=== PATIENT | male | born 1960 | race Caucasian/White ===

== ENCOUNTER 2020-10-14 18:56 | Inpatient (IN) | payer MEDICARE, MEDICAID, SELFPAY ==
--- NOTE | ~2020-10-14 | XR_ITS ---
EXAMINATION: XR abdomen obstructive series DATE: 10/16/2020 05:17 INDICATION: Follow-up small bowel obstruction TECHNIQUE: Frontal supine and upright views of the abdomen were obtained. COMPARISON: None. FINDINGS: Nasogastric tube tip in proximal side port in the body of the stomach. Persistent dilated loop of gas -filled small bowel may central abdomen. There are some additional gas scattered throughout nondilate d colon. No pneumatosis or free intraperitoneal gas. Lung bases are clear. Heart size is normal. IMPRESSION: 1. Dilated loops of gas-filled bowel in the central abdomen consistent with persistent small bowel o bstruction or ileus. Reviewed, dictated and finalized at location A. IMPRESSION: 1. Dilated loops of gas-filled bowel in the central abdomen consistent with pe rsistent small bowel obstruction or ileus.
--- NOTE | ~2020-10-14 | XR_ITS ---
EXAMINATION: XR abdomen NG/feed tube insert INDICATION: Nasogastric tube insertion TECHNIQUE: Portable AP KUB-NG at 2257 hours COMPARISON: CT from the same date FINDINGS: The nasogastric tube is in the stomach. Contrast from earlier CT examination partially opac ifies the urinary tract. There are dilated loops of small bowel, consistent with small bowel obstruct ion. The visualized lung bases are clear. IMPRESSION: 1. Nasogastric tube in the stomach. 2. Small bowel obstruction. Reviewed, dictated and finalized at location A.
--- NOTE | ~2020-10-14 | CT_ITS ---
EXAMINATION: CT abdomen pelvis w con EXAM DATE: 10/14/2020 20:48 INDICATION: Nausea vomiting, abdominal swelling. Abdominal pain. TECHNIQUE: Spiral CT of the abdomen and pelvis was performed following intravenous injection of 100 m L Omnipaque 350. Axial, coronal and sagittal images were reviewed. The dose-length product (DLP) fo r this examination was 374.74 mGy-cm. The exposure was tailored according to patient size (auto mA e xposure control), and iterative reconstruction (ASIR) was used as additional dose reduction technique . 07/17/2018 FINDINGS: The stomach and jejunum are severely dilated, jejunum up to 4.2 cm. No pneumatosis. There i s mid abdominal transition point suspected, most likely small bowel obstruction. Ileum is nearly comp letely collapsed. There is a 1 cm right liver lobe, segment 7 cyst. The liver, spleen, adrenal glands and pancreas are otherwise unremarkable. Gallbladder is unremarkable. No biliary obstruction. Por madelin and splenic veins are patent. Kidneys enhance symmetrically. There is no hydronephrosis. The prostate is unremarkable. The bladder is undistended at time of imaging. There is no retroperitonea l or pelvic lymphadenopathy. There is mild scattered arteriosclerotic disease. There are no findings to suggest appendicitis. The stomach and small bowel are unremarkable. There is expected amount of colonic stool. No free intraperitoneal gas. The heart is normal in size. T here are no pericardial or pleural effusions. The lung bases are unremarkable. There are no osteobl astic or osteolytic lesions identified. IMPRESSION: Mid small bowel obstruction. Reviewed, dictated and finalized at location A.
--- NOTE | ~2020-10-14 | XR_ITS ---
EXAMINATION: XR chest 2V DATE: 10/15/2020 02:04 INDICATION: Fever and vomiting TECHNIQUE: PA and lateral views of the chest are obtained. COMPARISON: 05/19/2015 FINDINGS: The lungs are free of acute opacities. There is no pleural effusion or pneumothorax. The ca rdiomediastinal silhouette is normal. There is mild thoracic spondylosis. The nasogastric tube is in the stomach. Multiple dilated small bowel loops with air-fluid levels are seen in the visualized uppe r abdomen. IMPRESSION: 1. No acute cardiopulmonary abnormality. 2. Findings in the upper abdomen consistent with small bowel obstruction. Reviewed, dictated and finalized at location A.
--- NOTE | ~2020-10-14 | XR_ITS ---
XR chest 1V portable 10/16/2020 09:36 Indication: Fever. Small bowel obstruction. Procedure: AP portable chest Comparison: 10/15/2020 and 05/19/2015 Findings: Heart size normal. NG tube in the stomach. Subsegmental atelectasis left lower lung zone. N o focal pneumonia, edema, pleural effusion or pneumothorax. No acute osseous abnormality. Impression: 1: Left basilar atelectasis. Reviewed, dictated and finalized at location B. Impression: 1: Left basilar atelectasis.
--- NOTE | ~2020-10-14 | XR_ITS ---
EXAMINATION: XR abdomen obstructive series DATE: 10/17/2020 06:08 INDICATION: Ileus versus small bowel obstruction. TECHNIQUE: Frontal supine and upright views of the abdomen were obtained. COMPARISON: 10/16/2020 FINDINGS: Nasogastric tube tip in proximal side port in the body of the stomach. There is a small amount of gas within a couple nondilated loops of small bowel in the left upper quadrant. Additional small amount of gas scattered throughout the colon. No free intraperitoneal gas. Visualized lungs are clear. Car diomediastinal silhouette is normal. IMPRESSION: 1. Nonspecific bowel gas pattern with no residual frankly dilated loops of gas-filled small bowel co nsistent with improving ileus versus obstruction. Reviewed, dictated and finalized at location A. IMPRESSION: 1. Nonspecific bowel gas pattern with no residual frankly dilated loops of gas -filled small bowel consistent with improving ileus versus obstruction.
--- NOTE | ~2020-10-14 | XR_ITS ---
EXAMINATION: XR sm bowel follow through WS EXAM DATE: 10/17/2020 11:00 INDICATION: Small bowel obstruction on CT. TECHNIQUE: Python Django Developer radiograph was acquired. Small bowel series was performed with water-soluble contr ast solution. The DAP for this procedure was 9.1 Gycm2. Fluoroscopy time 0.0 minutes. A total of 4 images obtained for the exam. FINDINGS: Feeding tube in position. There is moderately dilated jejunum. Ileal and jejunal fold patte rns are normal. There is no small bowel wall thickening or mass effect displacing small bowel. Ther e are no intraluminal filling defects identified. Terminal ileum visualized on KUB, is normal in valeria earance. Contrast reached the colon by 30 minutes. IMPRESSION: Moderately dilated jejunum, normal calibered ileum. Normal transit time of 30 minutes. Reviewed, dictated and finalized at location A.
[2020-10-14 18:58] VITALS: BP 123/84; PULSE 110; RESP 18; TEMP 36.4; O2SAT 98
--- NOTE | 2020-10-14 19:51 | PC.NURSE ---
Pt. amb to bathroom for urine sample.
[2020-10-14 19:54] LABS: Basophils Percent Auto 0.2 % (0.2-1.2); Hematocrit 40.7 % (42.0-52.0); Hemoglobin 13.3 g/dL (14.0-18.0); Immature Granulocyte Absolute 0.07 K/mm3 (0.00-0.031); Immature Granulocyte Percent A 0.6 % (0-0.5); Lymphocytes Absolute Auto 0.68 K/mm3 (0.9-3.2); Lymphocytes Percent Auto 6.3 % (18.3-44.2); Mean Corpuscular HGB Conc 32.7 g/dl (32-36); Mean Corpuscular Hemoglobin 34.1 pg (26-34); Mean Corpuscular Volume 104.4 fl (80-100); Mean Platelet Volume 10.6 fl (7.4-10.4); Monocytes Absolute Auto 0.9 K/mm3 (0.1-0.6); Monocytes Percent Auto 7.9 % (2.6-8.5); Neutrophils Absolute Auto 9.2 K/mm3 (1.3-6.7); Platelet Count Result 171 k/mm3 (150-375); Red Cell Distribution Width 13.3 % (11.5-14.5); White Blood Count 10.8 K/mm3 (4.5-10.0)
[2020-10-14 20:26] LABS: Alanine Aminotransferase 19 U/L (4-50); Albumin Level 3.9 g/dL (3.5-5.1); Alkaline Phosphatase 151 U/L (38-126); Anion Gap 6 mmol/L (8-16); Aspartate Amino Transferase 39 U/L (17-59); Bilirubin,Total 0.9 mg/dL (0.2-1.3); Blood Urea Nitrogen 16 mg/dL (9-20); Calcium 9.4 mg/dL (8.4-10.2); Carbon Dioxide 29 mmol/L (22-30); Chloride 105 mmol/L (98-107); Estimated Glomerular Filt Rate > 60; Glucose 135 mg/dL (75-110); Lipase 264 U/L (23-300); Potassium 4.3 mmol/L (3.4-5.0); Sodium 140 mmol/L (137-145)
--- NOTE | 2020-10-14 20:41 | ED.GENADULT ---
HPI - General Adult General Chief complaint: Abdominal Pain Stated complaint: SBO? Time Seen by Provider: 10/14/20 19:24 History of Present Illness HPI narrative: Patient 60-year-old gentleman who presents the emergency department with chief complaint of possible small bowel obstruction. Patient reports prior histories of small bowel obstructions in the past and the caregiver noticed that today he was eating slower than normal and noticed he had one episode of vomiting he is also had some diarrhea with this as well. Currently the patient states that he has no complaints and wants to get a CT scan and wants to go back home. Related Data Allergies Allergy/AdvReac Type Severity Reaction Status Date / Time No Known Allergies Allergy Unverified 10/14/20 19:01 Review of Systems Review of Systems: Narrative: A 10 system review of systems was completed on the patient and is negative except for what is stated in the HPI. Nursing and ancillary documentation was reviewed. PMFSH Social History Social History Gender identity (if verbalized by the patient): Male Sexual Orientation (if Verbalized by the Patient): Straight or Heterosexual Comments Past medical history significant for cognitive delay, small bowel obstruction Crohn's, anemia Social patient is a resident of a care facility Exam Narrative: Exam Narrative: GENERAL: Well-appearing, well-nourished, and in no acute distress. HEAD: Normocephalic, atraumatic. EYES: PERRLA and EOMI. ENT: Nares clear, no rhinorrhea or epistaxis. Mucous membranes moist. NECK: Supple. CHEST: Clear to auscultation. No respiratory distress. HEART: Regular rate and rhythm. No murmur heard. Normal peripheral pulses. ABDOMEN: Soft, nontender, nondistended, normal active bowel sounds. EXTREMITIES: Normal range of motion. No edema. SKIN: Warm, dry, no rash. NEURO: No focal deficits. Alert and oriented x3. PSYCH: Normal mood and affect. Course Vital Signs Vital signs: Vital Signs Temperature 36.4 C L 10/14/20 18:58 Pulse Rate 110 H 10/14/20 18:58 Respiratory Rate 18 10/14/20 18:58 Blood Pressure 123/84 10/14/20 18:58 Pulse Oximetry 98 10/14/20 18:58 Temperature 36.4 C L 10/14/20 18:58 Pulse Rate 110 H 10/14/20 18:58 Respiratory Rate 18 10/14/20 18:58 Blood Pressure 123/84 10/14/20 18:58 Pulse Oximetry 98 10/14/20 18:58 Medical Decision Making Vital Signs Vital Signs: Vital Signs Temperature 36.4 C L 10/14/20 18:58 Pulse Rate 110 H 10/14/20 18:58 Respiratory Rate 18 10/14/20 18:58 Blood Pressure 123/84 10/14/20 18:58 Pulse Oximetry 98 10/14/20 18:58 Temperature 36.4 C L 10/14/20 18:58 Pulse Rate 110 H 10/14/20 18:58 Respiratory Rate 18 10/14/20 18:58 Blood Pressure 123/84 10/14/20 18:58 Pulse Oximetry 98 10/14/20 18:58 Lab Data Result diagrams: 10/14/20 19:47 10/14/20 20:10 Labs: Lab Results 10/14/20 10/14/20 10/14/20 Range/Units 19:47 20:10 21:02 WBC 10.8 H (4.5-10.0) K/mm3 RBC 3.90 L (4.6-6.20) M/mm3 Hgb 13.3 L (14.0-18.0) g/dL Hct 40.7 L (42.0-52.0) % MCV 104.4 H (80-100) fl MCH 34.1 H (26-34) pg MCHC 32.7 (32-36) g/dl RDW 13.3 (11.5-14.5) % Plt Count 171 (150-375) k/mm3 MPV 10.6 H (7.4-10.4) fl Immature Gran % (Auto) 0.6 H (0-0.5) % Neut % (Auto) 85.0 H (45.5-73.1) % Lymph % (Auto) 6.3 L (18.3-44.2) % [place] % (Auto) 7.9 (2.6-8.5) % Eos % (Auto) 0.0 (0-4.4) % Baso % (Auto) 0.2 (0.2-1.2) % Lymph # (Auto) 0.68 L (0.9-3.2) K/mm3 [place] # (Auto) 0.9 H (0.1-0.6) K/mm3 Eos # (Auto) 0.0 (0-0.3) K/mm3 Baso # (Auto) 0.0 (0.0-0.1) K/mm3 Abs Immat Gran (auto) 0.07 H (0.00-0.031) K/mm3 Absolute Neuts (auto) 9.2 H (1.3-6.7) K/mm3 Absolute Nucleated RBC 0.0 (0.0-0.012) K/mm3 Nucleated RBC % 0.0 (0.0-0.2) % Sodium 140 (137-145) mmol/L Potassium 4.3 (3.4
[2020-10-14] MEDS: ONDANSETRON INJ 4 MG/2 ML VIAL IV PUSH (20:59)
[2020-10-14 21:00] VITALS: BP 116/82; PULSE 102; RESP 19; O2SAT 100
[2020-10-14] MEDS: SODIUM CHLORIDE 0.9% IV 1,000 ML 999 ML IV CONT (21:01)
[2020-10-14 21:13] LABS: Add Urine Microscopic? YES; Appearance Urine Cloudy (Clear); Bacteria Urine Trace /hpf; Bilirubin Urine 1+ (Negative); Blood Urine Negative (Negative); Color Urine Amber (Yellow); Glucose Urine UA Negative (Negative); Ketones Urine Trace mg/dL (Negative); Leukocyte Esterase Ur Negative LEU/UL (Negative); Mucus Urine Heavy /lpf; Nitrate Urine Negative (Negative); Protein Urine 2+ mg/dL (Negative); RBC Urine 0-2 /hpf (0-2); Squamous Epithelial Cell Urine Rare /hpf (Few); WBC Urine 0-3 /hpf
[2020-10-14 21:16] LABS: Specific Grav Ur 1.031 (1.001-1.035)
--- NOTE | 2020-10-14 22:59 | PC.NURSE ---
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 updated on pt. status. [phone]
[2020-10-14 23:04] VITALS: BP 123/75; PULSE 108; O2SAT 97
[2020-10-14 23:30] VITALS: BP 137/77; PULSE 103; RESP 18; TEMP 38.1; O2SAT 97; BMI 22.8
[2020-10-15] VITALS (9 sets, daily range): BP systolic 123–126; BP diastolic 53–81; PULSE 100–108; RESP 16–18; TEMP 36.2–37.8; O2SAT 96–100
--- NOTE | 2020-10-15 00:56 | PC.NURSE ---
This patient, Ricardo Sotomayor, was admitted to [facility] Surg Room 306-01. Patient/family oriented to hospital policies and general routines including ID bracelet, bed and alarms, visiting hours, pain management, procedures, bathroom and other care routines, personal items, smoking policy, room service/diet, and visiting hours. Information on how to activate the Rapid Response Team has been discussed. Patient/Family are encouraged to report perceived risks to care and to ask questions if they do not understand what they are told or what they should do.
--- NOTE | 2020-10-15 01:16 | PM.IMHP ---
H&P: HPI History of Present Illness Date/Time: 10/15/20 01:16 Chief Complaint: Vomiting Narrative: Source of information: Past medical records and ER report. The patient is oriented to person place and time but cannot provide details of recent events or his medical history. Extremely pleasant 60-year-old male with a past medical history of autism spectrum disorder, schizoaffective disorder, intellectual disability, Crohn's and history of multiple prior small bowel obstructions who presented to the ER home due to vomiting. Noticed that the patient was eating slower than usual today and had 1 episode of vomiting. He had evidently also had some diarrhea later in the day. The patient denies having any abdominal pain. He knows that he did have his last bowel movement prior to coming to the ER. The patient has no other complaints but he keeps talking about when he can go home. The patient has already had nearly a L of output from his NG since admission. According to prior medical records the patient's last bowel obstruction was in June of 2018 and was due to more of a colonic ileus. The patient was afebrile on presentation to the ER but after he arrived on the medical floor it he spiked a temperature to 100.6. The patient had his 2nd COVID vaccine September 20, 2020. He had a chest x-ray that demonstrated no evidence of pneumonia. He has not been witnessed to have any cough. Review of Systems Review of Systems: Narrative: 12 systems were reviewed with pertinent positives and negatives per HPI. Except as documented in the HPI, all other systems were reviewed and are negative. However the patient is extremely poor historian due to his intellectual disability and psychiatric illness. [facility] Past Medical History Medical History (Updated 10/15/20 @ 07:40 by Kanwal Saucedo DO) Autism spectrum disorder Chronic anemia Chronic megaloblastic anemia with high folate and B12 levels in 2018 Crohn's disease GERD (gastroesophageal reflux disease) Gout Hypercholesterolemia Hypothyroidism Intellectual disability Peptic ulcer Schizophrenia Surgical History Surgical History (Updated 10/15/20 @ 07:20 by Kanwal Saucedo DO) History of appendectomy (~12/07/03) Performed at the same time as the exploratory laparotomy History of exploratory laparotomy (~12/07/03) With adhesion lysis due to bowel obstruction Family History Family History (Updated 10/15/20 @ 01:23 by Kanwal Saucedo DO) Other Unknown family medical history Social History Social History (Updated 10/15/20 @ 01:26 by Kanwal Saucedo, ) Social History: He lives in a retirement in [place]. Primary care physician: Dr. Isael Lanier Code status: Full code Healthcare power of bread molder: Jose Manuel Sotomayor (father) Smoking status: Never smoker Alcohol intake: never Substance use: never Gender identity (if verbalized by the patient): Male Sexual Orientation (if Verbalized by the Patient): Straight or Heterosexual Spiritual care concerns: No Meds Home Medications and Allergies Home Medications Medication Instructions Recorded Confirmed Type cetirizine [All Day Allergy 10 mg PO DAILY 10/15/20 10/15/20 History (cetirizine)] clozapine See Rx Instructions .ROUTE .COMPLEX 10/15/20 10/15/20 History divalproex 1,000 mg PO BID 10/15/20 10/15/20 History ergocalciferol (vitamin D2) 50,000 unit PO WEEKLY 10/15/20 10/15/20 History escitalopram oxalate 20 mg PO DAILY 10/15/20 10/15/20 History fenofibrate 160 mg PO DAILY 10/15/20 10/15/20 History folic acid 1 mg PO DAILY 10/15/20 10/15/20 History levothyroxine 100 mcg PO DAILY 10/15/20 10/15/20 History linaclotide [Linzess] 145 mcg PO DAILY 10/15/20 10/15/20 History multivitamin,tx-minerals [Thera M] 1 tablet PO DAILY 10/15/20 10/15/20 History omega 1-fyk-teo-fish oil [Fish Oil] 1 cap PO BID 10/15/20 10/15/20 History omeprazole 40 mg PO BID 10/15/20 10/15/20 History polyethylene glycol 3350 [Fco
[2020-10-15] MEDS: SODIUM CHLORIDE 0.9% IV 1,000 ML 125 ML IV CONT ×3 (01:45→19:49)
[2020-10-15 02:09] LABS: Lactic Acid Reflex 0.7 mmol/L (0.7-2.1)
[2020-10-15 06:27] LABS: Immature Granulocyte Absolute 0.04 K/mm3 (0.00-0.031); Immature Granulocyte Percent A 0.5 % (0-0.5); Lymphocytes Absolute Auto 0.84 K/mm3 (0.9-3.2); Lymphocytes Percent Auto 11.5 % (18.3-44.2); Mean Corpuscular HGB Conc 33.3 g/dl (32-36); Mean Corpuscular Hemoglobin 34.6 pg (26-34); Mean Corpuscular Volume 103.7 fl (80-100); Mean Platelet Volume 10.7 fl (7.4-10.4); Monocytes Percent Auto 13.5 % (2.6-8.5); Neutrophils Absolute Auto 5.5 K/mm3 (1.3-6.7); Neutrophils Percent Auto 74.5 % (45.5-73.1); Platelet Count Result 149 k/mm3 (150-375); Red Blood Count 3.47 M/mm3 (4.6-6.20); Red Cell Distribution Width 13.2 % (11.5-14.5); White Blood Count 7.3 K/mm3 (4.5-10.0)
[2020-10-15 06:40] LABS: Anion Gap 5 mmol/L (8-16); Blood Urea Nitrogen 15 mg/dL (9-20); Calcium 8.5 mg/dL (8.4-10.2); Carbon Dioxide 28 mmol/L (22-30); Chloride 108 mmol/L (98-107); Estimated CRCL calculation 107 ml/min; Estimated Glomerular Filt Rate > 60; Glucose 103 mg/dL (75-110); Potassium 3.6 mmol/L (3.4-5.0); Sodium 141 mmol/L (137-145)
[2020-10-15] MEDS: PANTOPRAZOLE SODIUM IV 40 MG VIAL IV PUSH ×2 (08:15→20:48)
[2020-10-15] MEDS: METOPROLOL TARTRATE INJ 5 MG/5 ML VIAL 2.5 MG IV PUSH ×3 (08:16→20:45)
[2020-10-15] MEDS: LEVOTHYROXINE SODIUM INJ 100 MCG/5 ML VIAL 50 MCG IV PUSH (08:17)
--- NOTE | 2020-10-15 11:11 | PM.IMPN ---
Progress Note: A&P Assessment and Plan (1) Small bowel obstruction: Code(s): K56.609 - Unspecified intestinal obstruction, unspecified as to partial versus complete obstruction Status: Acute Assessment and Plan: He has a hx of constipation and he is maintained on a bowel regimen. He also has a hx of appendectomy/exploratory laparotomy in 2003. He has had at least 4 prior small bowel obstructions in the past. He has Chron's disease and he is maintained on sulfasalazine. CT abd/pelvis demonstrated severe dilation of the stomach and jejunum with mid abdominal transition point suspected and concerning for small bowel obstruction. Repeat plain films still demonstrating SBO today. General surgery is following with management deferred to general surgery Continue bowel rest/NPO. NG in place to low intermittent suction Continue pantoprazole Given hx of Chron's, I discussed his current CT findings with radiology who notes there are new strictures present since prior imaging. Per radiology, it is difficult to determine if there is any acute inflammatory process causing obstruction but this does not to be an acute Chron's flare at this time. I will consult gastroenterology for further input regarding if steroids are recommended. Check ESR and CRP. Fecal calprotectin and lactoferrin ordered and pending. (2) Crohn's disease: Code(s): K50.90 - Crohn's disease, unspecified, without complications Status: Chronic Assessment and Plan: He is maintained on sulfasalazine. Resume when clinically appropriate. GI consult placed given SBO with hx of Chron's. Unclear at this time if this is related to an acute Chron's flare. (3) Sepsis: Code(s): A41.9 - Sepsis, unspecified organism Status: Acute Assessment and Plan: Sepsis criteria met on presentation with leukocytosis, fever, and tachycardia. Leukocytosis resolved with IV fluid rehydration. Tmax was 100.6F and has resolved. There is no obvious source of infection at this time. This could be secondary to inflammatory process related to small bowel obstruction. Urinalysis does not suggest UTI. CXR demonstrates no evidence of consolidation. Aspiration considered given the episode of vomiting but he has no respiratory complaints at this time. He has received both COVID-19 vaccines. Lactic acid was normal. Blood cultures ordered and pending Plan for repeat CXR tomorrow Will monitor very closely and will not initiate antibiotics unless there is clear evidence of infection (4) Psychiatric illness: Code(s): F99 - Mental disorder, not otherwise specified Status: Acute Assessment and Plan: Stable at this time. Depakote, clozapine and Lexapro are on hold due to NPO status. Resume when clinically appropriate. (5) Tachycardia: Code(s): R00.0 - Tachycardia, unspecified Status: Acute Assessment and Plan: He has a hx of chronic tachycardia and is on propranolol prior to admission. This is held due to vomiting. Lopressor 2.5mg q6H initiated while NPO with parameters Resume propranolol when no longer NPO (6) Chronic anemia: Code(s): D64.9 - Anemia, unspecified Status: Chronic Assessment and Plan: Macrocytic. Labs are consistent with baseline. He is on divalproex which may be contributing and he takes folic acid and vitamin B complex supplements. Follow trend with CBC daily (7) Hypercholesterolemia: Code(s): E78.00 - Pure hypercholesterolemia, unspecified Status: Chronic Assessment and Plan: Resume fenofibrate and omega 3 when no longer NPO. (8) Hypothyroidism: Code(s): E03.9 - Hypothyroidism, unspecified Status: Acute Assessment and Plan: Check TSH. Continue IV levothyroxine for now while NPO Subjective Date/time seen: 10/15/20 11:11 Mr. Sotomayor is a very pleasant 60 y.o. male with PMH significant for recurrent small
[2020-10-15 12:55] LABS: CRP 2.8 mg/dL (<1.0)
[2020-10-15 13:22] LABS: Erythrocyte Sedimentation Rate 20 mm/hr (0-20)
--- NOTE | 2020-10-15 13:26 | PM.CNGS ---
Assessment and Plan Assessment and plan (1) Small bowel obstruction: Onset Date: Unknown Code(s): K56.609 - Unspecified intestinal obstruction, unspecified as to partial versus complete obstruction Status: Acute Assessment and Plan: This showed up on abdominal CT yesterday. Still showing some dilated loops of small bowel on plain film today. Significant output of brownish dark fluid from the stomach per NG.( pt on q 12 hr. Protonix) Will try to treat this conservatively as he has resolved multiple other episodes of ileus versus bowel obstruction conservatively. Lactic acid has been normal. Will recheck abdominal obstructive series of x-rays tomorrow and repeat labs in a.m. including lactic acid. (2) Psychiatric illness: Onset Date: Unknown Code(s): F99 - Mental disorder, not otherwise specified Status: Acute Assessment and Plan: Will resume psychiatric meds upon removal of NG. May need something IV in the interim until oral meds can be resumed. (3) Chronic anemia: Onset Date: Unknown Code(s): D64.9 - Anemia, unspecified Status: Chronic Assessment and Plan: Apparently on some meds for this including vitamin B12. Hemoglobin not dangerously low. (4) Hypercholesterolemia: Onset Date: Unknown Code(s): E78.00 - Pure hypercholesterolemia, unspecified Status: Chronic Assessment and Plan: Resume home meds when diet resumes. (5) Hypothyroidism: Onset Date: Unknown Code(s): E03.9 - Hypothyroidism, unspecified Status: Acute Assessment and Plan: On supplementation at home. Medicine checking TSH level. History of Present Illness Consult details Consult date: 10/15/20 Reason for consult: other ( apparent small-bowel obstruction by CT) Requesting physician: Kanwal Saucedo DO Narrative: Past medical records and ER report are a portion of the information source for this consult. The patient is oriented to person place and time but cannot provide details of recent events or his medical history. This is a pleasant 60-year-old male with a past medical history of autism spectrum disorder, schizoaffective disorder, intellectual disability, Crohn's and history of multiple prior small bowel obstructions who presented to the ER at [facility] last night from his alf due to vomiting. Apparently it was noticed by his caretakers that the patient was eating slower than usual and then had 1 episode of vomiting. He had evidently also had some diarrhea later in the day. The patient denies having any abdominal pain now or yesterday. He also denies that he felt bloated yesterday. He knows that he did have his last bowel movement prior to coming to the ER yesterday. The patient has no other complaints but he keeps talking about when he can go home. The patient has already had 1750 cc of output from his NG since admission. According to prior medical records the patient's last bowel obstruction was in June of 2018 and was due to more of a colonic ileus. The patient was afebrile on presentation to the ED, but after he arrived on the medical floor it he spiked a temperature to 100.6. ( today his temp has been in the normal range. The patient had his 2nd COVID vaccine September 20, 2020. He had a chest x-ray that demonstrated no evidence of pneumonia. He has not been witnessed to have any cough. Review of Systems Constitutional: Constitutional: Reports as per HPI and Denies headache(s) Eyes: Eyes: Denies loss of vision and Denies eye pain ENT: Reports Normal hearing present, Denies change in voice, Denies dizziness and Denies headache(s) Cardiovascular: Cardiovascular: Denies chest pain and Denies dyspnea Respiratory: Respiratory: Denies dyspnea and Denies wheezing Gastrointestinal: Gastrointestinal: Reports as per HPI, Reports abdominal pain, Denies diarrhea, Denies nausea and Denies vomiting Comments: Previous history of a l
[2020-10-15] MEDS: ENOXAPARIN 40 MG/0.4 ML SYRINGE SUB-Q (20:48)
[2020-10-16] VITALS (8 sets, daily range): BP systolic 121–136; BP diastolic 57–80; PULSE 80–112; RESP 16; TEMP 36.4–37.2; O2SAT 92–100
[2020-10-16] MEDS: METOPROLOL TARTRATE INJ 5 MG/5 ML VIAL 2.5 MG IV PUSH ×4 (02:05→20:40)
[2020-10-16] MEDS: SODIUM CHLORIDE 0.9% IV 1,000 ML 125 ML IV CONT (03:50)
[2020-10-16 05:41] LABS: Basophils Percent Auto 0.3 % (0.2-1.2); Hematocrit 33.1 % (42.0-52.0); Immature Granulocyte Absolute 0.04 K/mm3 (0.00-0.031); Immature Granulocyte Percent A 0.6 % (0-0.5); Lymphocytes Absolute Auto 1.19 K/mm3 (0.9-3.2); Lymphocytes Percent Auto 18.3 % (18.3-44.2); Mean Corpuscular HGB Conc 33.2 g/dl (32-36); Mean Corpuscular Hemoglobin 34.6 pg (26-34); Mean Corpuscular Volume 104.1 fl (80-100); Mean Platelet Volume 10.3 fl (7.4-10.4); Monocytes Absolute Auto 0.8 K/mm3 (0.1-0.6); Monocytes Percent Auto 12.6 % (2.6-8.5); Neutrophils Absolute Auto 4.4 K/mm3 (1.3-6.7); Neutrophils Percent Auto 68.2 % (45.5-73.1); Platelet Count Result 121 k/mm3 (150-375); Red Blood Count 3.18 M/mm3 (4.6-6.20); Red Cell Distribution Width 13.1 % (11.5-14.5); White Blood Count 6.5 K/mm3 (4.5-10.0)
[2020-10-16 05:51] LABS: Lactic Acid Reflex 0.8 mmol/L (0.7-2.1)
[2020-10-16 05:52] LABS: Alanine Aminotransferase 17 U/L (4-50); Alkaline Phosphatase 92 U/L (38-126); Anion Gap 5 mmol/L (8-16); Aspartate Amino Transferase 37 U/L (17-59); Bilirubin,Total 0.7 mg/dL (0.2-1.3); Blood Urea Nitrogen 11 mg/dL (9-20); Calcium 7.9 mg/dL (8.4-10.2); Carbon Dioxide 28 mmol/L (22-30); Chloride 108 mmol/L (98-107); Estimated CRCL calculation 123 ml/min; Estimated Glomerular Filt Rate > 60; Glucose 77 mg/dL (75-110); Magnesium 1.5 mg/dL (1.6-2.3); Phosphorus 2.9 mg/dL (2.5-4.5); Potassium 3.7 mmol/L (3.4-5.0); Sodium 141 mmol/L (137-145)
[2020-10-16] MEDS: LEVOTHYROXINE SODIUM INJ 100 MCG/5 ML VIAL 50 MCG IV PUSH (06:58)
[2020-10-16] MEDS: MAGNESIUM SULF 2 GM/WATER 50ML 2 GM/50 ML BAG IVPB (07:59)
[2020-10-16] MEDS: PANTOPRAZOLE SODIUM IV 40 MG VIAL IV PUSH ×2 (08:04→20:41)
--- NOTE | 2020-10-16 08:38 | PM.IMPN ---
Progress Note: A&P Assessment and Plan (1) Small bowel obstruction: Onset Date: Unknown Code(s): K56.609 - Unspecified intestinal obstruction, unspecified as to partial versus complete obstruction Status: Acute Assessment and Plan: He has a hx of constipation and he is maintained on a bowel regimen. He also has a hx of appendectomy/exploratory laparotomy in 2003. He has had at least 4 prior small bowel obstructions in the past. He has Chron's disease and he is maintained on sulfasalazine. CT abd/pelvis demonstrated severe dilation of the stomach and jejunum with mid abdominal transition point suspected and concerning for small bowel obstruction. Repeat plain films demonstrate persistent SBO. ESR normal and CRP mildly elevated at 2.8. NG tube output has decreased. He had ~1850 yesterday. General surgery is following with management deferred to general surgery Continue bowel rest/NPO. NG in place to low intermittent suction Continue IV fluids Continue analgesics and antiemetics as needed Continue pantoprazole Given hx of Chron's, I discussed his current CT findings with radiology who notes there are new strictures present since prior imaging. Per radiology, it is difficult to determine if there is any acute inflammatory process causing obstruction but this does not to be an acute Chron's flare at this time. ESR normal and CRP only mildly elevated. Gastroenterology consulted for further input regarding if steroids are recommended. Fecal calprotectin and lactoferrin ordered and pending but pt has not had a bowel movement. (2) Crohn's disease: Code(s): K50.90 - Crohn's disease, unspecified, without complications Status: Chronic Assessment and Plan: He is maintained on sulfasalazine. Resume when clinically appropriate. GI consult placed given SBO with hx of Chron's. This does not appear to be related to a Chron's flare. (3) Sepsis: Code(s): A41.9 - Sepsis, unspecified organism Status: Acute Assessment and Plan: Sepsis criteria met on presentation with leukocytosis, fever, and tachycardia. Leukocytosis resolved with IV fluid rehydration. Tmax was 100.6F and has resolved with no further fever since 10/14. There is no obvious source of infection at this time. This could be secondary to inflammatory process related to small bowel obstruction. Urinalysis does not suggest UTI. CXR demonstrates no evidence of consolidation. Aspiration considered given the episode of vomiting but he has no respiratory complaints. WBC remains normal. He has received both COVID-19 vaccines. Lactic acid was normal again today. He has hx of tachycardia and is on propranolol which is held due to NPO w/ NG in place. Blood cultures ordered and pending Repeat CXR ordered Will monitor very closely and will not initiate antibiotics unless there is clear evidence of infection (4) Psychiatric illness: Onset Date: Unknown Code(s): F99 - Mental disorder, not otherwise specified Status: Acute Assessment and Plan: Stable at this time. Depakote, clozapine and Lexapro are on hold due to NPO status. Resume when clinically appropriate. (5) Tachycardia: Code(s): R00.0 - Tachycardia, unspecified Status: Acute Assessment and Plan: He has a hx of chronic tachycardia and is on propranolol prior to admission. This is held due to vomiting. Lopressor 2.5mg q6H initiated while NPO with parameters Resume propranolol when no longer NPO (6) Chronic anemia: Onset Date: Unknown Code(s): D64.9 - Anemia, unspecified Status: Chronic Assessment and Plan: Macrocytic. Labs are consistent with baseline. He is on divalproex which may be contributing and he takes folic acid and vitamin B complex supplements. Follow trend with CBC daily (7) Hypercholesterolemia: Onset Date: Unknown Code(s): E78.00 - Pure hypercholestero
--- NOTE | 2020-10-16 09:23 | WPDCDIQUERY2 ---
CDI Query Clarification Request -Sepsis and patient fit sepsis criteria on presentation with leukocytosis, fever and tachycardia. has been documented. - There is no obvious source of infection at this time. This could be secondary to inflammatory process related to small bowel obstruction documented. -An infection or suspected infection must be present for sepsis criteria to be met. Please clarify if sepsis has been ruled in or ruled out.
[2020-10-16] MEDS: MAGNESIUM HYDROXIDE SUSP 30 ML UDC FEED TUBE (09:24)
[2020-10-16] MEDS: BISACODYL 10 MG SUPPOSITORY RECTAL (09:24)
[2020-10-16] MEDS: SODIUM CHLORIDE 0.9% IV 1,000 ML 100 ML IV CONT ×2 (13:05→23:22)
--- NOTE | 2020-10-16 14:24 | PM.PNGS ---
Progress Note: A&P Assessment and Plan (1) Small bowel obstruction: Onset Date: Unknown Code(s): K56.609 - Unspecified intestinal obstruction, unspecified as to partial versus complete obstruction Status: Acute Assessment and Plan: This showed up on abdominal CT on Friday. Still showing some dilated loops of small bowel on plain film today with some air in colon. Significant output of brownish dark fluid from the stomach per NG.( pt on q 12 hr. Protonix) Will try to treat this conservatively as he has resolved multiple other episodes of ileus versus bowel obstruction conservatively. Lactic acid has been normal. Will recheck abdominal obstructive series of x-rays tomorrow and repeat labs in a.m. If not clearly improved may do small-bowel follow-through tomorrow. (2) Psychiatric illness: Onset Date: Unknown Code(s): F99 - Mental disorder, not otherwise specified Status: Acute Assessment and Plan: Will resume psychiatric meds upon removal of NG. May need something IV in the interim until oral meds can be resumed. (3) Chronic anemia: Onset Date: Unknown Code(s): D64.9 - Anemia, unspecified Status: Chronic Assessment and Plan: Apparently on some meds for this including vitamin B12. Hemoglobin not dangerously low. (4) Hypercholesterolemia: Onset Date: Unknown Code(s): E78.00 - Pure hypercholesterolemia, unspecified Status: Chronic Assessment and Plan: Resume home meds when diet resumes. (5) Hypothyroidism: Onset Date: Unknown Code(s): E03.9 - Hypothyroidism, unspecified Status: Acute Assessment and Plan: On supplementation at home. Medicine checking TSH level. Subjective Subjective Date/Time Seen: 10/16/20 14:24 Patient again denies abdominal pain. Nurse denies any vomiting. NG output is less overnight. No bowel movement yet. Review of Systems Constitutional: Constitutional: Reports as per HPI and Denies headache(s) Eyes: Eyes: Denies loss of vision and Denies eye pain ENT: Reports Normal hearing present, Denies change in voice, Denies dizziness and Denies headache(s) Cardiovascular: Cardiovascular: Denies chest pain and Denies dyspnea Respiratory: Respiratory: Denies dyspnea and Denies wheezing Gastrointestinal: Gastrointestinal: Reports as per HPI, Denies diarrhea, Denies nausea and Denies vomiting Genitourinary: Comments: Still occasionally incontinent of urine per nurse's Musculoskeletal: Musculoskeletal: Denies back pain and Denies arthralgias Neurologic: Reports Normal hearing present, Denies dizziness, Denies headache(s), Denies loss of vision and Denies memory loss Psychiatric: Psychiatric: Denies memory loss and Denies panic attacks Exam Const: General: cooperative, no acute distress, well developed, alert and awake Nutritional Appearance: well nourished Orientation/consciousness: patient oriented x3 Limitations: altered mental status Other: Tall and thin some mental impairment. (Talks only about previous surgery and when he can get out of the hospital.) HENMT: Head: normal to inspection, normocephalic and atraumatic Ears: hearing grossly normal bilaterally General nose exam: Normal external nose present Face and sinus: normal facial exam Mouth: Yes Normal oral and palatal mucosa present, Yes tongue normal and Yes moist mucous membranes Eyes: General: appearance normal, both eyes and all related structures Pupils: Equal, round and reactive pupils present EOM: EOMs intact bilaterally Neck: Neck: normal visual inspection, no lymphadenopathy, trachea midline and supple Lymphatic: no lymphadenopathy noted Chest: Chest palpation & inspection: normal inspection of the chest Resp: Effort & Inspection: normal respiratory effort and able to speak in complete sentences Auscultation: clear to auscultation bilaterally and rhonchi ( mid lung broussard bilateral) Cardio: Ju
--- NOTE | 2020-10-16 18:09 | WPDGICN ---
Assessment and Plan Assessment and plan (1) Small bowel obstruction: Onset Date: Unknown Code(s): K56.609 - Unspecified intestinal obstruction, unspecified as to partial versus complete obstruction Status: Acute Assessment and Plan: management by surgery, ngt in place and he does not have any more n/v agree with bowel regimen (2) Nausea and vomiting in adult: Code(s): R11.2 - Nausea with vomiting, unspecified Status: Acute Assessment and Plan: medical management (3) Autism spectrum disorder: Code(s): F84.0 - Autistic disorder Status: Inactive (4) Crohn's disease: Code(s): K50.90 - Crohn's disease, unspecified, without complications Status: Chronic Assessment and Plan: we will need more records, get inflammatory markers (5) Psychiatric illness: Onset Date: Unknown Code(s): F99 - Mental disorder, not otherwise specified Status: Acute GI Consult Note Consult date/time: 10/16/20 18:09 Reason for consult: sbo HPI: Ricardo Sotomayor is a 60 year old male with history of autism spectrum disorder, schizoaffective disorder, intellectual disability (difficult to get history), questionable Crohn's and history of multiple prior small bowel obstructions who came to the ER at [facility] from [place] [facility] due to vomiting. Apparently it was noticed by his caretakers that the patient was eating slower than usual and then had one episode of vomiting. NGT was placed and evaluated by surgery. In the past he had colonic ileus. He had a chest x-ray that demonstrated no evidence of pneumonia. CT a/p reviewed, showed mid small bowel obstruction. Patient now is comfortable, NGT in place Review of Systems Constitutional: Constitutional: Denies night sweats Eyes: Eyes: Denies blurry vision ENT: Reports system reviewed and no additional complaints, except as documented Cardiovascular: Cardiovascular: Reports no additional cardiovascular complaints Respiratory: Respiratory: Reports no additional respiratory complaints Gastrointestinal: Gastrointestinal: Reports nausea and Reports vomiting Genitourinary: Genitourinary: Denies dysuria Musculoskeletal: Musculoskeletal: Denies neck pain Integumentary/Breasts: Skin/Breast: Denies dry skin Neurologic: Denies numbness Psychiatric: Psychiatric: Reports behavioral changes PMFSH Past Medical History Medical History Autism spectrum disorder Chronic anemia Chronic megaloblastic anemia with high folate and B12 levels in 2018 Crohn's disease GERD (gastroesophageal reflux disease) Gout Hypercholesterolemia Hypothyroidism Intellectual disability Peptic ulcer Schizophrenia Surgical History Surgical History History of appendectomy (~12/07/03) Performed at the same time as the exploratory laparotomy History of exploratory laparotomy (~12/07/03) With adhesion lysis due to bowel obstruction Family History Family History Other Unknown family medical history Social History Social History Social History: He lives in a [place] [facility] in [place]. Primary care physician: Dr. Isael Lanier Code status: Full code Healthcare power of city attorney: Jose Manuel Sotomayor (father) Smoking status: Never smoker Alcohol intake: never Substance use: never Gender identity (if verbalized by the patient): Male Sexual Orientation (if Verbalized by the Patient): Straight or Heterosexual Spiritual care concerns: No Meds Home Medications and Allergies Home Medications Medication Instructions Recorded Confirmed Type cetirizine [All Day Allergy 10 mg PO DAILY 10/15/20 10/15/20 History (cetirizine)] clozapine See Rx Instructions .ROUTE .COMPLEX 10/15/20 10/15/20 Histor
[2020-10-16] MEDS: DEXTROSE 50% 25 GM/50 ML SYRINGE IV PUSH (20:18)
[2020-10-16 20:37] LABS: Glucose Point of Care 132 (65-105)
[2020-10-16 20:37] LABS: Glucose Point of Care 63 (65-105)
[2020-10-16] MEDS: ENOXAPARIN 40 MG/0.4 ML SYRINGE SUB-Q (20:42)
[2020-10-17 02:00] VITALS: PULSE 92
[2020-10-17] MEDS: METOPROLOL TARTRATE INJ 5 MG/5 ML VIAL 2.5 MG IV PUSH ×4 (02:00→19:59)
[2020-10-17] MEDS: LEVOTHYROXINE SODIUM INJ 100 MCG/5 ML VIAL 50 MCG IV PUSH (05:41)
[2020-10-17 05:46] LABS: Basophils Percent Auto 0.2 % (0.2-1.2); Eosinophils Percent Auto 0.2 % (0-4.4); Hemoglobin 10.4 g/dL (14.0-18.0); Immature Granulocyte Absolute 0.02 K/mm3 (0.00-0.031); Immature Granulocyte Percent A 0.3 % (0-0.5); Lymphocytes Absolute Auto 1.04 K/mm3 (0.9-3.2); Mean Corpuscular HGB Conc 33.5 g/dl (32-36); Mean Corpuscular Hemoglobin 34.1 pg (26-34); Mean Corpuscular Volume 101.6 fl (80-100); Mean Platelet Volume 10.4 fl (7.4-10.4); Monocytes Absolute Auto 0.8 K/mm3 (0.1-0.6); Monocytes Percent Auto 12.2 % (2.6-8.5); Neutrophils Absolute Auto 4.3 K/mm3 (1.3-6.7); Neutrophils Percent Auto 70.1 % (45.5-73.1); Platelet Count Result 137 k/mm3 (150-375); Red Blood Count 3.05 M/mm3 (4.6-6.20); Red Cell Distribution Width 12.9 % (11.5-14.5); White Blood Count 6.1 K/mm3 (4.5-10.0)
[2020-10-17 05:59] VITALS: BP 124/64; PULSE 98; RESP 16; TEMP 36.7; O2SAT 98
[2020-10-17 06:01] LABS: Potassium 3.8 mmol/L (3.4-5.0)
[2020-10-17 06:05] LABS: Anion Gap 3 mmol/L (8-16); Blood Urea Nitrogen 7 mg/dL (9-20); Calcium 7.9 mg/dL (8.4-10.2); Carbon Dioxide 28 mmol/L (22-30); Chloride 106 mmol/L (98-107); Estimated CRCL calculation 123 ml/min; Estimated Glomerular Filt Rate > 60; Glucose 73 mg/dL (75-110); Magnesium 1.7 mg/dL (1.6-2.3); Sodium 137 mmol/L (137-145)
[2020-10-17 06:19] LABS: CRP 12.4 mg/dL (<1.0)
[2020-10-17 06:27] LABS: Erythrocyte Sedimentation Rate 24 mm/hr (0-20)
[2020-10-17 08:00] VITALS: PULSE 74; RESP 16; O2SAT 100
[2020-10-17 08:58] VITALS: PULSE 74
[2020-10-17] MEDS: SODIUM CHLORIDE 0.9% IV 1,000 ML 100 ML IV CONT ×2 (09:03→19:57)
[2020-10-17] MEDS: PANTOPRAZOLE SODIUM IV 40 MG VIAL IV PUSH ×2 (09:04→19:58)
--- NOTE | 2020-10-17 10:19 | PC.NURSE ---
To Radiology per [ W/C SBS]
--- NOTE | 2020-10-17 10:21 | PM.IMPN ---
Progress Note: A&P Assessment and Plan (1) Small bowel obstruction: Onset Date: Unknown Code(s): K56.609 - Unspecified intestinal obstruction, unspecified as to partial versus complete obstruction Status: Acute Assessment and Plan: He has had at least 4 prior small bowel obstructions in the past. May be related to adhesions from prior abdominal surgery (appendectomy and exploratory laparotomy) or Crohn's disease. He has history of chronic constipation. CT abd/pelvis demonstrated severe dilation of the stomach and jejunum with mid abdominal transition point suspected and concerning for small bowel obstruction. Repeat plain films demonstrate persistent SBO. ESR and CRP elevated. He has had approx 2000 ml dark brown output from NG tube General surgery is following. Input is appreciated. Small-bowel follow-through ordered today. Await results. Bowel rest/NPO. NG in place to low intermittent suction Continue IV fluids while NPO Analgesics and antiemetics as needed Continue pantoprazole (2) Crohn's disease: Code(s): K50.90 - Crohn's disease, unspecified, without complications Status: Chronic Assessment and Plan: Given hx of Crohn's, current CT findings discussed with radiology who notes new strictures present since prior imaging. Per radiology, it is difficult to determine if there is any acute inflammatory process causing obstruction but this does not seem to be an acute Crohn's flare at this time. Home sulfasalazine on hold while NPO. Resume when clinically appropriate. GI consult placed given SBO with hx of Crohn's. Input appreciated. Calprotectin and lactoferrin pending. (3) SIRS (systemic inflammatory response syndrome): Code(s): R65.10 - Systemic inflammatory response syndrome (SIRS) of non-infectious origin without acute organ dysfunction Status: Acute Assessment and Plan: SIRS criteria met on presentation with leukocytosis, fever, and tachycardia. T-max was 100.6? and has resolved. He has been afebrile >72 hours. Leukocytosis and tachycardia has resolved. Preliminary blood cultures negative to date. Lactic acid within normal limits. No signs or symptoms to suggest underlying infection including urinary tract infection or respiratory infection. Vital signs remain stable. Suspect that this is inflammatory response related to SBO. Monitor clinically. Await final blood cultures. (4) Schizophrenia: Code(s): F20.9 - Schizophrenia, unspecified Status: Inactive Assessment and Plan: Mood is stable this time. Depakote, clozapine and Lexapro are on hold due to NPO status. Resume when clinically appropriate. (5) Tachycardia: Code(s): R00.0 - Tachycardia, unspecified Status: Acute Assessment and Plan: He has a hx of chronic tachycardia and is on propranolol prior to admission. Heart rate is improved with medication. Lopressor 2.5mg q6H initiated while NPO with parameters Resume propranolol when no longer NPO (6) Chronic anemia: Onset Date: Unknown Code(s): D64.9 - Anemia, unspecified Status: Chronic Assessment and Plan: Macrocytic. Labs are consistent with baseline. Vital signs are stable and he no signs of bleeding. Follow trend with CBC daily Check iron panel, B12 and folate (7) Hypercholesterolemia: Onset Date: Unknown Code(s): E78.00 - Pure hypercholesterolemia, unspecified Status: Chronic Assessment and Plan: Resume fenofibrate and omega 3 when no longer NPO. (8) Hypothyroidism: Onset Date: Unknown Code(s): E03.9 - Hypothyroidism, unspecified Status: Acute Assessment and Plan: TSH is within normal limits. Continue IV levothyroxine while NPO (9) Hypomagnesemia: Code(s): E83.42 - Hypomagnesemia Status: Acute Assessment and Plan: Magnesium 1.5. Likely secondary to NPO sta
--- NOTE | 2020-10-17 11:45 | PM.PNGS ---
Progress Note: A&P Assessment and Plan (1) Small bowel obstruction: Onset Date: Unknown Code(s): K56.609 - Unspecified intestinal obstruction, unspecified as to partial versus complete obstruction Status: Acute Assessment and Plan: Showing signs of clinical improvement with conservative measures. Abdominal films this morning showed a nonspecific bowel gas pattern. Gastrografin SBFT ordered by Dr. Ferguson this morning. I have reviewed this and it shows a normal transit time of 30 min. Will remove NG tube and start clear liquid diet. Encouraged increased activity, walking the halls. (2) Psychiatric illness: Onset Date: Unknown Code(s): F99 - Mental disorder, not otherwise specified Status: Deleted Assessment and Plan: Okay to resume home medications once tolerating liquids. Management per Hospitalist. Additional Plan I discussed the plan of care with Dr. Ferguson. Subjective Subjective Date/Time Seen: 10/17/20 11:45 Patient reports: no new complaints and feels better Interval history: Patient denies abdominal pain, nausea, or vomiting. He has his NG tube clamped at the time of my evaluation for his small bowel series. He cannot recall a BM, but a BM was documented over the past 24 hours from nursing. No other complaints. Review of Systems Review of Systems: All systems reviewed & are unremarkable except as noted in HPI and below Exam Const: General: no acute distress, alert and awake Orientation/consciousness: patient oriented x3 Limitations: other limitations (mental impairment, will answer yes/no questions) GI: Inspection: other (mildly distended) GI Palp: Yes Soft to palpation, No Tenderness to palpation present (GI) and No Guarding due to palpation present (GI) Auscultation: normal bowel sounds Other: NG tube clamped Neuro: General: no focal motor deficits Extrem: General: no clubbing, cyanosis or edema and no calf tenderness Psych: Mental Status: mental status grossly normal Insight: Good insight present (Psych) Objective Data Vital Signs Vital Signs: Vital Signs - 24 hr 10/16/20 13:58 10/16/20 14:30 10/16/20 20:40 Temperature 97.5 F L Pulse Rate 95 92 92 Respiratory Rate 16 Blood Pressure 136/80 Pulse Oximetry 100 10/16/20 21:58 10/17/20 02:00 10/17/20 05:59 Temperature 98.8 F 98.1 F Pulse Rate 98 92 98 Respiratory Rate 16 16 Blood Pressure 121/65 124/64 Pulse Oximetry 96 98 10/17/20 08:00 10/17/20 08:58 Temperature Pulse Rate 74 74 Respiratory Rate 16 Blood Pressure Pulse Oximetry 100 Intake/Output Intake/Output: Intake & Output 10/14/20 10/15/20 10/16/20 10/17/20 23:59 23:59 23:59 23:59 Intake Total 1000 1999 3030 1000 Output Total 2120 675 300 Balance 1000 -120 2355 700 Meds/Results Medications: Active Medications Generic Name Dose Route Start Last Admin Trade Name Freq PRN Reason Stop Dose Admin Acetaminophen 1,000 mg 10/15/20 05:37 Acetaminophen 500 Mg Tablet PO Q6H PRN Mild Pain (1-3) or Fever Dextrose 12.5 gm 10/16/20 20:12 10/16/20 20:18 Dextrose 50% 25 Gm/50 Ml Syringe IV PUSH 12.5 gm PRN PRN Administration Hypoglycemia Protocol Enoxaparin Sodium 40 mg 10/15/20 21:00 10/16/20 20:42 Enoxaparin 40 Mg/0.4 Ml Syringe SUB-Q 40 mg HS JULIANO Administration Glucagon 1 mg 10/16/20 20:12 Glucagon For Inj 1 Mg Vial IM PRN PRN Hypoglycemia Protocol Glucose 15 gm 10/16/20 20:12 Glucose Oral Gel 15 Gm Of Glucse In 37.5 Gm Tube PO PRN PRN Hypoglycemia Protocol Sodium Chloride 1,000 mls @ 100 mls/hr 10/14/20 22:40 10/17/20 09:03 Normal Saline Iv IV CONT 100 mls/hr .Q10H JULIANO Administration Dextrose 1,000 mls @ 100 mls/hr 10/16/20 20:12 Dextrose 5% 1,000 Ml IVPB PRN PRN Hypoglycemia Protocol Levothyroxine Sodium 50 mcg 10/15/20 07:35 10/17/20 05:41 Levothyroxine Sodium Inj 100 Mc
[2020-10-17 14:00] VITALS: BP 129/73; PULSE 104; RESP 16; TEMP 36.2; O2SAT 97
--- NOTE | 2020-10-17 18:00 | WPDGIPROGNO ---
Progress Note: A&P Assessment and Plan (1) Nausea and vomiting in adult: Code(s): R11.2 - Nausea with vomiting, unspecified Status: Acute Assessment and Plan: resolved, now on CL diet by surgery (2) Small bowel obstruction: Onset Date: Unknown Code(s): K56.609 - Unspecified intestinal obstruction, unspecified as to partial versus complete obstruction Status: Acute Assessment and Plan: SB XR reviewed with moderately dilated jejunum, normal calibered ileum. Normal transit time of 30 minutes. NGT removed and will see how he does with diet (3) Intellectual disability: Code(s): F79 - Unspecified intellectual disabilities Status: Inactive Subjective Date/time seen: 10/17/20 18:00 Interval history: ngt removed and not vomiting, he is feeling comfortable- hard to get history from him because mental disability Review of Systems Review of Systems: All systems reviewed & are unremarkable except as noted in HPI and below Exam Const: General: no acute distress, alert and awake Orientation/consciousness: oriented to person and oriented to place Limitations: other limitations (mental impairment, will answer yes/no questions) HENMT: General nose exam: Normal nares present Neck: Neck: supple Resp: Effort & Inspection: normal respiratory effort Cardio: Rate: regular rate GI: Inspection: other (mildly distended) GI Palp: Yes Soft to palpation, No Tenderness to palpation present (GI) and No Guarding due to palpation present (GI) Auscultation: normal bowel sounds Other: NG tube clamped Skin: General skin exam: normal color Neuro: General: no focal motor deficits Cognition (Neuro): abnormal cognition (at baseline) Speech: normal speech Extrem: General: no clubbing, cyanosis or edema and no calf tenderness Psych: Affect: No Hostile affect present Insight: Good insight present (Psych) Objective Data Vital Signs Vital Signs: Vital Signs - 24 hr 10/16/20 20:40 10/16/20 21:58 10/17/20 02:00 Temperature 98.8 F Pulse Rate 92 98 92 Respiratory Rate 16 Blood Pressure 121/65 Pulse Oximetry 96 10/17/20 05:59 10/17/20 08:00 10/17/20 08:58 Temperature 98.1 F Pulse Rate 98 74 74 Respiratory Rate 16 16 Blood Pressure 124/64 Pulse Oximetry 98 100 10/17/20 14:00 Temperature 97.2 F L Pulse Rate 104 H Respiratory Rate 16 Blood Pressure 129/73 Pulse Oximetry 97 Intake/Output Intake/Output: Intake & Output 10/14/20 10/15/20 10/16/20 10/17/20 23:59 23:59 23:59 23:59 Intake Total 1000 2000 3030 1790 Output Total 2120 675 300 Balance 1000 -120 2355 1490 Meds/Results Medications: Active Medications Generic Name Dose Route Start Last Admin Trade Name Freq PRN Reason Stop Dose Admin Acetaminophen 1,000 mg 10/15/20 05:37 Acetaminophen 500 Mg Tablet PO Q6H PRN Mild Pain (1-3) or Fever Dextrose 12.5 gm 10/16/20 20:12 10/16/20 20:18 Dextrose 50% 25 Gm/50 Ml Syringe IV PUSH 12.5 gm PRN PRN Administration Hypoglycemia Protocol Enoxaparin Sodium 40 mg 10/15/20 21:00 10/16/20 20:42 Enoxaparin 40 Mg/0.4 Ml Syringe SUB-Q 40 mg HS JULIANO Administration Glucagon 1 mg 10/16/20 20:12 Glucagon For Inj 1 Mg Vial IM PRN PRN Hypoglycemia Protocol Glucose 15 gm 10/16/20 20:12 Glucose Oral Gel 15 Gm Of Glucse In 37.5 Gm Tube PO PRN PRN Hypoglycemia Protocol Sodium Chloride 1,000 mls @ 100 mls/hr 10/14/20 22:40 10/17/20 09:03 Normal Saline Iv IV CONT 100 mls/hr .Q10H JULIANO Administration Dextrose 1,000 mls @ 100 mls/hr 10/16/20 20:12 Dextrose 5% 1,000 Ml IVPB PRN PRN Hypoglycemia Protocol Levothyroxine Sodium 50 mcg 10/15/20 07:35 10/17/20 05:41 Levothyroxine Sodium Inj 100 Mcg/5 Ml Vial IV PUSH 50 mcg DAILY@0630 JULIANO Administration Metoprolol Tartrate 2.5 mg 10/15/20 08:00 10/17/20 15:59 Metoprolol Tartrate Inj 5 Mg/
[2020-10-17] MEDS: ENOXAPARIN 40 MG/0.4 ML SYRINGE SUB-Q (20:00)
[2020-10-17 22:00] VITALS: BP 141/68; PULSE 64; RESP 20; TEMP 36.9; O2SAT 99
[2020-10-18 02:12] VITALS: PULSE 95
[2020-10-18] MEDS: METOPROLOL TARTRATE INJ 5 MG/5 ML VIAL 2.5 MG IV PUSH ×3 (02:12→16:16)
[2020-10-18] MEDS: SODIUM CHLORIDE 0.9% IV 1,000 ML 100 ML IV CONT (05:52)
[2020-10-18] MEDS: LEVOTHYROXINE SODIUM INJ 100 MCG/5 ML VIAL 50 MCG IV PUSH (05:55)
[2020-10-18 06:00] VITALS: BP 134/69; PULSE 65; RESP 20; TEMP 37.2; O2SAT 100
[2020-10-18 06:39] LABS: Hematocrit 32.8 % (42.0-52.0); Hemoglobin 11.2 g/dL (14.0-18.0)
[2020-10-18 07:09] LABS: Anion Gap 6 mmol/L (8-16); Blood Urea Nitrogen 5 mg/dL (9-20); Calcium 8.1 mg/dL (8.4-10.2); Carbon Dioxide 26 mmol/L (22-30); Chloride 105 mmol/L (98-107); Estimated CRCL calculation 145 ml/min; Estimated Glomerular Filt Rate > 60; Glucose 55 mg/dL (75-110); Magnesium 1.6 mg/dL (1.6-2.3); Potassium 3.7 mmol/L (3.4-5.0); Sodium 137 mmol/L (137-145)
[2020-10-18 07:33] LABS: Glucose Point of Care 65 (65-105)
[2020-10-18 08:00] VITALS: PULSE 65; RESP 20; O2SAT 100
[2020-10-18 08:38] LABS: Glucose Point of Care 197 (65-105)
[2020-10-18] MEDS: PANTOPRAZOLE SODIUM IV 40 MG VIAL IV PUSH (08:50)
[2020-10-18 09:01] LABS: CRP 12.7 mg/dL (<1.0)
[2020-10-18 10:05] VITALS: O2SAT 97
--- NOTE | 2020-10-18 13:10 | PM.PNGS ---
Progress Note: A&P Assessment and Plan (1) Small bowel obstruction: Onset Date: Unknown Code(s): K56.609 - Unspecified intestinal obstruction, unspecified as to partial versus complete obstruction Status: Acute Assessment and Plan: Continues to improve. Gastrografin SBFT showed a normal transit time of 30 min. Will advance to soft diet today. Started Miralax daily, which he could continue on discharge to keep his bowels moving regularly. Okay from a surgical standpoint to discharge the patient later today if he is tolerating the soft diet and okay with other services. Follow-up with surgery only as needed. Additional Plan I discussed the plan of care with Dr. Ferguson. Subjective Subjective Date/Time Seen: 10/18/20 13:10 Patient reports: no new complaints, feels better, tolerating liquids well, flatus and bowel movement Interval history: Patient today reports feeling well. He denies abdominal pain, nausea, or vomiting. Had large BM following gastrografin study yesterday but denies a BM yet today (per patient and per nurse). No other complaints. Exam Const: General: no acute distress, alert and awake Limitations: other limitations (mental impairment, will answer yes/no questions) GI: Inspection: other (mildly distended) GI Palp: Yes Soft to palpation, No Tenderness to palpation present (GI) and No Guarding due to palpation present (GI) Auscultation: normal bowel sounds Skin: General skin exam: normal color Neuro: General: no focal motor deficits Extrem: General: normal to inspection and no clubbing, cyanosis or edema Psych: Appearance: grossly normal Mental Status: mental status grossly normal Insight: Limited insight present (Psych) Judgement: Fair judgement present (Psych) Objective Data Vital Signs Vital Signs: Vital Signs - 24 hr 10/17/20 14:00 10/17/20 22:00 10/18/20 02:12 Temperature 97.2 F L 98.5 F Pulse Rate 104 H 64 95 Respiratory Rate 16 20 Blood Pressure 129/73 141/68 H Pulse Oximetry 97 99 10/18/20 06:00 10/18/20 08:00 10/18/20 10:05 Temperature 98.9 F Pulse Rate 65 65 Respiratory Rate 20 20 Blood Pressure 134/69 Pulse Oximetry 100 100 97 Intake/Output Intake/Output: Intake & Output 03/2810/16/20 10/17/20 10/18/20 23:59 23:59 23:59 23:59 Intake Total 1999 3030 3150 1580 Output Total 8318 354 041 0574 Balance -120 2355 2850 380 Meds/Results Medications: Active Medications Generic Name Dose Route Start Last Admin Trade Name Freq PRN Reason Stop Dose Admin Acetaminophen 1,000 mg 10/15/20 05:37 Acetaminophen 500 Mg Tablet PO Q6H PRN Mild Pain (1-3) or Fever Dextrose 12.5 gm 10/16/20 20:12 10/16/20 20:18 Dextrose 50% 25 Gm/50 Ml Syringe IV PUSH 12.5 gm PRN PRN Administration Hypoglycemia Protocol Enoxaparin Sodium 40 mg 10/15/20 21:00 10/17/20 20:00 Enoxaparin 40 Mg/0.4 Ml Syringe SUB-Q 40 mg HS JULIANO Administration Glucagon 1 mg 10/16/20 20:12 Glucagon For Inj 1 Mg Vial IM PRN PRN Hypoglycemia Protocol Glucose 15 gm 10/16/20 20:12 Glucose Oral Gel 15 Gm Of Glucse In 37.5 Gm Tube PO PRN PRN Hypoglycemia Protocol Dextrose 1,000 mls @ 100 mls/hr 10/16/20 20:12 Dextrose 5% 1,000 Ml IVPB PRN PRN Hypoglycemia Protocol Levothyroxine Sodium 50 mcg 10/15/20 07:35 10/18/20 05:55 Levothyroxine Sodium Inj 100 Mcg/5 Ml Vial IV PUSH 50 mcg DAILY@0630 JULIANO Administration Metoprolol Tartrate 2.5 mg 10/15/20 08:00 10/18/20 08:45 Metoprolol Tartrate Inj 5 Mg/5 Ml Vial IV PUSH 2.5 mg Q6H JULIANO Administration Morphine Sulfate 4 mg 10/14/20 22:37 Morphine Sulfate (*Crx) 4 Mg/Ml Inj IV PUSH Q2H PRN Pain Rated 7-10 Ondansetron HCl 4 mg 10/14/20 22:37 Ondansetron Inj 4 Mg/2 Ml Vial IV PUSH Q4H PRN Nausea Pantoprazole Sodium 40 mg 10/15/20 09:00 10/18/20 08:50 Pantoprazole Sodium Iv 40 Mg Vi
[2020-10-18 14:00] VITALS: BP 136/63; PULSE 123; RESP 20; TEMP 36.8; O2SAT 94
--- NOTE | 2020-10-18 15:37 | PM.DS ---
DS: Admitting Diagnosis Admitting Diagnosis Admitting Diagnosis: Small-bowel obstruction DS: Discharge Diagnosis Discharge Diagnosis (1) Small bowel obstruction: Onset Date: Unknown Code(s): K56.609 - Unspecified intestinal obstruction, unspecified as to partial versus complete obstruction Status: Acute Assessment and Plan: He has had at least 4 prior small bowel obstructions in the past. May be related to adhesions from prior abdominal surgery (appendectomy and exploratory laparotomy) or Crohn's disease. CT abd/pelvis demonstrated severe dilation of the stomach and jejunum with mid abdominal transition point suspected and concerning for small bowel obstruction. He was seen in consultation by General surgery and Gastroenterology. Repeat plain films demonstrated persistent SBO. ESR and CRP elevated. Obstruction resolved with NG decompression and bowel rest. Small-bowel follow-through demonstrated normal transit time of 30 minutes. Diet was advanced and he was able to tolerate a low-fiber diet. He will continue bowel regimen of MiraLax and Colace daily. (2) Crohn's disease: Code(s): K50.90 - Crohn's disease, unspecified, without complications Status: Chronic Assessment and Plan: Given hx of Crohn's, CT findings discussed with radiology who noted new strictures present, however there did not appear to be any acute inflammatory process causing obstruction. Stool calprotectin and lactoferrin were collected and are pending. Sulfasalazine was resumed when no longer NPO. He will need to follow-up with orthotic aide Dr. Waite as an outpatient for further management of Crohn's disease. (3) SIRS (systemic inflammatory response syndrome): Code(s): R65.10 - Systemic inflammatory response syndrome (SIRS) of non-infectious origin without acute organ dysfunction Status: Acute Assessment and Plan: SIRS criteria met on presentation with leukocytosis, fever, and tachycardia. T-max was 100.6? and resolved. He has been afebrile > 4 days. Leukocytosis and tachycardia has resolved. Preliminary blood cultures negative to date and final cultures will be monitored. Lactic acid within normal limits. No signs or symptoms to suggest underlying infection including urinary tract infection or respiratory infection. Vital signs remained stable. Suspect that this is inflammatory response related to SBO. (4) Schizophrenia: Code(s): F20.9 - Schizophrenia, unspecified Status: Inactive Assessment and Plan: Mood remained stable. Depakote, clozapine and Lexapro were held while NPO but were resumed upon discharge. (5) Tachycardia: Code(s): R00.0 - Tachycardia, unspecified Status: Acute Assessment and Plan: He has a hx of chronic sinus tachycardia and is on propranolol prior to admission, which was held while NPO. Transitioned to IV Lopressor while NPO and rate was controlled. Propranolol resumed. (6) Chronic anemia: Onset Date: Unknown Code(s): D64.9 - Anemia, unspecified Status: Chronic Assessment and Plan: Macrocytic. Labs remained consistent with baseline. Vital signs were stable with no evidence of bleeding. (7) Hypothyroidism: Onset Date: Unknown Code(s): E03.9 - Hypothyroidism, unspecified Status: Acute Assessment and Plan: TSH is within normal limits. Transition to IV levothyroxine while NPO. PO levothyroxine resumed upon discharge. (8) Hypomagnesemia: Code(s): E83.42 - Hypomagnesemia Status: Acute Assessment and Plan: Magnesium was 1.5, which was likely secondary to NPO status. Magnesium was supplemented and levels normalized. (9) Thrombocytopenia: Code(s): D69.6 - Thrombocytopenia, unspecified Status: Acute Assessment and Plan: Very mild and did demonstrate improvement. Follow-up with PCP. DS: Summary Hospital Course Re
[2020-10-18] MEDS: polyethylene glycoL 3350 17 GM POWD.PACK PO (16:15)
[2020-10-20 01:34] LABS: Lactoferrin, Stool Positive (Negative)
[2020-10-25 23:18] LABS: Calprotectin, Stool 3130 mcg/g
== END 2020-10-18 16:10 | disposition home or self-care (01) | DRG 386 ==
LOC: ANHED 22:35 → ANH3MEDSUR 10-15 07:24
PROVIDERS: Physician Assistant; Surgery; Admitting Provider Internal Medicine; Emergency Provider Emergency Medicine; PCP Family Medicine; Visit Provider Physician Assistant
DX: K50.912 Crohn's disease, unspecified, with intestinal obstruction (principal); K56.50 Intestinal adhesions [bands], unspecified as to partial versus complete obstruction; R65.10 Systemic inflammatory response syndrome (SIRS) of non-infectious origin without acute organ dysfunction; F84.0 Autistic disorder; F79 Unspecified intellectual disabilities; F25.9 Schizoaffective disorder, unspecified; R00.0 Tachycardia, unspecified; D53.9 Nutritional anemia, unspecified; E03.9 Hypothyroidism, unspecified; E83.42 Hypomagnesemia; D69.6 Thrombocytopenia, unspecified
CPT/HCPCS: 36415; 71045; 71046; 74019; 74177; 74250; 80048; 80053; 81001; 82948; 83605; 83630; 83690; 83735; 83993; 84100; 84443; 85014; 85018; 85025; 85652; 86140; 87040; 96361; 96374; 99285; A9270; C9113; J1650; J2405; J3475; J7030; Q9967

== ENCOUNTER 2020-10-31 17:18 | Emergency (ER) | payer MEDICARE, MEDICAID, SELFPAY ==
--- NOTE | ~2020-10-31 | CT_ITS ---
EXAMINATION: CT abdomen pelvis w con DATE: 10/31/2020 22:21 INDICATION: Abdominal pain TECHNIQUE: Computed tomography (CT) of the abdomen and pelvis was performed with 100 cc Omnipaque 350 intravenous contrast. Automated exposure control and iterative reconstruction technique were employe d. Exam dose: 367.62 mGy-cm total exam DLP. COMPARISON: 10/14/2020 CT abdomen pelvis 10/17/2020 small bowel follow-through FINDINGS: There is mild atelectasis at the lung bases, right lower lobe greater than left lower lobe. Normal heart size. No pericardial or pleural effusion. 12 mm posterior upper hepatic cyst; no suspicious hepatic space-occupying mass lesion. The gallbladde r is unremarkable. No bile duct or pancreatic duct dilatation. No pancreatic mass lesion or calcifica tion. Normal splenic size. Normal morphology of the adrenal glands. Approximately 4.5 mm right renal cyst. Multiple scattered left renal cysts, the largest measuring up to 12.5 mm. Nonobstructing approximately 3.5 mm upper pole left renal calculus. No ureteral calculus or hydroureteronephrosis. Normal caliber of the abdominal aorta. No abdominal aortic aneurysm. The celiac trunk and superior me senteric arteries are widely patent. The inferior mesenteric artery is patent. No intraperitoneal or retroperitoneal or pelvic mass lesion or adenopathy or ascites. The urinary bladder and prostate gland are unremarkable. The stomach is moderately distended with air-fluid levels, not as prominent as on 10/14/2020. There is persistent but mildly increased duodenal dilatation up to 4.9 cm (compared to 4.4 cm on 10/14), with air-fluid levels. There is persistent jejunal dilatation up to 4.8 cm diameter (compared to 4.6 cm on 10/14/2020) and ai r-fluid levels. There is normal caliber of the distal ileum. Large portions of the colon are evacuated. IMPRESSION: Persistent mildly diminished gastric distention and air-fluid levels and persistent prom inent dilatation of the duodenum and jejunum, mildly increased since 10/14/2020, with normal caliber o f the distal small bowel Reviewed, dictated and finalized at [facility] Reviewed, dictated and finalized at [facility] IMPRESSION: Persistent mildly diminished gastric distention and air-fluid leve ls and persistent prominent dilatation of the duodenum and jejunum, mildly incr eased since 10/14/2020, with normal caliber of the distal small bowel
[2020-10-31 17:32] VITALS: BP 132/81; PULSE 93; RESP 18; TEMP 36.4; O2SAT 98
[2020-10-31 17:49] LABS: Basophils Percent Auto 0.3 % (0.2-1.2); Hematocrit 42.1 % (42.0-52.0); Hemoglobin 13.7 g/dL (14.0-18.0); Immature Granulocyte Absolute 0.23 K/mm3 (0.00-0.031); Immature Granulocyte Percent A 1.6 % (0-0.5); Lymphocytes Absolute Auto 1.01 K/mm3 (0.9-3.2); Mean Corpuscular HGB Conc 32.5 g/dl (32-36); Mean Corpuscular Hemoglobin 33.3 pg (26-34); Mean Corpuscular Volume 102.4 fl (80-100); Mean Platelet Volume 9.9 fl (7.4-10.4); Monocytes Absolute Auto 1.1 K/mm3 (0.1-0.6); Monocytes Percent Auto 7.6 % (2.6-8.5); Neutrophils Absolute Auto 12.1 K/mm3 (1.3-6.7); Neutrophils Percent Auto 83.5 % (45.5-73.1); Platelet Count Result 243 k/mm3 (150-375); Red Blood Count 4.11 M/mm3 (4.6-6.20); Red Cell Distribution Width 13.2 % (11.5-14.5); White Blood Count 14.5 K/mm3 (4.5-10.0)
[2020-10-31 19:07] LABS: Alanine Aminotransferase 19 U/L (4-50); Albumin Level 4.3 g/dL (3.5-5.1); Alkaline Phosphatase 159 U/L (38-126); Anion Gap 5 mmol/L (8-16); Aspartate Amino Transferase 47 U/L (17-59); Bilirubin,Total 0.8 mg/dL (0.2-1.3); Blood Urea Nitrogen 16 mg/dL (9-20); Calcium 9.4 mg/dL (8.4-10.2); Carbon Dioxide 35 mmol/L (22-30); Chloride 101 mmol/L (98-107); Estimated CRCL calculation 80 ml/min; Estimated Glomerular Filt Rate > 60; Glucose 145 mg/dL (75-110); Lipase 72 U/L (23-300); Potassium 4.4 mmol/L (3.4-5.0); Sodium 141 mmol/L (137-145)
--- NOTE | 2020-10-31 21:51 | ED.GENADULT ---
HPI - General Adult General Chief complaint: Abdominal Pain Stated complaint: n/v/d Time Seen by Provider: 10/31/20 21:19 History of Present Illness HPI narrative: Patient is a 60-year-old gentleman who presents to the emergency department with chief complaint of abdominal pain and nausea and vomiting. Patient has prior history of small bowel obstructions and presented today with similar complaints as to when this had bowel obstruction past. Patient's caregiver stated that they noticed he had about 4 or 5 episodes of nausea and vomiting today and vomited in the waiting room here in the emergency department. Reports this is exactly like whenever he has had obstructions past patient self actually is fairly calm and not in any distress at this point. Related Data Home Medications Medication Instructions Recorded Confirmed All Day Allergy (cetirizine) 10 mg PO DAILY 10/15/20 10/15/20 Linzess 145 mcg PO DAILY 10/15/20 10/15/20 clozapine See Rx Instructions .ROUTE .COMPLEX 10/15/20 10/15/20 divalproex 1,000 mg PO BID 10/15/20 10/15/20 ergocalciferol (vitamin D2) 50,000 unit PO WEEKLY 10/15/20 10/15/20 escitalopram oxalate 20 mg PO DAILY 10/15/20 10/15/20 fenofibrate 160 mg PO DAILY 10/15/20 10/15/20 folic acid 1 mg PO DAILY 10/15/20 10/15/20 levothyroxine 100 mcg PO DAILY 10/15/20 10/15/20 multivitamin,tx-minerals 1 tablet PO DAILY 10/15/20 10/15/20 omega 0-lyr-pid-fish oil [Fish Oil] 1 cap PO BID 10/15/20 10/15/20 omeprazole 40 mg PO BID 10/15/20 10/15/20 potassium chloride 10 meq PO DAILY 10/15/20 10/15/20 propranolol 20 mg PO QID 10/15/20 10/15/20 sennosides-docusate sodium 2 tab-cap PO BID 10/15/20 10/15/20 [Senokot-S] sulfasalazine 1,000 mg PO BID 10/15/20 10/15/20 vitamin B complex 1 tablet PO DAILY 10/15/20 10/15/20 Allergies Allergy/AdvReac Type Severity Reaction Status Date / Time No Known Allergies Allergy Verified 10/15/20 01:46 Review of Systems Review of Systems: Narrative: A 10 system review of systems was completed on the patient and is negative except for what is stated in the HPI. Nursing and ancillary documentation was reviewed. PMFSH Past Medical History Medical History Autism spectrum disorder Chronic anemia (Unknown) Chronic megaloblastic anemia with high folate and B12 levels in 2018 Crohn's disease GERD (gastroesophageal reflux disease) Gout Hypercholesterolemia (Unknown) Hypothyroidism (Unknown) Intellectual disability Nausea and vomiting in adult Peptic ulcer Schizophrenia Surgical History Surgical History History of appendectomy (~12/07/03) Performed at the same time as the exploratory laparotomy History of exploratory laparotomy (~12/07/03) With adhesion lysis due to bowel obstruction Family History Family History Other Unknown family medical history Social History Social History Social History: He lives in a fpc in [place]. Primary care physician: Dr. Isael Lanier Code status: Full code Healthcare power of finance attorney: Jose Manuelmaria teresa Sotomayor (father) Smoking status: Never smoker Alcohol intake: never Substance use: never Gender identity (if verbalized by the patient): Male Spiritual care concerns: No Exam Narrative: Exam Narrative: GENERAL: Well-appearing, well-nourished, and in no acute distress. HEAD: Normocephalic, atraumatic. EYES: PERRLA and EOMI. ENT: Nares clear, no rhinorrhea or epistaxis. Mucous membranes moist. NECK: Supple. CHEST: Clear to auscultation. No respiratory distress. HEART: Regular rate and rhythm. No murmur heard. Normal peripheral pulses. ABDOMEN: Soft, mild diffuse tenderness, slight distention, normal active bowel sounds. EXTREMITIES: Normal range of motion. No edema.
[2020-10-31] MEDS: SODIUM CHLORIDE 0.9% IV 1,000 ML 999 ML IV CONT (21:56)
[2020-10-31] MEDS: ONDANSETRON INJ 4 MG/2 ML VIAL IV PUSH (21:56)
[2020-10-31 22:41] LABS: Add Urine Microscopic? YES; Appearance Urine Cloudy (Clear); Bilirubin Urine 1+ (Negative); Blood Urine Negative (Negative); Color Urine Amber (Yellow); Glucose Urine UA Negative (Negative); Ketones Urine Trace mg/dL (Negative); Leukocyte Esterase Ur Negative LEU/UL (Negative); Mucus Urine Rare /lpf; Nitrate Urine Negative (Negative); Protein Urine 1+ mg/dL (Negative); RBC Urine 0-2 /hpf (0-2); WBC Urine 0-3 /hpf
[2020-10-31 22:46] LABS: Specific Grav Ur 1.032 (1.001-1.035)
[2020-10-31 23:23] VITALS: BP 118/77
[2020-10-31 23:57] VITALS: BP 121/62; PULSE 78; RESP 18; O2SAT 97
== END 2020-10-31 23:57 | disposition home or self-care (01) ==
PROVIDERS: Emergency Medicine; Emergency Provider Emergency Medicine; PCP Family Medicine
DX: K56.7 Ileus, unspecified (principal); R11.2 Nausea with vomiting, unspecified
CPT/HCPCS: 36415; 74177; 80053; 81001; 83690; 85025; 96361; 96374; 99284; J2405; J7030; Q9967

== ENCOUNTER 2020-11-01 06:19 | Inpatient (IN) | payer MEDICARE, MEDICAID, SELFPAY ==
[2020-11-01] VITALS (11 sets, daily range): BP systolic 115–130; BP diastolic 66–79; PULSE 98–108; RESP 12–21; TEMP 36.3–36.6; O2SAT 98–100; BMI 21.4
--- NOTE | ~2020-11-01 | XR_ITS ---
EXAMINATION: XR abdomen/kub 1V EXAM DATE: 11/01/2020 06:55 INDICATION: Abdominal pain, vomiting. TECHNIQUE: Frontal projection(s) of the abdomen for interpretation. Comparison is made to prior exami nation from 10/17/2020. FINDINGS: Several loops of severely distended air-filled small bowel in the abdomen. Some evidence o f small bowel wall thickening to some of these loops. Please correlate with yesterday's CT abdomen pe lvis report. Paucity of colonic stool and gas. Contrast within the calyces and bladder from intraveno us injection. No hydronephrosis. There are mild bony degenerative changes. IMPRESSION: Severely distended small bowel, obstruction which could be from adhesion, enteritis or in flammatory bowel disease. Reviewed, dictated and finalized at location A. IMPRESSION: Severely distended small bowel, obstruction which could be from adh esion, enteritis or inflammatory bowel disease.
--- NOTE | ~2020-11-01 | XR_ITS ---
EXAMINATION: XR abdomen NG/feed tube insert EXAM DATE: 11/01/2020 07:37 INDICATION: Small bowel obstruction. TECHNIQUE: Frontal projection(s) of the abdomen for interpretation. Comparison is made to prior exami nation from earlier same day. FINDINGS: Feeding tube has been placed, is in expected position. Stomach appears decompressed. Sever kin distended small bowel, obstruction which could be from adhesion, enteritis or inflammatory bowel disease. Lung bases are unremarkable. There are no osseous abnormalities identifie d. IMPRESSION: 1. Feeding tube in position. 2. Small bowel obstruction. Reviewed, dictated and finalized at location A.
--- NOTE | ~2020-11-01 | XR_ITS ---
EXAMINATION: XR abdomen obstructive series EXAM DATE: 11/03/2020 05:50 INDICATION: F/U on SBO vs ileus . Abdominal pain, vomiting. TECHNIQUE: Frontal projection(s) of the abdomen for interpretation, one of which is upright. Comparis on is made to prior examination from 11/02/2020. FINDINGS: Several loops of severely distended air-filled small bowel in the abdomen. Some evidence o f small bowel wall thickening to some of these loops. Paucity of colonic stool and gas. Contrast wit hin the calyces and bladder from intravenous injection. No hydronephrosis. There are mild bony degene rative changes. No evidence of free intraperitoneal gas. IMPRESSION: Several loops of persistent significant distention which could be complete obstruction, p artial obstruction from adhesion, or ileitis from enteritis or inflammatory bowel disease. Reviewed, dictated and finalized at location A. IMPRESSION: Several loops of persistent significant distention which could be c omplete obstruction, partial obstruction from adhesion, or ileitis from enterit is or inflammatory bowel disease.
--- NOTE | ~2020-11-01 | XR_ITS ---
EXAMINATION: XR sm bowel follow through WS EXAM DATE: 11/03/2020 10:53 INDICATION: Persistent dilated SB on plain films, ileus versus obstruction. TECHNIQUE: Material Planning Analyst radiograph was acquired. Small bowel series was performed with water-soluble solut ion by radiologist Brien Aleman M.D.. Spot images of the terminal ileum were acquired. Pulsed dose r eduction fluoroscopy was used with fluoroscopic time of 0.1 minutes. The DAP for this procedure was 14.3 Gycm2. A total of 10 images obtained for the exam. Comparison is made to prior examination from 10/17/2020. FINDINGS: Material Planning Analyst image demonstrates feeding tube in position. 15 minute image demonstrates contrast wi thin moderately distended jejunum, and on the 30 minute image this reaches the ileum. By 45 minutes c ontrast was identified within the cecum, normal transit time. No discrete transition point identified . Similar result on the prior exam last month. IMPRESSION: Moderately distended jejunum, probably ileus given normal transit time. Reviewed, dictated and finalized at location A.
--- NOTE | ~2020-11-01 | MR_ITS ---
EXAMINATION: MR lumbar spine wo/w con DATE: 11/03/2020 17:09 INDICATION: Lower extremity weakness. Bowel and bladder incontinence. TECHNIQUE: Magnetic resonance imaging (MRI) of the lumbar spine was performed without and with 15 mL MultiHance intravenous contrast. Sequences included sagittal T2-weighted FSE, sagittal T2-weighted FS FSE, and sagittal and axial T1-weighted FSE. Postcontrast sequences included axial T2-weighted FSE a nd axial and sagittal T1-weighted FS FSE. COMPARISON: CT abdomen and pelvis 10/31/2020 FINDINGS: There is 3 mm retrolisthesis of L5 on S1. There are Schmorl's nodes at multiple levels. The re is mild chronic anterior wedging of L1 vertebral body. There is mildly decreased disc height at L5 -S1. The distal spinal cord signal intensity is normal. The conus medullaris is at L1. The following disc levels are specifically discussed: L1-L2: There is a left central extrusion. There is no facet joint osteoarthritis. There is no neural foraminal stenosis. There is mild central canal stenosis. L2-L3: The disc does not extend beyond the endplate margin. There is mild bilateral facet joint osteo arthritis. There is no neural foraminal stenosis. There is no central canal stenosis. L3-L4: The disc is bulging and has an annular fissure. There is moderate bilateral facet joint osteoa rthritis. There is mild bilateral neural foraminal stenosis. There is mild central canal stenosis. L4-L5: The disc is bulging and has an annular fissure. There is severe bilateral facet joint osteoart hritis. There is moderate bilateral neural foraminal stenosis. There is mild central canal stenosis. L5-S1: The disc is bulging. There is moderate right and severe left facet joint osteoarthritis. There is moderate bilateral neural foraminal stenosis. There is mild central canal stenosis. IMPRESSION: 1. Moderate lumbar spondylosis. Reviewed, dictated and finalized at location A.
--- NOTE | ~2020-11-01 | XR_ITS ---
EXAMINATION: XR abdomen obstructive series EXAM DATE: 11/02/2020 05:26 INDICATION: Abdominal pain, vomiting. Abnormal CT scan of dilated small bowel. TECHNIQUE: Frontal upright projection of the upper abdomen, frontal projection of the lower abdomen f or interpretation. Comparison is made to prior examination from 11/01/2020. FINDINGS: Feeding tube is in expected position. Stomach appears decompressed. Severely distended sma ll bowel, obstruction which could be from adhesion, enteritis or inflammatory bowel disease. Some reg ions of small bowel may have wall thickening, edema. There is paucity of colonic stool. Lung bases ar e unremarkable. There are no osseous abnormalities identified. No evidence of free intraperitoneal ai r. IMPRESSION: 1. Feeding tube in position. 2. Small bowel obstruction. Reviewed, dictated and finalized at location A.
--- NOTE | 2020-11-01 06:42 | ED.GENADULT ---
HPI - General Adult General Chief complaint: Abdominal Pain <Ace Boyer MD - Last Filed: 11/01/20 06:52> Stated complaint: dark emesis <Ace Boyer MD - Last Filed: 11/01/20 06:52> Time Seen by Provider: 11/01/20 06:50 <Ace Boyer MD - Last Filed: 11/01/20 06:52> History of Present Illness HPI narrative: Patient 60-year-old gentleman who presents to emergency department chief complaint of nausea and vomiting. Patient was seen here earlier this evening and had a CT scan which showed some dilated loops of bowel but looked essentially unchanged from previous CT scans and also from the small bowel follow-through study. The patient was feeling much better and was discharged back to the [facility] that [facility] that the patient had 2 more episodes of nausea and vomiting and they brought the patient back to the emergency department for reevaluation. Currently the patient states that he is feeling much better at this time after he vomited and denies being nauseated. <Ace Boyer MD - Last Filed: 11/01/20 06:52> Related Data Home medications: Home Medications Medication Instructions Recorded Confirmed All Day Allergy (cetirizine) 10 mg PO DAILY 10/15/20 10/15/20 Linzess 145 mcg PO DAILY 10/15/20 10/15/20 clozapine See Rx Instructions .ROUTE .COMPLEX 10/15/20 10/15/20 divalproex 1,000 mg PO BID 10/15/20 10/15/20 ergocalciferol (vitamin D2) 50,000 unit PO WEEKLY 10/15/20 10/15/20 escitalopram oxalate 20 mg PO DAILY 10/15/20 10/15/20 fenofibrate 160 mg PO DAILY 10/15/20 10/15/20 folic acid 1 mg PO DAILY 10/15/20 10/15/20 levothyroxine 100 mcg PO DAILY 10/15/20 10/15/20 multivitamin,tx-minerals 1 tablet PO DAILY 10/15/20 10/15/20 omega 7-ktm-uox-fish oil [Fish Oil] 1 cap PO BID 10/15/20 10/15/20 omeprazole 40 mg PO BID 10/15/20 10/15/20 potassium chloride 10 meq PO DAILY 10/15/20 10/15/20 propranolol 20 mg PO QID 10/15/20 10/15/20 sennosides-docusate sodium 2 tab-cap PO BID 10/15/20 10/15/20 [Senokot-S] sulfasalazine 1,000 mg PO BID 10/15/20 10/15/20 vitamin B complex 1 tablet PO DAILY 10/15/20 10/15/20 <Ace Boyer MD - Last Filed: 11/01/20 06:52> Allergies/adverse reactions: Allergies Allergy/AdvReac Type Severity Reaction Status Date / Time No Known Allergies Allergy Verified 11/01/20 06:29 <Ace Boyer MD - Last Filed: 11/01/20 06:52> Review of Systems Review of Systems: Narrative: A 10 system review of systems was completed on the patient and is negative except for what is stated in the HPI. Nursing and ancillary documentation was reviewed. <Ace Boyer MD - Last Filed: 11/01/20 06:52> PMFSH Past Medical History Medical History: Medical History Autism spectrum disorder Chronic anemia (Unknown) Chronic megaloblastic anemia with high folate and B12 levels in 2018 Crohn's disease GERD (gastroesophageal reflux disease) Gout Hypercholesterolemia (Unknown) Hypothyroidism (Unknown) Intellectual disability Nausea and vomiting in adult Peptic ulcer Schizophrenia <Ace Boyer MD - Last Filed: 11/01/20 06:52> Surgical History Surgical History: Surgical History History of appendectomy (~12/07/03) Performed at the same time as the exploratory laparotomy History of exploratory laparotomy (~12/07/03) With adhesion lysis due to bowel obstruction <Ace Boyer MD - Last Filed: 11/01/20 06:52> Family History Family History: Family History Other Unknown family medical history <Ace Boyer MD - Last Filed: 11/01/20 06:52> Social History Social History: Social History Social History: He james
--- NOTE | 2020-11-01 06:51 | PC.NURSE ---
Pt. to CT
[2020-11-01] MEDS: SODIUM CHLORIDE 0.9% IV 1,000 ML 999 ML IV CONT (06:58)
[2020-11-01] MEDS: ONDANSETRON INJ 4 MG/2 ML VIAL IV PUSH (06:58)
[2020-11-01 07:13] LABS: Alanine Aminotransferase 16 U/L (4-50); Albumin Level 3.9 g/dL (3.5-5.1); Alkaline Phosphatase 122 U/L (38-126); Anion Gap 6 mmol/L (8-16); Aspartate Amino Transferase 31 U/L (17-59); Bilirubin,Total 0.7 mg/dL (0.2-1.3); Blood Urea Nitrogen 17 mg/dL (9-20); Calcium 8.9 mg/dL (8.4-10.2); Carbon Dioxide 31 mmol/L (22-30); Chloride 104 mmol/L (98-107); Estimated CRCL calculation 88 ml/min; Estimated Glomerular Filt Rate > 60; Glucose 117 mg/dL (75-110); Lipase 65 U/L (23-300); Sodium 141 mmol/L (137-145)
[2020-11-01 07:28] LABS: Basophils Percent Auto 0.3 % (0.2-1.2); Hematocrit 36.8 % (42.0-52.0); Hemoglobin 12.6 g/dL (14.0-18.0); Immature Granulocyte Absolute 0.21 K/mm3 (0.00-0.031); Lymphocytes Absolute Auto 0.74 K/mm3 (0.9-3.2); Mean Corpuscular HGB Conc 34.2 g/dl (32-36); Mean Corpuscular Hemoglobin 36.4 pg (26-34); Mean Corpuscular Volume 106.4 fl (80-100); Mean Platelet Volume 10.2 fl (7.4-10.4); Monocytes Absolute Auto 0.9 K/mm3 (0.1-0.6); Monocytes Percent Auto 8.5 % (2.6-8.5); Neutrophils Absolute Auto 8.7 K/mm3 (1.3-6.7); Neutrophils Percent Auto 82.2 % (45.5-73.1); Platelet Count Result 217 k/mm3 (150-375); Red Blood Count 3.46 M/mm3 (4.6-6.20); Red Cell Distribution Width 13.5 % (11.5-14.5); White Blood Count 10.6 K/mm3 (4.5-10.0)
--- NOTE | 2020-11-01 07:30 | PC.NURSE ---
Assumed care of pt, pt is alert and upright - this RN discussed POC w/ pts personal home health aide at bedside (pt has home care due to developmental delay). Pt on tele monitor. IV w/ NS infusing is infiltrated and discontinued. VSS.
[2020-11-01] MEDS: PANTOPRAZOLE SODIUM IV 40 MG VIAL IV PUSH (07:59)
--- NOTE | 2020-11-01 08:20 | PC.NURSE ---
This patient, Ricardo Sotomayor, was admitted to [facility] Surg Room 303-01. Patient/family oriented to hospital policies and general routines including ID bracelet, bed and alarms, visiting hours, pain management, procedures, bathroom and other care routines, personal items, smoking policy, room service/diet, and visiting hours.REPORT RECEIVED from oRse IBANEZ. Information on how to activate the Rapid Response Team has been discussed. Patient/Family are encouraged to report perceived risks to care and to ask questions if they do not understand what they are told or what they should do.
--- NOTE | 2020-11-01 08:57 | PM.IMHP ---
H&P: HPI History of Present Illness Date/Time: 11/01/20 08:57 PATIENT HAS BEEN PLACED IN OBSERVATION STATUS Chief Complaint: nausea and vomiting Narrative: 60yo male with hx of autism, schizoaffective disorder, intellectual disability, and Crohn's disease who presented to the ER home due to vomiting. Patient has history multiple prior small bowel obstructions. He has had appendectomy and exploratory laparotomies with these lysis in the past. His most recent episode was on October 15 of this year. He was seen by general surgery and GI. It was felt that he did not have a Crohn's exacerbation. He was treated conservatively with resolution of his symptoms. He was discharged on October 18. Since discharge, patient has been weak. Does not walk with a walker but has to use the wall to help him walk. He has not fallen but has stumbled occasionally. History from the patient is limited. He only states that he had episode of vomiting prior to admission. Majority history is taken from the chart and from a caregiver who is in the room. Caregiver also states that the patient is no longer continent of bowel and bladder since last admission. He wears depends at night. Patient is able to feed himself. Besides the nausea and vomiting this been no other symptoms at the patient admits to or a caregiver is aware of. Patient was seen in the emergency department last evening for complaints of nausea and vomiting. CT scan at that time showed evidence of dilated bowel but no evidence of obstruction. Patient was discharged home on a clear liquid diet. Since returning home patient continued to have nausea and vomiting. He return to the ED this morning. Was slightly tachycardic but otherwise he was hemodynamically stable. KUB showed severely distended small bowel. NG tube was placed and almost 1 L was removed. He was admitted for further care. Review of Systems Review of Systems: ROS unobtainable: Yes unobtainable due to mental status PMFSH Past Medical History Medical History (Updated 11/01/20 @ 15:44 by DONAVAN Holden) Autism spectrum disorder Chronic anemia (Unknown) Chronic megaloblastic anemia with high folate and B12 levels in 2018 Crohn's disease GERD (gastroesophageal reflux disease) Gout Hypercholesterolemia (Unknown) Hypothyroidism (Unknown) Intellectual disability Nausea and vomiting in adult Peptic ulcer Schizophrenia Surgical History Surgical History History of appendectomy (~12/07/03) Performed at the same time as the exploratory laparotomy History of exploratory laparotomy (~12/07/03) With adhesion lysis due to bowel obstruction Family History Family History Other Unknown family medical history Social History Social History Social History: He lives in a half-way in [place]. Lifelong nonsmoker. No alcohol or drug use. Primary care physician: Dr. Isael Lanier Code status: Full code Healthcare power of county attorney: Jose Manuel Sotomayor (father). Caregiver states that Ann Martel should be called for any consent at [phone]. Smoking status: Never smoker Alcohol intake: never Substance use: never Gender identity (if verbalized by the patient): Male Spiritual care concerns: No Meds Home Medications and Allergies Home Medications Medication Instructions Recorded Confirmed Type Linzess 145 mcg PO DAILY 10/15/20 11/01/20 History clozapine 200 mg 1700 10/15/20 11/01/20 History divalproex 1,000 mg PO Q12H 10/15/20 11/01/20 History ergocalciferol (vitamin D2) 50,000 unit PO WEEKLY 10/15/20 11/01/20 History escitalopram oxalate 20 mg PO DAILY 10/15/20 11/01/20 History fenofibrate 160 mg PO DAILY 10/15/20 11/01/20 History folic acid 1 mg PO DAILY 10/15/20 11/01/20 History levothyroxine 100 mcg PO DAILY 10/15/2011/01
[2020-11-01] MEDS: SODIUM CHLORIDE 0.9% IV 1,000 ML 100 ML IV CONT ×2 (10:46→23:04)
--- NOTE | 2020-11-01 11:48 | PM.CNGS ---
Assessment and Plan Assessment and plan (1) Ileus: Code(s): K56.7 - Ileus, unspecified Status: Acute Assessment and Plan: CT findings still suggest ileus versus partial small bowel obstruction. He has a recent Gastrografin small bowel follow through showing normal transit time with no high-grade obstruction. This seems more likely to be a prolonged ileus rather than a small bowel obstruction. We would recommend continuing conservative measures with NG tube decompression, IV fluids, and antiemetics for now. We will consult GI to evaluate the patient and get their recommendations. Would like to see what their input is regarding adding a gut motility agent or if any of his current medications may be contributing to his issues. Another potential consideration would be to see if GI feels a capsule endoscopy as an outpatient would be of any benefit if he continues to have issues. Will repeat abdominal films tomorrow morning and continue to monitor with serial abdominal exams. Thank you for allowing us to see the patient in consultation and we will continue to follow along with you. (2) Nausea and vomiting in adult: Code(s): R11.2 - Nausea with vomiting, unspecified Status: Acute Assessment and Plan: See plan above. (3) Chronic anemia: Onset Date: Unknown Code(s): D64.9 - Anemia, unspecified Status: Chronic (4) Autism spectrum disorder: Code(s): F84.0 - Autistic disorder Status: Acute (5) Schizophrenia: Code(s): F20.9 - Schizophrenia, unspecified Status: Acute (6) Macrocytic anemia: Code(s): D53.9 - Nutritional anemia, unspecified Status: Acute Additional Plan I have discussed the patient's case and plan of care with Dr. Ferugson. History of Present Illness Consult details Consult date: 11/01/20 Requesting physician: Shelton Vegas, Narrative: This is a 60-year-old male with autism, schizoaffective disorder, intellectual disability, and possible Crohn's disease. The patient is a poor historian and has no family at the bedside, therefore his history is obtained by review of the electronic medical record and what the patient is able to report. In 2003, the patient had an exploratory laparotomy with incidental appendectomy due to concerning findings of possible right lower quadrant mass concerning for cystic appendiceal neoplasm. Pathology showed no evidence of neoplasm. Later in 2003, he had another exploratory laparotomy with adhesiolysis. He has a history of multiple small bowel obstructions. He was recently hospitalized from 10/15/2020 through 10/18/2020 and was treated for an ileus versus partial SBO. This resolved with conservative management. He eventually had a Gastrografin small-bowel follow-through which showed a normal transit time of contrast to the colon in 30 minutes. After discharge, he has apparently been tolerating a diet but has been newly incontinent of his bowel and bladder. He developed vomiting and abdominal pain at his nursing home and was brought to the emergency department for evaluation on 10/31/20. CT scan of the abdomen and pelvis showed persistent mildly diminished gastric distention and air-fluid levels and persistent prominent dilatation of the duodenum and jejunum, with normal caliber of the distal small bowel. Our service was called from the ER. The patient was sent back home on a clear liquid diet for the next 24 hours and was instructed to slowly advance his diet. The patient then returned back to the ER early the next morning after having two more episodes of vomiting at home. KUB obtained and showed severely distended small bowel, and an NG tube was placed. The patient was admitted and started on IV fluids. Our service was again consulted from the ED physician and the patient is now being seen on the medical floor. He denies any complaints at the time of my exam. Denies abdominal pain or nausea. He is unable to tell me his l
[2020-11-01] MEDS: VALPROIC ACID INJ 500 MG in DEXTROSE 5% 100 ML 105 MG IVPB ×3 (12:31→23:04)
--- NOTE | 2020-11-01 16:41 | WPDGICN ---
Assessment and Plan Assessment and plan (1) Small bowel obstruction: Onset Date: Unknown Code(s): K56.609 - Unspecified intestinal obstruction, unspecified as to partial versus complete obstruction Status: Acute Assessment and Plan: multiple hospitalizations with SBO/ileus, he has remote history of abdominal surgeries. NGT in place and surgery on board probably adhesions, there is questionable history of Crohn's (he is using sulfasalazine but I do not know more details) or anything to confirm diagnosis (will try to get records from his [place] [facility]) will start iv reglan with history of adhesions and recurrent small bowel obstruction probably using a capsule endoscopy won't be a good idea because risk of capsule retention in small bowel based on clinical course may consider to do EGD to assess if ulcers, etc (2) Ileus: Code(s): K56.7 - Ileus, unspecified Status: Acute Assessment and Plan: medical management (3) Autism spectrum disorder: Code(s): F84.0 - Autistic disorder Status: Acute Assessment and Plan: he lives in [place] [facility] (4) Nausea and vomiting in adult: Code(s): R11.2 - Nausea with vomiting, unspecified Status: Acute GI Consult Note Consult date/time: 11/01/20 16:41 Reason for consult: SBO HPI: Ricardo Sotomayor is a 60 year old male with history of autism spectrum disorder, schizoaffective disorder, intellectual disability (difficult to get history) who I met during recent hospitalization. History is obtained from medical records as he can not provide good history. Apparently he has questionable Crohn's but I could not find endoscopy or biopsy data. He had an exploratory laparotomy in 2003 with incidental appendectomy due to concerning findings of possible right lower quadrant mass concerning for cystic appendiceal neoplasm. Pathology showed no evidence of neoplasm. Later in 2003, had another exploratory laparotomy with adhesiolysis. He has a history of multiple small bowel obstructions. Last hospitalization last month with partial SBO, treated with conservative management, had a Gastrografin small-bowel follow-through which showed a normal transit time of contrast to the colon in 30 minutes. He was sent to ER again with vomiting and abdominal pain at his [place] [facility] yesterday. CT scan of the abdomen and pelvis reviewed and showed persistent mildly diminished gastric distention and air-fluid levels and persistent prominent dilatation of the duodenum and jejunum, with normal caliber of the distal small bowel, sent home with instructions to advance diet slowly but still having emesis so returned to ER, KUB showed severely distended small bowel. NG tube was placed and almost 1 L was removed, finally admitted to hospital. Review of Systems Constitutional: Constitutional: Denies chills Eyes: Eyes: Denies blurry vision ENT: Reports Normal hearing present Cardiovascular: Cardiovascular: Denies chest pain Respiratory: Respiratory: Denies dyspnea Gastrointestinal: Gastrointestinal: Reports nausea and Reports vomiting Genitourinary: Genitourinary: Denies dysuria Musculoskeletal: Musculoskeletal: Denies neck pain Integumentary/Breasts: Skin/Breast: Denies dry skin Neurologic: Denies headache(s) Psychiatric: Psychiatric: Reports behavioral changes [facility] Past Medical History Medical History (Updated 11/01/20 @ 15:44 by DONAVAN Holden) Autism spectrum disorder Chronic anemia (Unknown) Chronic megaloblastic anemia with high folate and B12 levels in 2018 Crohn's disease GERD (gastroesophageal reflux disease) Gout Hypercholesterolemia (Unknown) Hypothyroidism (Unknown) Intellectual disability Nausea and vomiting in adult Peptic ulcer Schizophrenia Surgical History Surgical History History of appendectomy (~12/07/03) Performed at the same time as the exploratory laparotomy History of explorato
[2020-11-01] MEDS: METOCLOPRAMIDE HCL INJ 10 MG/2 ML VIAL 5 MG IV PUSH (21:34)
[2020-11-02] MEDS: METOCLOPRAMIDE HCL INJ 10 MG/2 ML VIAL 5 MG IV PUSH ×3 (05:19→22:25)
[2020-11-02] MEDS: VALPROIC ACID INJ 500 MG in DEXTROSE 5% 100 ML 105 MG IVPB ×3 (05:20→17:11)
[2020-11-02 06:00] VITALS: BP 143/68; PULSE 112; RESP 18; TEMP 36.5; O2SAT 98
[2020-11-02 06:44] LABS: Magnesium 1.7 mg/dL (1.6-2.3); Phosphorus 2.8 mg/dL (2.5-4.5)
[2020-11-02 06:46] LABS: Alanine Aminotransferase 13 U/L (4-50); Alkaline Phosphatase 91 U/L (38-126); Anion Gap 4 mmol/L (8-16); Aspartate Amino Transferase 30 U/L (17-59); Bilirubin,Total 0.6 mg/dL (0.2-1.3); Blood Urea Nitrogen 12 mg/dL (9-20); Carbon Dioxide 31 mmol/L (22-30); Chloride 107 mmol/L (98-107); Estimated CRCL calculation 106 ml/min; Estimated Glomerular Filt Rate > 60; Glucose 92 mg/dL (75-110); Potassium 3.5 mmol/L (3.4-5.0); Sodium 142 mmol/L (137-145)
[2020-11-02 07:05] LABS: Basophils Percent Auto 0.2 % (0.2-1.2); Hematocrit 33.7 % (42.0-52.0); Hemoglobin 11.2 g/dL (14.0-18.0); Immature Granulocyte Absolute 0.09 K/mm3 (0.00-0.031); Immature Granulocyte Percent A 1.9 % (0-0.5); Lymphocytes Absolute Auto 0.89 K/mm3 (0.9-3.2); Lymphocytes Percent Auto 18.4 % (18.3-44.2); Mean Corpuscular HGB Conc 33.2 g/dl (32-36); Mean Corpuscular Hemoglobin 35.4 pg (26-34); Mean Corpuscular Volume 106.6 fl (80-100); Mean Platelet Volume 10.2 fl (7.4-10.4); Monocytes Absolute Auto 0.6 K/mm3 (0.1-0.6); Monocytes Percent Auto 11.8 % (2.6-8.5); Neutrophils Absolute Auto 3.3 K/mm3 (1.3-6.7); Neutrophils Percent Auto 67.7 % (45.5-73.1); Platelet Count Result 156 k/mm3 (150-375); Red Blood Count 3.16 M/mm3 (4.6-6.20); Red Cell Distribution Width 13.2 % (11.5-14.5); White Blood Count 4.9 K/mm3 (4.5-10.0)
[2020-11-02] MEDS: ENOXAPARIN 40 MG/0.4 ML SYRINGE SUB-Q (09:57)
[2020-11-02] MEDS: PANTOPRAZOLE SODIUM IV 40 MG VIAL IV PUSH (09:57)
[2020-11-02] MEDS: SODIUM CHLORIDE 0.9% IV 1,000 ML 100 ML IV CONT (10:05)
--- NOTE | 2020-11-02 10:43 | PM.PNGS ---
Progress Note: A&P Assessment and Plan (1) Ileus: Code(s): K56.7 - Ileus, unspecified Status: Acute Assessment and Plan: Could be related to adhesions from previous surgery. SBO verusus ileus. Abdominal films suggest small bowel obstruction with severely distended small bowel. Appreciate GI recommendations. Continue Reglan. Questionable Crohns? No flatus/BM, good bowel sounds today. Will give MOM down the NG tube. Continue NG tube decompression and bowel rest. Will initiate PPN for nutrition while NPO. Consult aquatic laborer. Repeat abdominal films tomorrow morning. (2) Autism spectrum disorder: Code(s): F84.0 - Autistic disorder Status: Acute (3) Schizophrenia: Code(s): F20.9 - Schizophrenia, unspecified Status: Acute Additional Plan I have discussed the patient's case and plan of care with Dr. Ferguson. Subjective Subjective Date/Time Seen: 11/02/20 10:43 Patient reports: no new complaints, no flatus and no bowel movement Interval history: The patient was seen today. He denies flatus or BM. I confirmed with the nurse who states he has not had a BM to her knowledge. No other complaints. Exam Const: General: comfortable, no acute distress, alert and awake Orientation/consciousness: patient oriented x3 GI: Inspection: normal to inspection and non-distended GI Palp: Yes Soft to palpation, No Tenderness to palpation present (GI) and No Guarding due to palpation present (GI) Auscultation: normal bowel sounds Neuro: General: moves all extremities and no focal motor deficits Extrem: General: no clubbing, cyanosis or edema Psych: Mental Status: mental status grossly normal Insight: Limited insight present (Psych) Judgement: Limited judgement present (Psych) Objective Data Vital Signs Vital Signs: Vital Signs - 24 hr 11/01/20 14:00 11/01/20 21:43 11/01/20 22:00 Temperature 97.6 F 97.9 F Pulse Rate 102 H 98 Respiratory Rate 16 18 Blood Pressure 115/66 121/70 Pulse Oximetry 99 99 99 11/02/20 06:00 Temperature 97.7 F Pulse Rate 112 H Respiratory Rate 18 Blood Pressure 143/68 H Pulse Oximetry 98 Intake/Output Intake/Output: Intake & Output 10/30/20 10/31/20 11/01/20 11/02/20 23:59 23:59 23:59 23:59 Intake Total 1210 1210 Output Total 1025 350 Balance 185 860 Meds/Results Medications: Active Medications Generic Name Dose Route Start Last Admin Trade Name Freq PRN Reason Stop Dose Admin Enoxaparin Sodium 40 mg 11/02/20 09:00 11/02/20 09:57 Enoxaparin 40 Mg/0.4 Ml Syringe SUB-Q 40 mg DAILY JULIANO Administration Sodium Chloride 1,000 mls @ 100 mls/hr 11/01/20 07:50 11/02/20 10:05 Normal Saline Iv IV CONT 100 mls/hr .Q10H JULIANO Administration Valproate Sodium 500 mg/ 105 mls @ 105 mls/hr 11/01/20 12:00 11/02/20 06:21 Dextrose IVPB Infused Q6HR JULIANO Infusion Metoclopramide HCl 5 mg 11/01/20 22:00 11/02/20 05:19 Metoclopramide Hcl Inj 10 Mg/2 Ml Vial IV PUSH 5 mg Q8HR JULIANO Administration Ondansetron HCl 4 mg 11/01/20 07:48 Ondansetron Inj 4 Mg/2 Ml Vial IV PUSH Q4H PRN Nausea Pantoprazole Sodium 40 mg 11/02/20 09:00 11/02/20 09:57 Pantoprazole Sodium Iv 40 Mg Vial IV PUSH 40 mg QAM JULIANO Administration Radiology Results: ITS Impressions Abdomen X-Ray 11/02/20 06:30 IMPRESSION: 1. Feeding tube in position. 2. Small bowel obstruction. Labs Labs: Laboratory Results - last 24 hr 11/02/20 11/02/20 11/02/20 06:21 06:21 06:22 WBC 4.9 RBC 3.16 L Hgb 11.2 L Hct 33.7 L MCV 106.6 H MCH 35.4 H MCHC 33.2 RDW 13.2 Plt Count 156 MPV 10.2 Immature Gran % (Auto) 1.9 H Neut % (Auto) 67.7 Lymph % (Auto) 18.4 Gates % (Auto) 11.8 H Eos % (Auto) 0.0 Baso % (Auto) 0.2 Lymph # (Auto) 0.89 L Gates # (Auto) 0.6 Eos # (Auto) 0.0 Baso # (Auto) 0.0 Abs Immat Gran (auto) 0.09 H Absolute Neuts (auto)
[2020-11-02 11:50] VITALS: BMI 21.4
[2020-11-02 11:55] LABS: Glucose Point of Care 79 (65-105)
[2020-11-02] MEDS: MAGNESIUM HYDROXIDE SUSP 30 ML UDC FEED TUBE (12:41)
[2020-11-02 14:00] VITALS: BP 131/61; PULSE 94; RESP 20; TEMP 36.3; O2SAT 100
[2020-11-02 16:21] LABS: Glucose Point of Care 65 (65-105)
--- NOTE | 2020-11-02 16:47 | WPDGIPROGNO ---
Progress Note: A&P Assessment and Plan (1) Small bowel obstruction: Onset Date: Unknown Code(s): K56.609 - Unspecified intestinal obstruction, unspecified as to partial versus complete obstruction Status: Acute Assessment and Plan: recurrent with previous history of abdominal surgeries reviewed records, patient had normal MR enterography in 2018 (no lesions in small bowel), also unremarkable colonoscopy [address] Salgado with only polyp removed NGT and surgery will start PPN while npo iv reglan for now (2) Crohn's disease: Code(s): K50.90 - Crohn's disease, unspecified, without complications Status: Chronic (3) Nausea and vomiting in adult: Code(s): R11.2 - Nausea with vomiting, unspecified Status: Acute Assessment and Plan: ngt in place (4) Autism spectrum disorder: Code(s): F84.0 - Autistic disorder Status: Acute Assessment and Plan: history is limited because mental disorder Subjective Date/time seen: 11/02/20 16:47 Interval history: no major changes, still NGT. No report of BM per dye expert of Systems Review of Systems: All systems reviewed & are unremarkable except as noted in HPI and below Exam Const: General: comfortable, no acute distress, alert and awake Orientation/consciousness: patient oriented x3 HENMT: Other: NGT in place Eyes: EOM: EOMs intact bilaterally Neck: Neck: supple Resp: Auscultation: clear to auscultation bilaterally Cardio: Rate: regular rate GI: Inspection: normal to inspection and non-distended GI Palp: Yes Soft to palpation, No Tenderness to palpation present (GI) and No Guarding due to palpation present (GI) Auscultation: normal bowel sounds Skin: General skin exam: normal color Neuro: General: moves all extremities and no focal motor deficits Speech: normal speech Extrem: General: no clubbing, cyanosis or edema Psych: Insight: Limited insight present (Psych) Judgement: Limited judgement present (Psych) Objective Data Vital Signs Vital Signs: Vital Signs - 24 hr 11/01/20 21:43 11/01/20 22:00 11/02/20 06:00 Temperature 97.9 F 97.7 F Pulse Rate 98 112 H Respiratory Rate 18 18 Blood Pressure 121/70 143/68 H Pulse Oximetry 99 99 98 11/02/20 14:00 Temperature 97.3 F L Pulse Rate 94 Respiratory Rate 20 Blood Pressure 131/61 Pulse Oximetry 100 Intake/Output Intake/Output: Intake & Output 10/30/20 10/31/20 11/01/20 11/02/20 23:59 23:59 23:59 23:59 Intake Total 1210 1210 Output Total 1025 350 Balance 185 860 Meds/Results Medications: Active Medications Generic Name Dose Route Start Last Admin Trade Name Freq PRN Reason Stop Dose Admin Enoxaparin Sodium 40 mg 11/02/20 09:00 11/02/20 09:57 Enoxaparin 40 Mg/0.4 Ml Syringe SUB-Q 40 mg DAILY JULIANO Administration Sodium Chloride 1,000 mls @ 45 mls/hr 11/01/20 07:50 11/02/20 10:05 Normal Saline Iv IV CONT 100 mls/hr .[id number] JULIANO Administration Valproate Sodium 500 mg/ 105 mls @ 105 mls/hr 11/01/20 12:00 11/02/20 12:40 Dextrose IVPB 105 mls/hr Q6HR JULIANO Administration Dextrose 1,000 mls @ 50 mls/hr 11/02/20 10:44 Dextrose 10% IV CONT .Q20H PRN if PN is interrupted Amino Acids/Electrolytes/Dextrose 2,000 mls @ 80 mls/hr 11/02/20 14:00 Clinimix E 4.25%/5% Solution IV CONT .Q24H JULIANO Protocol Fat Emulsion Intravenous 250 mls @ 20.833 mls/hr 11/02/20 14:00 Lipids 20% IVPB Q24H JULIANO Metoclopramide HCl 5 mg 11/01/20 22:00 11/02/20 05:19 Metoclopramide Hcl Inj 10 Mg/2 Ml Vial IV PUSH 5 mg Q8HR JULIANO Administration Ondansetron HCl 4 mg 11/01/20 07:48 Ondansetron Inj 4 Mg/2 Ml Vial IV PUSH Q4H PRN Nausea Pantoprazole Sodium 40 mg 11/02/20 09:00 11/02/20 09:57 Pantoprazole Sodium Iv 40 Mg Vial IV PUSH 40 mg QAM JULIANO Administration Radiology Results: ITS Impressions Abdomen X-Ray 11/02/20 06:30 I
[2020-11-02] MEDS: FAT EMULSIONS IV 20% 250 ML 20.83 ML IVPB (16:52)
[2020-11-02] MEDS: AMINO ACIDS 4.25%/D5W/LYTES/CA 2,000 ML 80 ML IV CONT (16:54)
--- NOTE | 2020-11-02 17:28 | PM.IMPN ---
Progress Note: A&P Assessment and Plan (1) Small bowel obstruction: Onset Date: Unknown Code(s): K56.609 - Unspecified intestinal obstruction, unspecified as to partial versus complete obstruction Status: Acute Assessment and Plan: Patient with SBO suspect partial. NG tube placed with improvement in his symptoms. Probably related to adhesions but can not exclude Crohn's flare or scarring that has caused a stricture. Obst series showing persistent SBO. PPN started. General surgery following and appreciate their input. Increase activity. Monitor return of bowel function. (2) Weakness: Code(s): R53.1 - Weakness Status: Acute Assessment and Plan: Patient with lower extremity weakness possibly associated with bowel and bladder incontinence. B12/folate levels normal. Will consider Lumbar and/or Cervical MRI. Continue PT/OT. (3) Crohn's disease: Code(s): K50.90 - Crohn's disease, unspecified, without complications Status: Chronic Assessment and Plan: Patient with hx of Crohns and is on sulfasalazine. This is on hold. GI consulted and appreciate their input. IBD markers pending. (4) Macrocytic anemia: Code(s): D53.9 - Nutritional anemia, unspecified Status: Acute Assessment and Plan: Macrocytosis and mild anemia noted. B12/folate levels normal. Probably related to his medications. (5) Autism spectrum disorder: Code(s): F84.0 - Autistic disorder Status: Acute Assessment and Plan: Stable. Patient having weakness, bowel and bladder issues. Unclear if this is related to medical issue or from regression from his autism. Continue PT/OT. Clozapine on hold. Continue Divalproex as IV form. Will resume clozapine when able. (6) Hypothyroidism: Onset Date: Unknown Code(s): E03.9 - Hypothyroidism, unspecified Status: Acute Assessment and Plan: TSH normal in September. Hold Synthroid for now but consider IV form if prolonged NPO status. (7) DVT prophylaxis: Code(s): Z29.9 - Encounter for prophylactic measures, unspecified Status: Acute Assessment and Plan: lovenox Subjective Date/time seen: 11/02/20 1200 Interval history: 60yo male with hx of autism, schizoaffective disorder, intellectual disability, and Crohn's disease who presented to the ER home due to vomiting and found to have small bowel obstructions. Patient feels better. Denies abdominal pain. His hx is unreliable but he feels well. He is insistent on going home on Friday Review of Systems Review of Systems: ROS unobtainable: Yes unobtainable due to mental status Exam Narrative: Exam Narrative: AF 97.3 131/61 94 20 100% Gen - NARD HEENT - NGT secured and currently clamped Chest - Clear bilaterally, nml RR CV - RRR S1/S2 Abd - abdomen was soft. Positive bowel sounds. No apparent tenderness Ext - no edema. Psych - Patient is pleasant and mostly cooperative. Skin - warm and dry. No rashes noted. Objective Data Vital Signs Vital Signs: Vital Signs - 24 hr 11/01/20 21:43 11/01/20 22:00 11/02/20 06:00 Temperature 97.9 F 97.7 F Pulse Rate 98 112 H Respiratory Rate 18 18 Blood Pressure 121/70 143/68 H Pulse Oximetry 99 99 98 11/02/20 14:00 Temperature 97.3 F L Pulse Rate 94 Respiratory Rate 20 Blood Pressure 131/61 Pulse Oximetry 100 Intake/Output Intake/Output: Intake & Output 10/30/20 10/31/20 11/01/20 11/02/20 23:59 23:59 23:59 23:59 Intake Total 1210 1315 Output Total 1025 350 Balance 185 965 Meds/Results Medications: Active Medications Generic Name Dose Route Start Last Admin Trade Name Freq PRN Reason Stop Dose Admin Enoxaparin Sodium 40 mg 11/02/20 09:00 11/02/20 09:57 Enoxaparin 40 Mg/0.4 Ml Syringe SUB-Q 40 mg DAILY JULIANO Administration Sodium Chloride 1,000 mls @ 45 mls/hr 11/01/20 07:50 11/02/20 17:12 Sita
[2020-11-02] MEDS: DEXTROSE 50% 25 GM/50 ML SYRINGE IV PUSH (17:40)
[2020-11-02 22:00] VITALS: BP 132/67; PULSE 79; RESP 18; TEMP 36.6; O2SAT 100
[2020-11-03] MEDS: VALPROIC ACID INJ 500 MG in DEXTROSE 5% 100 ML 105 MG IVPB ×5 (00:23→23:42)
[2020-11-03 00:28] LABS: Glucose Point of Care 85 (65-105)
[2020-11-03 06:00] VITALS: BP 134/66; PULSE 70; RESP 18; TEMP 36.5; O2SAT 96
[2020-11-03] MEDS: SODIUM CHLORIDE 0.9% IV 1,000 ML 45 ML IV CONT ×2 (06:39→17:45)
[2020-11-03] MEDS: METOCLOPRAMIDE HCL INJ 10 MG/2 ML VIAL 5 MG IV PUSH ×3 (06:41→20:49)
[2020-11-03 06:46] LABS: Anion Gap 6 mmol/L (8-16); Blood Urea Nitrogen 8 mg/dL (9-20); Calcium 8.2 mg/dL (8.4-10.2); Carbon Dioxide 26 mmol/L (22-30); Chloride 106 mmol/L (98-107); Estimated CRCL calculation 144 ml/min; Estimated Glomerular Filt Rate > 60; Glucose 93 mg/dL (75-110); Phosphorus 2.6 mg/dL (2.5-4.5); Potassium 3.3 mmol/L (3.4-5.0); Sodium 138 mmol/L (137-145)
[2020-11-03 06:49] LABS: Partial Thromboplastin Time 35.6 SECONDS (22.3-36.8)
[2020-11-03 06:53] LABS: Glucose Point of Care 92 (65-105)
[2020-11-03 06:53] LABS: Transferrin 189 mg/dL (206-381)
[2020-11-03] MEDS: ENOXAPARIN 40 MG/0.4 ML SYRINGE SUB-Q (09:17)
[2020-11-03] MEDS: PANTOPRAZOLE SODIUM IV 40 MG VIAL IV PUSH (09:17)
[2020-11-03 11:18] LABS: Triglycerides 176 mg/dL (<150)
[2020-11-03 11:59] LABS: Glucose Point of Care 93 (65-105)
--- NOTE | 2020-11-03 12:22 | PCNFU ---
Nutrition Follow-Up Complete: Altered GI fxn as related to ileus vs SBO as evidenced by NPO/PPN Goal: Meet estimated nutritional needs Patient is progressing towards goal. We will continue current goal. Pt current nutrition is NPO advancing to clear liquids for dinner meal/PPN at 80 ml/hr Last recorded weight is 75.9 kg,no new weight to report. Bowel Motility:No BM reported Labs Reviewed:BUN 8,Cr 0.5,K 3.3, TG 176 Meds Noted:Reglan,Zofran,NS, Protonix,Levonox, 20% Lipid Emulsion, Clinimix E 4.25/5 at 80 ml/hr Additional Notes: Nutrition follow up. Patient is currently NPO advancing to clear liquids for dinner meal. TPN is currently at 80 ml/hr providing 1153 kcals and 82 gms protein. Meeting 50% of patients caloric needs. Agree with diet orders at this time. Monitor: weight, labs, PPN every Friday and Friday.
--- NOTE | 2020-11-03 12:44 | PM.PNGS ---
Progress Note: A&P Assessment and Plan (1) Ileus: Code(s): K56.7 - Ileus, unspecified Status: Acute Assessment and Plan: ileus versus functional obstruction related to thickening of the distal ileum or poor function of the proximal jejunum. Because of the question of small-bowel obstruction I went ahead with a small-bowel follow-through today. The dye showed dilated jejunum, no intrinsic filling defects, and good flow into the cecum within the 1-2 hour normal transit time. Please see the report. --- I called Dr. Aleman in radiology regarding this and we discussed the situation. He reviewed the CT scan of 10/31/2020 and feels that compared to the CT scan that he read 1 month ago there is thickening of the distal ileal bowel wall. These could be reviewed with him if needed. This raises the question again of possible Crohn's disease. In view of this I would recommend either colonoscopy with attempted ileoscopy and biopsies to rule out Crohn's disease versus a capsule endoscopy if Dr. Waite thinks that the logistics of that could be accomplished with this patient that is copromised because of his mental status/ autism spectrum. ----- Abdominal films suggested small bowel obstruction with moderately distended small bowel earlier this morning, but this proves that there is not a bowel obstruction. Appreciate GI recommendations. Continue Reglan. Questionable Crohns? No flatus/BM, good bowel sounds today. Will Now remove NG and start on clear liquids. Will continue PPN for nutrition while gradually advancing diet. -- Consult furnace operator oil or gas. ( probably will go home on a low residue or low-fiber diet). (2) Autism spectrum disorder: Code(s): F84.0 - Autistic disorder Status: Acute Assessment and Plan: Will have hospitalist and Dr. Waite discuss the use of Reglan in concert with the other psychiatric medications that he has been on since at least one of them may have significant side effects or interactions with Reglan. It may be that one or both of these will need to be changed or adjusted when he is discharged such that we avoid adverse interactions. (3) Schizophrenia: Code(s): F20.9 - Schizophrenia, unspecified Status: Acute Assessment and Plan: Meds for schizophrenia may interact with Reglan and a decision will need to be made regarding changing these to something that Reglan can be used with or stopping the right gland. Will leave this up to Dr. Waite and Dr. Boudreaux. (4) Crohn's disease: Code(s): K50.90 - Crohn's disease, unspecified, without complications Status: Chronic Assessment and Plan: This was a possible diagnosis the pt has carried in the past. Interestingly during his last admission in September a stool study for calprotectin was sent and was labeled as high. Also, a stool for lactoferrin was done and resulted as positive. Will await further GI recommendations. Additional Plan I have discussed the patient's case and plan of care with Dr. Aleman (Radiology). Subjective Subjective Date/Time Seen: 11/03/20 12:44 Interval history: This morning when I entered the room the patient was awake alert. He denied abdominal pain. Also however tonight passing gas or having a bowel movement in the last 2 days. Nurse reports the patient has been not requiring any pain medicine. He requires real orientation periodic [place] but otherwise is compliant. He is walking in the hallways. Review of Systems Review of Systems: All systems reviewed & are unremarkable except as noted in HPI and below ROS unobtainable: Yes other (difficult to obtain some ROS due to baseline cognitive status) Constitutional: Constitutional: Reports as per HPI, Denies chills, Denies headache(s) and Denies poor appetite ENT: Reports Normal hearing present and Denies headache(s) Cardiovascular: Cardiovascular: Reports no additional cardiovascular complaints, Denies chest pain, Den
--- NOTE | 2020-11-03 13:07 | PM.IMPN ---
Progress Note: A&P Assessment and Plan (1) Small bowel obstruction: Onset Date: Unknown Code(s): K56.609 - Unspecified intestinal obstruction, unspecified as to partial versus complete obstruction Status: Acute Assessment and Plan: Tarah presented with n/v and found to have partial SBO. NG tube placed with improvement in his symptoms. Obst series today showing several loops of persistent significant distention. SBS showing distended jejunum probably ileus. General surgery following and discussed with Radiology who felt the patient had thickening of the distal ileal bowel wall. Plan for NG tube removal and to start diet. GI following. Have patietn up walking as much as possible. (2) Weakness: Code(s): R53.1 - Weakness Status: Acute Assessment and Plan: Patient with lower extremity weakness possibly associated with bowel and bladder incontinence. B12/folate levels normal. Will check Lumbar MRI. Continue PT/OT. (3) Crohn's disease: Code(s): K50.90 - Crohn's disease, unspecified, without complications Status: Chronic Assessment and Plan: Patient with hx of Crohn's and is on sulfasalazine. Possible thickening to the distal ileum. Stool calprotectin was markedly elevated at 3130 and lactoferrin was positive last admission. GI consulted and appreciate their input. IBD markers pending. Colonoscopy? Or advance medications for Crohn's? (4) Macrocytic anemia: Code(s): D53.9 - Nutritional anemia, unspecified Status: Acute Assessment and Plan: Macrocytosis and mild anemia noted. B12/folate levels normal. Probably related to his medications. (5) Autism spectrum disorder: Code(s): F84.0 - Autistic disorder Status: Acute Assessment and Plan: Stable. Patient having weakness, bowel and bladder issues. Unclear if this is related to medical issue or from regression from his autism. Continue PT/OT. Clozapine on hold. Continue Divalproex as IV form. Will resume clozapine when able. (6) Hypothyroidism: Onset Date: Unknown Code(s): E03.9 - Hypothyroidism, unspecified Status: Acute Assessment and Plan: TSH normal in September. Hold Synthroid for now but consider IV form if prolonged NPO status. (7) DVT prophylaxis: Code(s): Z29.9 - Encounter for prophylactic measures, unspecified Status: Acute Assessment and Plan: lovenox Subjective Date/time seen: 11/03/20 13:07 Interval history: 60yo male with hx of autism, schizoaffective disorder, intellectual disability, and Crohn's disease who presented to the ER home due to vomiting and found to have small bowel obstructions. Feels well. No complaints. Wants to go home Friday. Hx unreliable. Review of Systems Review of Systems: ROS unobtainable: Yes unobtainable due to mental status Exam Narrative: Exam Narrative: AF 97.7 134/66 70 18 96% Gen - NARD HEENT - NGT secured and draining clear fluid Chest - Clear bilaterally, nml RR CV - RRR S1/S2 Abd - soft, No obvious tenderness, +BS Ext - no edema. Psych - Patient is pleasant and mostly cooperative. Skin - warm and dry. Objective Data Vital Signs Vital Signs: Vital Signs - 24 hr 11/02/20 14:00 11/02/20 22:00 11/03/20 06:00 Temperature 97.3 F L 97.9 F 97.7 F Pulse Rate 94 79 70 Respiratory Rate 20 18 18 Blood Pressure 131/61 132/67 134/66 Pulse Oximetry 100 100 96 Intake/Output Intake/Output: Intake & Output 10/31/20 11/01/20 11/02/20 11/03/20 23:59 23:59 23:59 23:59 Intake Total 1210 2420 355 Output Total 1025 350 350 Balance 185 2070 5 Meds/Results Medications: Active Medications Generic Name Dose Route Start Last Admin Trade Name Freq PRN Reason Stop Dose Admin Dextrose 12.5 gm 11/02/20 18:28 11/02/20 17:40 Dextrose 50% 25 Gm/50 Ml Syringe IV PUSH 12.5 gm PRN PRN Administration Hypoglycemia
[2020-11-03 14:00] VITALS: BP 125/76; PULSE 115; RESP 20; TEMP 36.3; O2SAT 97
[2020-11-03] MEDS: AMINO ACIDS 4.25%/D5W/LYTES/CA 2,000 ML 80 ML IV CONT (17:41)
--- NOTE | 2020-11-03 17:42 | WPDGIPROGNO ---
Progress Note: A&P Assessment and Plan (1) Small bowel obstruction: Onset Date: Unknown Code(s): K56.609 - Unspecified intestinal obstruction, unspecified as to partial versus complete obstruction Status: Acute Assessment and Plan: recurrent SBO, ngt removed and will try CL diet surgery on board reviewed CT scan and probably ileitis, also noted recent elevated CRP and high calprotectin in stool. He apparently has h/o Crohn's, will do colonoscopy Friday to assess (reviewed old records from outside hospital, had normal MR enterography in 2018 and also colonoscopy) (2) Nausea and vomiting in adult: Code(s): R11.2 - Nausea with vomiting, unspecified Status: Acute Assessment and Plan: improved, continue to monitor (3) Crohn's disease: Code(s): K50.90 - Crohn's disease, unspecified, without complications Status: Chronic Assessment and Plan: will do colonoscopy to assess if any colitis/ileitis (4) Autism spectrum disorder: Code(s): F84.0 - Autistic disorder Status: Acute Subjective Date/time seen: 11/03/20 17:42 Interval history: NGT removed and try liquids Review of Systems Review of Systems: All systems reviewed & are unremarkable except as noted in HPI and below Exam Const: General: comfortable, no acute distress, alert and awake Orientation/consciousness: patient oriented x3 Eyes: EOM: EOMs intact bilaterally Neck: Neck: supple Resp: Auscultation: clear to auscultation bilaterally Cardio: Rate: regular rate GI: Inspection: normal to inspection and non-distended GI Palp: Yes Soft to palpation, No Tenderness to palpation present (GI) and No Guarding due to palpation present (GI) Auscultation: normal bowel sounds Skin: General skin exam: normal color Neuro: General: moves all extremities and no focal motor deficits Cognition (Neuro): abnormal cognition Speech: normal speech Extrem: General: no clubbing, cyanosis or edema Psych: Insight: Limited insight present (Psych) Judgement: Limited judgement present (Psych) Other: poor insight Objective Data Vital Signs Vital Signs: Vital Signs - 24 hr 11/02/20 22:00 11/03/20 06:00 11/03/20 14:00 Temperature 97.9 F 97.7 F 97.3 F L Pulse Rate 79 70 115 H Respiratory Rate 18 18 20 Blood Pressure 132/67 134/66 125/76 Pulse Oximetry 100 96 97 Intake/Output Intake/Output: Intake & Output 10/31/20 11/01/20 11/02/20 11/03/20 23:59 23:59 23:59 23:59 Intake Total 1210 2420 460 Output Total 1025 350 350 Balance 185 2070 110 Meds/Results Medications: Active Medications Generic Name Dose Route Start Last Admin Trade Name Freq PRN Reason Stop Dose Admin Dextrose 12.5 gm 11/02/20 18:28 11/02/20 17:40 Dextrose 50% 25 Gm/50 Ml Syringe IV PUSH 12.5 gm PRN PRN Administration Hypoglycemia Protocol Enoxaparin Sodium 40 mg 11/02/20 09:00 11/03/20 09:17 Enoxaparin 40 Mg/0.4 Ml Syringe SUB-Q 40 mg DAILY JULIANO Administration Glucagon 1 mg 11/02/20 18:28 Glucagon For Inj 1 Mg Vial IM PRN PRN Hypoglycemia Protocol Glucose 15 gm 11/02/20 18:28 Glucose Oral Gel 15 Gm Of Glucse In 37.5 Gm Tube PO PRN PRN Hypoglycemia Protocol Sodium Chloride 1,000 mls @ 45 mls/hr 11/01/20 07:50 11/03/20 06:39 Normal Saline Iv IV CONT 45 mls/hr .[id number] JULIANO Administration Valproate Sodium 500 mg/ 105 mls @ 105 mls/hr 11/01/20 12:00 11/03/20 14:14 Dextrose IVPB 105 mls/hr Q6HR JULIANO Administration Dextrose 1,000 mls @ 50 mls/hr 11/02/20 10:44 Dextrose 10% IV CONT .Q20H PRN if PN is interrupted Amino Acids/Electrolytes/Dextrose 2,000 mls @ 80 mls/hr 11/02/20 14:00 11/02/20 16:54 Clinimix E 4.25%/5% Solution IV CONT 80 mls/hr .Q24H JULIANO Administration Protocol Fat Emulsion Intravenous 250 mls @ 20.833 mls/hr 11/02/20 14:00 11/03/20 04:53 Lipids 20% IVPB Infused Q24H JULIANO
[2020-11-03] MEDS: FAT EMULSIONS IV 20% 250 ML 20.83 ML IVPB (17:44)
[2020-11-03 18:56] LABS: Glucose Point of Care 137 (65-105)
--- NOTE | 2020-11-03 18:59 | PC.NURSE ---
Dr. Ferguson would like pt to receive thrive ice cream supplement to go through [facility].
[2020-11-03 20:20] VITALS: PULSE 91; RESP 18; O2SAT 99
[2020-11-03 21:34] VITALS: O2SAT 99
[2020-11-03 21:57] VITALS: BP 130/68; PULSE 91; RESP 18; TEMP 36.3; O2SAT 99
[2020-11-04 00:04] LABS: Glucose Point of Care 98 (65-105)
[2020-11-04 06:00] VITALS: BP 132/74; PULSE 88; RESP 18; TEMP 36.1; O2SAT 99
[2020-11-04] MEDS: METOCLOPRAMIDE HCL INJ 10 MG/2 ML VIAL 5 MG IV PUSH ×3 (06:27→20:26)
[2020-11-04] MEDS: VALPROIC ACID INJ 500 MG in DEXTROSE 5% 100 ML 105 MG IVPB ×3 (06:28→18:12)
[2020-11-04 07:04] LABS: Anion Gap 5 mmol/L (8-16); Blood Urea Nitrogen 10 mg/dL (9-20); Calcium 9.2 mg/dL (8.4-10.2); Carbon Dioxide 28 mmol/L (22-30); Chloride 105 mmol/L (98-107); Estimated CRCL calculation 118 ml/min; Estimated Glomerular Filt Rate > 60; Glucose 103 mg/dL (75-110); Phosphorus 3.8 mg/dL (2.5-4.5); Potassium 4.4 mmol/L (3.4-5.0); Sodium 138 mmol/L (137-145)
--- NOTE | 2020-11-04 08:21 | WPDGIPROGNO ---
Subjective Date/time seen: 11/04/20 08:21 Reason for visit is nausea, vomiting and possible Crohn's disease. The patient is a little bit agitated. No nausea and vomiting reported. The patient has had bowel movements today. Tolerating clear liquids. General: very pleasant patient in no acute distress. HEENT: Head was normocephalic sclerae is clear mouth without masses neck was supple. Heart: Rate rhythm regular without S3 or S4. Lungs: CTA. Abdomen: Soft with no guarding or rigidity. Bowel sounds were active. Neurologic: Cranial nerves 2 through 12 intact. No focal defects. No clonus. Musculoskeletal system: Revealed no joint tenderness or swelling no muscle atrophy. Extremities: Reveal no significant edema. Skin: Warm and dry with normal turgor. Mental status: intact. Patient is alert. A little bit upset about not going home. Impression: Nausea, vomiting and abdominal pain. Crohn's disease?/incomplete SBO. Autism spectrum disorder GERD (gastroesophageal reflux disease) Gout Hypercholesterolemia Hypothyroidism Intellectual disability Peptic ulcer Schizophrenia Recommendation: Anticipate colonoscopy on Friday. Recheck laboratory studies. Review of Systems Review of Systems: All systems reviewed & are unremarkable except as noted in HPI and below Objective Data Vital Signs Vital Signs: Vital Signs - 24 hr 11/03/20 14:00 11/03/20 20:20 11/03/20 21:34 Temperature 36.3 C L Pulse Rate 115 H 91 Respiratory Rate 20 18 Blood Pressure 125/76 Pulse Oximetry 97 99 99 11/03/20 21:57 11/04/20 06:00 Temperature 36.3 C L 36.1 C L Pulse Rate 91 88 Respiratory Rate 18 18 Blood Pressure 130/68 132/74 Pulse Oximetry 99 99 Intake/Output Intake/Output: Intake & Output 11/01/20 11/02/20 11/03/20 11/04/20 23:59 23:59 23:59 23:59 Intake Total 1210 2420 4250 345 Output Total 8898 402 7797 850 Balance 185 2070 1950 -505 Meds/Results Medications: Active Medications Generic Name Dose Route Start Last Admin Trade Name Freq PRN Reason Stop Dose Admin Dextrose 12.5 gm 11/02/20 18:28 11/02/20 17:40 Dextrose 50% 25 Gm/50 Ml Syringe IV PUSH 12.5 gm PRN PRN Administration Hypoglycemia Protocol Enoxaparin Sodium 40 mg 11/02/20 09:00 11/03/20 09:17 Enoxaparin 40 Mg/0.4 Ml Syringe SUB-Q 40 mg DAILY JULIANO Administration Glucagon 1 mg 11/02/20 18:28 Glucagon For Inj 1 Mg Vial IM PRN PRN Hypoglycemia Protocol Glucose 15 gm 11/02/20 18:28 Glucose Oral Gel 15 Gm Of Glucse In 37.5 Gm Tube PO PRN PRN Hypoglycemia Protocol Sodium Chloride 1,000 mls @ 45 mls/hr 11/01/20 07:50 11/03/20 17:45 Normal Saline Iv IV CONT 45 mls/hr .[id number] JULIANO Administration Valproate Sodium 500 mg/ 105 mls @ 105 mls/hr 11/01/20 12:00 11/04/20 06:28 Dextrose IVPB 105 mls/hr Q6HR JULIANO Administration Dextrose 1,000 mls @ 50 mls/hr 11/02/20 10:44 Dextrose 10% IV CONT .Q20H PRN if PN is interrupted Amino Acids/Electrolytes/Dextrose 2,000 mls @ 80 mls/hr 11/02/20 14:00 11/03/20 17:41 Clinimix E 4.25%/5% Solution IV CONT 80 mls/hr .Q24H JULIANO Administration Protocol Fat Emulsion Intravenous 250 mls @ 20.833 mls/hr 11/02/20 14:00 11/03/20 17:44 Lipids 20% IVPB 20.83 mls/hr Q24H JULIANO Administration Dextrose 1,000 mls @ 100 mls/hr 11/02/20 18:28 Dextrose 5% 1,000 Ml IVPB PRN PRN Hypoglycemia Protocol Metoclopramide HCl 5 mg 11/01/20 22:00 11/04/20 06:27 Metoclopramide Hcl Inj 10 Mg/2 Ml Vial IV PUSH 5 mg Q8HR JULIANO Administration Ondansetron HCl 4 mg 11/01/20 07:48 Ondansetron Inj 4 Mg/2 Ml Vial IV PUSH Q4H PRN Nausea Pantoprazole Sodium 40 mg 11/02/20 09:00 11/03/20 09:17 Pantoprazole Sodium Iv 40 Mg Vial IV PUSH 40 mg QAM JULIANO Administration Radiology Results: ITS Impressions Abdomen X-Ray 11/03/20 06:51 I
[2020-11-04 09:35] LABS: Hematocrit 39.4 % (42.0-52.0); Hemoglobin 13.7 g/dL (14.0-18.0); Mean Corpuscular HGB Conc 34.8 g/dl (32-36); Mean Corpuscular Volume 103.4 fl (80-100); Mean Platelet Volume 10.6 fl (7.4-10.4); Platelet Count Result 259 k/mm3 (150-375); Red Blood Count 3.81 M/mm3 (4.6-6.20); Red Cell Distribution Width 13.4 % (11.5-14.5); White Blood Count 8.5 K/mm3 (4.5-10.0)
[2020-11-04 09:44] LABS: Anion Gap 10 mmol/L (8-16); Blood Urea Nitrogen 12 mg/dL (9-20); Calcium 9.4 mg/dL (8.4-10.2); Carbon Dioxide 26 mmol/L (22-30); Chloride 102 mmol/L (98-107); Estimated CRCL calculation 118 ml/min; Estimated Glomerular Filt Rate > 60; Glucose 119 mg/dL (75-110); Phosphorus 3.8 mg/dL (2.5-4.5); Potassium 4.1 mmol/L (3.4-5.0); Sodium 138 mmol/L (137-145)
--- NOTE | 2020-11-04 09:50 | PM.PNGS ---
Progress Note: A&P Assessment and Plan (1) Ileus: Code(s): K56.7 - Ileus, unspecified Status: Acute Assessment and Plan: ileus versus functional obstruction related to thickening of the distal ileum or poor function of the proximal jejunum. Because of the question of small-bowel obstruction I went ahead with a small-bowel follow-through yesterday. The dye showed dilated jejunum, no intrinsic filling defects, and good flow into the cecum within the 1-2 hour normal transit time. Please see the report. --- I called Dr. Aleman in radiology regarding this and we discussed the situation. He reviewed the CT scan of 10/31/2020 and feels that compared to the CT scan that he read 1 month ago there is thickening of the distal ileal bowel wall. These could be reviewed with him if needed. This raises the question again of possible Crohn's disease. In view of this I would recommend either colonoscopy with attempted ileoscopy and biopsies to rule out Crohn's disease versus a capsule endoscopy if Dr. Waite thinks that the logistics of that could be accomplished with this patient that is compromised because of his mental status/ autism spectrum. Appreciate GI recommendations. Continue Reglan. Questionable Crohns? --- Discussed with Dr. right hogan. Plan is for clear liquids plus Ensure p.o. over the weekend and colonoscopy with possible ileoscopy and biopsy on Friday. +flatus/BM, good bowel sounds today. Will continue PPN for nutrition while on clear diet waiting for the colonoscopy on Fri. -- Consult hot tamale worker. ( probably will go home on a low residue or low-fiber diet). (2) Autism spectrum disorder: Code(s): F84.0 - Autistic disorder Status: Acute Assessment and Plan: Will have hospitalist and Dr. Waite discuss the use of Reglan in concert with the other psychiatric medications that he has been on since at least one of them may have significant side effects or interactions with Reglan. It may be that one or both of these will need to be changed or adjusted when he is discharged such that we avoid adverse interactions. (3) Schizophrenia: Code(s): F20.9 - Schizophrenia, unspecified Status: Acute Assessment and Plan: Meds for schizophrenia may interact with Reglan and a decision will need to be made regarding changing these to something that Reglan can be used with or stopping the right gland. Will leave this up to Dr. Waite and Dr. Boudreaux. (4) Crohn's disease: Code(s): K50.90 - Crohn's disease, unspecified, without complications Status: Chronic Assessment and Plan: This was a possible diagnosis the pt has carried in the past. Interestingly during his last admission in September a stool study for calprotectin was sent and was labeled as high. Also, a stool for lactoferrin was done and resulted as positive. Will await further GI recommendations. Additional Plan I have discussed the patient's case and plan of care with Dr. Felix and Dr. Aleman (Radiology). Subjective Subjective Date/Time Seen: 11/04/20 07:50 Patient reports: no new complaints Interval history: Patient is sitting up in the chair when I arrived. He states he had a large bowel movement that was liquid both at midnight last night and at 5:00 a.m. this morning. Nurses report he is tolerating his clear liquid diet. Patient does remember getting an ensure to drink. Review of Systems Review of Systems: All systems reviewed & are unremarkable except as noted in HPI and below ROS unobtainable: Yes other (difficult to obtain some ROS due to baseline cognitive status) Constitutional: Constitutional: Reports as per HPI, Denies chills, Denies headache(s) and Denies poor appetite ENT: Reports Normal hearing present and Denies headache(s) Cardiovascular: Cardiovascular: Reports no additional cardiovascular complaints, Denies chest pain, Denies leg edema and Denies dyspnea Respiratory: Respirato
[2020-11-04 09:52] LABS: Prothrombin Time 13.5 Seconds (11.1-14.7)
[2020-11-04 10:03] LABS: Free T4 Free Thyroxine 1.63 ng/mL (0.78-2.19)
[2020-11-04] MEDS: ENOXAPARIN 40 MG/0.4 ML SYRINGE SUB-Q (10:47)
[2020-11-04] MEDS: PANTOPRAZOLE SODIUM IV 40 MG VIAL IV PUSH (10:48)
[2020-11-04] MEDS: SODIUM CHLORIDE 0.9% IV 1,000 ML 45 ML IV CONT (11:07)
[2020-11-04 12:19] LABS: Glucose Point of Care 125 (65-105)
[2020-11-04 12:19] LABS: Glucose Point of Care 136 (65-105)
--- NOTE | 2020-11-04 13:51 | PM.IMPN ---
Progress Note: A&P Assessment and Plan (1) Small bowel obstruction: Onset Date: Unknown Code(s): K56.609 - Unspecified intestinal obstruction, unspecified as to partial versus complete obstruction Status: Acute Assessment and Plan: Patietn presented with n/v and found to have partial SBO. NG tube placed with improvement in his symptoms. Obst series yesterday showing several loops of persistent significant distention. SBS showing distended jejunum probably ileus. General surgery following and discussed with Radiology who felt the patient had thickening of the distal ileal bowel wall. NG tube removed and he is tolerating clear liquid diet with supplements. GI following with plans for colonoscopy on Friday. (2) Weakness: Code(s): R53.1 - Weakness Status: Acute Assessment and Plan: Patient with lower extremity weakness possibly associated with bowel and bladder incontinence. B12/folate levels normal. Lumbar MRI showing no significant findings. Continue PT/OT. (3) Crohn's disease: Code(s): K50.90 - Crohn's disease, unspecified, without complications Status: Chronic Assessment and Plan: Patient with hx of Crohn's and is on sulfasalazine. Possible thickening to the distal ileum. Stool calprotectin was markedly elevated at 3130 and lactoferrin was positive last admission. GI consulted and appreciate their input. IBD markers pending. Colonoscopy being planned (4) Macrocytic anemia: Code(s): D53.9 - Nutritional anemia, unspecified Status: Acute Assessment and Plan: Macrocytosis and mild anemia noted. B12/folate levels normal. Probably related to his medications. (5) Autism spectrum disorder: Code(s): F84.0 - Autistic disorder Status: Acute Assessment and Plan: Stable. Patient having weakness, bowel and bladder issues. Unclear if this is related to medical issue or from regression from his autism but suspect the later. Continue PT/OT. Continue Divalproex as IV form. Will resume clozapine. Clozapine not formulary. Consider Seroquel at night. (6) Hypothyroidism: Onset Date: Unknown Code(s): E03.9 - Hypothyroidism, unspecified Status: Acute Assessment and Plan: TSH mildldy elevated at 8.6 but FT4 normal. Patient has been off Synthroid but to be resumed today. (7) DVT prophylaxis: Code(s): Z29.9 - Encounter for prophylactic measures, unspecified Status: Acute Assessment and Plan: lovenox Subjective Date/time seen: 11/04/20 13:51 Interval history: 60yo male with hx of autism, schizoaffective disorder, intellectual disability, and Crohn's disease who presented to the ER home due to vomiting and found to have small bowel obstructions. Alert. More agitated per staff. Patietn 'feels good'. He denies any complaints. NGT out now. Exam Narrative: Exam Narrative: AF 97.0 132/74 88 18 99% Gen - NARD sittin gup in chair Chest - decreased BS bibasialr o/w clear CV - tachcardic but regular (just had his glucose taken). Abd - soft, NT/ND, +BS Ext - no edema Psych - Patient is pleasant and cooperative. More hyperactive today Skin - warm and dry. Objective Data Vital Signs Vital Signs: Vital Signs - 24 hr 11/03/20 14:00 11/03/20 20:20 11/03/20 21:34 Temperature 97.3 F L Pulse Rate 115 H 91 Respiratory Rate 20 18 Blood Pressure 125/76 Pulse Oximetry 97 99 99 11/03/20 21:57 11/04/20 06:00 Temperature 97.4 F L 97 F L Pulse Rate 91 88 Respiratory Rate 18 18 Blood Pressure 130/68 132/74 Pulse Oximetry 99 99 Intake/Output Intake/Output: Intake & Output 11/01/20 11/02/20 11/03/20 11/04/20 23:59 23:59 23:59 23:59 Intake Total 1210 2420 4250 1930 Output Total 8636 460 6789 850 Balance 185 2070 1950 1080 Meds/Results Medications: Active Medications Generic Name Dose Route Start Last Admin Trade Name Freq
[2020-11-04 14:00] VITALS: BP 138/68; PULSE 120; RESP 20; TEMP 35.8; O2SAT 96
[2020-11-04] MEDS: AMINO ACIDS 4.25%/D5W/LYTES/CA 2,000 ML 80 ML IV CONT (15:03)
[2020-11-04] MEDS: FAT EMULSIONS IV 20% 250 ML 20.83 ML IVPB (15:09)
[2020-11-04 18:10] VITALS: PULSE 120
[2020-11-04] MEDS: LEVOTHYROXINE SODIUM 100 MCG TABLET PO (18:10)
[2020-11-04] MEDS: PROPRANOLOL HCL 20 MG TABLET PO ×2 (18:10→20:24)
[2020-11-04 18:20] LABS: Glucose Point of Care 118 (65-105)
[2020-11-04 20:00] VITALS: PULSE 105; RESP 18; O2SAT 98
[2020-11-04 20:24] VITALS: PULSE 92
[2020-11-04 22:00] VITALS: BP 149/80; PULSE 105; RESP 18; TEMP 36.4; O2SAT 98
[2020-11-05] VITALS (7 sets, daily range): BP systolic 128–135; BP diastolic 77–98; PULSE 92–104; RESP 18–20; TEMP 35.9–36.9; O2SAT 93–99
[2020-11-05] MEDS: VALPROIC ACID INJ 500 MG in DEXTROSE 5% 100 ML 105 MG IVPB ×2 (00:05→06:04)
[2020-11-05 02:27] LABS: Glucose Point of Care 108 (65-105)
[2020-11-05] MEDS: METOCLOPRAMIDE HCL INJ 10 MG/2 ML VIAL 5 MG IV PUSH (06:06)
[2020-11-05 06:33] LABS: Anion Gap 5 mmol/L (8-16); Blood Urea Nitrogen 13 mg/dL (9-20); Calcium 9.2 mg/dL (8.4-10.2); Carbon Dioxide 28 mmol/L (22-30); Chloride 102 mmol/L (98-107); Estimated CRCL calculation 118 ml/min; Estimated Glomerular Filt Rate > 60; Glucose 93 mg/dL (75-110); Phosphorus 3.5 mg/dL (2.5-4.5); Potassium 4.5 mmol/L (3.4-5.0); Sodium 135 mmol/L (137-145)
[2020-11-05] MEDS: PANTOPRAZOLE SODIUM IV 40 MG VIAL IV PUSH ×2 (08:07→09:30)
[2020-11-05] MEDS: LEVOTHYROXINE SODIUM 100 MCG TABLET PO (08:07)
--- NOTE | 2020-11-05 08:43 | PM.PNGS ---
Progress Note: A&P Assessment and Plan (1) Ileus: Code(s): K56.7 - Ileus, unspecified Status: Acute Assessment and Plan: ileus versus functional obstruction related to thickening of the distal ileum or poor function of the proximal jejunum. Because of the question of small-bowel obstruction I went ahead with a small-bowel follow-through yesterday. The dye showed dilated jejunum, no intrinsic filling defects, and good flow into the cecum within the 1-2 hour normal transit time. Please see the report. --- I called Dr. Aleman in radiology regarding this and we discussed the situation. He reviewed the CT scan of 10/31/2020 and feels that compared to the CT scan that he read 1 month ago there is thickening of the distal ileal bowel wall. These could be reviewed with him if needed. This raises the question again of possible Crohn's disease. In view of this I would recommend either colonoscopy with attempted ileoscopy and biopsies to rule out Crohn's disease versus a capsule endoscopy if Dr. Waite thinks that the logistics of that could be accomplished with this patient that is compromised because of his mental status/ autism spectrum. Appreciate GI recommendations. Continue Reglan. Questionable Crohns? --- Discussed with and Plan is for clear liquids plus Ensure p.o. over the weekend and colonoscopy with possible ileoscopy and biopsy on Friday. +flatus/BM, good bowel sounds today. Will continue PPN for nutrition while on clear diet waiting for the colonoscopy on Fri. -- Consult metropolitan editor. ( probably will go home on a low residue or low-fiber diet). (2) Autism spectrum disorder: Code(s): F84.0 - Autistic disorder Status: Acute Assessment and Plan: Will have hospitalist and Dr. Waite discuss the use of Reglan in concert with the other psychiatric medications that he has been on since at least one of them may have significant side effects or interactions with Reglan. It may be that one or both of these will need to be changed or adjusted when he is discharged such that we avoid adverse interactions. (3) Schizophrenia: Code(s): F20.9 - Schizophrenia, unspecified Status: Acute Assessment and Plan: Meds for schizophrenia may interact with Reglan and a decision will need to be made regarding changing these to something that Reglan can be used with or stopping the right gland. Will leave this up to Dr. Waite and Dr. Boudreaux. (4) Crohn's disease: Code(s): K50.90 - Crohn's disease, unspecified, without complications Status: Chronic Assessment and Plan: This was a possible diagnosis the pt has carried in the past. Interestingly during his last admission in September a stool study for calprotectin was sent and was labeled as high. Also, a stool for lactoferrin was done and resulted as positive. Will await further GI recommendations. Additional Plan I have discussed the patient's case and plan of care with Dr. Waite. Subjective Subjective Date/Time Seen: 11/05/20 08:43 Patient showing no signs of bowel obstruction. Has not had a bowel movement the last 24 hours. I believe a bowel prep this planned for today along with clear liquids until midnight. I believe Dr. Waiet is planning a colonoscopy possible ileoscopy with biopsies tomorrow. This is to rule out Crohn's as a reason for his recurrent abdominal problems. Review of Systems Review of Systems: All systems reviewed & are unremarkable except as noted in HPI and below ROS unobtainable: Yes other (difficult to obtain some ROS due to baseline cognitive status) Constitutional: Constitutional: Reports as per HPI, Denies chills, Denies headache(s) and Denies poor appetite ENT: Reports Normal hearing present and Denies headache(s) Cardiovascular: Cardiovascular: Reports no additional cardiovascular complaints, Denies chest pain, Denies leg edema and Denies dyspnea Respiratory:
[2020-11-05] MEDS: PROPRANOLOL HCL 20 MG TABLET PO ×4 (09:30→20:16)
[2020-11-05] MEDS: ENOXAPARIN 40 MG/0.4 ML SYRINGE SUB-Q (09:31)
--- NOTE | 2020-11-05 09:34 | WPDGIPROGNO ---
Subjective Date/time seen: 11/05/20 09:34 The patient had a large bowel movement late last night. No complaints of nausea, vomiting or abdominal pain. General: very pleasant patient in no acute distress. HEENT: Head was normocephalic sclerae is clear mouth without masses neck was supple. Heart: Rate rhythm regular without S3 or S4. Lungs: CTA. Abdomen: Soft with no guarding or rigidity. Bowel sounds were active. Neurologic: Cranial nerves 2 through 12 intact. No focal defects. No clonus. Musculoskeletal system: Revealed no joint tenderness or swelling no muscle atrophy. Extremities: Reveal no significant edema. Skin: Warm and dry with normal turgor. Mental status: intact. Patient is alert. A little bit upset about not going home. Impression: Nausea, vomiting and abdominal pain. Crohn's disease?/incomplete SBO. Autism spectrum disorder GERD (gastroesophageal reflux disease) Gout Hypercholesterolemia Hypothyroidism Intellectual disability Peptic ulcer Schizophrenia Recommendation: Anticipate colonoscopy on Friday. Review of Systems Review of Systems: All systems reviewed & are unremarkable except as noted in HPI and below Objective Data Vital Signs Vital Signs: Vital Signs - 24 hr 11/04/20 14:00 11/04/20 18:10 11/04/20 20:00 Temperature 35.8 C L Pulse Rate 120 H 120 H 105 H Respiratory Rate 20 18 Blood Pressure 138/68 Pulse Oximetry 96 98 11/04/20 20:24 11/04/20 22:00 11/05/20 06:00 Temperature 36.4 C 36.2 C L Pulse Rate 92 105 H 92 Respiratory Rate 18 18 Blood Pressure 149/80 H 128/77 Pulse Oximetry 98 99 11/05/20 09:30 Temperature Pulse Rate 92 Respiratory Rate Blood Pressure Pulse Oximetry Intake/Output Intake/Output: Intake & Output 11/02/20 11/03/20 11/04/20 11/05/20 23:59 23:59 23:59 23:59 Intake Total 2420 4250 4510 915 Output Total 350 2300 850 800 Balance 2070 1950 3660 115 Meds/Results Medications: Active Medications Generic Name Dose Route Start Last Admin Trade Name Freq PRN Reason Stop Dose Admin Bisacodyl 10 mg 11/05/20 15:00 Bisacodyl 5 Mg Tablet Ec PO 11/06/20 03:01 0300,1500,2100 JULIANO Dextrose 12.5 gm 11/02/20 18:28 11/02/20 17:40 Dextrose 50% 25 Gm/50 Ml Syringe IV PUSH 12.5 gm PRN PRN Administration Hypoglycemia Protocol Enoxaparin Sodium 40 mg 11/02/20 09:00 11/05/20 09:31 Enoxaparin 40 Mg/0.4 Ml Syringe SUB-Q 40 mg DAILY JULIANO Administration Glucagon 1 mg 11/02/20 18:28 Glucagon For Inj 1 Mg Vial IM PRN PRN Hypoglycemia Protocol Glucose 15 gm 11/02/20 18:28 Glucose Oral Gel 15 Gm Of Glucse In 37.5 Gm Tube PO PRN PRN Hypoglycemia Protocol Valproate Sodium 500 mg/ 105 mls @ 105 mls/hr 11/01/20 12:00 11/05/20 06:04 Dextrose IVPB 105 mls/hr Q6HR JULIANO Administration Dextrose 1,000 mls @ 50 mls/hr 11/02/20 10:44 Dextrose 10% IV CONT .Q20H PRN if PN is interrupted Amino Acids/Electrolytes/Dextrose 2,000 mls @ 80 mls/hr 11/02/20 14:00 11/04/20 15:03 Clinimix E 4.25%/5% Solution IV CONT 80 mls/hr .Q24H JULIANO Administration Protocol Fat Emulsion Intravenous 250 mls @ 20.833 mls/hr 11/02/20 14:00 11/04/20 15:09 Lipids 20% IVPB 20.83 mls/hr Q24H JULIANO Administration Dextrose 1,000 mls @ 100 mls/hr 11/02/20 18:28 Dextrose 5% 1,000 Ml IVPB PRN PRN Hypoglycemia Protocol Levothyroxine Sodium 100 mcg 11/04/20 14:05 11/05/20 08:07 Levothyroxine Sodium 100 Mcg Tablet PO 100 mcg DAILY@0630 JULIANO Administration Metoclopramide HCl 5 mg 11/01/20 22:00 11/05/20 06:06 Metoclopramide Hcl Inj 10 Mg/2 Ml Vial IV PUSH 5 mg Q8HR JULIANO Administration Non-Formulary Medication 200 mg 11/04/20 17:00 Clozapine PO 12/04/20 17:01 1700 JULIANO Non-Formulary Medication 100 mg 11/04/20 17:00 Clozapine PO 12/04/20 17:01 BID JULIANO Ondansetron HCl
--- NOTE | 2020-11-05 11:03 | PM.IMPN ---
Progress Note: A&P Assessment and Plan (1) Small bowel obstruction: Onset Date: Unknown Code(s): K56.609 - Unspecified intestinal obstruction, unspecified as to partial versus complete obstruction Status: Acute Assessment and Plan: Patient presented with n/v and found to have partial SBO. NG tube placed with improvement in his symptoms. Serial Obstructive series showing improvement but with several loops of persistent significant distention. SBS showing distended jejunum probably ileus. General surgery following and discussed with Radiology who felt the patient had thickening of the distal ileal bowel wall. NG tube removed and he is tolerating clear liquid diet with supplements. GI following with plans for colonoscopy tomorrow. Discussed with General surgery and GI. THey were okay with stopping Reglan. (2) Weakness: Code(s): R53.1 - Weakness Status: Acute Assessment and Plan: Patient with lower extremity weakness possibly associated with bowel and bladder incontinence. B12/folate levels normal. Lumbar MRI showing no significant findings. Continue PT/OT. (3) Crohn's disease: Code(s): K50.90 - Crohn's disease, unspecified, without complications Status: Chronic Assessment and Plan: Patient with hx of Crohn's and is on sulfasalazine. Possible thickening to the distal ileum. Stool calprotectin was markedly elevated at 3130 and lactoferrin was positive last admission. GI consulted and appreciate their input. IBD markers pending. Colonoscopy being planned (4) Macrocytic anemia: Code(s): D53.9 - Nutritional anemia, unspecified Status: Acute Assessment and Plan: Macrocytosis and mild anemia noted. B12/folate levels normal. Probably related to his medications. (5) Autism spectrum disorder: Code(s): F84.0 - Autistic disorder Status: Acute Assessment and Plan: Stable. Patient having weakness, bowel and bladder issues. Unclear if this is related to medical issue or from regression from his autism but suspect the later. Continue PT/OT. Continue Divalproex and change back to oral route. Clozapine not formulary. Add Seroquel prn for agitation. (6) Hypothyroidism: Onset Date: Unknown Code(s): E03.9 - Hypothyroidism, unspecified Status: Acute Assessment and Plan: TSH milldy elevated at 8.6 but FT4 normal possibly related to being off the Synthroid. Synthroid was resumed yesterday. (7) DVT prophylaxis: Code(s): Z29.9 - Encounter for prophylactic measures, unspecified Status: Acute Assessment and Plan: lovenox - hold tomorrow's dose Subjective Date/time seen: 11/05/20 11:03 Interval history: 60yo male with hx of autism, schizoaffective disorder, intellectual disability, and Crohn's disease who presented to the ER home due to vomiting and found to have small bowel obstructions. No issues. Patient unable to provide accurate hx. Review of Systems Review of Systems: ROS unobtainable: Yes unobtainable due to mental status Exam Narrative: Exam Narrative: AF 97.1 128/77 92 18 99% Gen - NARD sitting up in chair Chest - CTA bilaterally, nml RR CV - RRR S1/S2 Abd - soft, NT/ND, +BS Ext - no edema Psych - Patient is pleasant and cooperative. More hyperactive with rocking. Repetitive questions and statements Skin - warm and dry. Objective Data Vital Signs Vital Signs: Vital Signs - 24 hr 11/04/20 14:00 11/04/20 18:10 11/04/20 20:00 Temperature 96.5 F L Pulse Rate 120 H 120 H 105 H Respiratory Rate 20 18 Blood Pressure 138/68 Pulse Oximetry 96 98 11/04/20 20:24 11/04/20 22:00 11/05/20 06:00 Temperature 97.6 F 97.1 F L Pulse Rate 92 105 H 92 Respiratory Rate 18 18 Blood Pressure 149/80 H 128/77 Pulse Oximetry 98 99 11/05/20 09:30 Temperature Pulse Rate 92 Respiratory Rate Blood Pressure Pulse Oximetry
[2020-11-05 11:06] LABS: Triglycerides 110 mg/dL (<150)
[2020-11-05 11:18] LABS: Hematocrit 40.4 % (42.0-52.0); Hemoglobin 14.2 g/dL (14.0-18.0); Mean Corpuscular HGB Conc 35.1 g/dl (32-36); Mean Corpuscular Hemoglobin 35.8 pg (26-34); Mean Corpuscular Volume 101.8 fl (80-100); Mean Platelet Volume 10.2 fl (7.4-10.4); Platelet Count Result 392 k/mm3 (150-375); Red Blood Count 3.97 M/mm3 (4.6-6.20); Red Cell Distribution Width 13.4 % (11.5-14.5); White Blood Count 14.9 K/mm3 (4.5-10.0)
[2020-11-05 11:24] LABS: Anion Gap 10 mmol/L (8-16); Blood Urea Nitrogen 16 mg/dL (9-20); CRP 15.4 mg/dL (<1.0); Calcium 9.6 mg/dL (8.4-10.2); Carbon Dioxide 23 mmol/L (22-30); Chloride 101 mmol/L (98-107); Estimated CRCL calculation 103 ml/min; Estimated Glomerular Filt Rate > 60; Glucose 118 mg/dL (75-110); Potassium 4.9 mmol/L (3.4-5.0); Sodium 134 mmol/L (137-145)
[2020-11-05] MEDS: DIVALPROEX SODIUM ER 500 MG TAB.24H 1000 MG PO ×2 (13:14→20:15)
[2020-11-05] MEDS: polyethylene glycoL 3350 238 GM BOTTLE PO (15:40)
[2020-11-05] MEDS: BISACODYL 5 MG TABLET EC 10 MG PO ×2 (15:42→20:15)
[2020-11-05] MEDS: SIMETHICONE 80 MG TAB.CHEW 160 MG PO ×2 (15:43→20:15)
[2020-11-05] MEDS: AMINO ACIDS 4.25%/D5W/LYTES/CA 2,000 ML 80 ML IV CONT (15:56)
[2020-11-05] MEDS: FAT EMULSIONS IV 20% 250 ML 20.83 ML IVPB (15:57)
[2020-11-05 17:57] LABS: Glucose Point of Care 123 (65-105)
[2020-11-06] VITALS (10 sets, daily range): BP systolic 86–130; BP diastolic 48–69; PULSE 78–96; RESP 14–24; TEMP 36.3–36.7; O2SAT 95–100
[2020-11-06 00:33] LABS: Glucose Point of Care 110 (65-105)
[2020-11-06] MEDS: BISACODYL 5 MG TABLET EC 10 MG PO (03:10)
[2020-11-06] MEDS: SIMETHICONE 80 MG TAB.CHEW 160 MG PO (03:10)
[2020-11-06 06:25] LABS: Glucose Point of Care 84 (65-105)
[2020-11-06 06:54] LABS: Alanine Aminotransferase 19 U/L (4-50); Albumin Level 3.5 g/dL (3.5-5.1); Alkaline Phosphatase 96 U/L (38-126); Anion Gap 5 mmol/L (8-16); Aspartate Amino Transferase 40 U/L (17-59); Bilirubin,Total 0.5 mg/dL (0.2-1.3); Blood Urea Nitrogen 16 mg/dL (9-20); Carbon Dioxide 27 mmol/L (22-30); Chloride 102 mmol/L (98-107); Estimated CRCL calculation 120 ml/min; Estimated Glomerular Filt Rate > 60; Glucose 104 mg/dL (75-110); Magnesium 1.8 mg/dL (1.6-2.3); Phosphorus 3.3 mg/dL (2.5-4.5); Potassium 4.4 mmol/L (3.4-5.0); Sodium 134 mmol/L (137-145)
[2020-11-06 07:01] LABS: Transferrin 171 mg/dL (206-381)
[2020-11-06 07:09] LABS: Basophils Percent Auto 0.5 % (0.2-1.2); Eosinophils Percent Auto 0.1 % (0-4.4); Hematocrit 33.3 % (42.0-52.0); Hemoglobin 11.7 g/dL (14.0-18.0); Immature Granulocyte Absolute 0.26 K/mm3 (0.00-0.031); Immature Granulocyte Percent A 3.3 % (0-0.5); Lymphocytes Absolute Auto 1.49 K/mm3 (0.9-3.2); Lymphocytes Percent Auto 18.8 % (18.3-44.2); Mean Corpuscular HGB Conc 35.1 g/dl (32-36); Mean Corpuscular Hemoglobin 36.2 pg (26-34); Mean Corpuscular Volume 103.1 fl (80-100); Mean Platelet Volume 10.3 fl (7.4-10.4); Monocytes Absolute Auto 1.3 K/mm3 (0.1-0.6); Monocytes Percent Auto 15.8 % (2.6-8.5); Neutrophils Absolute Auto 4.9 K/mm3 (1.3-6.7); Neutrophils Percent Auto 61.5 % (45.5-73.1); Platelet Count Result 216 k/mm3 (150-375); Red Blood Count 3.23 M/mm3 (4.6-6.20); Red Cell Distribution Width 13.2 % (11.5-14.5); White Blood Count 7.9 K/mm3 (4.5-10.0)
[2020-11-06 07:52] LABS: Prothrombin Time 13.9 Seconds (11.1-14.7)
[2020-11-06 07:53] LABS: Partial Thromboplastin Time 35.4 SECONDS (22.3-36.8)
[2020-11-06] MEDS: PROPRANOLOL HCL 20 MG TABLET PO ×3 (08:21→22:28)
[2020-11-06] MEDS: DIVALPROEX SODIUM ER 500 MG TAB.24H 1000 MG PO ×2 (09:25→22:28)
[2020-11-06] MEDS: ESCITALOPRAM OXALATE 10 MG TABLET 20 MG PO (09:25)
--- NOTE | 2020-11-06 09:25 | PC.NURSE ---
to GI lab per sundeep
[2020-11-06] MEDS: LACTATED RINGERS 1,000 ML 150 ML IV CONT (09:47)
--- NOTE | 2020-11-06 09:47 | WPDANESEPPF ---
Anes - Initial Pre Proc Eval Procedure: Operation Date: 11/06/20 12:45 Proposed Procedures p Colonoscopy - Sammy Gupta MD Date/Time: 11/06/20 09:47 Surgeon: Lee Boudreaux MD Pre Op Diagnosis: small bowel obstruction Patient Data Age: 60 Gender: M Height: 6 ft 2 in Weight: 74.2 kg Last Vital Signs Temp 97.6 F 11/06/20 09:39 Pulse 87 11/06/20 09:39 Resp 18 11/06/20 09:39 BP 125/69 11/06/20 09:39 Pulse Ox 98 11/06/20 09:39 Allergies Allergy/AdvReac Type Severity Reaction Status Date / Time No Known Allergies Allergy Verified 11/06/20 09:37 Home Medications Medication Instructions Recorded Confirmed Type Linzess 145 mcg PO DAILY 10/15/20 11/01/20 History clozapine 200 mg 1700 10/15/20 11/01/20 History divalproex 1,000 mg PO Q12H 10/15/20 11/01/20 History ergocalciferol (vitamin D2) 50,000 unit PO WEEKLY 10/15/20 11/01/20 History escitalopram oxalate 20 mg PO DAILY 10/15/20 11/01/20 History fenofibrate 160 mg PO DAILY 10/15/20 11/01/20 History folic acid 1 mg PO DAILY 10/15/20 11/01/20 History levothyroxine 100 mcg PO DAILY 10/15/20 11/01/20 History omega 4-fcr-xcj-fish oil [Fish Oil] 1 cap PO BID 10/15/20 11/01/20 History omeprazole 40 mg PO Q12H 10/15/20 11/01/20 History potassium chloride 10 meq PO DAILY 10/15/20 11/01/20 History propranolol 20 mg PO QID 10/15/20 11/01/20 History sennosides-docusate sodium 2 tab-cap PO BID 10/15/20 11/01/20 History [Senokot-S] sulfasalazine 1,000 mg PO BID 10/15/20 11/01/20 History vitamin B complex 1 tablet PO DAILY 10/15/20 11/01/20 History polyethylene glycol 3350 [Miralax] 17 g PO DAILY #0 ea 10/18/20 11/01/20 Rx Allergy (diphenhydramine) 25 cap BYMOUTH Q6H PRN 11/01/20 11/01/20 History acetaminophen [Tylenol] 650 mg PO PRN PRN 11/01/20 11/01/20 History bisacodyl 10 mg PO PRN PRN 11/01/20 11/01/20 History cetirizine 10 mg PO DAILY 11/01/20 11/01/20 History clozapine 100 mg PO BID 11/01/20 11/01/20 History multivitamin,tx-minerals [Thera M] 1 tablet PO 1700 11/01/20 11/01/20 History Laboratory Tests 11/05/20 11/05/20 11/05/20 10:39 10:39 10:39 WBC 14.9 K/mm3 H K/mm3 (4.5-10.0) RBC 3.97 M/mm3 L M/mm3 (4.6-6.20) Hgb 14.2 g/dL g/dL (14.0-18.0) Hct 40.4 % L % (42.0-52.0) MCV 101.8 fl H fl (80-100) MCH 35.8 pg H pg (26-34) MCHC 35.1 g/dl g/dl (32-36) RDW 13.4 % % (11.5-14.5) Plt Count 392 k/mm3 H D k/mm3 (150-375) MPV 10.2 fl fl (7.4-10.4) Immature Gran % (Auto) Neut % (Auto) Lymph % (Auto) Faulkner % (Auto) Eos % (Auto) Baso % (Auto) Lymph # (Auto) Faulkner # (Auto) Eos # (Auto) Baso # (Auto) Abs Immat Gran (auto) Absolute Neuts (auto) Absolute Nucleated RBC Nucleated RBC % PT INR APTT Sodium 134 mmol/L L mmol/L (137-145) Potassium 4.9 mmol/L mmol/L (3.4-5.0) Chloride 101 mmol/L mmol/L (98-107) Carbon Dioxide 23 mmol/L mmol/L (22-30) Anion Gap 10 mmol/L mmol/L (8-16) BUN 16 mg/dL mg/dL (9-20) Creatinine 0.70 mg/dL mg/dL (0.7-1.3) Estim Creat Clear Calc 103 ml/min ml/min Estimated GFR > 60 (59 - ) Glucose 118 mg/dL H mg/dL (75-110) POC Capillary Glucose Calcium 9.6 mg/dL mg/dL (8.4-10.2) Phosphorus Magnesium Transferrin Total Bilirubin AST ALT Alkaline Phosphatase C-Reactive Protein 15.4 mg/dL H mg/dL (<1.0) Total Protein Albumin Triglycerides 110 mg/dL mg/dL (<150) 11/05/20 11/06/20 11/06/20 17:40 00:27 06:02 WBC 7.9 K/mm
--- NOTE | 2020-11-06 10:08 | PM.IMPN ---
Progress Note: A&P Assessment and Plan (1) Small bowel obstruction: Onset Date: Unknown Code(s): K56.609 - Unspecified intestinal obstruction, unspecified as to partial versus complete obstruction Status: Acute Assessment and Plan: Patient presented with n/v and found to have partial SBO. NG tube placed with improvement in his symptoms. Serial Obstructive series showing improvement but with several loops of persistent significant distention. SBS showing distended jejunum probably ileus. General surgery following and discussed with Radiology who felt the patient had thickening of the distal ileal bowel wall. NG tube removed and he is tolerating clear liquid diet with supplements. GI following with plans for colonoscopy today. (2) Weakness: Code(s): R53.1 - Weakness Status: Acute Assessment and Plan: Patient with lower extremity weakness possibly associated with bowel and bladder incontinence per his caregiver. B12/folate levels normal. Lumbar MRI showing no significant findings. Related to his autism? Continue PT/OT. (3) Crohn's disease: Code(s): K50.90 - Crohn's disease, unspecified, without complications Status: Chronic Assessment and Plan: Patient with hx of Crohn's and is on sulfasalazine. Possible thickening to the distal ileum. Stool calprotectin was markedly elevated at 3130 and lactoferrin was positive last admission. GI consulted and appreciate their input. IBD markers pending. Colonoscopy being planned for today No evidence of active Crohn's disease by colonoscopy. Resume the sulfasalzine? (4) Macrocytic anemia: Code(s): D53.9 - Nutritional anemia, unspecified Status: Acute Assessment and Plan: Macrocytosis and mild anemia noted. B12/folate levels normal. Probably related to his medications. (5) Autism spectrum disorder: Code(s): F84.0 - Autistic disorder Status: Acute Assessment and Plan: Stable. Patient having weakness, bowel and bladder issues. Unclear if this is related to medical issue or from regression from his autism but suspect the later. Continue PT/OT. Continue Divalproex. Clozapine not formulary. Seroquel added prn for agitation. (6) Hypothyroidism: Onset Date: Unknown Code(s): E03.9 - Hypothyroidism, unspecified Status: Acute Assessment and Plan: TSH milldy elevated at 8.6 but FT4 normal possibly related to being off the Synthroid. Synthroid has been resumed. (7) DVT prophylaxis: Code(s): Z29.9 - Encounter for prophylactic measures, unspecified Status: Acute Assessment and Plan: lovenox - on hold today for colonoscopy. Resume when okay with GI. Subjective Date/time seen: 11/06/20 10:08 Interval history: 60yo male with hx of autism, schizoaffective disorder, intellectual disability, and Crohn's disease who presented to the ER home due to vomiting and found to have small bowel obstructions. Patient unable to provide accurate hx. He denies CP and abd pain. Exam Narrative: Exam Narrative: AF 97.6 125/69 18 98% ra Gen - NARD sitting up in bed Chest - CTA bilaterally, nml RR CV - RRR S1/S2 Abd - soft, NT/ND, +BS Ext - no edema Psych - Patient is pleasant and cooperative. Anxious about upcoming procedure Skin - warm and dry. Objective Data Vital Signs Vital Signs: Vital Signs - 24 hr 11/05/20 13:14 11/05/20 14:00 11/05/20 17:15 Temperature 96.6 F L Pulse Rate 104 H 97 100 Respiratory Rate 20 Blood Pressure 135/98 H Pulse Oximetry 97 11/05/20 20:16 11/05/20 22:00 11/06/20 06:00 Temperature 98.5 F 98 F Pulse Rate 97 99 86 Respiratory Rate 20 20 Blood Pressure 129/79 111/61 Pulse Oximetry 93 98 11/06/20 08:21 11/06/20 09:39 Temperature 97.6 F Pulse Rate 96 87 Respiratory Rate 18 Blood Pressure 125/69 Pulse Oximetry 98 Intake/Output Intake/Output: Intake
--- NOTE | 2020-11-06 10:23 | PCPTNOTE ---
Attempted to see patient at 9:42, patient out of room at this time.Will attempt later as appropriate. Peri Cardenas, CONSULTING ANALYST
--- NOTE | 2020-11-06 14:57 | PM.PNGS ---
Progress Note: A&P Assessment and Plan (1) Ileus: Code(s): K56.7 - Ileus, unspecified Status: Acute Assessment and Plan: Ileus versus functional obstruction. SBFT showed normal transit to colon with no high grade obstruction, dilated jejunum, suggesting ileus. Colonoscopy performed today and unremarkable with no evidence of Crohn's. Multiple biopsies taken and are pending. Reglan has been stopped. Bowels continue to move and he is tolerating a full liquid diet. Being advanced to low fiber diet for dinner. I will discontinue the PPN/lipids. (2) Autism spectrum disorder: Code(s): F84.0 - Autistic disorder Status: Acute (3) Schizophrenia: Code(s): F20.9 - Schizophrenia, unspecified Status: Acute (4) Crohn's disease: Code(s): K50.90 - Crohn's disease, unspecified, without complications Status: Chronic Assessment and Plan: Questionable hx of Crohn's? Colonoscopy performed by GI today that showed no evidence of Crohn's disease. Multiple biopsies were taken. Additional Plan I have discussed the patient's case and plan of care with Dr. eFrguson. Subjective Subjective Date/Time Seen: 11/06/20 14:57 Interval history: Limited history due to patient's ability to provide accurate hx. No specific complaints or acute issues. Per the nurse, he has tolerated full liquids after colonoscopy. Review of Systems Review of Systems: ROS unobtainable: Yes unobtainable due to mental status Exam Const: General: comfortable, no acute distress, alert and awake Orientation/consciousness: patient oriented x3 GI: Inspection: non-distended GI Palp: Yes Soft to palpation, No Tenderness to palpation present (GI), No Guarding due to palpation present (GI) and No Rebound tenderness present Auscultation: normal bowel sounds Neuro: General: moves all extremities Psych: Insight: Limited insight present (Psych) Judgement: Limited judgement present (Psych) Objective Data Vital Signs Vital Signs: Vital Signs - 24 hr 11/05/20 17:15 11/05/20 20:16 11/05/20 22:00 Temperature 98.5 F Pulse Rate 100 97 99 Respiratory Rate 20 Blood Pressure 129/79 Pulse Oximetry 93 11/06/20 06:00 11/06/20 08:21 11/06/20 09:39 Temperature 98 F 97.6 F Pulse Rate 86 96 87 Respiratory Rate 20 18 Blood Pressure 111/61 125/69 Pulse Oximetry 98 98 11/06/20 11:01 11/06/20 11:11 11/06/20 11:21 Temperature Pulse Rate 88 83 84 Respiratory Rate 24 H 14 16 Blood Pressure 88/48 L 86/55 L 98/49 L Pulse Oximetry 95 97 100 Intake/Output Intake/Output: Intake & Output 11/03/20 11/04/20 11/05/20 11/06/20 23:59 23:59 23:59 23:59 Intake Total 4250 4510 4195 1200 Output Total 2300 850 1550 1200 Balance 1950 3660 2645 0 Meds/Results Medications: Active Medications Generic Name Dose Route Start Last Admin Trade Name Freq PRN Reason Stop Dose Admin Dextrose 12.5 gm 11/02/20 18:28 11/02/20 17:40 Dextrose 50% 25 Gm/50 Ml Syringe IV PUSH 12.5 gm PRN PRN Administration Hypoglycemia Protocol Divalproex Sodium 1,000 mg 11/05/20 11:20 11/05/20 20:15 Divalproex Sodium Er 500 Mg Tab.24h PO 1,000 mg Q12HR JULIANO Administration Enoxaparin Sodium 40 mg 11/02/20 09:00 11/05/20 09:31 Enoxaparin 40 Mg/0.4 Ml Syringe SUB-Q 40 mg DAILY JULIANO Administration Escitalopram Oxalate 20 mg 11/06/20 09:00 Escitalopram Oxalate 10 Mg Tablet PO DAILY JULIANO Glucagon 1 mg 11/02/20 18:28 Glucagon For Inj 1 Mg Vial IM PRN PRN Hypoglycemia Protocol Glucose 15 gm 11/02/20 18:28 Glucose Oral Gel 15 Gm Of Glucse In 37.5 Gm Tube PO PRN PRN Hypoglycemia Protocol Dextrose 1,000 mls @ 50 mls/hr 11/02/20 10:44 Dextrose 10% IV CONT .Q20H PRN if PN is interrupted Amino Acids/Electrolytes/Dextrose 2,000 mls @ 80 mls/hr 11/02/20 14:00 11/05/20 15:56 Clinimix E 4.25%/5% Solution IV CONT 80 mls/hr .Q24H
--- NOTE | 2020-11-06 15:34 | PHAR ---
PT'S HOME MED CLOZAPINE 100 MG TAB VERIFIED BY PHARMACY
--- NOTE | 2020-11-06 21:41 | PC.NURSE ---
patient very asleep after 1700 clozapine. Answered briefly to name but fell back asleep. Was not able to pass 2100 meds at this time due to sedative nature of clozapine. Will continue to keep an eye on him and give his medications when he is more awake. -BRUNA RN
[2020-11-07] VITALS (8 sets, daily range): BP systolic 106–146; BP diastolic 47–91; PULSE 72–112; RESP 20; TEMP 36.7–36.8; O2SAT 98–100
[2020-11-07] MEDS: LEVOTHYROXINE SODIUM 100 MCG TABLET PO (05:45)
--- NOTE | 2020-11-07 05:54 | PC.NURSE ---
Patient still incredibly tired, woke up to sternal rub and repetitive calling of his name, he took his synthroid but I did not feel comfortable giving him more Clozapine with him being so exhausted. Will pass this info on to the day nurse. -BRUNA RN
[2020-11-07 06:04] LABS: Anion Gap 8 mmol/L (8-16); Blood Urea Nitrogen 14 mg/dL (9-20); Calcium 8.6 mg/dL (8.4-10.2); Carbon Dioxide 26 mmol/L (22-30); Chloride 107 mmol/L (98-107); Estimated CRCL calculation 120 ml/min; Estimated Glomerular Filt Rate > 60; Glucose 82 mg/dL (75-110); Phosphorus 3.5 mg/dL (2.5-4.5); Potassium 3.8 mmol/L (3.4-5.0); Sodium 141 mmol/L (137-145)
[2020-11-07] MEDS: DIVALPROEX SODIUM ER 500 MG TAB.24H 1000 MG PO ×2 (08:59→21:39)
[2020-11-07] MEDS: ENOXAPARIN 40 MG/0.4 ML SYRINGE SUB-Q (08:59)
[2020-11-07] MEDS: PANTOPRAZOLE SODIUM IV 40 MG VIAL IV PUSH (09:01)
[2020-11-07] MEDS: PROPRANOLOL HCL 20 MG TABLET PO ×4 (09:01→21:40)
--- NOTE | 2020-11-07 11:03 | PCNFU ---
Nutrition Follow-Up Complete: Altered GI fxn as related to ileus vs SBO as evidenced by NPO/PPN Goal: Meet estimated nutritional needs Progressing towards goal. We will continue current goal. Pt current nutrition is Soft and Bite sized, Level 6. Last recorded weight is 74.2 kg, down from 75.9 kg on admit. Bowel Motility:+BM noted 11/06 Labs Reviewed:Cr 0.6 Meds Noted:Inderal, Protonix, Synthroid, Lexapro, Lovenox. Additional Notes: Nutrition follow up. PPN has been discontinued. Diet order has been advanced from full liquid diet to soft and bite sized, Level 6. Tried speaking with patient today, spoke with ATHLETIC DIRECTOR-Oral Intake documented at 100% of liquids. Agree with diet orders. Monitor: weight, labs, meds every 5 days.
--- NOTE | 2020-11-07 13:40 | WPDANESPN ---
Anes - Prog Note Post-Op Date/Time: 11/07/20 13:40 Cardiovascular status: normal Respiratory status: normal Airway patency: baseline Mental status: baseline Post-Op hydration status: normal Vital Signs: Last Vital Signs Temp 36.7 C 11/07/20 05:46 Pulse 100 11/07/20 12:36 Resp 20 11/07/20 05:46 BP 106/47 L 11/07/20 05:46 Pulse Ox 99 11/07/20 05:46 Pain Score (VAS): 0 I/O: Intake & Output 11/06/20 11/07/20 11/07/20 23:59 07:59 15:59 Intake Total 240 200 360 Output Total 200 Balance 40 200 360 Laboratory Tests 11/06/20 06:02 11/07/20 05:18 11/07/20 11/07/20 01:53 05:18 Sodium 141 Potassium 3.8 Chloride 107 Carbon Dioxide 26 Anion Gap 8 BUN 14 Creatinine 0.60 L Estim Creat Clear Calc 120 Estimated GFR > 60 Glucose 82 Calcium 8.6 Phosphorus 3.5 SARS-CoV-2 RNA (RT-PCR) Pending Post-procedural complaints: none Patient Feedback: Patient satisfied with anesthetic care.
--- NOTE | 2020-11-07 13:49 | PM.PNGS ---
Progress Note: A&P Assessment and Plan (1) Ileus: Code(s): K56.7 - Ileus, unspecified Status: Acute Assessment and Plan: Ileus versus functional obstruction. SBFT showed normal transit to colon with no high grade obstruction, dilated jejunum, suggesting ileus. Colonoscopy performed and unremarkable with no evidence of Crohn's. Reglan has been stopped. Bowels continue to move. Okay to advance to a low fiber diet. Okay from a surgical standpoint to discharge patient when okay with other services. Follow-up only as needed. (2) Autism spectrum disorder: Code(s): F84.0 - Autistic disorder Status: Acute (3) Schizophrenia: Code(s): F20.9 - Schizophrenia, unspecified Status: Acute (4) Crohn's disease: Code(s): K50.90 - Crohn's disease, unspecified, without complications Status: Chronic Assessment and Plan: Questionable hx of Crohn's? Colonoscopy performed by GI that showed no evidence of Crohn's disease. Multiple biopsies were taken. Additional Plan I have discussed the patient's case and plan of care with Dr. Ferguson. Subjective Subjective Date/Time Seen: 11/07/20 10:49 Patient reports: no new complaints, tolerating a regular diet (full liquids) and bowel movement Interval history: Three recorded BMs over the past 24 hours. Patient unable to provide accurate hx. Exam Const: General: comfortable, no acute distress, alert and awake Orientation/consciousness: patient oriented x3 GI: Inspection: non-distended GI Palp: Yes Soft to palpation, No Tenderness to palpation present (GI), No Guarding due to palpation present (GI) and No Rebound tenderness present Percussion: Yes normal to percussion Auscultation: normal bowel sounds Neuro: General: no focal motor deficits Extrem: General: no clubbing, cyanosis or edema Psych: Mental Status: mental status grossly normal Insight: Limited insight present (Psych) Judgement: Limited judgement present (Psych) Objective Data Vital Signs Vital Signs: Vital Signs - 24 hr 11/06/20 14:00 11/06/20 16:47 11/06/20 22:00 Temperature 97.4 F L 98.0 F Pulse Rate 80 78 89 Respiratory Rate 16 20 Blood Pressure 114/59 L 130/65 Pulse Oximetry 100 98 11/06/20 22:28 11/07/20 05:46 11/07/20 09:01 Temperature 98.1 F Pulse Rate 89 80 80 Respiratory Rate 20 Blood Pressure 106/47 L Pulse Oximetry 99 11/07/20 12:36 Temperature Pulse Rate 100 Respiratory Rate Blood Pressure Pulse Oximetry Intake/Output Intake/Output: Intake & Output 11/04/20 11/05/20 11/06/20 11/07/20 23:59 23:59 23:59 23:59 Intake Total 4510 4195 1680 560 Output Total 850 1550 1400 Balance 3660 2645 280 560 Meds/Results Medications: Active Medications Generic Name Dose Route Start Last Admin Trade Name Freq PRN Reason Stop Dose Admin Dextrose 12.5 gm 11/02/20 18:28 11/02/20 17:40 Dextrose 50% 25 Gm/50 Ml Syringe IV PUSH 12.5 gm PRN PRN Administration Hypoglycemia Protocol Divalproex Sodium 1,000 mg 11/05/20 11:20 11/07/20 08:59 Divalproex Sodium Er 500 Mg Tab.24h PO 1,000 mg Q12HR JULIANO Administration Enoxaparin Sodium 40 mg 11/02/20 09:00 11/07/20 08:59 Enoxaparin 40 Mg/0.4 Ml Syringe SUB-Q 40 mg DAILY JULIANO Administration Escitalopram Oxalate 20 mg 11/06/20 09:00 11/06/20 09:25 Escitalopram Oxalate 10 Mg Tablet PO 20 mg DAILY JULIANO Administration Glucagon 1 mg 11/02/20 18:28 Glucagon For Inj 1 Mg Vial IM PRN PRN Hypoglycemia Protocol Glucose 15 gm 11/02/20 18:28 Glucose Oral Gel 15 Gm Of Glucse In 37.5 Gm Tube PO PRN PRN Hypoglycemia Protocol Dextrose 1,000 mls @ 100 mls/hr 11/02/20 18:28 Dextrose 5% 1,000 Ml IVPB PRN PRN Hypoglycemia Protocol Levothyroxine Sodium 100 mcg 11/04/20 14:05 11/07/20 05:45 Levothyroxine Sodium 100 Mcg Tablet PO 100 mcg DAILY@0630 JULIANO Administration Ondanse
--- NOTE | 2020-11-07 14:32 | PM.IMPN ---
Progress Note: A&P Assessment and Plan (1) Schizophrenia: Code(s): F20.9 - Schizophrenia, unspecified Status: Acute (2) Autism spectrum disorder: Code(s): F84.0 - Autistic disorder Status: Acute (3) Macrocytic anemia: Code(s): D53.9 - Nutritional anemia, unspecified Status: Acute (4) Weakness: Code(s): R53.1 - Weakness Status: Acute (5) Ileus: Code(s): K56.7 - Ileus, unspecified Status: Acute (6) Nausea and vomiting in adult: Code(s): R11.2 - Nausea with vomiting, unspecified Status: Acute (7) Thrombocytopenia: Code(s): D69.6 - Thrombocytopenia, unspecified Status: Acute (8) Hypomagnesemia: Code(s): E83.42 - Hypomagnesemia Status: Acute (9) Hypothyroidism: Onset Date: Unknown Code(s): E03.9 - Hypothyroidism, unspecified Status: Acute (10) Crohn's disease: Code(s): K50.90 - Crohn's disease, unspecified, without complications Status: Chronic (11) Hypercholesterolemia: Onset Date: Unknown Code(s): E78.00 - Pure hypercholesterolemia, unspecified Status: Chronic (12) Chronic anemia: Onset Date: Unknown Code(s): D64.9 - Anemia, unspecified Status: Chronic (13) Small bowel obstruction: Onset Date: Unknown Code(s): K56.609 - Unspecified intestinal obstruction, unspecified as to partial versus complete obstruction Status: Acute Additional Plan # Nausea, vomiting: found to have partial SBO. NG tube placeed with imporvement in his symptoms. Fu obstructive series with imporvement but with several loops of persistent significant distention. general surgery following. discussed with radiology who felt the patient had thickening of the distal ileal bowel wall. NG tube remvoed and tolerating clear liquid diet. GI consutled. s/p colonoscpy 11/06: with no signs of Crohn's disease. SBO unlikely from Crohn's disease back on diet, sbo has resolved. # colon polyp; repeat colonoscopy in 5 years. # Generalised weakness: b12, foalte normal. lumbar MRI with no significant findings. contineu PT/OT # hx of Crohn's disease: on sulfasalazine. possible thickening to the distal ielum. stool calprotectin markedly elevated at 3130 and lactoferrin positive last amidssion. Gi consulted. IBD markers pending. colonsocpy showed no evidence of active Crohn's disease # Macrocytic anemia: Macrocytosis and mild anemia noted. B12/folate levels normal. Probably related to his medications. # Autism spectrum disorder: Stable. Patient having weakness, bowel and bladder issues. Unclear if this is related to medical issue or from regression from his autism but suspect the later. Continue PT/OT. Continue Divalproex. Clozapine not formulary. Seroquel added prn for agitation. # Hypothyroidism: TSH milldy elevated at 8.6 but FT4 normal possibly related to being off the Synthroid. Synthroid has been resumed. # DVT prophylaxis: lovenox Subjective Date/time seen: 11/07/20 14:32 Interval history: 60yo male with hx of autism, schizoaffective disorder, intellectual disability, and Crohn's disease who presented to the ER home due to vomiting and found to have small bowel obstructions. Patient unable to provide accurate hx. He denies CP and abd pain. wants to go home on friday. no reports of abdominal pain, nauea, vomtiign. Review of Systems Review of Systems: ROS unobtainable: Yes unobtainable due to mental status Exam Narrative: Exam Narrative: Gen - NARD laying down in bed Chest - CTA bilaterally, nml RR CV - RRR S1/S2 Abd - soft, NT/ND, +BS Ext - no edema, cyanosis or clubbing Psych - Patient is pleasant and cooperative. Skin - warm and dry. Objective Data Vital Signs Vital Signs: Vital Signs - 24 hr 11/06/20 16:47 11/06/20 22:00 11/06/20 22:28 Temperature 98.0 F Pulse Rate 78 89 89 Respiratory Rate 20 Blood Pressure 130/65 Pulse Oximet
[2020-11-07 20:31] LABS: SARS-CoV-2 RNA PCR Negative
[2020-11-08 06:00] VITALS: BP 103/55; PULSE 90; RESP 20; TEMP 36.2; O2SAT 100
[2020-11-08 06:31] LABS: Anion Gap 3 mmol/L (8-16); Blood Urea Nitrogen 13 mg/dL (9-20); Calcium 8.9 mg/dL (8.4-10.2); Carbon Dioxide 30 mmol/L (22-30); Chloride 106 mmol/L (98-107); Estimated CRCL calculation 141 ml/min; Estimated Glomerular Filt Rate > 60; Glucose 82 mg/dL (75-110); Phosphorus 3.4 mg/dL (2.5-4.5); Sodium 139 mmol/L (137-145)
[2020-11-08] MEDS: LEVOTHYROXINE SODIUM 100 MCG TABLET PO (06:31)
--- NOTE | 2020-11-08 06:56 | PC.NURSE ---
11/08/20 at 0015--patient pulled his IV out, states he does not want any more bandages or needles, spoke with Dr Gilbert and he states ok to leave out for now beacause patient is going home. TDialRNC
[2020-11-08] MEDS: PANTOPRAZOLE 40 MG TABLET PO (09:11)
[2020-11-08] MEDS: DIVALPROEX SODIUM ER 500 MG TAB.24H 1000 MG PO (09:12)
[2020-11-08] MEDS: ENOXAPARIN 40 MG/0.4 ML SYRINGE SUB-Q (09:12)
[2020-11-08] MEDS: ESCITALOPRAM OXALATE 10 MG TABLET 20 MG PO (09:13)
[2020-11-08 09:14] VITALS: PULSE 88
[2020-11-08] MEDS: PROPRANOLOL HCL 20 MG TABLET PO (09:14)
--- NOTE | 2020-11-08 09:19 | PM.DS ---
DS: Admitting Diagnosis Admitting Diagnosis Admitting Diagnosis: nausea, vomiting, sbo DS: Discharge Diagnosis Discharge Diagnosis (1) Schizophrenia: Code(s): F20.9 - Schizophrenia, unspecified Status: Acute (2) Autism spectrum disorder: Code(s): F84.0 - Autistic disorder Status: Acute (3) Macrocytic anemia: Code(s): D53.9 - Nutritional anemia, unspecified Status: Acute (4) Ileus: Code(s): K56.7 - Ileus, unspecified Status: Acute (5) Small bowel obstruction: Onset Date: Unknown Code(s): K56.609 - Unspecified intestinal obstruction, unspecified as to partial versus complete obstruction Status: Acute (6) Crohn's disease: Code(s): K50.90 - Crohn's disease, unspecified, without complications Status: Chronic (7) Chronic anemia: Onset Date: Unknown Code(s): D64.9 - Anemia, unspecified Status: Chronic DS: Summary Hospital Course Hospital Course: # Nausea, vomiting: found to have partial SBO. NG tube placeed with imporvement in his symptoms. Fu obstructive series with imporvement but with several loops of persistent significant distention. general surgery consulted. discussed with radiology who felt the patient had thickening of the distal ileal bowel wall. NG tube remvoed and tolerating clear liquid diet. GI consutled. s/p colonoscpy 11/06: with no signs of Crohn's disease. SBO unlikely from Crohn's disease back on diet, sbo has resolved. having regular bowel movmeent and tolerating regular diet # colon polyp; repeat colonoscopy in 5 years. # Generalised weakness: b12, foalte normal. lumbar MRI with no significant findings. contineu PT/OT # hx of Crohn's disease: on sulfasalazine. possible thickening to the distal ielum. stool calprotectin markedly elevated at 3130 and lactoferrin positive last amidssion. Gi consulted. IBD markers pending. colonsocpy showed no evidence of active Crohn's disease # Macrocytic anemia: Macrocytosis and mild anemia noted. B12/folate levels normal. Probably related to his medications. # Autism spectrum disorder: Stable. Patient having weakness, bowel and bladder issues. Unclear if this is related to medical issue or from regression from his autism but suspect the later. Continue PT/OT. Continue Divalproex. Clozapine not formulary. Seroquel added prn for agitation. # Hypothyroidism: TSH milldy elevated at 8.6 but FT4 normal possibly related to being off the Synthroid. Synthroid has been resumed. # DVT prophylaxis: lovenox during hospital stay Status at Discharge Overall status at discharge: patient is progressing back to baseline Time Spent with Patient Time attestation: Total time spent providing and/or coordinating discharge services:38 mins Exam Narrative: Exam Narrative: Gen - NARD laying down in bed Chest - CTA bilaterally, nml RR CV - RRR S1/S2 Abd - soft, NT/ND, +BS Ext - no edema, cyanosis or clubbing Psych - Patient is pleasant and cooperative. Skin - warm and dry. DS: Data Data Completed and Pending Completed studies during hospitalization: Pending at discharge 11/06/20 11:00 Surgical [PTH] Routine Labs on day of discharge: Labs from last 24 hours 11/08/20 11/07/20 05:45 01:53 Sodium 139 Potassium 4.0 Chloride 106 Carbon Dioxide 30 Anion Gap 3 L BUN 13 Creatinine 0.50 L Estim Creat Clear Calc 141 Estimated GFR > 60 Glucose 82 Calcium 8.9 Phosphorus 3.4 SARS-CoV-2 RNA (RT-PCR) Negative Discharge Plan Discharge Attending physician on discharge: Kashmir Ramos Consulting providers: Nelson Ferguson ; Sammy Gupta Discharging Clinician: Kashmir Ramos Anticipated Discharge Date/Time: 11/08/20 09:16 Patient Disposition: SNF Activity: as tolerated Diet: as tolerated and regular Patient Instructions: Bowel Obstruction (DC), Nasogastric Tube (DC), Colonoscopy (DC) Stand Alone Forms: Ge
--- NOTE | 2020-11-08 09:45 | PC.NURSE ---
Report called to
[2020-11-08 16:23] LABS: ANCA Screen Negative (Negative); Myeloperoxidase Ab <1.0 AI (<1.0); Proteinase-3 Ab <1.0 AI (<1.0); S cerevisiae Ab (IgA) 11.5 U (<=20.0); S cerevisiae Ab (IgG) 13.9 U (<=20.0)
[2020-11-09 00:24] LABS: Vitamin D 1,25 (OH)2 Total 94 pg/mL (18-72); Vitamin D2 1,25 (OH)2 72 pg/mL; Vitamin D3 1,25 (OH)2 22 pg/mL
== END 2020-11-08 10:50 | disposition home or self-care (01) | DRG 389 ==
LOC: ANHED 07:54 → ANH3MEDSUR 07:57
PROVIDERS: Emergency Medicine; Internal Medicine Gastroenterology; Nurse Practitioner Family; Admitting Provider Internal Medicine; Emergency Provider Emergency Medicine; PCP Family Medicine; Visit Provider Internal Medicine
PROC: 0DJD8ZZ Inspection of Lower Intestinal Tract, Via Natural or Artificial Opening Endoscopic (ICD-10-PCS; CPT 45378; principal; 2020-11-06 12:45)
DX: K56.600 Partial intestinal obstruction, unspecified as to cause (principal); F84.0 Autistic disorder; D12.0 Benign neoplasm of cecum; K64.8 Other hemorrhoids; Z20.822 Contact with and (suspected) exposure to COVID-19; D53.9 Nutritional anemia, unspecified; F20.9 Schizophrenia, unspecified; E03.9 Hypothyroidism, unspecified; E78.00 Pure hypercholesterolemia, unspecified; K21.9 Gastro-esophageal reflux disease without esophagitis; Z87.19 Personal history of other diseases of the digestive system; Z87.11 Personal history of peptic ulcer disease; Z90.49 Acquired absence of other specified parts of digestive tract
CPT/HCPCS: 36415; 72158; 74018; 74019; 74177; 74250; 80048; 80053; 81001; 82607; 82652; 82746; 82948; 83690; 83735; 84100; 84436; 84439; 84443; 84466; 84478; 85025; 85027; 85610; 85730; 86021; 86140; 86671; 88305; 96361; 96365; 96366; 96374; 96375; 96376; 97110; 97116; 97161; 97165; 97530; 97535; 99284; 99285; A9270; A9577; C9113; C9803; G0378; J1650; J2405; J2704; J2765; J3480; J7030; J7060; J7120; Q9967; U0003; U0005

== ENCOUNTER 2020-11-09 10:58 | Emergency (ER) | payer MEDICARE, MEDICAID, SELFPAY ==
--- NOTE | ~2020-11-09 | CT_ITS ---
EXAMINATION: CT brain wo con DATE: 11/09/2020 11:35 INDICATION: Altered mental status. TECHNIQUE: Computed tomography (CT) of the head was performed without intravenous contrast. The mA wa s adjusted according to patient size. Iterative reconstruction technique was employed. The dose-lengt h product was 605.33 mGy-cm. COMPARISON: None FINDINGS: There is diffuse brain volume loss. There are scattered areas of low attenuation in the cer ebral white matter, which is within normal limits for the patient's age. There is no intracranial hem orrhage, acute infarction, or abnormal intracranial mass lesion. The ventricles are normal in size. T here is mild mucosal thickening in the ethmoid sinuses. There is a trace left mastoid effusion. There is cerumen in the external auditory canals. IMPRESSION: 1. Normal aging brain. Reviewed, dictated and finalized at location B. IMPRESSION: 1. Normal aging brain.
--- NOTE | ~2020-11-09 | XR_ITS ---
EXAMINATION: XR chest 1V DATE: 11/09/2020 11:39 INDICATION: Transient alteration of awareness. TECHNIQUE: A single frontal view of the chest was obtained. COMPARISON: Chest single view 10/16/2020, CT abdomen and pelvis 10/31/2020 FINDINGS: There is mild atelectasis in left lower lung zone. No pleural effusion or pneumothorax. The heart size is normal. IMPRESSION: 1. Mild atelectasis in left lower lung zone. Reviewed, dictated and finalized at location B.
[2020-11-09 10:59] VITALS: BP 135/72; PULSE 82; RESP 18; TEMP 36.1; O2SAT 99
--- NOTE | 2020-11-09 11:09 | ECG_ITS ---
Measurements Intervals [place] Rate: 81 P: 37 NV: 163 QRS: 1 QRSD: 88 T: 42 QT: 363 QTc: 422 Interpretive Statements SINUS RHYTHM POSSIBLE LEFT ATRIAL ENLARGEMENT BASELINE ARTIFACT- II, III, AVR, AVF, V2-V6 BORDERLINE ECG Electronically Signed On 11-09-2020 11:51:50 CDT by Braden Ellis D.O.
--- NOTE | 2020-11-09 11:16 | PC.NURSE ---
Attempting to obtain labs. Pt is difficult stick.
[2020-11-09 11:28] LABS: Basophils Percent Auto 0.4 % (0.2-1.2); Hematocrit 36.9 % (42.0-52.0); Hemoglobin 12.1 g/dL (14.0-18.0); Immature Granulocyte Absolute 0.12 K/mm3 (0.00-0.031); Immature Granulocyte Percent A 2.5 % (0-0.5); Lymphocytes Absolute Auto 1.13 K/mm3 (0.9-3.2); Lymphocytes Percent Auto 23.5 % (18.3-44.2); Mean Corpuscular HGB Conc 32.8 g/dl (32-36); Mean Corpuscular Hemoglobin 33.9 pg (26-34); Mean Corpuscular Volume 103.4 fl (80-100); Mean Platelet Volume 9.5 fl (7.4-10.4); Monocytes Absolute Auto 0.6 K/mm3 (0.1-0.6); Monocytes Percent Auto 11.6 % (2.6-8.5); Platelet Count Result 190 k/mm3 (150-375); Red Blood Count 3.57 M/mm3 (4.6-6.20); Red Cell Distribution Width 12.3 % (11.5-14.5); White Blood Count 4.8 K/mm3 (4.5-10.0)
--- NOTE | 2020-11-09 11:31 | ED.GENADULT ---
HPI - General Adult General Chief complaint: Altered Mental Status Stated complaint: AMS Time Seen by Provider: 11/09/20 11:04 Source: RN notes reviewed History of Present Illness HPI narrative: Patient presents to emergency department from assisted living for altered mental status. History is per staff who is present as well as patient the patient got up this morning had breakfast and gone back to sleep the staff gone to wake up the patient had difficult time waking the patient. He states when they initially woke the patient he was lethargic and weak and could not get up on his own he states that the weakness is in his bilateral legs and arms state after several minutes patient returned to baseline is at his baseline at this time. Patient has been admitted to [facility] just discharged for small bowel obstruction patient currently is awake and alert and denies any complaints denies any fevers or chills chest pain, shortness breath, abdominal pain, nausea vomiting or any other symptoms Related Data Home Medications Medication Instructions Recorded Confirmed Linzess 145 mcg PO DAILY 10/15/20 11/01/20 clozapine 200 mg 1700 10/15/20 11/01/20 divalproex 1,000 mg PO Q12H 10/15/20 11/01/20 ergocalciferol (vitamin D2) 50,000 unit PO WEEKLY 10/15/20 11/01/20 escitalopram oxalate 20 mg PO DAILY 10/15/20 11/01/20 fenofibrate 160 mg PO DAILY 10/15/20 11/01/20 folic acid 1 mg PO DAILY 10/15/20 11/01/20 levothyroxine 100 mcg PO DAILY 10/15/20 11/01/20 omega [id number]-fish oil [Fish Oil] 1 cap PO BID 10/15/20 11/01/20 omeprazole 40 mg PO Q12H 10/15/20 11/01/20 potassium chloride 10 meq PO DAILY 10/15/20 11/01/20 propranolol 20 mg PO QID 10/15/20 11/01/20 sennosides-docusate sodium 2 tab-cap PO BID 10/15/20 11/01/20 [Senokot-S] sulfasalazine 1,000 mg PO BID 10/15/20 11/01/20 vitamin B complex 1 tablet PO DAILY 10/15/20 11/01/20 Allergy (diphenhydramine) 25 cap BYMOUTH Q6H PRN 11/01/20 11/01/20 acetaminophen [Tylenol] 650 mg PO PRN PRN 11/01/20 11/01/20 bisacodyl 10 mg PO PRN PRN 11/01/20 11/01/20 cetirizine 10 mg PO DAILY 11/01/20 11/01/20 clozapine 100 mg PO BID 11/01/20 11/01/20 multivitamin,tx-minerals 1 tablet PO 1700 11/01/20 11/01/20 Allergies Allergy/AdvReac Type Severity Reaction Status Date / Time No Known Allergies Allergy Verified 11/09/20 11:05 Review of Systems Review of Systems: Narrative: Gen.: Denies fevers or chills Eyes: Denies eye pain or visual change ENT: Denies congestion Respiratory: Denies shortness of breath or cough CV: Denies chest pain or palpitations GI: Denies abdominal pain nausea, emesis or diarrhea Musculoskeletal: Denies back pain or muscle pain Neuro: See HPI Skin: Denies rash Except as documented, all other systems reviewed and negative [facility] Past Medical History Medical History Autism spectrum disorder Chronic anemia (Unknown) Chronic megaloblastic anemia with high folate and B12 levels in 2018 Crohn's disease GERD (gastroesophageal reflux disease) Gout Hypercholesterolemia (Unknown) Hypothyroidism (Unknown) Intellectual disability Peptic ulcer Schizophrenia Surgical History Surgical History History of appendectomy (~12/07/03) Performed at the same time as the exploratory laparotomy History of exploratory laparotomy (~12/07/03) With adhesion lysis due to bowel obstruction Family History Family History Other Unknown family medical history Social History Social History Social History: He lives in a fpc in [place]. Lifelong nonsmoker. No alcohol or drug use. Primary care physician: Dr. Isael Lanier Code status: Full code Healthcare power of securities attorney: Jose Manuel Sotomayor (father). Caregiver states that Ann Martel should be called for any con
[2020-11-09 11:34] LABS: Prothrombin Time 14.2 Seconds (11.1-14.7)
[2020-11-09 11:35] LABS: Partial Thromboplastin Time 31.5 SECONDS (22.3-36.8)
[2020-11-09 11:38] LABS: Alanine Aminotransferase 22 U/L (4-50); Albumin Level 3.5 g/dL (3.5-5.1); Alkaline Phosphatase 156 U/L (38-126); Anion Gap 3 mmol/L (8-16); Aspartate Amino Transferase 39 U/L (17-59); Bilirubin,Total 0.2 mg/dL (0.2-1.3); Blood Urea Nitrogen 9 mg/dL (9-20); Calcium 8.7 mg/dL (8.4-10.2); Carbon Dioxide 34 mmol/L (22-30); Chloride 106 mmol/L (98-107); Estimated Glomerular Filt Rate > 60; Glucose 68 mg/dL (75-110); Sodium 143 mmol/L (137-145)
[2020-11-09 11:50] LABS: Troponin I < 0.012 ng/mL (0.000-0.034)
[2020-11-09 12:25] VITALS: RESP 18; O2SAT 100
[2020-11-09 12:52] LABS: Glucose Point of Care 109 (65-105)
--- NOTE | 2020-11-09 12:59 | PC.NURSE ---
Pt attempted to provide urine sample but unable to. Will straight cath for sample.
[2020-11-09 13:12] VITALS: BP 127/70; PULSE 85; RESP 20; O2SAT 99
[2020-11-09 13:21] LABS: Add Urine Microscopic? NO; Appearance Urine Clear (Clear); Bilirubin Urine Negative (Negative); Blood Urine Negative (Negative); Color Urine Yellow (Yellow); Glucose Urine UA Negative (Negative); Ketones Urine Negative (Negative); Leukocyte Esterase Ur Negative LEU/UL (Negative); Nitrate Urine Negative (Negative); Protein Urine Negative (Negative); Urobilinogen Urine Negative mg/dL (<2.0)
[2020-11-09 14:02] LABS: Glucose Point of Care 98 (65-105)
[2020-11-09 14:43] VITALS: BP 105/59; PULSE 88; RESP 18; O2SAT 99
== END 2020-11-09 14:45 | disposition home or self-care (01) ==
PROVIDERS: Emergency Provider Emergency Medicine; PCP Family Medicine
DX: E16.2 Hypoglycemia, unspecified (principal); R41.82 Altered mental status, unspecified; F84.0 Autistic disorder; D53.1 Other megaloblastic anemias, not elsewhere classified; K50.90 Crohn's disease, unspecified, without complications; K21.9 Gastro-esophageal reflux disease without esophagitis; E78.00 Pure hypercholesterolemia, unspecified; E03.9 Hypothyroidism, unspecified; F79 Unspecified intellectual disabilities; F20.9 Schizophrenia, unspecified; Z87.11 Personal history of peptic ulcer disease; R94.31 Abnormal electrocardiogram [ECG] [EKG]; R91.8 Other nonspecific abnormal finding of lung field
CPT/HCPCS: 36415; 70450; 71045; 80053; 81003; 82948; 84484; 85025; 85610; 85730; 93005; 99284

== ENCOUNTER 2020-11-10 09:39 | Emergency (ER) | payer MEDICARE, MEDICAID, SELFPAY ==
--- NOTE | ~2020-11-10 | CT_ITS ---
EXAMINATION: CT brain wo con DATE: 11/10/2020 11:32 INDICATION: Slurred speech. Generalized weakness. TECHNIQUE: Computed tomography (CT) of the head was performed without intravenous contrast. Sagittal and coronal reconstructions were performed. The mA was adjusted according to patient size. Iterative reconstruction technique was employed. The dose-length product was 605.33 mGy-cm. COMPARISON: head CT dated 11/09/2020 FINDINGS: No acute intracranial hemorrhage, acute infarction or abnormal extra axial fluid collection. There is mild scattered white matter hypoattenuation consistent with chronic small vessel ischemic disease. Symmetric prominence of the sulci and ventricles consistent with mild age-appropriate diffuse cerebra l volume loss. No mass/mass effect. Mild mucosal thickening in the left maxillary and bilateral ethmo id sinuses. Unchanged trace left mastoid effusion. Cerumen again noted in the bilateral external moraima tory canals. The orbits are normal. Intracranial calcified cerebral atherosclerosis is noted. IMPRESSION: 1. Normal aging brain. No acute intracranial process. Reviewed, dictated and finalized at location A.
--- NOTE | ~2020-11-10 | XR_ITS ---
EXAMINATION: XR abdomen/kub 1V DATE: 11/10/2020 11:39 INDICATION: Constipation. TECHNIQUE: A supine view of the abdomen on 2 radiographs was obtained. COMPARISON: CT abdomen and pelvis 10/31/2020 FINDINGS: Stool distends the rectosigmoid. The small bowel is normal in caliber. IMPRESSION: 1. Stool distends the rectosigmoid. Reviewed, dictated and finalized at location B.
[2020-11-10 10:04] VITALS: BP 122/65; PULSE 85; RESP 16; TEMP 36.2; O2SAT 99
--- NOTE | 2020-11-10 10:54 | ED.WEAKNESS ---
HPI - Weakness General Chief complaint: Weakness Stated complaint: weakness Time Seen by Provider: 11/10/20 10:44 History of Present Illness HPI Narrative: 60 yo male w/ history of autism and SBO presents to the ED from assisted living for multiple concerns. The patient says that he has no complaints. A worker from the assisted living reports that he has had poor PO intake for a few days. He did not want to eat at all this morning which is unusual. They also noted that he seemed weaker than usual and his speech seemed to be slightly slurred. He has not had a bowel movement in 4 days. He was discharged from the hospital on 11/08 after being treated for a SBO. He was seen here yesterday for similar issues and was discharged after a negative work-up. Related Data Home Medications Medication Instructions Recorded Confirmed Linzess 145 mcg PO DAILY 10/15/20 11/01/20 clozapine 200 mg 1700 10/15/20 11/01/20 divalproex 1,000 mg PO Q12H 10/15/20 11/01/20 ergocalciferol (vitamin D2) 50,000 unit PO WEEKLY 10/15/20 11/01/20 escitalopram oxalate 20 mg PO DAILY 10/15/20 11/01/20 fenofibrate 160 mg PO DAILY 10/15/20 11/01/20 folic acid 1 mg PO DAILY 10/15/20 11/01/20 levothyroxine 100 mcg PO DAILY 10/15/20 11/01/20 omega 6-fle-zzn-fish oil [Fish Oil] 1 cap PO BID 10/15/20 11/01/20 omeprazole 40 mg PO Q12H 10/15/20 11/01/20 potassium chloride 10 meq PO DAILY 10/15/20 11/01/20 propranolol 20 mg PO QID 10/15/20 11/01/20 sennosides-docusate sodium 2 tab-cap PO BID 10/15/20 11/01/20 [Senokot-S] sulfasalazine 1,000 mg PO BID 10/15/20 11/01/20 vitamin B complex 1 tablet PO DAILY 10/15/20 11/01/20 Allergy (diphenhydramine) 25 cap BYMOUTH Q6H PRN 11/01/20 11/01/20 acetaminophen [Tylenol] 650 mg PO PRN PRN 11/01/20 11/01/20 bisacodyl 10 mg PO PRN PRN 11/01/20 11/01/20 cetirizine 10 mg PO DAILY 11/01/20 11/01/20 clozapine 100 mg PO BID 11/01/20 11/01/20 multivitamin,tx-minerals 1 tablet PO 1700 11/01/20 11/01/20 Allergies Allergy/AdvReac Type Severity Reaction Status Date / Time No Known Allergies Allergy Verified 11/09/20 11:05 Review of Systems Review of Systems: ROS unobtainable: Yes other (limited due to intelectual disability) Cardiovascular: Cardiovascular: Denies chest pain Respiratory: Respiratory: Denies dyspnea Gastrointestinal: Gastrointestinal: Denies abdominal pain and Denies nausea Musculoskeletal: Musculoskeletal: Denies back pain [facility] Past Medical History Medical History Autism spectrum disorder Chronic anemia (Unknown) Chronic megaloblastic anemia with high folate and B12 levels in 2018 Crohn's disease GERD (gastroesophageal reflux disease) Gout Hypercholesterolemia (Unknown) Hypothyroidism (Unknown) Intellectual disability Peptic ulcer Schizophrenia Surgical History Surgical History History of appendectomy (~12/07/03) Performed at the same time as the exploratory laparotomy History of exploratory laparotomy (~12/07/03) With adhesion lysis due to bowel obstruction Family History Family History Other Unknown family medical history Social History Social History Social History: He lives in a [facility] in [place]. Lifelong nonsmoker. No alcohol or drug use. Primary care physician: Dr. Isael Lanier Code status: Full code Healthcare power of technical project lead: Jose Manuel Sotomayor (father). Caregiver states that Ann [place] should be called for any consent at [phone]. Smoking status: Never smoker Alcohol intake: never Substance use: never Gender identity (if verbalized by the patient): Male Spiritual care concerns: No Exam Const: General: no acute distress, alert and ill appearing Other: oriented x2 HENMT: Head: normal to inspection Neck: Neck: stacia
[2020-11-10] MEDS: SODIUM CHLORIDE 0.9% IV 1,000 ML 999 ML IV CONT (13:07)
[2020-11-10 13:09] VITALS: BP 115/65; PULSE 85; RESP 18; O2SAT 98
[2020-11-10 13:29] LABS: Basophils Percent Auto 0.4 % (0.2-1.2); Hematocrit 36.1 % (42.0-52.0); Hemoglobin 11.9 g/dL (14.0-18.0); Immature Granulocyte Percent A 1.8 % (0-0.5); Lymphocytes Absolute Auto 0.98 K/mm3 (0.9-3.2); Lymphocytes Percent Auto 17.7 % (18.3-44.2); Mean Corpuscular Hemoglobin 35.5 pg (26-34); Mean Corpuscular Volume 107.8 fl (80-100); Mean Platelet Volume 9.9 fl (7.4-10.4); Monocytes Absolute Auto 0.5 K/mm3 (0.1-0.6); Monocytes Percent Auto 9.8 % (2.6-8.5); Neutrophils Absolute Auto 3.9 K/mm3 (1.3-6.7); Neutrophils Percent Auto 70.3 % (45.5-73.1); Platelet Count Result 199 k/mm3 (150-375); Red Blood Count 3.35 M/mm3 (4.6-6.20); Red Cell Distribution Width 12.7 % (11.5-14.5); White Blood Count 5.5 K/mm3 (4.5-10.0)
[2020-11-10 13:32] LABS: Lactic Acid Reflex 1.3 mmol/L (0.7-2.1)
[2020-11-10 13:33] LABS: Alanine Aminotransferase 21 U/L (4-50); Albumin Level 3.6 g/dL (3.5-5.1); Alkaline Phosphatase 167 U/L (38-126); Anion Gap 7 mmol/L (8-16); Aspartate Amino Transferase 36 U/L (17-59); Bilirubin,Total 0.3 mg/dL (0.2-1.3); Blood Urea Nitrogen 10 mg/dL (9-20); Calcium 9.2 mg/dL (8.4-10.2); Carbon Dioxide 31 mmol/L (22-30); Chloride 102 mmol/L (98-107); Estimated CRCL calculation 118 ml/min; Estimated Glomerular Filt Rate > 60; Glucose 91 mg/dL (75-110); Potassium 4.1 mmol/L (3.4-5.0); Sodium 140 mmol/L (137-145)
--- NOTE | 2020-11-10 13:50 | PCCCNOTE ---
[facility]; pt recently had partial SBO with multiple day inpt stay. group house piping inspector concerned pt medical needs maybe getting to much to care for pt at current location. Suggested sort stay at [facility] for rehab. Information sent to [facility] to determine if they can accept pt.
--- NOTE | 2020-11-10 13:56 | PC.NURSE ---
This RN went into give Enema and mag citrate. Pt had an incontinent episode. Notified Dr. Costa. no dose required
--- NOTE | 2020-11-10 13:57 | PC.NURSE ---
Spoke with MARCELLE Watts from pt home. She stated concerns about pt coming back to facility because of his recent hospitalizations. This RN spoke with Pavel from [facility].
--- NOTE | 2020-11-10 14:03 | PC.NURSE ---
Pavel from [facility] let this RN know that pt has been accepted to [facility].
--- NOTE | 2020-11-10 14:34 | PC.NURSE ---
Called [facility] to give report on patient
[2020-11-10 15:03] VITALS: BP 127/77; PULSE 82; RESP 18; O2SAT 97
== END 2020-11-10 15:08 ==
PROVIDERS: Emergency Provider Emergency Medicine; PCP Family Medicine
DX: K59.00 Constipation, unspecified (principal); K50.90 Crohn's disease, unspecified, without complications; D53.1 Other megaloblastic anemias, not elsewhere classified; K21.9 Gastro-esophageal reflux disease without esophagitis; E78.00 Pure hypercholesterolemia, unspecified; M10.9 Gout, unspecified; E03.9 Hypothyroidism, unspecified; F84.0 Autistic disorder; F20.9 Schizophrenia, unspecified; F79 Unspecified intellectual disabilities
CPT/HCPCS: 36415; 70450; 74018; 80053; 83605; 85025; 96360; 99284; A9270; J7030

== ENCOUNTER 2020-11-21 06:15 | Outpatient (CLI) | payer OTHER, MEDICARE, MEDICAID, SELFPAY ==
--- NOTE | 2020-11-21 06:57 | SUR.OPER ---
Patient brought to GI Lab. Instructions for patient undergoing Capsule Endoscopy reviewed with patient. Consent form signed. Sensor array applied to patient's abdomen and connected to recorded. Patient swallowed capsule with 16 ozs of water infused with Simethicone. Patient instructed they may have clear liquids at 8:30 this AM and eat or drink at 10:30 this AM. Patient instructed to return to GI Lab at 1500 this afternoon for removal of recording device and to call [phone] or to return to the hospital if any nausea and vomiting or abdominal pain is experienced.
--- NOTE | 2020-11-21 15:24 | SUR.OPER ---
1450 Arrived at [facility] to remove video equipment. Spoke with Ann IBANEZ regarding any symptoms or signs the patient may have exhibited in the last couple hours like abdominal pain, vomiting, or any other issues. Ann denied patient having any symptoms at present. Asked Ann to call Dr. Ferguson if patient develops any abdominal pain or any other abdominal issues. Told Ann that myself or one of the doctors would be calling her tomorrow with further instructions regarding patient's diet and future plans regarding his care. Dr. Ferguson's office called with patient update at 1501. Spoke with Odilia and message left for Dr. Ferguson that the patient is not having any complaints nor did the nursing staff notice any issues as well. Dr. Waite messaged to notify him of the study being downloaded and will be available for him to read in a couple of hours. No other orders received.
--- NOTE | 2020-11-22 08:35 | SUR.OPER ---
0720 Dr. Waite reviewed capsule study to see of capsule was passed through the small bowel. Dr. Waite reviewed study and determined it made it to the cecum. [address] Dr. Waite findings of study. Findings discussed with Dr. Ferguson and orders received for patient depending on his current condition. [phone] [facility] called spoke with Ann IBANEZ on patient current condition. Ann stated she would go check on patient and call me back with a report. [phone] Ann IBANEZ called back reported his condition with no complaints of abdominal pain, abdominal pain, denies any vomiting or nausea. Verbal orders given per Dr. Ferguson to have patient receive a KUB on November 23 in the afternoon with results faxed to his office. Office fax number given. Order also given to resume his normal diet and to call Dr. Ferguson if patient developed any abdominal pain and if she has any other questions. Dr. Ferguson's office phone number given. [phone] Dr. Ferguson's office called spoke with Amanda and update given with patients current condition.
== END 2020-11-21 06:16 | disposition home or self-care (01) ==
PROVIDERS: PCP Family Medicine; Visit Provider Internal Medicine Gastroenterology
PROC: 0DJ07ZZ Inspection of Upper Intestinal Tract, Via Natural or Artificial Opening (ICD-10-PCS; CPT 91110; principal; 2020-11-21 07:00)
DX: K56.609 Unspecified intestinal obstruction, unspecified as to partial versus complete obstruction (principal)
CPT/HCPCS: 91110

== ENCOUNTER 2020-12-08 09:17 | Emergency (ER) | payer MEDICARE, MEDICAID, SELFPAY ==
[2020-12-08 09:24] VITALS: BP 135/68; PULSE 90; RESP 18; TEMP 36.3; O2SAT 99
--- NOTE | 2020-12-08 09:48 | PC.NURSE ---
Arrives ambulatory steady gait, lives [facility] (developmental delay) and accompanied by caregiver, per report pt came home Tues with generalized itching rash, unknown allergens. No airway involvement, no resp distress, speaks full clear sentences. Rash appears bruise-like patches, pt has itch langford noted. Has been taking Benadryl at home
[2020-12-08 10:06] LABS: Basophils Percent Auto 0.3 % (0.2-1.2); Hematocrit 30.7 % (42.0-52.0); Hemoglobin 9.7 g/dL (14.0-18.0); Immature Granulocyte Absolute 0.15 K/mm3 (0.00-0.031); Immature Granulocyte Percent A 2.4 % (0-0.5); Lymphocytes Absolute Auto 0.75 K/mm3 (0.9-3.2); Lymphocytes Percent Auto 11.9 % (18.3-44.2); Mean Corpuscular HGB Conc 31.6 g/dl (32-36); Mean Corpuscular Hemoglobin 32.2 pg (26-34); Mean Platelet Volume 9.5 fl (7.4-10.4); Monocytes Absolute Auto 0.6 K/mm3 (0.1-0.6); Monocytes Percent Auto 9.9 % (2.6-8.5); Neutrophils Absolute Auto 4.8 K/mm3 (1.3-6.7); Neutrophils Percent Auto 75.5 % (45.5-73.1); Platelet Count Result 222 k/mm3 (150-375); Red Blood Count 3.01 M/mm3 (4.6-6.20); Red Cell Distribution Width 13.8 % (11.5-14.5); White Blood Count 6.3 K/mm3 (4.5-10.0)
[2020-12-08 10:16] LABS: INR 1.1; Prothrombin Time 15.2 Seconds (11.1-14.7)
[2020-12-08 10:19] LABS: Alanine Aminotransferase 20 U/L (4-50); Albumin Level 3.1 g/dL (3.5-5.1); Alkaline Phosphatase 234 U/L (38-126); Anion Gap 1 mmol/L (8-16); Aspartate Amino Transferase 48 U/L (17-59); Bilirubin,Total 0.4 mg/dL (0.2-1.3); Blood Urea Nitrogen 8 mg/dL (9-20); Calcium 8.8 mg/dL (8.4-10.2); Carbon Dioxide 34 mmol/L (22-30); Chloride 105 mmol/L (98-107); Estimated Glomerular Filt Rate > 60; Glucose 81 mg/dL (75-110); Potassium 4.1 mmol/L (3.4-5.0); Sodium 140 mmol/L (137-145)
--- NOTE | 2020-12-08 11:19 | ED.GENADULT ---
HPI - General Adult General Chief complaint: Skin/Abscess/Foreign Body Stated complaint: rash Time Seen by Provider: 12/08/20 09:23 Source: other (caregiver) Mode of arrival: ambulatory Limitations: clinical condition and other (Has MR) History of Present Illness HPI narrative: 60-year-old with a history of MR was brought in by caregiver with complaints of rash to his lower extremities as well as upper extremities. Rash has been there for more than a week. Patient has been seen in urgent care and was ordered outpatient lab work which they do not have with yet. Patient has no abdominal pain. Patient states that I want to go home . As per the caregiver the rash has been spreading to his upper extremities for last few days. No new medication has been started recently. Onset (ago): week(s) (1) Radiation: non-radiation Severity: moderate Exacerbating factors: none Related Data Home Medications Medication Instructions Recorded Confirmed Linzess 145 mcg PO DAILY 10/15/20 11/20/20 divalproex 500 mg PO Q12H 10/15/20 11/20/20 escitalopram oxalate 20 mg PO DAILY 10/15/20 11/20/20 fenofibrate 160 mg PO DAILY 10/15/20 11/20/20 folic acid 1 mg PO DAILY 10/15/20 11/20/20 levothyroxine 100 mcg PO DAILY 10/15/20 11/20/20 omega 9-fyr-zrx-fish oil [Fish Oil] 1 cap PO BID 10/15/20 11/20/20 omeprazole 40 mg PO Q12H 10/15/20 11/20/20 potassium chloride 10 meq PO DAILY 10/15/20 11/20/20 propranolol 20 mg PO QID 10/15/20 11/20/20 sennosides-docusate sodium 2 tab-cap PO BID 10/15/20 11/20/20 [Senokot-S] sulfasalazine 1,000 mg PO BID 10/15/20 11/20/20 vitamin B complex 1 tablet PO DAILY 10/15/20 11/20/20 acetaminophen [Tylenol] 650 mg PO PRN PRN 11/01/20 11/20/20 cetirizine 10 mg PO DAILY 11/01/20 11/20/20 multivitamin,tx-minerals 1 tablet PO 1700 11/01/20 11/20/20 Fleet Enema 1 applic RECTAL PRN PRN 11/20/20 11/20/20 bisacodyl 10 mg RECTAL DAILY PRN 11/20/20 11/20/20 clozapine 200 mg PO 1700 11/20/20 11/20/20 diphenhydramine HCl 25 mg PO Q6H PRN 11/20/20 11/20/20 magnesium citrate [Citroma] 300 ml PO DAILY PRN 11/20/20 11/20/20 magnesium hydroxide [Milk of 30 ml PO HS PRN 11/20/20 11/20/20 Magnesia] Allergies Allergy/AdvReac Type Severity Reaction Status Date / Time No Known Allergies Allergy Verified 12/08/20 09:25 Review of Systems Review of Systems: Narrative: ROS limited secondary to his MR JENKINS Past Medical History Medical History Autism spectrum disorder Chronic anemia (Unknown) Chronic megaloblastic anemia with high folate and B12 levels in 2018 Crohn's disease GERD (gastroesophageal reflux disease) Gout Hypercholesterolemia (Unknown) Hypothyroidism (Unknown) Intellectual disability Peptic ulcer Schizophrenia Surgical History Surgical History History of appendectomy (~12/07/03) Performed at the same time as the exploratory laparotomy History of exploratory laparotomy (~12/07/03) With adhesion lysis due to bowel obstruction Family History Family History Other Unknown family medical history Social History Social History Social History: He lives in a custodial in [place]. Lifelong nonsmoker. No alcohol or drug use. Primary care physician: Dr. Isael Lanier Code status: Full code Healthcare power of documentation specialist: Jose Manuel Sotomayor (father). Caregiver states that Ann Martel should be called for any consent at [phone]. Smoking status: Never smoker Alcohol intake: never Substance use: never Gender identity (if verbalized by the patient): Male Spiritual care concerns: No Exam Narrative: Exam Narrative: GENERAL: Well-appearing, Thin, and in no acute distress. HEAD: Normocephalic, atraumatic. EYES: PERRLA and EOMI. ENT: Nares clear, no rhinorrhea or epistaxis. Mucous memb
[2020-12-08 11:35] VITALS: BP 109/68; PULSE 77; RESP 17; TEMP 36; O2SAT 97
--- NOTE | 2020-12-08 11:41 | PC.NURSE ---
Dr. Duffy at bedside to provide dispo and update to pt's global climate change researcher. Pt to f/u with PCP today for scheduled appt at 1500, has own inventory coordinator
== END 2020-12-08 11:44 | disposition home or self-care (01) ==
PROVIDERS: Emergency Provider Family Medicine; PCP Family Medicine
DX: D69.0 Allergic purpura (principal); D53.1 Other megaloblastic anemias, not elsewhere classified; K50.90 Crohn's disease, unspecified, without complications; K21.9 Gastro-esophageal reflux disease without esophagitis; F84.0 Autistic disorder; F20.9 Schizophrenia, unspecified; M10.9 Gout, unspecified; E03.9 Hypothyroidism, unspecified; E78.00 Pure hypercholesterolemia, unspecified; Z87.11 Personal history of peptic ulcer disease
CPT/HCPCS: 36415; 80053; 85025; 85610; 99283

== ENCOUNTER 2021-02-12 12:30 | Outpatient (RCR) | payer MEDICARE, MEDICAID, SELFPAY ==
--- NOTE | 2021-01-17 11:37 | PTOPEVAL ---
PHYISCAL THERAPY EVALUATION AND PLAN OF CARE 01-17-21 Thank you for referring Ricardo Sotomayor to [facility] for the diagnosis of gait abnormality.? Ricardo is scheduled to be seen for therapy? 2 x/week for 4 weeks. Please review, sign, date and return this plan of care LEE. I agree with and certify that the following plan of care is medically necessary. Referring Physician Date Attending Provider: Nba Vallejo NP PT Outpatient Evaluation Document 01/17/21 10:25 QUINCY (Rec: 01/17/21 11:37 QUINCY [id number]) Outpatient Past Medical History Past Medical History Source of Past Medical History Recalled from Previous Visit, Confirmed with Patient/Family Neurological History Hx Other Neurological Disorders Yes: mild intellectual disability/autism Cardiovascular History Hx Other Cardiac Disorders Yes: dysrythmia:tachycardia Respiratory History Hx Respiratory Disorders No Significant History Gastrointestinal History Hx Appendectomy Yes: 2003 Hx Crohn's Disease Yes Hx Obstructive Bowel Yes: Small bowel obstruction- non surgical Hx Other Gastrointestinal Disorders Yes: peptic ulcer, mario ulcer, release of adhesions 2003 Genitourinary History Hx Genitourinary Disorders No Significant History Musculoskeletal History Hx Gout Yes: B feet Hematological History Hx Anemia Yes: chronic Hx Other Hematological Disorders Yes: thrombocytopenia Endocrine History Hx Hypothyroidism Yes HEENT History Hx HEENT Disorders No Significant History Integumentary History Hx Skin Disorders No Significant History Reproductive History Hx Reproductive Disorders No Significant History Psychosocial History Hx Schizophrenia Yes Hx Other Psychiatric Disorders Yes: autism Pain History History of Any Previous or Ongoing No Significant History Instance of Pain Anesthesia History Hx Anesthesia Reactions No Significant History Other History Hx Other Medical Conditions Yes: autoimmune disease Evaluation Information Problem Diagnosis gait abnormality Onset October 19, 2020 Subjective Information after hospitalization for Query Text:As Reported By Patient/ bowel obstruction, more Family weakness and walking problems after that; [place] [facility] [place] [facility] [place] [facility], then returned to his long term; in the past 6 months, have had 3 falls; pt was found on the floor, when walking in
--- NOTE | 2021-02-05 11:55 | PCPTNOTE ---
pt did not show for today's appt;
--- NOTE | 2021-02-14 15:47 | PCPTNOTE ---
PHYSICAL THERAPY DISCHARGE 02-14-21 Attending Provider: Nba Vallejo NP Patient:Ricardo Sotomayor Date of :1960 Ricardo has received 4 PT sessions, from January 17 to February 12, for the diagnosis of gait abnormality. They called and canceled 1 and did not show for 1 appointment. His caregiver called and canceled his reevaluation appointment. I called and talked with Karen, his transplant case manager on the phone. She stated that Ricardo is back to his baseline status. And he has been in the routine of doing his leg exercises every day. Discussed with Karen discharge from PT services and she agreed that Ricardo is doing well and did not identify any further needs that he has. At the last therapy session, Ricardo had improved with his LE strength, doing the exercises with his knee extended and walking with more upright posture- trunk, hips and knees extended. Thank you for referring Ricardo to [facility]. Please review, sign, date and return this discharge summary LEE. I have been updated about the patient's current status and I agree with discharge from the above service at this time. Referring Physician Date
--- NOTE | 2021-05-25 15:13 | PCPTNOTE ---
PHYSICAL THERAPY DISCHARGE 05-25-21 LATE ENTRY FOR JANUARY 2021 Attending Provider: Nba Vallejo NP Patient:Ricardo Sotomayor Date of :1960 Patient has not returned for any further treatments since 02/12/2021, therefore he will be discharged at this time. The goals were not assessed. Thank you for referring this patient to [facility]. Please review, sign, date and return this discharge summary LEE. I have been updated about the patient's current status and I agree with discharge from the above service at this time. Referring Physician Date
== END 2021-04-02 13:03 | disposition home or self-care (01) ==
LOC: ANHPT 12:30
PROVIDERS: PCP Family Medicine; Visit Provider Nurse Practitioner Family
DX: R26.9 Unspecified abnormalities of gait and mobility (principal)
CPT/HCPCS: 97110; 97161

== ENCOUNTER 2021-03-20 07:48 | Inpatient (IN) | payer MEDICARE, MEDICAID, SELFPAY ==
[2021-03-20] VITALS (28 sets, daily range): BP systolic 93–132; BP diastolic 64–83; PULSE 70–101; RESP 11–19; TEMP 36.2–37.2; O2SAT 97–100; BMI 21.3
--- NOTE | ~2021-03-20 | CT_ITS ---
EXAMINATION: CT abdomen pelvis w con EXAM DATE: 03/20/2021 10:24 INDICATION: Small bowel obstruction. TECHNIQUE: Spiral CT of the abdomen and pelvis was performed following intravenous injection of 100 m L Omnipaque 350. Axial, coronal and sagittal images of the abdomen and pelvis were reviewed. The do se-length product (DLP) for this examination was 320.59 mGy-cm. The exposure was tailored according to patient size (auto mA exposure control), and iterative reconstruction (ASIR) was used as additiona l dose reduction technique. Comparison is made to prior examination from 10/31/2020, 02/08/2018. FINDINGS: There is moderately distended jejunum, mildly distended ileum, some regions of mild small b owel wall thickening suspected, no discrete transition point. There is colonic fluid. Could be inflam matory bowel disease, gastroenteritis with ileus, partial obstruction. Patient has had prior episodes , similar appearance on CT in October; correlate with previous diagnosis, treatment course. The liver, spleen, adrenal glands and pancreas are unremarkable. Gallbladder is unremarkable. No bi liary obstruction. Portal and splenic veins are patent. Kidneys enhance symmetrically. There is no hydronephrosis. The prostate is unremarkable. The bladder is unremarkable. There is no retroperi toneal or pelvic lymphadenopathy. There are no findings to suggest appendicitis. The stomach and small bowel are unremarkable. There is expected amount of colonic stool. No free intraperitoneal gas. The heart is normal in size. T here are no pericardial or pleural effusions. The lung bases are unremarkable. Focal lucent region in the L1 vertebral body right inferior endplate, measuring about 1.4 cm, stable compared to 2018. Ad ditionally likely has fat density, most likely hemangioma. IMPRESSION: Moderately distended small bowel without discrete transition point. Consider inflammatory bowel disease, gastroenteritis with ileus, partial obstruction. No free air. Similar appearance on C T 10/31/2020, correlate prior diagnosis, treatment course. Reviewed, dictated and finalized at location B. IMPRESSION: Moderately distended small bowel without discrete transition point. Consider inflammatory bowel disease, gastroenteritis with ileus, partial obstr uction. No free air. Similar appearance on CT 10/31/2020, correlate prior diagno sis, treatment course.
--- NOTE | ~2021-03-20 | XR_ITS ---
EXAMINATION: XR sm bowel follow through DATE: 03/21/2021 10:03 INDICATION: Small bowel obstruction TECHNIQUE: Label Pinker radiograph(s) of the abdomen was/were obtained. Oral contrast was administered, and sequential radiographs of the abdomen were obtained until oral contrast was noted to be in the proxi mal colon. Spot fluoroscopic images of the small bowel were obtained. Fluoroscopy exposure time was 0 .9 minutes. The DAP for this procedure was 51.839 Gycm2. COMPARISON: 11/03/2020 FINDINGS: Label Pinker image demonstrates multiple dilated loops of small bowel. No free intraperitoneal gas is identified. Transit time from the stomach to proximal colon was approximately two hours. A divert iculum is noted at the junction of the second and third portions of the duodenum. The proximal to mid small bowel is dilated. The distal small bowel is relatively normal in caliber. No definite transiti on point is identified. Terminal ileum is normal. No tethering or abnormal mass effect observed upon the small bowel with real-time fluoroscopy. IMPRESSION: 1. Dilated small bowel consistent with ileus versus partial obstruction. Reviewed, dictated and finalized at location A.
--- NOTE | ~2021-03-20 | XR_ITS ---
EXAMINATION: XR abdomen NG/feed tube insert EXAM DATE: 03/20/2021 14:12 INDICATION: ng tube placement confirmation. Dilated small bowel. TECHNIQUE: Frontal projection(s) of the abdomen for interpretation. Correlation was made with CT abdo men earlier same day. Comparison is made to prior examination from 11/10/2020. FINDINGS: Feeding tube tip has returned up to the mid esophageal level. Multiple loops dilated air-f illed small bowel. There is contrast within the kidneys. Lung bases are clear. IMPRESSION: Feeding tube extending to the gastroesophageal junction then returning up with tip at mi d esophageal level pointing cephalad. I discussed abnormal tube position with 3rd medical staff at 03/20/2021 14:22 CDT. Reviewed, dictated and finalized at location B. IMPRESSION: Feeding tube extending to the gastroesophageal junction then retur alan up with tip at mid esophageal level pointing cephalad. I discussed abnormal tube position with 3rd medical staff at 03/20/2021 14:22 CD T.
[2021-03-20 08:46] LABS: Add Urine Microscopic? YES; Appearance Urine Clear (Clear); Bilirubin Urine 1+ (Negative); Blood Urine Negative (Negative); Calcium Oxalate Crystals Urine Present /hpf; Color Urine Amber (Yellow); Glucose Urine UA Negative (Negative); Ketones Urine Trace mg/dL (Negative); Leukocyte Esterase Ur Negative LEU/UL (Negative); Mucus Urine Few /lpf; Nitrate Urine Negative (Negative); Protein Urine 1+ mg/dL (Negative); Squamous Epithelial Cell Urine Rare /hpf (Few); WBC Urine 0-3 /hpf
[2021-03-20 08:54] LABS: Specific Grav Ur 1.032 (1.001-1.035)
[2021-03-20 09:54] LABS: Basophils Percent Auto 0.1 % (0.2-1.2); Hematocrit 38.2 % (42.0-52.0); Hemoglobin 12.5 g/dL (14.0-18.0); Immature Granulocyte Absolute 0.05 K/mm3 (0.00-0.031); Immature Granulocyte Percent A 0.6 % (0-0.5); Lymphocytes Absolute Auto 1.14 K/mm3 (0.9-3.2); Lymphocytes Percent Auto 14.4 % (18.3-44.2); Mean Corpuscular HGB Conc 32.7 g/dl (32-36); Mean Corpuscular Hemoglobin 33.4 pg (26-34); Mean Corpuscular Volume 102.1 fl (80-100); Mean Platelet Volume 10.1 fl (7.4-10.4); Neutrophils Absolute Auto 5.7 K/mm3 (1.3-6.7); Neutrophils Percent Auto 71.9 % (45.5-73.1); Platelet Count Result 195 k/mm3 (150-375); Red Blood Count 3.74 M/mm3 (4.6-6.20); Red Cell Distribution Width 12.8 % (11.5-14.5); White Blood Count 7.9 K/mm3 (4.5-10.0)
[2021-03-20] MEDS: SODIUM CHLORIDE 0.9% IV 1,000 ML 999 ML IV CONT (09:59)
[2021-03-20 10:05] LABS: Alanine Aminotransferase 16 U/L (4-50); Albumin Level 3.9 g/dL (3.5-5.1); Alkaline Phosphatase 119 U/L (38-126); Anion Gap 8 mmol/L (8-16); Aspartate Amino Transferase 32 U/L (17-59); Bilirubin,Total 0.7 mg/dL (0.2-1.3); Blood Urea Nitrogen 17 mg/dL (9-20); Calcium 9.1 mg/dL (8.4-10.2); Carbon Dioxide 28 mmol/L (22-30); Chloride 101 mmol/L (98-107); Estimated CRCL calculation 78 ml/min; Estimated Glomerular Filt Rate > 60; Glucose 101 mg/dL (65-110); Lipase 61 U/L (23-300); Potassium 4.5 mmol/L (3.4-5.0); Sodium 137 mmol/L (137-145)
--- NOTE | 2021-03-20 11:07 | PC.NURSE ---
iv fluids dripping very slowly due to size of iv cath and location of iv site. pt encouraged to keep hand flat. understanding verbalized.
--- NOTE | 2021-03-20 11:32 | ED.ABDPAIN ---
HPI - Abdominal Pain General Chief Complaint: Abdominal Pain Stated Complaint: n/v Time Seen by Provider: 03/20/21 08:06 Source: EMS, RN notes reviewed and old records reviewed Mode of arrival: EMS Limitations: other (Patient is mentally challenged) History of Present Illness HPI narrative: Patient brought to the emergency room from care home with a chief complaint of abdominal pain and vomiting. Patient vomited about 3 times yesterday, about 2 times overnight, did not eat his breakfast today, no vomiting since 6 AM. The correction staff deny that the patient have any fever, chills, diarrhea or constipation. Patient is fully vaccinated for COVID-19. History of small bowel obstruction. Related Data Home Medications Medication Instructions Recorded Confirmed Linzess 145 mcg PO DAILY 10/15/20 11/20/20 fenofibrate 160 mg PO DAILY 10/15/20 11/20/20 folic acid 1 mg PO DAILY 10/15/20 11/20/20 levothyroxine 100 mcg PO DAILY 10/15/20 11/20/20 omega 9-htt-gle-fish oil [Fish Oil] 1 cap PO BID 10/15/20 11/20/20 omeprazole 40 mg PO Q12H 10/15/20 11/20/20 potassium chloride 10 meq PO DAILY 10/15/20 11/20/20 propranolol 20 mg PO QID 10/15/20 11/20/20 sennosides-docusate sodium 2 tab-cap PO BID 10/15/20 11/20/20 [Senokot-S] sulfasalazine 1,000 mg PO BID 10/15/20 11/20/20 vitamin B complex 1 tablet PO DAILY 10/15/20 11/20/20 acetaminophen [Tylenol] 650 mg PO PRN PRN 11/01/20 11/20/20 multivitamin,tx-minerals 1 tablet PO 1700 11/01/20 11/20/20 bisacodyl 10 mg RECTAL DAILY PRN 11/20/20 11/20/20 diphenhydramine HCl 25 mg PO Q6H PRN 11/20/20 11/20/20 divalproex PO 03/20/21 escitalopram oxalate mg 03/20/21 Allergies Allergy/AdvReac Type Severity Reaction Status Date / Time No Known Allergies Allergy Verified 03/20/21 08:12 Review of Systems Review of Systems: CONSTITUTIONAL: Denies fever, chills, or sweats. EYES: Denies visual changes, redness, or discharge. ENT: Denies rhinorrhea, congestion, sore throat, or otalgia. CARDIOVASCULAR: Denies chest pain, palpitations, or edema. RESPIRATORY: Denies cough or dyspnea. GASTROINTESTINAL: Denies abdominal pain, nausea, vomiting, or diarrhea. GENITOURINARY: Denies dysuria or hematuria. SKIN: Denies rash or itching. MUSCULOSKELETAL: Denies back pain, joint pain, or myalgia. NEUROLOGIC: Denies headache, numbness, or weakness. PSYCHIATRIC: Denies anxiety or depression. [facility] Past Medical History Medical History Autism spectrum disorder Chronic anemia (Unknown) Chronic megaloblastic anemia with high folate and B12 levels in 2018 Crohn's disease GERD (gastroesophageal reflux disease) Gout Hypercholesterolemia (Unknown) Hypothyroidism (Unknown) Intellectual disability Peptic ulcer Schizophrenia Surgical History Surgical History History of appendectomy (~12/07/03) Performed at the same time as the exploratory laparotomy History of exploratory laparotomy (~12/07/03) With adhesion lysis due to bowel obstruction Family History Family History Other Unknown family medical history Social History Social History Social History: He lives in a care home in [place]. Lifelong nonsmoker. No alcohol or drug use. Primary care physician: Dr. Isael Lanier Code status: Full code Healthcare power of divorce attorney: Jose Manuel Sotomayor (father). Caregiver states that Ann Martel should be called for any consent at [phone]. Smoking status: Never smoker Alcohol intake: never Substance use: never Gender identity (if verbalized by the patient): Male Sexual Orientation (if Verbalized by the Patient): Straight or Heterosexual Spiritual care concerns: No Exam Narrative: General appearance: Well-developed, well-nourished Skin: Normal color Head: Normocephalic, nontrau
--- NOTE | 2021-03-20 13:28 | PM.IMHP ---
H&P: HPI History of Present Illness Date/Time: 03/20/21 13:28 this is a 60-year-old autistic patient who resides in a senior living. The patient has a history of constipation. The patient is on daily MiraLax. The patient stated that he had a large bowel movement yesterday when he was in the workshop. Today the patient started to complain of abdominal discomfort. The patient has had previous history is of having partial small-bowel obstruction as well as adhesiolysis in the past. The patient had abdominal distension, abdominal discomfort and vomiting. The patient vomited 3 times yesterday and 2 times overnight. He did not eat any breakfast today. He has not had any vomiting since 6:00 a.m. the patient resides in a senior living and he has a caregiver at the bedside as the staff stated that the patient did not have any fever chills. The patient is noted to be fully vaccinated for COVID-19. CT of the abdomen today was read by radiology is moderately distended small bowel without discrete transition point. Consider inflammatory bowel disease, gastro enteritis with ileus, partial obstruction. No free air. Surgery has been consulted. H&H today is 12.5 and 38.2. The patient has been started on IV fluids and made NPO. The patient is being admitted to inpatient services on 03/20/2021. Chief Complaint: Nausea vomiting constipation Review of Systems Review of Systems: The patient is able to answer some questions however the caregiver has to assist with answering the questions. ROS unobtainable: Yes unobtainable due to mental status Constitutional: Constitutional: Reports as per HPI and Reports no additional constitutional complaints Eyes: Eyes: Reports as per HPI and Reports no additional eye complaints ENT: Reports system reviewed and no additional complaints, except as documented and Reports Normal hearing present Cardiovascular: Cardiovascular: Reports no additional cardiovascular complaints Respiratory: Respiratory: Reports no additional respiratory complaints and Reports no additional respiratory complaints Gastrointestinal: Gastrointestinal: Reports as per HPI and Reports no additional gastrointestinal complaints Musculoskeletal: Musculoskeletal: Reports no additional musculoskeletal complaints Integumentary/Breasts: Skin/Breast: Reports system reviewed and no additional complaints, except as docu and Reports as per HPI Neurologic: Reports system reviewed and no additional complaints, except as documented, Reports as per HPI and Reports Normal hearing present Psychiatric: Psychiatric: Reports no additional psychiatric complaints and Reports as per HPI Endocrine: Endocrine: Reports no additional endocrine complaints Hematologic/Lymphatic: Hematologic/Lymphatic: Reports no additional hematologic/lymphatic complaints Allergic/Immunologic: Allergic/Immunologic: Reports no additional allergic/immunologic complaints [facility] Past Medical History Medical History (Updated 03/20/21 @ 13:40 by Bing Henry NP) Autism spectrum disorder Chronic anemia (Unknown) Chronic megaloblastic anemia with high folate and B12 levels in 2018 Crohn's disease GERD (gastroesophageal reflux disease) Gout Hypercholesterolemia (Unknown) Hypothyroidism (Unknown) Intellectual disability Peptic ulcer Schizophrenia Surgical History Surgical History History of appendectomy (~12/07/03) Performed at the same time as the exploratory laparotomy History of exploratory laparotomy (~12/07/03) With adhesion lysis due to bowel obstruction Family History Family History Other Unknown family medical history Social History Social History Social History: He lives in a senior living in [place]. Lifelong nonsmoker. No alcohol or drug use. Primary care physician: Dr. Isael Lanier Code status
--- NOTE | 2021-03-20 14:10 | PC.NURSE ---
NG tube dc'd per surgery order
--- NOTE | 2021-03-20 14:18 | PM.CNGS ---
Assessment and Plan Assessment and plan (1) Partial bowel obstruction: Qualifiers: Intestinal obstruction type: unspecified Qualified Code(s): K56.600 - Partial intestinal obstruction, unspecified as to cause Code(s): K56.600 - Partial intestinal obstruction, unspecified as to cause Status: Acute Assessment and Plan: CT scan reviewed and discussed with the patient. There is evidence of small bowel dilatation without a focal transition point, similar to his most recent CT scan from October of 2020. This appears to be a recurrent problem for the patient without obvious etiology. In reviewing his previous records, it appears Crohn's disease has essentially been ruled out. This could be related to an ileus versus partial small bowel obstruction. He also seems to have a history of constipation, which could potentially play a role, although he has been getting Miralax daily at the [facility] for this. He does have a history of an exploratory laparotomy with adhesiolysis, and could have intra-abdominal adhesions. Another consideration would be any side effects from some of his home medications? On my exam, he is only slightly distended, abdomen is soft, and he has good bowel sounds. He is not complaining of nausea and has not had vomiting since early this morning. Will defer NG tube for now, unless he begins to have worsening symptoms or vomiting. Continue with conservative measures for now with bowel rest, IV fluids, and analgesics. Gastrografin small bowel follow through has been ordered for the morning. This will further evaluate the possible small bowel obstruction. Thank you for allowing us to see the patient in consultation and we will continue to follow along with you. (2) Autism spectrum disorder: Code(s): F84.0 - Autistic disorder Status: Acute (3) Schizophrenia: Code(s): F20.9 - Schizophrenia, unspecified Status: Acute (4) Intellectual disability: Code(s): F79 - Unspecified intellectual disabilities Status: Acute Additional Plan I have discussed the patient's case and plan of care with Dr. Ferguson. History of Present Illness Consult details Consult date: 03/20/21 Reason for consult: other (Partial small bowel obstruction versus ileus) Requesting physician: Tutu Thomas MD Narrative: This is a 60-year-old male with a history of intellectual disability, autism, schizophrenia, and multiple small bowel obstructions, who [facility] from his [facility] for vomiting and abdominal pain. He is a poor historian, therefore his history is obtained from review of his electronic medical record. He is also known to our service from previous hospitalizations for small bowel obstructions. The patient was admitted in November 2020 and October 2020 for recurrent partial small bowel obstructions. Both occasions he was treated with NG tube decompression and bowel rest, with resolution of his symptoms. He had a gastrografin small bowel follow through on both hospitalizations that showed normal transit and suggested more of an ileus. Gastroenterology was following the patient as well for questionable history of Crohn's disease. Previous records showed a normal MR enterography and colonoscopy 2-3 years ago. Colonoscopy again in October 2020 showed a normal terminal ileum and colonoscopy without evidence of Crohn's. He then had a capsule endoscopy in November 2020, which was normal and showed no explanation for his recurrent small bowel obstructions. He apparently developed vomiting and abdominal pain yesterday, and vomited a few times through the night. Last episode of vomiting was around 6:00 am. He was brought into the ER for evaluation. CT scan of the abdomen and pelvis showed moderately distended small bowel with no discrete transition point, similar in appearance to his CT scan from October 2020. Suggesting gastroenteritis with ileus, IBD, or partial obstruction. Our service was contacted by the ED physician for i
--- NOTE | 2021-03-20 14:20 | ADMGEN ---
This patient, Ricardo Sotomayor, was admitted to [facility] Room 317-01. Patient/family oriented to hospital policies and general routines including ID bracelet, bed and alarms, visiting hours, pain management, procedures, bathroom and other care routines, personal items, smoking policy, room service/diet, and visiting hours. Information on how to activate the Rapid Response Team has been discussed. Patient/Family are encouraged to report perceived risks to care and to ask questions if they do not understand what they are told or what they should do.
[2021-03-20] MEDS: SODIUM CHLORIDE 0.9% IV 1,000 ML 125 ML IV CONT (16:15)
[2021-03-20] MEDS: SENNA/DOCUSATE SODIUM TABLET 2 TAB PO (21:01)
[2021-03-20] MEDS: PANTOPRAZOLE SODIUM IV 40 MG VIAL IV PUSH (21:01)
[2021-03-20] MEDS: PROPRANOLOL HCL 20 MG TABLET PO (21:02)
[2021-03-20] MEDS: sulfaSALAzine 500 MG TABLET 1000 MG PO (21:12)
[2021-03-21] VITALS (7 sets, daily range): BP systolic 109–133; BP diastolic 65–67; PULSE 81–104; RESP 18; TEMP 36.1–36.6; O2SAT 96–98
[2021-03-21] MEDS: LEVOTHYROXINE SODIUM INJ 100 MCG/5 ML VIAL 50 MCG IV PUSH (06:27)
[2021-03-21 06:44] LABS: Basophils Percent Auto 0.3 % (0.2-1.2); Hematocrit 37.9 % (42.0-52.0); Hemoglobin 12.3 g/dL (14.0-18.0); Immature Granulocyte Absolute 0.05 K/mm3 (0.00-0.031); Immature Granulocyte Percent A 0.7 % (0-0.5); Lymphocytes Absolute Auto 1.14 K/mm3 (0.9-3.2); Lymphocytes Percent Auto 16.9 % (18.3-44.2); Mean Corpuscular HGB Conc 32.5 g/dl (32-36); Mean Corpuscular Hemoglobin 34.1 pg (26-34); Mean Platelet Volume 10.1 fl (7.4-10.4); Monocytes Absolute Auto 0.7 K/mm3 (0.1-0.6); Monocytes Percent Auto 10.7 % (2.6-8.5); Neutrophils Absolute Auto 4.8 K/mm3 (1.3-6.7); Neutrophils Percent Auto 71.4 % (45.5-73.1); Platelet Count Result 158 k/mm3 (150-375); Red Blood Count 3.61 M/mm3 (4.6-6.20); Red Cell Distribution Width 12.7 % (11.5-14.5); White Blood Count 6.8 K/mm3 (4.5-10.0)
[2021-03-21 07:06] LABS: Alanine Aminotransferase 17 U/L (4-50); Albumin Level 3.1 g/dL (3.5-5.1); Alkaline Phosphatase 102 U/L (38-126); Anion Gap 8 mmol/L (8-16); Aspartate Amino Transferase 36 U/L (17-59); Bilirubin,Total 0.8 mg/dL (0.2-1.3); Blood Urea Nitrogen 12 mg/dL (9-20); Calcium 8.1 mg/dL (8.4-10.2); Carbon Dioxide 26 mmol/L (22-30); Chloride 104 mmol/L (98-107); Estimated CRCL calculation 106 ml/min; Estimated Glomerular Filt Rate > 60; Glucose 78 mg/dL (65-110); Magnesium 1.8 mg/dL (1.6-2.3); Potassium 4.1 mmol/L (3.4-5.0); Sodium 138 mmol/L (137-145)
[2021-03-21 07:15] LABS: Lactic Acid Reflex 0.9 mmol/L (0.7-2.1)
--- NOTE | 2021-03-21 14:37 | PM.PNGS ---
Progress Note: A&P Assessment and Plan (1) Partial bowel obstruction: Qualifiers: Intestinal obstruction type: unspecified Qualified Code(s): K56.600 - Partial intestinal obstruction, unspecified as to cause Code(s): K56.600 - Partial intestinal obstruction, unspecified as to cause Status: Acute Assessment and Plan: Gastrografin SBFT today showed transit to the colon in 2 hours with no high grade obstruction. Likely ileus. Remove NG tube and start full liquids. (2) Autism spectrum disorder: Code(s): F84.0 - Autistic disorder Status: Acute (3) Schizophrenia: Code(s): F20.9 - Schizophrenia, unspecified Status: Acute (4) Intellectual disability: Code(s): F79 - Unspecified intellectual disabilities Status: Acute Additional Plan I have discussed the plan of care with Dr. Ferguson. Time Spent With Patient Time with patient: less than 15 minutes Subjective Subjective Date/Time Seen: 03/21/21 14:37 Patient reports: no new complaints Interval history: Denies having BM or passing flatus since contrast study. Denies abdominal pain, nausea/vomiting. Is eager to start full liquid diet and asking about when he can be discharged. Review of Systems Review of Systems: All systems reviewed & are unremarkable except as noted in HPI and below ROS unobtainable: Yes other (difficulty obtaining due to mental disability) Gastrointestinal: Gastrointestinal: Reports as per HPI and Denies abdominal pain Exam Const: General: comfortable, no acute distress, alert and awake Orientation/consciousness: patient oriented x3 Resp: Effort & Inspection: normal respiratory effort Auscultation: clear to auscultation bilaterally Cardio: Rate: regular rate Rhythm: regular rhythm GI: Inspection: non-distended and incision (Abdominal incisions clean and dry, glue intact.) GI Palp: Yes Soft to palpation, No Tenderness to palpation present (GI) and No Guarding due to palpation present (GI) Percussion: Yes normal to percussion Auscultation: normal bowel sounds Skin: General skin exam: normal color Neuro: General: patient oriented x3, moves all extremities and no focal motor deficits Speech: No Abnormal speech present Extrem: General: no clubbing, cyanosis or edema Psych: Mental Status: mental status grossly normal (at baseline for patient) Insight: Limited insight present (Psych) (due to intellectual disability) Judgement: Limited judgement present (Psych) (due to intellectual disability) Objective Data Vital Signs Vital Signs: Vital Signs - 24 hr 03/20/21 19:50 03/20/21 21:02 03/20/21 22:00 Temperature 97.1 F L Pulse Rate 70 70 89 Respiratory Rate 16 18 Blood Pressure 113/64 Pulse Oximetry 97 97 03/21/21 06:00 Temperature 97.0 F L Pulse Rate 96 Respiratory Rate 18 Blood Pressure 122/65 Pulse Oximetry 98 Intake/Output Intake/Output: Intake & Output 03/18/21 03/19/21 03/20/21 03/21/21 23:59 23:59 23:59 23:59 Intake Total 1000 100 Output Total 200 Balance 1000 -100 Meds/Results Medications: Active Medications Generic Name Dose Route Start Last Admin Trade Name Freq PRN Reason Stop Dose Admin Bisacodyl 10 mg 03/20/21 13:45 Bisacodyl 10 Mg Suppository RECTAL QAM PRN Constipation Diphenhydramine HCl 25 mg 03/20/21 13:36 Diphenhydramine Hcl Inj 50 Mg/Ml Vial IV PUSH Q4H PRN Itching Sodium Chloride 1,000 mls @ 75 mls/hr 03/20/21 12:15 03/21/21 11:49 Normal Saline Iv IV CONT Not Given .[id number] JULIANO Levothyroxine Sodium 50 mcg 03/21/21 06:30 03/21/21 06:27 Levothyroxine Sodium Inj 100 Mcg/5 Ml Vial IV PUSH 50 mcg DAILY@0630 JULIANO Administration Lorazepam 0.5 mg 03/20/21 13:34 Lorazepam Inj (*Crx) 2 Mg/Ml Vial IV PUSH Q6H PRN Anxiety Ondansetron HCl 4 mg 03/20/21 12:14 Ondansetron Inj 4 Mg/2 Ml Vial IV PUSH Q4H PRN Nausea Pantoprazole Sodium 4
[2021-03-21] MEDS: PROPRANOLOL HCL 20 MG TABLET PO ×3 (14:46→21:32)
[2021-03-21] MEDS: SENNA/DOCUSATE SODIUM TABLET 2 TAB PO ×2 (14:47→21:29)
[2021-03-21] MEDS: polyethylene glycoL 3350 17 GM POWD.PACK PO (14:47)
[2021-03-21] MEDS: PANTOPRAZOLE SODIUM IV 40 MG VIAL IV PUSH ×2 (14:47→21:31)
--- NOTE | 2021-03-21 15:20 | PM.IMPN ---
Progress Note: A&P Assessment and Plan (1) Partial bowel obstruction: Qualifiers: Intestinal obstruction type: unspecified Qualified Code(s): K56.600 - Partial intestinal obstruction, unspecified as to cause Code(s): K56.600 - Partial intestinal obstruction, unspecified as to cause Status: Acute Assessment and Plan: Patient has a long history of partial small-bowel obstruction then the past with most recent episode in October 2020. At that time he had conservative management with improvement of his symptoms. Patient presented with abdominal pain and vomiting from his nursing facility. CT abdomen showed Moderately distended small bowel without discrete transition point. Consider inflammatory bowel disease, gastroenteritis with ileus, partial obstruction. No free air. Similar appearance on CT 10/31/2020, correlate prior diagnosis, treatment course. Patient was otherwise resting comfortably stone NG tube was not placed. Small-bowel follow-through was completed which showed Dilated small bowel consistent with ileus versus partial obstruction. Patient is feeling better at this time and is advancing his diet as tolerated to fulls. Appreciate surgery's input for further evaluation recommendations. If patient is doing well in advance diet in the morning can be discharged back to his living facility at that time. Patient is having bowel Bentson active bowel sounds currently. Continue monitoring. Symptomatic management. (2) Autism spectrum disorder: Code(s): F84.0 - Autistic disorder Status: Acute Assessment and Plan: Continue current medications (3) Hypothyroidism: Onset Date: Unknown Code(s): E03.9 - Hypothyroidism, unspecified Status: Acute Assessment and Plan: TSH normal. Will switch back to oral levothyroxine from IV. (4) Chronic anemia: Onset Date: Unknown Code(s): D64.9 - Anemia, unspecified Status: Chronic Assessment and Plan: The patient has a history of megablastic anemia and had been folic acid and B12. Patient's H&H is much improved from previous readings. Patient's MCV is 105. He is already on B12 and folic acid daily. Will continue. No need for further workup at this time. Will recheck in the morning (5) Hypercholesterolemia: Onset Date: Unknown Code(s): E78.00 - Pure hypercholesterolemia, unspecified Status: Chronic Assessment and Plan: Will hold this medication. Time Spent With Patient Time with patient: 25 - 35 minutes Subjective Date/time seen: 03/21/21 15:20 Interval history: Date of Service 03/21/2021: Patient reports feeling well today. He is eating and drinking without any issues. No more nausea, vomiting, abdominal pain. He denies any fevers, chills, chest pain, shortness of breath, leg swelling, calf pain, or any other symptoms at this time. Patient is a poor historian due to intellectual disability. Review of Systems Review of Systems: ROS unobtainable: Yes unobtainable due to medical condition Exam Narrative: General: 60-year-old man sitting up in bed talking to the nurse. Appears comfortable. In no acute distress. Skin: No jaundice or cyanosis. Good skin turgor. Neck: Full range of motion. Supple. Respiratory: Lungs are clear to auscultation bilaterally. No bony chest wall tenderness. Cardiovascular: The heart has a regular rate and rhythm without murmur. No carotid bruits. Lower extremities: No lower extremity edema. Distal pulses are easily palpated. No calf tenderness to palpation. Gastrointestinal: The abdomen is soft, nontender and nondistended with active bowel sounds. Psychiatric: Lucid and oriented. Memory intact. Neurologic: No focal deficits. Speech is
--- NOTE | 2021-03-21 17:39 | PC.NURSE ---
Medications received from [facility]. Clozapine 100mg tabs. Count verified with [facility] staff. Count verified with MARCELLE Pearce Mornin tabs Evenin tabs Bedtime: 18 tabs Sent to pharmacy for verification.
--- NOTE | 2021-03-21 18:03 | PHAR ---
Home medication identified and returned to RN at pharmacy window. Clozapine 100mg tablets
[2021-03-21] MEDS: ESCITALOPRAM OXALATE 10 MG TABLET 20 MG PO (18:49)
[2021-03-21] MEDS: sulfaSALAzine 500 MG TABLET 1000 MG PO (18:49)
[2021-03-21] MEDS: DIVALPROEX SODIUM ER 500 MG TAB.24H 1000 MG PO (21:30)
[2021-03-22 06:00] VITALS: BP 124/74; PULSE 85; RESP 18; TEMP 36.5; O2SAT 94
[2021-03-22] MEDS: LEVOTHYROXINE SODIUM 100 MCG TABLET PO (06:23)
[2021-03-22 07:04] LABS: Hematocrit 34.9 % (42.0-52.0); Hemoglobin 11.5 g/dL (14.0-18.0); Mean Corpuscular Hemoglobin 34.5 pg (26-34); Mean Corpuscular Volume 104.8 fl (80-100); Mean Platelet Volume 10.1 fl (7.4-10.4); Platelet Count Result 146 k/mm3 (150-375); Red Blood Count 3.33 M/mm3 (4.6-6.20); Red Cell Distribution Width 12.5 % (11.5-14.5); White Blood Count 5.9 K/mm3 (4.5-10.0)
[2021-03-22 07:24] LABS: Anion Gap 11 mmol/L (8-16); Blood Urea Nitrogen 8 mg/dL (9-20); Calcium 8.3 mg/dL (8.4-10.2); Carbon Dioxide 26 mmol/L (22-30); Chloride 102 mmol/L (98-107); Estimated CRCL calculation 122 ml/min; Estimated Glomerular Filt Rate > 60; Glucose 89 mg/dL (65-110); Potassium 3.8 mmol/L (3.4-5.0); Sodium 139 mmol/L (137-145)
[2021-03-22] MEDS: sulfaSALAzine 500 MG TABLET 1000 MG PO (08:49)
[2021-03-22 08:50] VITALS: PULSE 67
[2021-03-22] MEDS: PROPRANOLOL HCL 20 MG TABLET PO (08:50)
[2021-03-22] MEDS: PANTOPRAZOLE SODIUM IV 40 MG VIAL IV PUSH (08:51)
[2021-03-22] MEDS: SENNA/DOCUSATE SODIUM TABLET 2 TAB PO (08:51)
[2021-03-22] MEDS: DIVALPROEX SODIUM ER 500 MG TAB.24H 1000 MG PO (08:51)
[2021-03-22] MEDS: ESCITALOPRAM OXALATE 10 MG TABLET 20 MG PO (08:51)
[2021-03-22] MEDS: polyethylene glycoL 3350 17 GM POWD.PACK PO (08:52)
--- NOTE | 2021-03-22 10:28 | PM.DS ---
DS: Admitting Diagnosis Admitting Diagnosis Abd pain DS: Discharge Diagnosis Discharge Diagnosis (1) Partial bowel obstruction: Qualifiers: Intestinal obstruction type: unspecified Qualified Code(s): K56.600 - Partial intestinal obstruction, unspecified as to cause Code(s): K56.600 - Partial intestinal obstruction, unspecified as to cause Status: Acute Assessment and Plan: The patient is 60 year old man with a history of autism who lives in a snf, who presented emergency room for vomiting, abdominal discomfort. Patient has had multiple admissions in the past for partial small-bowel obstruction and multiple tests done from GI. Initial vitals showed stable blood pressure 126/83, slight tachycardia 101 beats per minute, afebrile, normal oxygenation on room air. Initial labs showed normal white blood cell, macrocytic anemia with a hemoglobin of 12, 38%. Normal CMP. Normal lipase. Normal TSH. No UTI on urinalysis. CT abdomen pelvis showed Moderately distended small bowel without discrete transition point. Consider inflammatory bowel disease, gastroenteritis with ileus, partial obstruction. No free air. Patient was admitted to the hospital with partial small bowel obstruction with further treatment and recommendations from surgery team. Patient has a long history of partial small-bowel obstruction then the past with most recent episode in October 2020. Patient was otherwise resting comfortably without NG tube since he was not actively vomiting. Small-bowel follow-through was completed which showed Dilated small bowel consistent with ileus versus partial obstruction. Patient is feeling better at this time and is advancing his diet as tolerated to fulls. Appreciate surgery's input who slowly advanced diet. Patient tolerated diet well without any issue at his time. Patient is stable for discharge back to his snf to continue soft diet for 1 week. Told to follow-up with GI specialist as an outpatient. Continue home medications without any adjustments upon discharge. Patient understands agrees the plan all questions answered. (2) Autism spectrum disorder: Code(s): F84.0 - Autistic disorder Status: Acute Assessment and Plan: Continue current medications (3) Hypothyroidism: Onset Date: Unknown Code(s): E03.9 - Hypothyroidism, unspecified Status: Acute Assessment and Plan: TSH normal. Continue home medications. (4) Chronic anemia: Onset Date: Unknown Code(s): D64.9 - Anemia, unspecified Status: Chronic Assessment and Plan: The patient has a history of megablastic anemia and had been folic acid and B12. Patient's H&H is stable. No signs of acute bleeding. (5) Hypercholesterolemia: Onset Date: Unknown Code(s): E78.00 - Pure hypercholesterolemia, unspecified Status: Chronic Assessment and Plan: Will hold this medication. DS: Summary Hospital Course Hospital Course: See above Status at Discharge Cognitive/behavioral status at discharge: Stable, improved. Time Spent with Patient Time attestation: Total time spent providing and/or coordinating discharge services: 40 Time spent: Greater than 30 minutes Exam Narrative: General: 60-year-old man sitting up in bed watching TV. Appears comfortable. In no acute distress. Skin: No jaundice or cyanosis. Good skin turgor. Neck: Full range of motion. Supple. Respiratory: Lungs are clear to auscultation bilaterally. No bony chest wall tenderness. Cardiovascular: The heart has a regular rate and rhythm without murmur. Lower extremities: No lower extremity edema. Distal pulses are easily palpated. N
--- NOTE | 2021-03-22 11:26 | PM.PNGS ---
Progress Note: A&P Assessment and Plan (1) Partial bowel obstruction: Qualifiers: Intestinal obstruction type: unspecified Qualified Code(s): K56.600 - Partial intestinal obstruction, unspecified as to cause Code(s): K56.600 - Partial intestinal obstruction, unspecified as to cause Status: Acute Assessment and Plan: Gastrografin SBFT today showed transit to the colon in 2 hours with no high grade obstruction. Likely ileus. Advanced to soft diet and tolerating well. Bowels continue to move. Abdominal exam benign. Okay from a surgical standpoint to discharge the patient today. Follow-up p.r.n.. Would recommend sorting out which city carrier to follow up with as an outpatient with his caregiver. It appears there is been multiple gastroenterologists that have followed him and he has had extensive workup regarding other causes for the recurrent small-bowel obstructions and questionable diagnosis of Crohn's. (2) Autism spectrum disorder: Code(s): F84.0 - Autistic disorder Status: Acute (3) Schizophrenia: Code(s): F20.9 - Schizophrenia, unspecified Status: Acute (4) Intellectual disability: Code(s): F79 - Unspecified intellectual disabilities Status: Acute Additional Plan I have discussed the plan of care with Dr. Ferguson. Subjective Subjective Date/Time Seen: 03/22/21 09:56 Patient reports: no new complaints, feels better, tolerating a regular diet, flatus and bowel movement Interval history: Patient seen today and reports feeling good. History limited due to intellectual disability. He denies abdominal pain, nausea, or vomiting. He has had 2 bowel movements overnight and 1 large BM already this morning. Review of Systems Review of Systems: ROS unobtainable: Yes unobtainable due to mental status Exam Const: General: no acute distress and awake GI: Inspection: non-distended GI Palp: Yes Soft to palpation, No Tenderness to palpation present (GI), No Guarding due to palpation present (GI) and No Rebound tenderness present Auscultation: normal bowel sounds Neuro: General: moves all extremities and no focal motor deficits Extrem: General: no clubbing, cyanosis or edema Psych: Insight: Limited insight present (Psych) (due to intellectual disability) Judgement: Limited judgement present (Psych) (due to intellectual disability) Objective Data Vital Signs Vital Signs: Vital Signs - 24 hr 03/21/21 14:00 03/21/21 14:46 03/21/21 18:50 Temperature 97.6 F Pulse Rate 102 H 104 H 100 Respiratory Rate 18 Blood Pressure 133/65 Pulse Oximetry 98 03/21/21 20:15 03/21/21 21:32 03/21/21 22:00 Temperature 97.9 F Pulse Rate 81 82 81 Respiratory Rate 18 18 Blood Pressure 109/67 Pulse Oximetry 96 96 03/22/21 06:00 03/22/21 08:50 Temperature 97.7 F Pulse Rate 85 67 Respiratory Rate 18 Blood Pressure 124/74 Pulse Oximetry 94 Intake/Output Intake/Output: Intake & Output 03/19/21 03/20/21 03/21/21 03/22/21 23:59 23:59 23:59 23:59 Intake Total 1000 670 690 Output Total 550 850 Balance 1000 120 -160 Meds/Results Medications: Active Medications Generic Name Dose Route Start Last Admin Trade Name Freq PRN Reason Stop Dose Admin Bisacodyl 10 mg 03/20/21 13:45 Bisacodyl 10 Mg Suppository RECTAL QAM PRN Constipation Diphenhydramine HCl 25 mg 03/20/21 13:36 Diphenhydramine Hcl Inj 50 Mg/Ml Vial IV PUSH Q4H PRN Itching Divalproex Sodium 1,000 mg 03/21/21 21:00 03/22/21 08:51 Divalproex Sodium Er 500 Mg Tab.24h PO 1,000 mg Q12HR JULIANO Administration Escitalopram Oxalate 20 mg 03/21/21 09:00 03/22/21 08:51 Escitalopram Oxalate 10 Mg Tablet PO 20 mg DAILY JULIANO Administration Levothyroxine Sodium 100 mcg 03/22/21 06:30 03/22/21 06:23 Levothyroxine Sodium 100 Mcg Tablet PO 100 mcg DAILY@0630 JULIANO Administration Lorazepam 0.5 mg 03/20/21 13:34
[2021-03-22 12:15] LABS: EDCOVIDSCREEN Negative (Negative)
== END 2021-03-22 12:35 | disposition home or self-care (01) | DRG 389 ==
LOC: ANHED 11:40 → ANH3MEDSUR 12:52
PROVIDERS: Nurse Practitioner; Admitting Provider Internal Medicine; Emergency Provider Emergency Medicine; PCP Family Medicine; Visit Provider Physician Assistant
DX: K56.600 Partial intestinal obstruction, unspecified as to cause (principal); F84.0 Autistic disorder; F79 Unspecified intellectual disabilities; F20.9 Schizophrenia, unspecified; Z20.822 Contact with and (suspected) exposure to COVID-19; D64.9 Anemia, unspecified; E78.00 Pure hypercholesterolemia, unspecified; K21.9 Gastro-esophageal reflux disease without esophagitis; E03.9 Hypothyroidism, unspecified; Z79.899 Other long term (current) drug therapy
CPT/HCPCS: 36415; 74177; 74250; 80048; 80053; 81001; 83605; 83690; 83735; 84443; 85025; 85027; 87426; 96360; 96361; 97161; 97165; 99285; A9270; C9113; C9803; J7030; Q9967

== ENCOUNTER 2021-03-27 10:19 | Emergency (ER) | payer MEDICARE, MEDICAID, SELFPAY ==
--- NOTE | ~2021-03-27 | CT_ITS ---
EXAMINATION: CT abdomen pelvis w con EXAM DATE: 03/27/2021 13:59 INDICATION: Small bowel obstruction TECHNIQUE: Spiral CT of the abdomen and pelvis was performed following intravenous injection of 100 m L Omnipaque 350. Axial, coronal and sagittal images of the abdomen and pelvis were reviewed. The do se-length product (DLP) for this examination was 323.16 mGy-cm. The exposure was tailored according to patient size (auto mA exposure control), and iterative reconstruction (ASIR) was used as additiona l dose reduction technique. Comparison is made to prior examination from 03/20/2021, 10/31/2020. FINDINGS: There is wall thickening of most of the ileum, with focal regions of dilation. Some segment s of jejunum are significantly dilated. There are air-fluid levels throughout the small bowel and col on. No focal transition point. Please note there was a similar appearance on previous examinations f rom last month and October. Given chronicity and appearance, is most consistent with ileus from underly ing inflammatory bowel disease. No free intraperitoneal gas or pneumatosis. The liver, spleen, adrenal glands and pancreas are unremarkable. Gallbladder is unremarkable. No bi liary obstruction. Portal and splenic veins are patent. Kidneys enhance symmetrically. There is no hydronephrosis. The prostate is unremarkable. The bladder is unremarkable. There is no retroperi toneal or pelvic lymphadenopathy. The appendix is not positively visualized. There is no pericecal inflammatory change to suggest appe ndicitis. The stomach and small bowel are unremarkable. There is expected amount of colonic stool. No free intraperitoneal gas. The heart is normal in size. There are no pericardial or pleural e ffusions. There is right basilar subsegmental atelectasis. There are no osteoblastic or osteolytic lesions identified. IMPRESSION: Persistent dilated small bowel with long segments of ileal wall thickening. No transition point. Findings most consistent with inflammatory bowel disease, ileus. Diarrhea. Please correlate w ith prior treatment course, history. Reviewed, dictated and finalized at location A. IMPRESSION: Persistent dilated small bowel with long segments of ileal wall thi ckening. No transition point. Findings most consistent with inflammatory bowel disease, ileus. Diarrhea. Please correlate with prior treatment course, history .
[2021-03-27 11:08] VITALS: BP 100/75; PULSE 94; RESP 14; TEMP 36.4; O2SAT 97
--- NOTE | 2021-03-27 11:33 | PC.NURSE ---
pt. not in room went to auto with caregiver; called to return.
[2021-03-27 11:43] VITALS: BP 129/64; PULSE 96; RESP 18; O2SAT 100
--- NOTE | 2021-03-27 11:43 | PC.NURSE ---
called number provided again; no answer left message pt. is needed in room 19
[2021-03-27] MEDS: SODIUM CHLORIDE 0.9% IV 1,000 ML 999 ML IV CONT (12:38)
[2021-03-27 12:40] LABS: Basophils Percent Auto 0.1 % (0.2-1.2); Hematocrit 37.5 % (42.0-52.0); Hemoglobin 12.1 g/dL (14.0-18.0); Immature Granulocyte Absolute 0.07 K/mm3 (0.00-0.031); Immature Granulocyte Percent A 0.8 % (0-0.5); Lymphocytes Percent Auto 12.4 % (18.3-44.2); Mean Corpuscular HGB Conc 32.3 g/dl (32-36); Mean Corpuscular Hemoglobin 34.2 pg (26-34); Mean Corpuscular Volume 105.9 fl (80-100); Mean Platelet Volume 10.3 fl (7.4-10.4); Monocytes Absolute Auto 0.8 K/mm3 (0.1-0.6); Neutrophils Absolute Auto 6.9 K/mm3 (1.3-6.7); Neutrophils Percent Auto 77.7 % (45.5-73.1); Platelet Count Result 213 k/mm3 (150-375); Red Blood Count 3.54 M/mm3 (4.6-6.20); Red Cell Distribution Width 13.5 % (11.5-14.5); White Blood Count 8.9 K/mm3 (4.5-10.0)
[2021-03-27 13:20] LABS: Alanine Aminotransferase 19 U/L (4-50); Albumin Level 3.7 g/dL (3.5-5.1); Alkaline Phosphatase 152 U/L (38-126); Anion Gap 6 mmol/L (8-16); Aspartate Amino Transferase 43 U/L (17-59); Bilirubin,Total 0.7 mg/dL (0.2-1.3); Blood Urea Nitrogen 23 mg/dL (9-20); Carbon Dioxide 24 mmol/L (22-30); Chloride 108 mmol/L (98-107); Estimated CRCL calculation 84 ml/min; Estimated Glomerular Filt Rate > 60; Glucose 121 mg/dL (65-110); Lipase 75 U/L (23-300); Potassium 4.4 mmol/L (3.4-5.0); Sodium 138 mmol/L (137-145)
[2021-03-27 15:02] LABS: Add Urine Microscopic? YES; Appearance Urine Clear (Clear); Bilirubin Urine Negative (Negative); Blood Urine Negative (Negative); Color Urine Amber (Yellow); Glucose Urine UA Negative (Negative); Ketones Urine Negative (Negative); Leukocyte Esterase Ur Negative LEU/UL (Negative); Mucus Urine Rare /lpf; Nitrate Urine Negative (Negative); Protein Urine Negative (Negative); WBC Urine 0-3 /hpf
[2021-03-27 15:05] LABS: Specific Grav Ur 1.035 (1.001-1.035)
--- NOTE | 2021-03-27 15:20 | ED.GENADULT ---
HPI - General Adult General Chief complaint: Nausea/Vomiting/Diarrhea Stated complaint: N/V r/o bowel obstruction Time Seen by Provider: 03/27/21 12:05 Source: patient Limitations: no limitations and physical limitation History of Present Illness HPI narrative: Patient is 60 years old, with history of autism, presents with vomiting once prior to arrival to the emergency room, currently patient denying any symptoms. Patient was admitted to our hospital few days ago and got discharged 5 days ago. The discharge instruction at that time showed (1) Partial bowel obstruction: Qualifiers: Intestinal obstruction type: unspecified Qualified Code(s): K56.600 - Partial intestinal obstruction, unspecified as to cause Code(s): K56.600 - Partial intestinal obstruction, unspecified as to cause Status: Acute Assessment and Plan: Gastrografin SBFT today showed transit to the colon in 2 hours with no high grade obstruction. Likely ileus. Advanced to soft diet and tolerating well. Bowels continue to move. Abdominal exam benign. Okay from a surgical standpoint to discharge the patient today. Follow-up p.r.n.. Would recommend sorting out which instrument man to follow up with as an outpatient with his caregiver. It appears there is been multiple gastroenterologists that have followed him and he has had extensive workup regarding other causes for the recurrent small-bowel obstructions and questionable diagnosis of Crohn's. Related Data Home Medications Medication Instructions Recorded Confirmed Linzess 145 mcg PO DAILY 10/15/20 03/20/21 fenofibrate 160 mg PO DAILY 10/15/20 03/20/21 folic acid 1 mg PO DAILY 10/15/20 03/20/21 levothyroxine 100 mcg PO DAILY 10/15/20 03/20/21 omega 1-had-kpn-fish oil [Fish Oil] 1 cap PO BID 10/15/20 03/20/21 omeprazole 40 mg PO Q12H 10/15/20 03/20/21 potassium chloride 10 meq PO DAILY 10/15/20 03/20/21 propranolol 20 mg PO QID 10/15/20 03/20/21 sennosides-docusate sodium 2 tab-cap PO Q12H 10/15/20 03/20/21 [Senokot-S] sulfasalazine 1,000 mg PO Q12H 10/15/20 03/20/21 vitamin B complex 1 tablet PO DAILY 10/15/20 03/20/21 acetaminophen [Tylenol] 650 mg PO PRN PRN 11/01/20 03/20/21 multivitamin,tx-minerals 1 tablet PO 1700 11/01/20 03/20/21 diphenhydramine HCl 25 mg PO Q6H PRN 11/20/20 03/20/21 bisacodyl 10 mg PO BID PRN 03/20/21 03/20/21 cetirizine 10 mg BYMOUTH DAILY 03/20/21 03/20/21 clozapine 100 mg PO Q12H 03/20/21 03/20/21 clozapine 200 mg PO 1700 03/20/21 03/20/21 divalproex 1,000 mg PO Q12H 03/20/21 03/20/21 ergocalciferol (vitamin D2) 1,250 mcg PO WEEKLY 03/20/21 03/20/21 escitalopram oxalate 20 mg PO DAILY 03/20/21 03/20/21 Allergies Allergy/AdvReac Type Severity Reaction Status Date / Time No Known Allergies Allergy Verified 03/20/21 16:58 [facility] Past Medical History Medical History (Updated 03/27/21 @ 15:25 by Tutu Thomas MD) Autism spectrum disorder Chronic anemia (Unknown) Chronic megaloblastic anemia with high folate and B12 levels in 2018 GERD (gastroesophageal reflux disease) Gout Hypercholesterolemia (Unknown) Hypothyroidism (Unknown) Intellectual disability Peptic ulcer Schizophrenia Surgical History Surgical History History of appendectomy (~12/07/03) Performed at the same time as the exploratory laparotomy History of exploratory laparotomy (~12/07/03) With adhesion lysis due to bowel obstruction Family History Family History Other Unknown family medical history Social History Social History Social History: He lives [place] [facility] in [place]. Lifelong nonsmoker. No alcohol or drug use. Primary care physician: Dr. Isael Lanier Code status: Full code Healthcare power of criminal defense attorney: Jose Manuel Sotomayor (father). Caregiver states that [facility] should be called for any co
== END 2021-03-27 15:47 | disposition home or self-care (01) ==
PROVIDERS: Emergency Provider Emergency Medicine; PCP Family Medicine
DX: R11.10 Vomiting, unspecified (principal); K21.9 Gastro-esophageal reflux disease without esophagitis; E03.9 Hypothyroidism, unspecified; E78.5 Hyperlipidemia, unspecified
CPT/HCPCS: 36415; 74177; 80053; 81001; 83690; 85025; 96360; 99284; J7030; Q9967

== ENCOUNTER 2022-01-21 18:00 | Inpatient (IN) | payer MEDICARE, MEDICAID, SELFPAY ==
--- NOTE | ~2022-01-21 | XR_ITS ---
EXAMINATION: XR abdomen/kub 1V INDICATION: Small bowel obstruction TECHNIQUE: Supine views of the abdomen were obtained on 2 radiographs. COMPARISON: 01/22/2022 FINDINGS: The nasogastric tube has been advanced and ends with its tip in the second portion of the d uodenum. There are multiple dilated loops of small bowel. There is a paucity of gas in the distal col on. No definite free intraperitoneal gas is identified. IMPRESSION: 1. Small bowel obstruction. 2. Nasogastric tube advanced. Reviewed, dictated and finalized at location B.
--- NOTE | ~2022-01-21 | XR_ITS ---
EXAMINATION: XR abdomen NG/feed tube insert DATE: 01/22/2022 01:44 INDICATION: Nasogastric tube reinsertion TECHNIQUE: A supine view of the abdomen and lower chest was obtained for evaluation of feeding tube placement. COMPARISON: 01/22/2022 at 12:14 AM FINDINGS: Nasogastric tube tip in the distal esophagus. The dilated gas-filled loop of small bowel in the left abdomen is partially visualized at the caudal margin of the fifth imaging. Unchanged streaky left bas ilar atelectasis. Cardiomediastinal silhouette is normal. IMPRESSION: 1. Nasogastric tube tip in the distal esophagus. Reviewed, dictated and finalized at location A.
--- NOTE | ~2022-01-21 | XR_ITS ---
EXAMINATION: XR abdomen/kub 1V INDICATION: Small bowel obstruction TECHNIQUE: Supine views of the abdomen were obtained on 2 radiographs. COMPARISON: 01/23/2022 FINDINGS: The nasogastric tube ends in the second portion of the duodenum. There are multiple dilated loops of small bowel without significant change. No definite free intraperitoneal gas is identified. IMPRESSION: 1. Dilated small bowel, consistent with ileus versus obstruction. Reviewed, dictated and finalized at location B.
--- NOTE | ~2022-01-21 | XR_ITS ---
EXAMINATION: XR abdomen NG/feed tube insert DATE: 01/21/2022 23:21 INDICATION: Nasogastric tube insertion TECHNIQUE: A supine view of the abdomen and chest was obtained on 2 radiographs for evaluation of fe eding tube placement. COMPARISON: CT abdomen and pelvis dated 01/21/2022 FINDINGS: Nasogastric tube is coiled in the mid to distal esophagus. Dilated loops of gas-filled small bowel in the midabdomen consistent with small bowel obstruction. Mild streaky bibasilar atelectasis. Cardiome diastinal silhouette is normal. There is some excreted contrast at the lateral renal collecting syste ms from the earlier contrast-enhanced CT. IMPRESSION: 1. Endogastric tube coiled in the esophagus. 2. Small bowel obstruction. Reviewed, dictated and finalized at location A.
--- NOTE | ~2022-01-21 | XR_ITS ---
EXAMINATION: XR abdomen NG/feed tube insert DATE: 01/22/2022 00:17 INDICATION: Nasogastric tube reinsertion. TECHNIQUE: A supine view of the abdomen and lower chest was obtained for evaluation of feeding tube placement. COMPARISON: 01/21/2022 FINDINGS: Nasogastric tube extends to the level of the gastroesophageal junction before looping back upon itsel f with distal tip in the distal esophagus. Dilated gas-filled loop of small bowel left abdomen. Excre reynaldo contrast in the bilateral renal collecting systems mild linear discoid atelectasis left lung base . Heart size is normal. IMPRESSION: 1. Nasogastric tube coiled back upon itself with distal tip in the distal esophagus. 2. Small bowel obstruction. Reviewed, dictated and finalized at location A. IMPRESSION: 1. Nasogastric tube coiled back upon itself with distal tip in the distal esoph [place]. 2. Small bowel obstruction.
--- NOTE | ~2022-01-21 | CT_ITS ---
EXAMINATION: CT abdomen pelvis w con DATE: 01/21/2022 20:53 INDICATION: abd pain, vomiting, hx bowel obstruction TECHNIQUE: Computed tomography (CT) of the abdomen and pelvis was performed with 100 mL Omnipaque-300 intravenous contrast. Automated exposure control and iterative reconstruction technique were employe d. The dose-length product was 486.42 mGy-cm. COMPARISON: 03/27/2021. FINDINGS: Lower thorax: Bibasilar atelectasis. Hiatal hernia. Liver: Normal. Biliary/Gallbladder: Gallbladder is normal. No bile duct dilation. Pancreas: No mass or duct dilation. Atrophy. Spleen: Normal. Adrenals:No mass. Kidneys: Stable left midpole cyst and bilateral hypodensities that are too small to characterize. GI tract: Diffusely dilated small bowel, increased since prior study. Transition point occurs in the distal ileum in the right lower quadrant. Multiple loops of distal ileum demonstrate bowel edema, in a background of chronic soft tissue density thickening. Interloop fluid. Gastric distention. Appendix not visualized. Chronic dilation of sections of the sigmoid, with interspersed areas of narrowing, s omewhat improved since the prior study. Mesentery/Peritoneum: No ascites, mass, or free air. Retroperitoneum: No mass. Atherosclerotic abdominal aortic and/or arterial calcifications. Pelvis: Pelvic organs are within normal limits. Soft Tissues: Soft tissues and body wall unremarkable. Bones: No acute osseous finding. IMPRESSION: Gastric and diffuse small bowel dilation, slightly increased since the prior study, likely reflect il eus or partial obstruction secondary to an inflammatory bowel disease flare. Reviewed, dictated and finalized at location K. IMPRESSION: Gastric and diffuse small bowel dilation, slightly increased since the prior st udy, likely reflect ileus or partial obstruction secondary to an inflammatory b owel disease flare.
--- NOTE | ~2022-01-21 | XR_ITS ---
EXAMINATION: XR fl guid NG/feed tube insert DATE: 01/22/2022 08:24 INDICATION: Reposition nasogastric tube TECHNIQUE: Fluoroscopy was utilized during advancement of the previously placed nasogastric tube whic h was positioned in the distal esophagus. The nasogastric tube was then fixed to the patient's nares with tape. A total of 2 fluoroscopic images were recorded. The amount of fluoroscopy time used during this procedure was 0.3 minutes. COMPARISON: 01/22/2022 at 2:05 AM FINDINGS/IMPRESSION: Successful advancement of the nasogastric tube with distal tip in proximal side port now in the body of the stomach. Reviewed, dictated and finalized at location A.
--- NOTE | ~2022-01-21 | XR_ITS ---
EXAMINATION: XR UGI water soluble w sbs DATE: 01/24/2022 11:03 INDICATION: Small bowel obstruction TECHNIQUE: 480 mL of Gastrografin water-soluble contrast was administered by the patient's existing n asogastric tube. Fluoroscopic images were obtained during injection and passage of the contrast into the proximal most small bowel. 3 subsequent overhead radiographs were obtained during the transit of contrast through the small bowel. Fluoroscopy exposure time was 0.4 minutes. COMPARISON: CT dated 01/21/2022 FINDINGS: Nasogastric tube tip at the gastric pylorus with proximal side-port in the body the stomach. The stom ach appears normal. Transit time from the stomach to proximal colon was approximately 2 hours. There is normal caliber and mucosal fold pattern throughout the small bowel. Incidental small diverticulum arising from the distal second portion of the duodenum. IMPRESSION: 1. Nasogastric tube in the neck and small duodenal diverticulum. Otherwise normal small bowel follow- through with no obstruction. Reviewed, dictated and finalized at location A. IMPRESSION: 1. Nasogastric tube in the neck and small duodenal diverticulum. Otherwise norm al small bowel follow-through with no obstruction.
--- NOTE | ~2022-01-21 | XR_ITS ---
EXAMINATION: XR abdomen NG/feed tube rechec DATE: 01/22/2022 02:12 INDICATION: Is a gastric tube advancement TECHNIQUE: A supine view of the abdomen and lower chest was obtained for evaluation of feeding tube placement. COMPARISON: 01/22/2022 at 1:25 AM FINDINGS: Nasogastric tube tip in the distal esophagus near the level of the gastroesophageal junction. Visuali zed bowel gas pattern is unchanged. Also unchanged is mild streaky left basilar atelectasis. Cardiome dameon. IMPRESSION: 1. Nasogastric tube in the distal esophagus with tip near the gastroesophageal junction. Reviewed, dictated and finalized at location A.
[2022-01-21 18:12] VITALS: BP 122/74; PULSE 110; RESP 17; TEMP 36.4; O2SAT 95
--- NOTE | 2022-01-21 18:27 | ED.ABDPAIN ---
HPI - Abdominal Pain General Chief Complaint: Abdominal Pain <Lily Smith PA-C - Last Filed: 01/22/22 00:33> Stated Complaint: bowel obstruction? <Lily Smith PA-C - Last Filed: 01/22/22 00:33> Time Seen by Provider: 01/21/22 18:17 <Lily Smith PA-C - Last Filed: 01/22/22 00:33> Source: patient and other (Caregiver) <JEANNINE Ryan Last Filed: 01/22/22 00:33> Mode of arrival: ambulatory <Lily Smith PA-C - Last Filed: 01/22/22 00:33> Limitations: other (Poor historian) <Lily Smith PA-C - Last Filed: 01/22/22 00:33> History of Present Illness HPI narrative: This is a 61-year-old male that presents to the emergency department for nausea and vomiting. Ongoing today. Associated with decreased appetite. Patient's caregiver brought him in as he was concerned he may have another bowel obstruction. Unsure of his last bowel movement. Denies fevers. <Lily Smith PA-C - Last Filed: 01/22/22 00:33> Related Data Home Medications: Home Medications Medication Instructions Recorded Confirmed fenofibrate 160 mg tablet 160 mg PO DAILY 10/15/20 01/22/22 folic acid 1 mg tablet 1 mg PO DAILY 10/15/20 01/22/22 levothyroxine 100 mcg tablet 100 mcg PO DAILY 10/15/20 01/22/22 linaclotide 145 mcg capsule 145 mcg PO DAILY 10/15/20 01/22/22 (Linzess) omega 4-tje-snt-fish oil 1,200 mg 1 cap PO BID 10/15/20 01/22/22 (144 mg-216 mg) capsule (Fish Oil) omeprazole 40 mg capsule,delayed 40 mg PO Q12H 10/15/20 01/22/22 release potassium chloride 10 mEq 10 meq PO DAILY 10/15/20 01/22/22 tablet,extended release(part/cryst) propranolol 20 mg tablet 20 mg PO QID 10/15/20 01/22/22 sennosides 8.6 mg-docusate sodium 2 tab-cap PO Q12H 10/15/20 01/22/22 50 mg tablet (Senokot-S) sulfasalazine 500 mg tablet 1,000 mg PO Q12H 10/15/20 01/22/22 vitamin B complex 1 tablet PO DAILY 10/15/20 01/22/22 acetaminophen 325 mg tablet 650 mg PO PRN PRN Pain 11/01/20 01/22/22 (Tylenol) multivitamin,tx-minerals 1 tablet PO 1700 11/01/20 01/22/22 diphenhydramine HCl 25 mg tablet 25 mg PO Q6H PRN Allergic Reaction 11/20/20 01/22/22 cetirizine 10 mg BYMOUTH DAILY PRN Allergy 03/20/21 01/22/22 Symptoms clozapine 100 mg tablet 100 mg PO Q12H 03/20/21 01/22/22 clozapine 100 mg tablet 200 mg PO 1700 03/20/21 01/22/22 divalproex 500 mg tablet,extended 1,000 mg PO Q12H 03/20/21 01/22/22 release 24 hr ergocalciferol (vitamin D2) 1,250 1,250 mcg PO WEEKLY 03/20/21 01/22/22 mcg (50,000 unit) capsule escitalopram oxalate 20 mg tablet 20 mg PO DAILY 03/20/21 01/22/22 <Lily Smith PA-C - Last Filed: 01/22/22 00:33> Allergies/Adverse Reactions: Allergies Allergy/AdvReac Type Severity Reaction Status Date / Time No Known Allergies Allergy Verified 03/20/21 16:58 <Lily Smith PA-C - Last Filed: 01/22/22 00:33> Review of Systems Review of Systems: CONSTITUTIONAL: Denies fever GASTROINTESTINAL: Reports abdominal pain, nausea, vomiting <JEANNINE Ryan Last Filed: 01/22/22 00:33> All systems reviewed & are unremarkable except as noted in HPI and below <Lily Smith PA-C - Last Filed: 01/22/22 00:33> [facility] Past Medical History Medical History: Medical History Autism spectrum disorder Chronic anemia (Unknown) Chronic megaloblastic anemia with high folate and B12 levels in 2018 GERD (gastroesophageal reflux disease) Gout Hypercholesterolemia (Unknown) Hypothyroidism (Unknown) Intellectual disability Peptic ulcer Schizophrenia <Lily Smith PA-C - Last Filed: 01/22/22 00:33> Surgical History Surgical History: Surgical History History of appendectomy (~12/07/03) November 2003 - Incidental appendectomy during exploratory laparotomy History of exploratory laparotomy (~12/07/03) 11/30/2003 - Findings of a RLQ abdominal mass
[2022-01-21 19:01] LABS: Appearance Urine Clear (Clear); Bilirubin Urine 2+ (Negative); Blood Urine Negative (Negative); Glucose Urine UA Negative (Negative); Ketones Urine Trace mg/dL (Negative); Leukocyte Esterase Ur Negative LEU/UL (Negative); Nitrate Urine Negative (Negative); Protein Urine 1+ mg/dL (Negative)
[2022-01-21 19:12] LABS: Add Urine Microscopic? YES; Amorphous Sediment Urine Few; Color Urine Dark Yellow (Yellow); Mucus Urine Few /lpf; RBC Urine >75 /hpf (0-2); Squamous Epithelial Cell Urine Rare /hpf (Few); WBC Urine 0-3 /hpf
[2022-01-21 19:57] LABS: Basophils Percent Auto 0.2 % (0.2-1.2); Hematocrit 41.1 % (42.0-52.0); Hemoglobin 12.9 g/dL (14.0-18.0); Immature Granulocyte Absolute 0.09 K/mm3 (0.00-0.031); Immature Granulocyte Percent A 0.7 % (0-0.5); Lymphocytes Absolute Auto 0.77 K/mm3 (0.9-3.2); Lymphocytes Percent Auto 6.4 % (18.3-44.2); Mean Corpuscular HGB Conc 31.4 g/dl (32-36); Mean Corpuscular Hemoglobin 33.2 pg (26-34); Mean Corpuscular Volume 105.7 fl (80-100); Mean Platelet Volume 10.4 fl (7.4-10.4); Monocytes Absolute Auto 0.7 K/mm3 (0.1-0.6); Monocytes Percent Auto 5.4 % (2.6-8.5); Neutrophils Absolute Auto 10.6 K/mm3 (1.3-6.7); Neutrophils Percent Auto 87.3 % (45.5-73.1); Platelet Count Result 203 k/mm3 (150-375); Red Blood Count 3.89 M/mm3 (4.6-6.20); Red Cell Distribution Width 14.4 % (11.5-14.5); White Blood Count 12.1 K/mm3 (4.5-10.0)
[2022-01-21 20:09] LABS: Alanine Aminotransferase 20 U/L (6-50); Albumin Level 4.3 g/dL (3.5-5.1); Alkaline Phosphatase 127 U/L (38-126); Anion Gap 7 mmol/L (8-16); Aspartate Amino Transferase 48 U/L (17-59); Bilirubin,Total 1.2 mg/dL (0.2-1.3); Blood Urea Nitrogen 13 mg/dL (9-20); Carbon Dioxide 29 mmol/L (22-30); Chloride 100 mmol/L (98-107); Estimated CRCL calculation 110 ml/min; Estimated Glomerular Filt Rate > 60; Glucose 126 mg/dL (65-110); Lipase 44 U/L (23-300); Potassium 4.6 mmol/L (3.4-5.0); Sodium 136 mmol/L (137-145)
--- NOTE | 2022-01-21 21:52 | PM.IMHP ---
H&P: HPI History of Present Illness Date/Time: 01/21/22 21:53 [facility] Past Medical History Medical History (Updated 03/28/21 @ 00:00 by Siobhan Ramos) Autism spectrum disorder Chronic anemia (Unknown) Chronic megaloblastic anemia with high folate and B12 levels in 2018 GERD (gastroesophageal reflux disease) Gout Hypercholesterolemia (Unknown) Hypothyroidism (Unknown) Intellectual disability Peptic ulcer Schizophrenia Surgical History Surgical History History of appendectomy (~12/07/03) Performed at the same time as the exploratory laparotomy History of exploratory laparotomy (~12/07/03) With adhesion lysis due to bowel obstruction Family History Family History Other Unknown family medical history Social History Social History Social History: He lives in a care home in [place]. Lifelong nonsmoker. No alcohol or drug use. Primary care physician: Dr. Isael Lanier Code status: Full code Healthcare power of pharmacy scheduler: Jose Manuel Sotomayor (father). Caregiver states that [facility] should be called for any consent at [phone]. Smoking status: Never smoker Alcohol intake: never Substance use: never Gender identity (if verbalized by the patient): Male Sexual Orientation (if Verbalized by the Patient): Straight or Heterosexual Spiritual care concerns: No Meds Home Medications and Allergies Home Medications Medication Instructions Recorded Confirmed Type fenofibrate 160 mg tablet 160 mg PO DAILY 10/15/20 03/20/21 History folic acid 1 mg tablet 1 mg PO DAILY 10/15/20 03/20/21 History levothyroxine 100 mcg tablet 100 mcg PO DAILY 10/15/20 03/20/21 History linaclotide 145 mcg capsule 145 mcg PO DAILY 10/15/20 03/20/21 History (Linzess) omega 9-azx-cvm-fish oil 1,200 mg 1 cap PO BID 10/15/20 03/20/21 History (144 mg-216 mg) capsule (Fish Oil) omeprazole 40 mg capsule,delayed 40 mg PO Q12H 10/15/20 03/20/21 History release potassium chloride 10 mEq 10 meq PO DAILY 10/15/20 03/20/21 History tablet,extended release(part/cryst) propranolol 20 mg tablet 20 mg PO QID 10/15/20 03/20/21 History sennosides 8.6 mg-docusate sodium 2 tab-cap PO Q12H 10/15/20 03/20/21 History 50 mg tablet (Senokot-S) sulfasalazine 500 mg tablet 1,000 mg PO Q12H 10/15/20 03/20/21 History vitamin B complex 1 tablet PO DAILY 10/15/20 03/20/21 History polyethylene glycol 3350 17 gram 17 g PO DAILY #0 ea 10/18/20 03/20/21 Rx oral powder packet (Miralax) acetaminophen 325 mg tablet 650 mg PO PRN PRN Pain 11/01/20 03/20/21 History (Tylenol) multivitamin,tx-minerals 1 tablet PO 1700 11/01/20 03/20/21 History diphenhydramine HCl 25 mg tablet 25 mg PO Q6H PRN Allergic Reaction 11/20/20 03/20/21 History bisacodyl 5 mg tablet 10 mg PO BID PRN Constipation 03/20/21 03/20/21 History cetirizine 10 mg BYMOUTH DAILY 03/20/21 03/20/21 History clozapine 100 mg tablet 100 mg PO Q12H 03/20/21 03/20/21 History clozapine 100 mg tablet 200 mg PO 1700 03/20/21 03/20/21 History divalproex 500 mg tablet,extended 1,000 mg PO Q12H 03/20/21 03/20/21 History release 24 hr ergocalciferol (vitamin D2) 1,250 1,250 mcg PO WEEKLY 03/20/21 03/20/21 History mcg (50,000 unit) capsule escitalopram oxalate 20 mg tablet 20 mg PO DAILY 03/20/21 03/20/21 History ondansetron HCl 4 mg tablet 4 mg PO Q6H PRN nausea and 03/27/21 Rx (Zofran) vomiting #10 tabs Allergies Allergy/AdvReac Type Severity Reaction Status Date / Time No Known Allergies Allergy Verified 03/20/21 16:58 Vital Signs Vital Signs - 24 hr 01/21/22 18:12 Temperature 97.6 F Pulse Rate 110 H Respiratory Rate 17 Blood Pressure 122/74 Pulse Oximetry 95 Oxygen Delivery Room Air H&P: Results Labs Labs: Short CBC 01/21/22 Range/Units 19:51 WBC 12.1 H (4.5-10.0) K/m
--- NOTE | 2022-01-21 22:37 | PM.IMHP ---
H&P: HPI History of Present Illness Date/Time: Patient was placed observation status for expected length of stay less than 23 hours for management, will plan to re-evaluate tomorrow for improvement. 01/21/22 22:37 Chief Complaint: Nausea/vomiting Narrative: Mr. Sotomayor is a 61-year-old gentleman who was brought to the emergency room for possible small-bowel obstruction. Patient has a known history of schizophrenia and autism and has a well drill operator that brought him to the emergency room. Patient has a history of inflammatory bowel disease and has had multiple small-bowel obstructions in the past. Patient was not wanting to eat today and then began vomiting and his well drill operator arrived to the emergency room. Patient states he did have a bowel movement today, but his well drill operator is unsure. Patient's well drill operator states the patient did take his evening medications but did feel nauseated. Upon evaluation in emergency room patient did undergo a CT of the abdomen and pelvis. This CT showed gastric and diffuse small bowel dilatation, slightly increased since the prior study, likely reflective ileus or partial obstruction secondary to inflammatory bowel disease flare. Gastroenterology and General surgery were consulted. Patient's well drill operator states the patient has had no fever. Patient states he is upset that he is unable to eat a bratwurst for the January. Patient has a known history of autism spectrum disorder, chronic anemia, Crohn's disease, GERD, gout, hypercholesterolemia, hypothyroidism, and schizophrenia. Review of Systems Review of Systems: A 12 point review of systems was completed patient all pertinent positive and negative per HPI the remainder are unremarkable. [facility] Past Medical History Medical History (Updated 01/21/22 @ 22:27 by Lily Smith PA-C) Autism spectrum disorder Chronic anemia (Unknown) Chronic megaloblastic anemia with high folate and B12 levels in 2018 GERD (gastroesophageal reflux disease) Gout Hypercholesterolemia (Unknown) Hypothyroidism (Unknown) Intellectual disability Peptic ulcer Schizophrenia Surgical History Surgical History History of appendectomy (~12/07/03) Performed at the same time as the exploratory laparotomy History of exploratory laparotomy (~12/07/03) With adhesion lysis due to bowel obstruction Family History Family History Other Unknown family medical history Social History Social History Social History: He lives in a skilled nursing in [place]. Lifelong nonsmoker. No alcohol or drug use. Primary care physician: Dr. Isael Lanier Code status: Full code Healthcare power of criminal defense attorney: Jose Manuel Sotomayor (father). Caregiver states that [facility] should be called for any consent at [phone]. Smoking status: Never smoker Alcohol intake: never Substance use: never Gender identity (if verbalized by the patient): Male Sexual Orientation (if Verbalized by the Patient): Straight or Heterosexual Spiritual care concerns: No Meds Home Medications and Allergies Home Medications Medication Instructions Recorded Confirmed Type fenofibrate 160 mg tablet 160 mg PO DAILY 10/15/20 03/20/21 History folic acid 1 mg tablet 1 mg PO DAILY 10/15/20 03/20/21 History levothyroxine 100 mcg tablet 100 mcg PO DAILY 10/15/20 03/20/21 History linaclotide 145 mcg capsule 145 mcg PO DAILY 10/15/20 03/20/21 History (Linzess) omega 8-coq-ywk-fish oil 1,200 mg 1 cap PO BID 10/15/20 03/20/21 History (144 mg-216 mg) capsule (Fish Oil) omeprazole 40 mg capsule,delayed 40 mg PO Q12H 10/15/20 03/20/21 History release potassium chloride 10 mEq 10 meq PO DAILY 10/15/20 03/20/21 History tablet,extended release(part/cryst) propranolol 20 mg tablet 20 mg PO QID 10/15/20 03/20/21 History sennosides 8.6 mg-docusat
[2022-01-21] MEDS: SODIUM CHLORIDE 0.9% IV 500 ML 999 ML IV CONT (22:59)
[2022-01-21] MEDS: ONDANSETRON INJ 4 MG/2 ML VIAL IV PUSH (22:59)
[2022-01-21 23:00] VITALS: TEMP 36.6
[2022-01-21] MEDS: methylPREDNISolone SOD SUCC 125 MG VIAL 60 MG IV PUSH (23:04)
[2022-01-22 01:15] VITALS: BP 127/78; PULSE 98; RESP 20; O2SAT 94
--- NOTE | 2022-01-22 03:25 | ADMGEN ---
This patient, Ricardo Sotomayor, was admitted to [facility] Surg Room 333-01. Patient/family oriented to hospital policies and general routines including ID bracelet, bed and alarms, visiting hours, pain management, procedures, bathroom and other care routines, personal items, smoking policy, room service/diet, and visiting hours. Information on how to activate the Rapid Response Team has been discussed. Patient/Family are encouraged to report perceived risks to care and to ask questions if they do not understand what they are told or what they should do.
[2022-01-22] MEDS: SODIUM CHLORIDE 0.9% IV 1,000 ML 125 ML IV CONT ×2 (03:38→17:11)
[2022-01-22 06:00] VITALS: BP 127/72; PULSE 73; RESP 16; TEMP 36.8; O2SAT 99
--- NOTE | 2022-01-22 06:20 | PC.NURSE ---
01/22/22 0255 kami mccullough (pt's table games dual rate supervisor) at bedside providing admission information. pt unable to provide information.
--- NOTE | 2022-01-22 06:32 | PC.NURSE ---
01/22/22 0338 pt's iv leaking when starting iv fluids. this nurse and the charge nurse radha were unsuccessful in placing new iv access. will inform day shift nurse.
[2022-01-22 07:39] LABS: Basophils Percent Auto 0.1 % (0.2-1.2); Hematocrit 37.2 % (42.0-52.0); Hemoglobin 13.3 g/dL (14.0-18.0); Immature Granulocyte Absolute 0.08 K/mm3 (0.00-0.031); Immature Granulocyte Percent A 0.8 % (0-0.5); Lymphocytes Absolute Auto 0.66 K/mm3 (0.9-3.2); Lymphocytes Percent Auto 6.2 % (18.3-44.2); Mean Corpuscular HGB Conc 35.8 g/dl (32-36); Mean Corpuscular Volume 100.8 fl (80-100); Mean Platelet Volume 10.4 fl (7.4-10.4); Monocytes Absolute Auto 0.6 K/mm3 (0.1-0.6); Monocytes Percent Auto 5.9 % (2.6-8.5); Neutrophils Absolute Auto 9.3 K/mm3 (1.3-6.7); Platelet Count Result 245 k/mm3 (150-375); Red Blood Count 3.69 M/mm3 (4.6-6.20); Red Cell Distribution Width 14.1 % (11.5-14.5); White Blood Count 10.7 K/mm3 (4.5-10.0)
[2022-01-22 07:55] LABS: Anion Gap 6 mmol/L (8-16); Blood Urea Nitrogen 12 mg/dL (9-20); Calcium 8.4 mg/dL (8.4-10.2); Carbon Dioxide 29 mmol/L (22-30); Chloride 101 mmol/L (98-107); Estimated CRCL calculation 110 ml/min; Estimated Glomerular Filt Rate > 60; Glucose 129 mg/dL (65-110); Magnesium 1.9 mg/dL (1.6-2.3); Phosphorus 4.5 mg/dL (2.5-4.5); Potassium 4.3 mmol/L (3.4-5.0); Sodium 136 mmol/L (137-145)
[2022-01-22] MEDS: ENOXAPARIN 40 MG/0.4 ML SYRINGE SUB-Q (10:42)
[2022-01-22] MEDS: methylPREDNISolone SOD SUCC 125 MG VIAL 60 MG IV PUSH (10:42)
--- NOTE | 2022-01-22 12:39 | PM.CNGS ---
Assessment and Plan Assessment and plan (1) Partial small bowel obstruction: Code(s): K56.600 - Partial intestinal obstruction, unspecified as to cause Status: Acute Assessment and Plan: CT reviewed and suggests a partial small bowel obstruction. He has a significant history of small bowel obstructions in the past. We would recommend to treat this initially with conservative measures, including NG tube decompression, NPO, IV fluids, and analgesics as needed. Will continue to monitor with serial abdominal exams and imaging. His NG tube now appears to be in good position and is working well. Will repeat a KUB tomorrow. (2) Bowel disease, inflammatory: Code(s): K52.9 - Noninfective gastroenteritis and colitis, unspecified Status: Acute Assessment and Plan: Question of inflammatory bowel disease/possible Crohn's? He has been seen by GI in the past with an unremarkable colonoscopy with normal random colon biopsy in 10/2020 and unremarkable capsule endoscopy in 11/2020. GI has been consulted and he was started on IV steroids for possible IBD flare-up. Will await GI recommendations. (3) Autism spectrum disorder: Code(s): F84.0 - Autistic disorder Status: Acute (4) Schizophrenia: Code(s): F20.9 - Schizophrenia, unspecified Status: Acute Plan I have discussed the patient's case and plan of care with Dr. Oliver. Thank you for allowing us to see the patient in consultation and we will continue to follow along with you. History of Present Illness Consult details Consult date: 01/22/22 Reason for consult: other (Small bowel obstruction) Requesting physician: Lily Smith PA-C Narrative: This is a 61-year-old male who is known to our service from previous small-bowel obstructions, who was brought into the ER yesterday by his caregiver for evaluation of nausea and vomiting. The patient lives in a assisted and has a history of schizophrenia and autism making it difficult to obtain history. Therefore, his history is obtained by review of the electronic medical record. He has had a history of multiple small-bowel obstructions in the past. He was hospitalized 3 times last year for small bowel obstructions and a questionable diagnosis of Crohn's disease. On all occasions, this resolved with medical management and NG tube decompression. It also appears he has had a small bowel obstruction in 2018 that was treated at an outlying facility. He has been seen by GI in the past, and underwent a colonoscopy in October of 2020 that was unremarkable including a normal random colon biopsy. He also had a normal MR enterography in 2017. He then had an outpatient capsule endoscopy in November of 2020 that was also unremarkable. The most recent small-bowel obstruction was then in March of 2021 and resolved with NG tube decompression. 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 The appendix was found to be normal. He then had to be taken back to surgery 8 days post-op for a small bowel obstruction and had an adhesiolysis. Yesterday, he was noted to have poor oral intake and began vomiting at the assisted. Due to his history of bowel obstructions, his caregiver brought him into the ER for evaluation. CT scan of abdomen and pelvis showed gastric and diffuse small bowel dilation, slightly increased since the prior study likely reflects an ileus or partial small bowel obstruction. The patient was admitted to the hospitalist service. Our service has been consulted for a partial small bowel obstruction. NG tube placement was attempted by the nurses, but was not successfully advanced into the stomach. He has since undergone NG placement under fluoroscopy in radiology this morning. It now appears that the NG tube is in good position. He has about 500 cc of out
--- NOTE | 2022-01-22 13:52 | WPDGICN ---
Assessment and Plan Assessment and plan (1) Partial small bowel obstruction: Code(s): K56.600 - Partial intestinal obstruction, unspecified as to cause Status: Acute Assessment and Plan: surgery on board treated now with ngt, fluids, etc recent work up did not reveal evidence of Crohn's disease (including a normal capsule endoscopy) (2) Adynamic ileus: Code(s): K56.0 - Paralytic ileus Status: Acute (3) Bowel disease, inflammatory: Code(s): K52.9 - Noninfective gastroenteritis and colitis, unspecified Status: Acute Assessment and Plan: this is questionable and probably patient does not have Crohn's started empirically on low dose of steroids (4) Nausea and vomiting in adult: Code(s): R11.2 - Nausea with vomiting, unspecified Status: Acute Assessment and Plan: treated with ngt he has previous history of SBO, in 2003 required adhesiolysis GI Consult Note Consult date/time: 01/22/22 13:52 Reason for consult: partial SBO HPI: Ricardo Sotomayor is a 61 year old male with history of intellectual disability, autism, schizophrenia, and multiple small bowel obstructions who lives in a usp. He is known to me from previous hospitalizations, he was diagnosed years ago with possible Crohn's (had elevated inflammatory markers and + calprotectin in stool) however previous records showed a normal MR enterography and colonoscopy about 3 years ago, then another colonoscopy in October 2020 showed a normal terminal ileum and colonoscopy without evidence of Crohn's. He then had a capsule endoscopy in November 2020 was normal and showed no explanation for his recurrent small bowel obstructions. He had similar hospitalizations, treated with NGT and medical management, he even had gastrografin small bowel follow through on both hospitalizations that showed normal transit and suggested more of an ileus. He is admitted again with poor oral intake and emesis (he is poor historian). ?CT scan of abdomen and pelvis reviewed and showed gastric and diffuse small bowel dilation, slightly increased since the prior study likely reflects an ileus or partial small bowel obstruction. NGT in place, he is comfortable now. Review of Systems Review of Systems: ROS unobtainable: Yes unobtainable due to mental status PMFSH Past Medical History Medical History Autism spectrum disorder Chronic anemia (Unknown) Chronic megaloblastic anemia with high folate and B12 levels in 2018 GERD (gastroesophageal reflux disease) Gout Hypercholesterolemia (Unknown) Hypothyroidism (Unknown) Intellectual disability Peptic ulcer Schizophrenia Surgical History Surgical History History of appendectomy (~12/07/03) November 2003 - Incidental appendectomy during exploratory laparotomy History of exploratory laparotomy (~12/07/03) 11/30/2003 - 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 12/08/2003 - Taken back to surgery for a small bowel obstruction and had an adhesiolysis. Family History Family History Other Unknown family medical history Social History Social History Social History: He lives in a usp in [place]. Lifelong nonsmoker. No alcohol or drug use. Primary care physician: Dr. Isael Lanier Code status: Full code [facility] power of divorce attorney: Jose Maunel Sotomayor (father). Caregiver states that [facility] should be called for any consent at [phone]. Smoking status: Never smoker Alcohol intake: never Substance use: never Gender identity (if verbalized by the patient): Male Sexual Orientation (if Verbalized by the Patient): Ruben
[2022-01-22 14:00] VITALS: BP 116/61; PULSE 68; RESP 17; TEMP 36.6; O2SAT 100
--- NOTE | 2022-01-22 14:56 | PM.IMPN ---
Progress Note: A&P Assessment and Plan (1) Partial small bowel obstruction: Code(s): K56.600 - Partial intestinal obstruction, unspecified as to cause Status: Acute Assessment and Plan: Patient with history of recurrent obstructions of unknown etiology, prior colonoscopy did not find evidence of inflammatory bowel disease, etiology thought to be due to prior surgeries and adhesions, however, no definitive diagnosis has been made. Appreciate General surgery and Gastroenterology consultations. Continue NG tube. NPO, IV fluids, p.r.n. antiemetics, supportive care (2) Bowel disease, inflammatory: Code(s): K52.9 - Noninfective gastroenteritis and colitis, unspecified Status: Acute Assessment and Plan: Patient has been placed on IV steroids for his inflammatory bowel disease flare. GI does not think patient has inflammatory bowel disease, will decrease steroids for now and consider discontinuing at discharge. Subjective Date/time seen: 01/22/22 14:56 Interval history: Patient resting comfortably with NG tube in place. No overnight events noted. No chest pain or shortness of breath. No nausea, vomiting or diarrhea. No fevers or chills. Review of Systems Review of Systems: 12 point review of systems was assessed and was negative except as noted in the HPI Exam Narrative: General: Comfortable, NG in place HEENT: Atraumatic, normocephalic, mucous membranes moist CV: Regular rate and rhythm, S1, S2 Lungs: Clear to auscultation bilaterally, no rales or crackles noted, no wheezes, good air entry Abdomen: Soft, nontender, nondistended Extremities: Normal to inspection Skin: No rashes noted, no lesions or wounds seen Psych: Euthymic, normal affect Objective Data Vital Signs Vital Signs: Vital Signs - 24 hr 01/21/22 18:12 01/21/22 23:00 01/22/22 01:15 Temperature 97.6 F 97.9 F Pulse Rate 110 H 98 Respiratory Rate 17 20 Blood Pressure 122/74 127/78 Pulse Oximetry 95 94 Oxygen Delivery Room Air 01/22/22 06:00 Temperature 98.3 F Pulse Rate 73 Respiratory Rate 16 Blood Pressure 127/72 Pulse Oximetry 99 Oxygen Delivery Intake/Output Intake/Output: Intake & Output 01/19/22 01/20/22 01/21/22 01/22/22 23:59 23:59 23:59 23:59 Intake Total 500 100 Output Total 20 200 Balance 480 -100 Meds/Results Medications: Active Medications Generic Name Dose Route Start Last Admin Trade Name Freq PRN Reason Stop Dose Admin Enoxaparin Sodium 40 mg 01/22/22 09:00 01/22/22 10:42 Enoxaparin 40 Mg/0.4 Ml Syringe SUB-Q 40 mg DAILY JULIANO Administration Sodium Chloride 1,000 mls @ 125 mls/hr 01/21/22 22:20 01/22/22 03:38 Normal Saline Iv IV CONT 125 mls/hr .Q8H JULIANO Administration Acetaminophen 1,000 mg in 100 mls @ 400 mls/hr 01/22/22 13:41 Ofirmev 1,000 Mg Ivpb IVPB 01/23/22 13:40 Q6H PRN Pain Rated 4-6 Methylprednisolone Sodium Succinate 60 mg 01/22/22 09:00 01/22/22 10:42 Methylprednisolone Sod Succ 125 Mg Vial IV PUSH 60 mg BID JULIANO Administration Ondansetron HCl 4 mg 01/21/22 22:45 Ondansetron Inj 4 Mg/2 Ml Vial IV PUSH Q6H PRN Nausea And Vomiting Radiology Results: ITS Impressions Abdomen/Pelvis CT 01/21/22 21:01 IMPRESSION: Gastric and diffuse small bowel dilation, slightly increased since the prior study, likely reflect ileus or partial obstruction secondary to an inflammatory bowel disease flare. Abdomen X-Ray 01/22/22 08:11 IMPRESSION: 1. Nasogastric tube in the distal esophagus with tip near the gastroesophageal junction. Labs Labs: Laboratory Results - last 24 hr 01/21/22 01/21/22 01/21/22 18:53 19:51 19:51 WBC 12.1 H RBC 3.89 L Hgb 12.9 L Hct 41.1 L MCV 105.7 H MCH 33.2 MCHC 31.4 L RDW 14.4 Plt Count 203 MPV 10.4 Immature Gran % (Auto) 0.7 H Neut % (Auto) 87.3 H Lymph % (Auto) 6.4 L [place] % (Auto)
[2022-01-22 22:00] VITALS: BP 126/66; PULSE 91; RESP 18; TEMP 36.2; O2SAT 94
[2022-01-23] MEDS: SODIUM CHLORIDE 0.9% IV 1,000 ML 125 ML IV CONT ×2 (01:13→09:23)
[2022-01-23 06:00] VITALS: BP 128/78; PULSE 87; RESP 18; TEMP 37.2; O2SAT 97
[2022-01-23 07:31] LABS: Hematocrit 38.6 % (42.0-52.0); Hemoglobin 12.2 g/dL (14.0-18.0); Mean Corpuscular HGB Conc 31.6 g/dl (32-36); Mean Corpuscular Hemoglobin 32.4 pg (26-34); Mean Corpuscular Volume 102.7 fl (80-100); Mean Platelet Volume 10.3 fl (7.4-10.4); Platelet Count Result 175 k/mm3 (150-375); Red Blood Count 3.76 M/mm3 (4.6-6.20)
[2022-01-23 07:44] LABS: Anion Gap 6 mmol/L (8-16); Blood Urea Nitrogen 13 mg/dL (9-20); Carbon Dioxide 28 mmol/L (22-30); Chloride 107 mmol/L (98-107); Estimated CRCL calculation 127 ml/min; Estimated Glomerular Filt Rate > 60; Glucose 88 mg/dL (65-110); Potassium 3.9 mmol/L (3.4-5.0); Sodium 141 mmol/L (137-145)
[2022-01-23] MEDS: ENOXAPARIN 40 MG/0.4 ML SYRINGE SUB-Q (09:23)
[2022-01-23] MEDS: methylPREDNISolone SOD SUCC 125 MG VIAL 60 MG IV PUSH (09:24)
[2022-01-23 12:54] LABS: SARS-CoV-2 RNA PCR Negative
[2022-01-23 14:00] VITALS: BP 122/69; PULSE 97; RESP 20; TEMP 35.8; O2SAT 97
--- NOTE | 2022-01-23 14:31 | WPDGIPROGNO ---
Progress Note: A&P Assessment and Plan (1) Partial small bowel obstruction: Code(s): K56.600 - Partial intestinal obstruction, unspecified as to cause Status: Acute Assessment and Plan: IBD unlikely (recent work up negative for Crohn's and review of previous record did not find evidence of ibd)- agree to discontinue steroid that was started in the ER h/o remote abdominal surgery surgery on board clinically better (2) Intellectual disability: Code(s): F79 - Unspecified intellectual disabilities Status: Acute (3) Adynamic ileus: Code(s): K56.0 - Paralytic ileus Status: Acute Subjective Date/time seen: 01/23/22 14:31 Interval history: abdomen is less distended, no BM. NGT in place Review of Systems Review of Systems: 12 point review of systems was assessed and was negative except as noted in the HPI Exam Const: General: comfortable, no acute distress, alert and awake Nutritional Appearance: average body habitus Other: awake and alert but has baseline learning disability HENMT: Head: normocephalic and atraumatic Ears: hearing grossly normal bilaterally and external ears normal Eyes: General: appearance normal, both eyes and all related structures Pupils: Equal, round and reactive pupils present Other: NGT in place Neck: Neck: normal visual inspection Resp: Effort & Inspection: no respiratory distress Auscultation: clear to auscultation bilaterally Cardio: Rate: regular rate Rhythm: regular rhythm GI: Inspection: distended and scar (vertical midline scar from umbilicus to pubis) GI Palp: Yes Soft to palpation, No Tenderness to palpation present (GI) and No Guarding due to palpation present (GI) Auscultation: normal bowel sounds Skin: General skin exam: normal color Rashes: no rashes Neuro: General: moves all extremities and no focal motor deficits Speech: normal speech Extrem: General: no edema Psych: Mental Status: mental status grossly normal Attitude: cooperative Insight: Fair insight present (Psych) and Limited insight present (Psych) Judgement: Fair judgement present (Psych) and Limited judgement present (Psych) Objective Data Vital Signs Vital Signs: Vital Signs - 24 hr 01/22/22 22:00 01/23/22 06:00 01/23/22 14:00 Temperature 97.2 F L 99.0 F 96.5 F L Pulse Rate 91 87 97 Respiratory Rate 18 18 20 Blood Pressure 126/66 128/78 122/69 Pulse Oximetry 94 97 97 Intake/Output Intake/Output: Intake & Output 01/20/22 01/21/22 01/22/22 01/23/22 23:59 23:59 23:59 23:59 Intake Total 500 1100 2000 Output Total 20 1050 1100 Balance 480 50 900 Meds/Results Medications: Active Medications Generic Name Dose Route Start Last Admin Trade Name Freq PRN Reason Stop Dose Admin Enoxaparin Sodium 40 mg 01/22/22 09:00 01/23/22 09:23 Enoxaparin 40 Mg/0.4 Ml Syringe SUB-Q 40 mg DAILY JULIANO Administration Sodium Chloride 1,000 mls @ 125 mls/hr 01/21/22 22:20 01/23/22 09:23 Normal Saline Iv IV CONT 125 mls/hr .Q8H JULIANO Administration Ondansetron HCl 4 mg 01/21/22 22:45 Ondansetron Inj 4 Mg/2 Ml Vial IV PUSH Q6H PRN Nausea And Vomiting Radiology Results: ITS Impressions Abdomen/Pelvis CT 01/21/22 21:01 IMPRESSION: Gastric and diffuse small bowel dilation, slightly increased since the prior study, likely reflect ileus or partial obstruction secondary to an inflammatory bowel disease flare. Abdomen X-Ray 01/23/22 08:41 IMPRESSION: 1. Small bowel obstruction. 2. Nasogastric tube advanced. Labs Labs: Laboratory Results - last 24 hr 01/23/22 01/23/22 01/23/22 07:03 07:03 12:11 WBC 9.0 RBC 3.76 L Hgb 12.2 L Hct 38.6 L MCV 102.7 H MCH 32.4 D MCHC 31.6 L RDW 14.0 Plt Count 175 MPV 10.3 Sodium 141 Potassium 3.9 Chloride 107 Carbon Dioxide 28 Anion Gap 6 L BUN 13 Creatinine 0.60 L Estim Creat Clear Calc 127 Es
--- NOTE | 2022-01-23 14:58 | PM.PNGS ---
Progress Note: A&P Assessment and Plan (1) Partial small bowel obstruction: Code(s): K56.600 - Partial intestinal obstruction, unspecified as to cause Status: Acute Assessment and Plan: KUB this morning still suggests small bowel obstruction and appears the NG tube is in the duodenum. NG tube withdrawn this morning. Continue NG tube, NPO, IV fluids. Will repeat KUB tomorrow morning. Encouraged walking the halls with assistance if tolerated. (2) Bowel disease, inflammatory: Code(s): K52.9 - Noninfective gastroenteritis and colitis, unspecified Status: Acute Assessment and Plan: GI recommendations noted. They feel IBD is unlikely and IV steroids have been stopped. (3) Autism spectrum disorder: Code(s): F84.0 - Autistic disorder Status: Acute (4) Schizophrenia: Code(s): F20.9 - Schizophrenia, unspecified Status: Acute Plan I have discussed the patient's case and plan of care with Dr. Oliver. Subjective Subjective Date/Time Seen: 01/23/22 12:58 Interval history: Patient with autism and intellectual disability limiting history. He denies any abdominal pain at this time. He denies flatus or BM today, and I do not seen any documented BMs in the chart. Review of Systems Review of Systems: ROS unobtainable: Yes unobtainable due to medical condition Exam Const: General: comfortable, no acute distress and awake Orientation/consciousness: patient oriented x3 GI: Inspection: other (distention seems improved today) GI Palp: Yes Soft to palpation, No Tenderness to palpation present (GI) and No Guarding due to palpation present (GI) Auscultation: absent bowel sounds Psych: Insight: Limited insight present (Psych) Objective Data Vital Signs Vital Signs: Vital Signs - 24 hr 01/22/22 22:00 01/23/22 06:00 01/23/22 14:00 Temperature 97.2 F L 99.0 F 96.5 F L Pulse Rate 91 87 97 Respiratory Rate 18 18 20 Blood Pressure 126/66 128/78 122/69 Pulse Oximetry 94 97 97 Intake/Output Intake/Output: Intake & Output 01/20/22 01/21/22 01/22/22 01/23/22 23:59 23:59 23:59 23:59 Intake Total 500 1100 2000 Output Total 20 1050 1100 Balance 480 50 900 Meds/Results Medications: Active Medications Generic Name Dose Route Start Last Admin Trade Name Freq PRN Reason Stop Dose Admin Enoxaparin Sodium 40 mg 01/22/22 09:00 01/23/22 09:23 Enoxaparin 40 Mg/0.4 Ml Syringe SUB-Q 40 mg DAILY JULIANO Administration Sodium Chloride 1,000 mls @ 125 mls/hr 01/21/22 22:20 01/23/22 09:23 Normal Saline Iv IV CONT 125 mls/hr .Q8H JULIANO Administration Ondansetron HCl 4 mg 01/21/22 22:45 Ondansetron Inj 4 Mg/2 Ml Vial IV PUSH Q6H PRN Nausea And Vomiting Radiology Results: ITS Impressions Abdomen/Pelvis CT 01/21/22 21:01 IMPRESSION: Gastric and diffuse small bowel dilation, slightly increased since the prior study, likely reflect ileus or partial obstruction secondary to an inflammatory bowel disease flare. Abdomen X-Ray 01/23/22 08:41 IMPRESSION: 1. Small bowel obstruction. 2. Nasogastric tube advanced. Labs Labs: Laboratory Results - last 24 hr 01/23/22 01/23/22 01/23/22 07:03 07:03 12:11 WBC 9.0 RBC 3.76 L Hgb 12.2 L Hct 38.6 L MCV 102.7 H MCH 32.4 D MCHC 31.6 L RDW 14.0 Plt Count 175 MPV 10.3 Sodium 141 Potassium 3.9 Chloride 107 Carbon Dioxide 28 Anion Gap 6 L BUN 13 Creatinine 0.60 L Estim Creat Clear Calc 127 Estimated GFR > 60 Glucose 88 Calcium 8.0 L SARS-CoV-2 RNA (RT-PCR) Negative Quality VTE Prophylaxis VTE prophylaxis: mechanical ordered and pharmacologic ordered
[2022-01-23] MEDS: SODIUM CHLORIDE 0.9% IV 1,000 ML 80 ML IV CONT (17:34)
--- NOTE | 2022-01-23 17:58 | PM.IMPN ---
Progress Note: A&P Assessment and Plan (1) Partial small bowel obstruction: Code(s): K56.600 - Partial intestinal obstruction, unspecified as to cause Status: Acute Assessment and Plan: Patient with history of recurrent obstructions of unknown etiology, prior colonoscopy did not find evidence of inflammatory bowel disease, etiology thought to be due to prior surgeries and adhesions, however, no definitive diagnosis has been made. Appreciate General surgery and Gastroenterology consultations. Continue NG tube. NPO, IV fluids, p.r.n. antiemetics, supportive care 01/23: Continue ambulation an NG tube to suction, appreciate surgery recommendations (2) Bowel disease, inflammatory: Code(s): K52.9 - Noninfective gastroenteritis and colitis, unspecified Status: Acute Assessment and Plan: Patient has been placed on IV steroids for his inflammatory bowel disease flare. GI does not think patient has inflammatory bowel disease, will decrease steroids for now and consider discontinuing at discharge. 01/23: Steroids discontinued Subjective Date/time seen: 01/23/22 17:58 Interval history: No overnight events noted. No chest pain or shortness of breath. No nausea, vomiting or diarrhea. No fevers or chills. Review of Systems Review of Systems: 12 point review of systems was assessed and was negative except as noted in the HPI Exam Narrative: General: No acute distress, alert and oriented per baseline, NG tube in place HEENT: Atraumatic, normocephalic, mucous membranes moist CV: Regular rate and rhythm, S1, S2 Lungs: Clear to auscultation bilaterally, no rales or crackles noted, no wheezes, good air entry Abdomen: Soft, nontender, nondistended Extremities: Normal to inspection Skin: No rashes noted, no lesions or wounds seen Psych: Euthymic, normal affect Objective Data Vital Signs Vital Signs: Vital Signs - 24 hr 01/22/22 22:00 01/23/22 06:00 01/23/22 14:00 Temperature 97.2 F L 99.0 F 96.5 F L Pulse Rate 91 87 97 Respiratory Rate 18 18 20 Blood Pressure 126/66 128/78 122/69 Pulse Oximetry 94 97 97 Intake/Output Intake/Output: Intake & Output 01/20/22 01/21/22 01/22/22 01/23/22 23:59 23:59 23:59 23:59 Intake Total 500 1100 3060 Output Total 20 1050 2250 Balance 480 50 810 Meds/Results Medications: Active Medications Generic Name Dose Route Start Last Admin Trade Name Freq PRN Reason Stop Dose Admin Enoxaparin Sodium 40 mg 01/22/22 09:00 01/23/22 09:23 Enoxaparin 40 Mg/0.4 Ml Syringe SUB-Q 40 mg DAILY JULIANO Administration Sodium Chloride 1,000 mls @ 80 mls/hr 01/21/22 22:20 01/23/22 17:34 Normal Saline Iv IV CONT 80 mls/hr .[id number] JULIANO Administration Ondansetron HCl 4 mg 01/21/22 22:45 Ondansetron Inj 4 Mg/2 Ml Vial IV PUSH Q6H PRN Nausea And Vomiting Radiology Results: ITS Impressions Abdomen/Pelvis CT 01/21/22 21:01 IMPRESSION: Gastric and diffuse small bowel dilation, slightly increased since the prior study, likely reflect ileus or partial obstruction secondary to an inflammatory bowel disease flare. Abdomen X-Ray 01/23/22 08:41 IMPRESSION: 1. Small bowel obstruction. 2. Nasogastric tube advanced. Labs Labs: Laboratory Results - last 24 hr 01/23/22 01/23/22 01/23/22 07:03 07:03 12:11 WBC 9.0 RBC 3.76 L Hgb 12.2 L Hct 38.6 L MCV 102.7 H MCH 32.4 D MCHC 31.6 L RDW 14.0 Plt Count 175 MPV 10.3 Sodium 141 Potassium 3.9 Chloride 107 Carbon Dioxide 28 Anion Gap 6 L BUN 13 Creatinine 0.60 L Estim Creat Clear Calc 127 Estimated GFR > 60 Glucose 88 Calcium 8.0 L SARS-CoV-2 RNA (RT-PCR) Negative Quality VTE Prophylaxis VTE prophylaxis: mechanical ordered and pharmacologic ordered
[2022-01-23 22:00] VITALS: BP 125/78; PULSE 65; RESP 18; TEMP 36.2; O2SAT 100
[2022-01-24] MEDS: SODIUM CHLORIDE 0.9% IV 1,000 ML 80 ML IV CONT ×2 (05:42→18:56)
[2022-01-24 06:00] VITALS: BP 122/60; PULSE 67; RESP 18; TEMP 36; O2SAT 99
[2022-01-24 06:36] LABS: Hematocrit 37.8 % (42.0-52.0); Hemoglobin 12.2 g/dL (14.0-18.0); Mean Corpuscular HGB Conc 32.3 g/dl (32-36); Mean Corpuscular Volume 102.2 fl (80-100); Mean Platelet Volume 10.5 fl (7.4-10.4); Platelet Count Result 174 k/mm3 (150-375); Red Cell Distribution Width 13.9 % (11.5-14.5); White Blood Count 7.8 K/mm3 (4.5-10.0)
[2022-01-24 06:57] LABS: Anion Gap 8 mmol/L (8-16); Blood Urea Nitrogen 14 mg/dL (9-20); Calcium 8.1 mg/dL (8.4-10.2); Carbon Dioxide 22 mmol/L (22-30); Chloride 108 mmol/L (98-107); Estimated CRCL calculation 149 ml/min; Estimated Glomerular Filt Rate > 60; Glucose 67 mg/dL (65-110); Potassium 3.7 mmol/L (3.4-5.0); Sodium 138 mmol/L (137-145)
[2022-01-24] MEDS: ENOXAPARIN 40 MG/0.4 ML SYRINGE SUB-Q (08:09)
[2022-01-24] MEDS: LEVOTHYROXINE SODIUM 100 MCG TABLET PO (10:25)
[2022-01-24] MEDS: ESCITALOPRAM OXALATE 10 MG TABLET 20 MG PO (10:25)
[2022-01-24] MEDS: DIVALPROEX SODIUM ER 500 MG TAB.24H 1000 MG PO ×2 (10:26→21:19)
--- NOTE | 2022-01-24 10:47 | PM.PNGS ---
Progress Note: A&P Assessment and Plan (1) Partial small bowel obstruction: Code(s): K56.600 - Partial intestinal obstruction, unspecified as to cause Status: Acute Assessment and Plan: Abdominal exam and distention appears to be improving, but his KUB this morning still shows dilated small bowel c/w a small bowel obstruction. NG output is still high as well. Gastrografin upper GI small bowel series ordered today to further evaluate. If contrast moves through to the colon, then we could remove his NG tube and start clear liquids. If there is evidence of a high grade small bowel obstruction, then he may require surgical exploration. (2) Autism spectrum disorder: Code(s): F84.0 - Autistic disorder Status: Acute (3) Schizophrenia: Code(s): F20.9 - Schizophrenia, unspecified Status: Acute Plan I have discussed the patient's case and plan of care with Dr. Oliver. Subjective Subjective Date/Time Seen: 01/24/22 10:47 Interval history: Patient with autism and intellectual disability limiting his history. He denies any abdominal pain at this time. No BMs documented. NG with 1,000 cc output documented from overnight. Review of Systems Review of Systems: ROS unobtainable: Yes unobtainable due to medical condition Exam Const: General: comfortable, no acute distress and awake Orientation/consciousness: patient oriented x3 GI: Inspection: other (abdominal distention improved) GI Palp: Yes Soft to palpation, No Tenderness to palpation present (GI), No Guarding due to palpation present (GI) and No Hernia present Auscultation: absent bowel sounds Psych: Insight: Limited insight present (Psych) Objective Data Vital Signs Vital Signs: Vital Signs - 24 hr 01/23/22 14:00 01/23/22 22:00 01/23/22 20:00 Temperature 96.5 F L 97.2 F L Pulse Rate 97 65 Respiratory Rate 20 18 Blood Pressure 122/69 125/78 Pulse Oximetry 97 100 Oxygen Delivery Room Air 01/24/22 06:00 01/24/22 08:00 Temperature 96.8 F L Pulse Rate 67 Respiratory Rate 18 Blood Pressure 122/60 Pulse Oximetry 99 Oxygen Delivery Room Air Intake/Output Intake/Output: Intake & Output 01/21/22 01/22/22 01/23/22 01/24/22 23:59 23:59 23:59 23:59 Intake Total 500 1100 3060 1000 Output Total 20 1050 2250 1125 Balance 480 50 810 -125 Meds/Results Medications: Active Medications Generic Name Dose Route Start Last Admin Trade Name Freq PRN Reason Stop Dose Admin Divalproex Sodium 1,000 mg 01/24/22 09:00 01/24/22 10:26 Divalproex Sodium Er 500 Mg Tab.24h PO 1,000 mg Q12H JULIANO Administration Enoxaparin Sodium 40 mg 01/22/22 09:00 01/24/22 08:09 Enoxaparin 40 Mg/0.4 Ml Syringe SUB-Q 40 mg DAILY JULIANO Administration Escitalopram Oxalate 20 mg 01/24/22 09:00 01/24/22 10:25 Escitalopram Oxalate 10 Mg Tablet PO 20 mg DAILY JULIANO Administration Sodium Chloride 1,000 mls @ 80 mls/hr 01/21/22 22:20 01/24/22 05:42 Normal Saline Iv IV CONT 80 mls/hr .[id number] JULIANO Administration Levothyroxine Sodium 100 mcg 01/24/22 09:00 01/24/22 10:25 Levothyroxine Sodium 100 Mcg Tablet PO 100 mcg DAILY@0630 JULIANO Administration Miscellaneous Information 0 each 01/24/22 00:01 Clozapine Is Non-Formulary XX 02/23/22 00:00 CLARIFY JULIANO Non-Formulary Medication 100 mg 01/24/22 09:00 Clozapine PO 02/23/22 08:59 Q12H JULIANO Non-Formulary Medication 200 mg 01/24/22 17:00 Clozapine PO 02/23/22 16:59 1700 JULIANO Ondansetron HCl 4 mg 01/21/22 22:45 Ondansetron Inj 4 Mg/2 Ml Vial IV PUSH Q6H PRN Nausea And Vomiting Radiology Results: ITS Impressions Abdomen/Pelvis CT 01/21/22 21:01 IMPRESSION: Gastric and diffuse small bowel dilation, slightly increased since the prior study, likely reflect ileus or partial obstruction secondary to an inflammatory bowel disease flare. Abdomen X-Ray 01/24/22 08:36 IMPRESSION: 1
--- NOTE | 2022-01-24 13:18 | WPDGIPROGNO ---
Progress Note: A&P Assessment and Plan (1) Partial small bowel obstruction: Code(s): K56.600 - Partial intestinal obstruction, unspecified as to cause Status: Acute Assessment and Plan: IBD unlikely (recent work up negative for Crohn's and review of previous record did not find evidence of ibd)- no need to use steroids h/o remote abdominal surgery clinically better and NGT already removed XR- Nasogastric tube in the neck and small duodenal diverticulum. Otherwise normal small bowel follow-through with no obstruction. [place], call if questions (2) Intellectual disability: Code(s): F79 - Unspecified intellectual disabilities Status: Acute (3) Adynamic ileus: Code(s): K56.0 - Paralytic ileus Status: Acute Assessment and Plan: improved diet per surgery Subjective Date/time seen: 01/24/22 13:18 Interval history: NGT removed, no abdominal distension. He is asking when he can leave the hospital Review of Systems Review of Systems: ROS unobtainable: Yes unobtainable due to medical condition Exam Const: General: comfortable, no acute distress, alert and awake Nutritional Appearance: average body habitus Other: awake and alert but has baseline learning disability HENMT: Head: normocephalic and atraumatic Ears: hearing grossly normal bilaterally and external ears normal Eyes: General: appearance normal, both eyes and all related structures Pupils: Equal, round and reactive pupils present Neck: Neck: normal visual inspection Resp: Effort & Inspection: no respiratory distress Auscultation: clear to auscultation bilaterally Cardio: Rate: regular rate Rhythm: regular rhythm GI: Inspection: non-distended and scar (vertical midline scar from umbilicus to pubis) GI Palp: Yes Soft to palpation, No Tenderness to palpation present (GI) and No Guarding due to palpation present (GI) Auscultation: normal bowel sounds Skin: General skin exam: normal color Rashes: no rashes Neuro: General: moves all extremities and no focal motor deficits Speech: normal speech Extrem: General: no edema Psych: Mental Status: mental status grossly normal Attitude: cooperative Insight: Limited insight present (Psych) Judgement: Limited judgement present (Psych) Objective Data Vital Signs Vital Signs: Vital Signs - 24 hr 01/23/22 14:00 01/23/22 22:00 01/23/22 20:00 Temperature 96.5 F L 97.2 F L Pulse Rate 97 65 Respiratory Rate 20 18 Blood Pressure 122/69 125/78 Pulse Oximetry 97 100 Oxygen Delivery Room Air 01/24/22 06:00 01/24/22 08:00 Temperature 96.8 F L Pulse Rate 67 Respiratory Rate 18 Blood Pressure 122/60 Pulse Oximetry 99 Oxygen Delivery Room Air Intake/Output Intake/Output: Intake & Output 01/21/22 01/22/22 01/23/22 01/24/22 23:59 23:59 23:59 23:59 Intake Total 500 1100 3060 1480 Output Total 20 1050 2250 1125 Balance 480 50 810 355 Meds/Results Medications: Active Medications Generic Name Dose Route Start Last Admin Trade Name Freq PRN Reason Stop Dose Admin Divalproex Sodium 1,000 mg 01/24/22 09:00 01/24/22 10:26 Divalproex Sodium Er 500 Mg Tab.24h PO 1,000 mg Q12H JULIANO Administration Enoxaparin Sodium 40 mg 01/22/22 09:00 01/24/22 08:09 Enoxaparin 40 Mg/0.4 Ml Syringe SUB-Q 40 mg DAILY JULIANO Administration Escitalopram Oxalate 20 mg 01/24/22 09:00 01/24/22 10:25 Escitalopram Oxalate 10 Mg Tablet PO 20 mg DAILY JULIANO Administration Sodium Chloride 1,000 mls @ 80 mls/hr 01/21/22 22:20 01/24/22 05:42 Normal Saline Iv IV CONT 80 mls/hr .[id number] JULIANO Administration Levothyroxine Sodium 100 mcg 01/24/22 09:00 01/24/22 10:25 Levothyroxine Sodium 100 Mcg Tablet PO 100 mcg DAILY@0630 JULIANO Administration Miscellaneous Information 0 each 01/24/22 00:01 Clozapine Is Non-Formulary XX 02/23/22 00:00 CLARIFY JULIANO Non-Formulary Medication 100 mg 01/24/22 09:00
--- NOTE | 2022-01-24 14:04 | PHAR ---
HOME MEDICATION VERIFIED BY PHARMACY: CLOZAPINE 100MG TABLETS TAKE 1 TAB PO AT 6AM AND 9PM AND 2 TABLETS AT 5PM EVERY DAY
[2022-01-24 15:25] VITALS: BP 114/81; PULSE 84; RESP 18; TEMP 36.2; O2SAT 97
--- NOTE | 2022-01-24 19:04 | PM.IMPN ---
Progress Note: A&P Assessment and Plan (1) Partial small bowel obstruction: Code(s): K56.600 - Partial intestinal obstruction, unspecified as to cause Status: Acute Assessment and Plan: Patient with history of recurrent obstructions of unknown etiology, prior colonoscopy did not find evidence of inflammatory bowel disease, etiology thought to be due to prior surgeries and adhesions, however, no definitive diagnosis has been made. Appreciate General surgery and Gastroenterology consultations. Continue NG tube. NPO, IV fluids, p.r.n. antiemetics, supportive care 01/23: Continue ambulation an NG tube to suction, appreciate surgery recommendations 01/24: Patient getting Gastrografin upper GI small bowel series today, so for this is showing no obstruction, anticipate surgery pull NG tube and start clear liquids (2) Bowel disease, inflammatory: Code(s): K52.9 - Noninfective gastroenteritis and colitis, unspecified Status: Acute Assessment and Plan: Patient has been placed on IV steroids for his inflammatory bowel disease flare. GI does not think patient has inflammatory bowel disease, will decrease steroids for now and consider discontinuing at discharge. 01/23: Steroids discontinued Subjective Date/time seen: 01/24/22 19:04 Interval history: Patient eager to begin eating again. Getting his upper GI series KUB done at this time. No overnight events noted. No chest pain or shortness of breath. No nausea, vomiting or diarrhea. No fevers or chills. Review of Systems Review of Systems: 12 point review of systems was assessed and was negative except as noted in the HPI Exam Narrative: General: Patient sitting up in bed, NG tube in place, 500 mL out in the last 8 hours, nonbloody, bilious HEENT: Atraumatic, normocephalic, mucous membranes moist CV: Regular rate and rhythm, S1, S2 Lungs: Clear to auscultation bilaterally, no rales or crackles noted, no wheezes, good air entry Abdomen: Soft, nontender, nondistended Extremities: Normal to inspection Skin: No rashes noted, no lesions or wounds seen Psych: Euthymic, normal affect Objective Data Vital Signs Vital Signs: Vital Signs - 24 hr 01/23/22 22:00 01/23/22 20:00 01/24/22 06:00 Temperature 97.2 F L 96.8 F L Pulse Rate 65 67 Respiratory Rate 18 18 Blood Pressure 125/78 122/60 Pulse Oximetry 100 99 Oxygen Delivery Room Air 01/24/22 08:00 01/24/22 15:25 Temperature 97.1 F L Pulse Rate 84 Respiratory Rate 18 Blood Pressure 114/81 Pulse Oximetry 97 Oxygen Delivery Room Air Intake/Output Intake/Output: Intake & Output 01/21/22 01/22/22 01/23/22 01/24/22 23:59 23:59 23:59 23:59 Intake Total 500 1100 3060 2960 Output Total 20 1050 2250 1125 Balance 480 50 810 1835 Meds/Results Medications: Active Medications Generic Name Dose Route Start Last Admin Trade Name Sbq PRN Reason Stop Dose Admin Divalproex Sodium 1,000 mg 01/24/22 09:00 01/24/22 10:26 Divalproex Sodium Er 500 Mg Tab.24h PO 1,000 mg Q12H JULIANO Administration Enoxaparin Sodium 40 mg 01/22/22 09:00 01/24/22 08:09 Enoxaparin 40 Mg/0.4 Ml Syringe SUB-Q 40 mg DAILY JULIANO Administration Escitalopram Oxalate 20 mg 01/24/22 09:00 01/24/22 10:25 Escitalopram Oxalate 10 Mg Tablet PO 20 mg DAILY JULIANO Administration Home Med 1 each 01/24/22 21:00 Clozapine 100 Mg Tablet (Home Med) PO 02/23/22 20:59 BID@0600,2100 JULIANO Home Med 2 each 01/24/22 17:00 01/24/22 17:21 Clozapine 100 Mg Tablet (Home Med) PO 02/23/22 16:59 2 each 1700 JULIANO Administration Sodium Chloride 1,000 mls @ 80 mls/hr 01/21/22 22:20 01/24/22 18:56 Normal Saline Iv IV CONT 80 mls/hr .[id number] JULIANO Administration Levothyroxine Sodium 100 mcg 01/24/22 09:00 01/24/22 10:25 Levothyroxine Sodium 100 Mcg Tablet PO 100 mcg DAILY@0630 JULIANO Administration Ondansetron HCl 4 mg 01/21/22 22:45 Ondansetron Inj
[2022-01-24 22:00] VITALS: BP 125/72; PULSE 99; RESP 18; TEMP 36.4; O2SAT 98
[2022-01-25 06:00] VITALS: BP 113/73; PULSE 104; RESP 18; TEMP 36.4; O2SAT 100
[2022-01-25] MEDS: SODIUM CHLORIDE 0.9% IV 1,000 ML 80 ML IV CONT (06:18)
[2022-01-25] MEDS: LEVOTHYROXINE SODIUM 100 MCG TABLET PO (06:18)
--- NOTE | 2022-01-25 07:56 | PM.PNGS ---
Progress Note: A&P Assessment and Plan (1) Partial small bowel obstruction: Code(s): K56.600 - Partial intestinal obstruction, unspecified as to cause Status: Acute Assessment and Plan: fortunately, this has resolved by imaging. Patient much more awake and active. Desires to go home. Will advance to soft diet this morning. Can advance to regular diet as tolerated. Okay to discharge from surgical perspective. We will sign off. Call if can be of further assistance. Subjective Subjective Date/Time Seen: 01/25/22 07:56 Patient reports: pain is less ( No abdominal pain), bowel movement, afebrile and other ( patient does not want to eat until he goes home.) Interval history: Patient very much wants to be discharged. No complaints of abdominal pain. Review of Systems Review of Systems: ROS unobtainable: Yes unobtainable due to medical condition ( Mental illness) Exam Const: General: comfortable, alert and awake Nutritional Appearance: average body habitus GI: Inspection: non-distended GI Palp: Yes Soft to palpation and No Tenderness to palpation present (GI) Auscultation: Hypoactive bowel sounds present Objective Data Vital Signs Vital Signs: Vital Signs - 24 hr 01/24/22 08:00 01/24/22 15:25 01/24/22 20:00 Temperature 36.2 C L Pulse Rate 84 Respiratory Rate 18 Blood Pressure 114/81 Pulse Oximetry 97 Oxygen Delivery Room Air Room Air 01/24/22 22:00 01/25/22 06:00 Temperature 36.4 C 36.4 C Pulse Rate 99 104 H Respiratory Rate 18 18 Blood Pressure 125/72 113/73 Pulse Oximetry 98 100 Oxygen Delivery Intake/Output Intake/Output: Intake & Output 01/22/22 01/23/22 01/24/22 01/25/22 23:59 23:59 23:59 23:59 Intake Total 1100 3060 2960 1100 Output Total 1050 2250 1125 Balance 50 810 1835 1100 Meds/Results Medications: Active Medications Generic Name Dose Route Start Last Admin Trade Name Freq PRN Reason Stop Dose Admin Divalproex Sodium 1,000 mg 01/24/22 09:00 01/24/22 21:19 Divalproex Sodium Er 500 Mg Tab.24h PO 1,000 mg Q12H JULIANO Administration Enoxaparin Sodium 40 mg 01/22/22 09:00 01/24/22 08:09 Enoxaparin 40 Mg/0.4 Ml Syringe SUB-Q 40 mg DAILY JULIANO Administration Escitalopram Oxalate 20 mg 01/24/22 09:00 01/24/22 10:25 Escitalopram Oxalate 10 Mg Tablet PO 20 mg DAILY JULIANO Administration Home Med 1 each 01/24/22 21:00 01/25/22 06:18 Clozapine 100 Mg Tablet (Home Med) PO 02/23/22 20:59 1 each BID@0600,2100 JULIANO Administration Home Med 2 each 01/24/22 17:00 01/24/22 17:21 Clozapine 100 Mg Tablet (Home Med) PO 02/23/22 16:59 2 each 1700 JULIANO Administration Sodium Chloride 1,000 mls @ 80 mls/hr 01/21/22 22:20 01/25/22 06:18 Normal Saline Iv IV CONT 80 mls/hr .[id number] JULIANO Administration Levothyroxine Sodium 100 mcg 01/24/22 09:00 01/25/22 06:18 Levothyroxine Sodium 100 Mcg Tablet PO 100 mcg DAILY@0630 JULIANO Administration Ondansetron HCl 4 mg 01/21/22 22:45 Ondansetron Inj 4 Mg/2 Ml Vial IV PUSH Q6H PRN Nausea And Vomiting Radiology Results: ITS Impressions Abdomen/Pelvis CT 01/21/22 21:01 IMPRESSION: Gastric and diffuse small bowel dilation, slightly increased since the prior study, likely reflect ileus or partial obstruction secondary to an inflammatory bowel disease flare. Abdomen X-Ray 01/24/22 08:36 IMPRESSION: 1. Dilated small bowel, consistent with ileus versus obstruction. Upper GI Series 01/24/22 11:21 IMPRESSION: 1. Nasogastric tube in the neck and small duodenal diverticulum. Otherwise normal small bowel follow-through with no obstruction. Imaging Attestation: I personally reviewed and interpreted this imaging study as follows: ( [facility] small-bowel follow-through from yesterday) My impression: somewhat slow transit but no evidence of obstruction. Radiologist's impression: Duodenal diverticulum, no obstruct
[2022-01-25 08:00] VITALS: O2SAT 99
[2022-01-25] MEDS: DIVALPROEX SODIUM ER 500 MG TAB.24H 1000 MG PO (10:04)
[2022-01-25] MEDS: ENOXAPARIN 40 MG/0.4 ML SYRINGE SUB-Q (10:05)
[2022-01-25] MEDS: ESCITALOPRAM OXALATE 10 MG TABLET 20 MG PO (10:05)
--- NOTE | 2022-01-25 10:29 | PM.IMPN ---
Progress Note: A&P Assessment and Plan (1) Partial small bowel obstruction: Code(s): K56.600 - Partial intestinal obstruction, unspecified as to cause Status: Acute Assessment and Plan: Patient with history of recurrent obstructions of unknown etiology, prior colonoscopy did not find evidence of inflammatory bowel disease, etiology thought to be due to prior surgeries and adhesions, however, no definitive diagnosis has been made. Appreciate General surgery and Gastroenterology consultations. Continue NG tube. NPO, IV fluids, p.r.n. antiemetics, supportive care 01/23: Continue ambulation an NG tube to suction, appreciate surgery recommendations 01/24: Patient getting Gastrografin upper GI small bowel series today, so for this is showing no obstruction, anticipate surgery pull NG tube and start clear liquids 01/25: General surgery signed off, NG tube pulled, advance diet as tolerated, recommended discharge later today if tolerating p.o. (2) Bowel disease, inflammatory: Code(s): K52.9 - Noninfective gastroenteritis and colitis, unspecified Status: Acute Assessment and Plan: Patient has been placed on IV steroids for his inflammatory bowel disease flare. GI does not think patient has inflammatory bowel disease, will decrease steroids for now and consider discontinuing at discharge. 01/23: Steroids discontinued Subjective Date/time seen: 01/25/22 10:29 Exam Narrative: General: Patient sitting up in bed, NG tube in place, 500 mL out in the last 8 hours, nonbloody, bilious HEENT: Atraumatic, normocephalic, mucous membranes moist CV: Regular rate and rhythm, S1, S2 Lungs: Clear to auscultation bilaterally, no rales or crackles noted, no wheezes, good air entry Abdomen: Soft, nontender, nondistended Extremities: Normal to inspection Skin: No rashes noted, no lesions or wounds seen Psych: Euthymic, normal affect Objective Data Vital Signs Vital Signs: Vital Signs - 24 hr 01/24/22 15:25 01/24/22 20:00 01/24/22 22:00 Temperature 97.1 F L 97.6 F Pulse Rate 84 99 Respiratory Rate 18 18 Blood Pressure 114/81 125/72 Pulse Oximetry 97 98 Oxygen Delivery Room Air 01/25/22 06:00 Temperature 97.6 F Pulse Rate 104 H Respiratory Rate 18 Blood Pressure 113/73 Pulse Oximetry 100 Oxygen Delivery Intake/Output Intake/Output: Intake & Output 01/22/22 01/23/22 01/24/22 01/25/22 23:59 23:59 23:59 23:59 Intake Total 1100 3060 2960 1340 Output Total 1050 2250 1125 Balance 50 810 1835 1340 Meds/Results Medications: Active Medications Generic Name Dose Route Start Last Admin Trade Name Freq PRN Reason Stop Dose Admin Divalproex Sodium 1,000 mg 01/24/22 09:00 01/25/22 10:04 Divalproex Sodium Er 500 Mg Tab.24h PO 1,000 mg Q12H JULIANO Administration Enoxaparin Sodium 40 mg 01/22/22 09:00 01/25/22 10:05 Enoxaparin 40 Mg/0.4 Ml Syringe SUB-Q 40 mg DAILY JULIANO Administration Escitalopram Oxalate 20 mg 01/24/22 09:00 01/25/22 10:05 Escitalopram Oxalate 10 Mg Tablet PO 20 mg DAILY JULIANO Administration Home Med 1 each 01/24/22 21:00 01/25/22 06:18 Clozapine 100 Mg Tablet (Home Med) PO 02/23/22 20:59 1 each BID@0600,2100 JULIANO Administration Home Med 2 each 01/24/22 17:00 01/24/22 17:21 Clozapine 100 Mg Tablet (Home Med) PO 02/23/22 16:59 2 each 1700 JULIANO Administration Sodium Chloride 1,000 mls @ 80 mls/hr 01/21/22 22:20 01/25/22 06:18 Normal Saline Iv IV CONT 80 mls/hr .[id number] JULIANO Administration Levothyroxine Sodium 100 mcg 01/24/22 09:00 01/25/22 06:18 Levothyroxine Sodium 100 Mcg Tablet PO 100 mcg DAILY@0630 JULIANO Administration Ondansetron HCl 4 mg 01/21/22 22:45 Ondansetron Inj 4 Mg/2 Ml Vial IV PUSH Q6H PRN Nausea And Vomiting Radiology Results: ITS Impressions Abdomen/Pelvis CT 01/21/22 21:01 IMPRESSION: Gastric and diffuse small bowel dilation, slightly increased s
[2022-01-25 14:00] VITALS: BP 130/76; PULSE 124; RESP 18; TEMP 36.3; O2SAT 99
--- NOTE | 2022-01-25 16:27 | PC.NURSE ---
RN attempted to contact [facility] by phone number provided by case management. [phone]. Two attempted calls and two voicemails left asking facility to return phone call for report. Patient's transportation was scheduled for nut picker at 1530 on 01/25/22. Steel Inspector stayed while RN attempted last call, no answer. Patient has a copy of discharge summary, home medications returned and verified by two RNs, and personal items. Patient left at 1610 via [facility] transportation service and RN is awaiting a return call from [facility].
--- NOTE | 2022-01-26 18:00 | PM.DS ---
DS: Admitting Diagnosis Discharge Date 01/25/22 Admitting Diagnosis Nausea with vomiting DS: Discharge Diagnosis Discharge Diagnosis (1) Partial small bowel obstruction: Code(s): K56.600 - Partial intestinal obstruction, unspecified as to cause Status: Acute Assessment and Plan: Patient with history of recurrent obstructions of unknown etiology, prior colonoscopy did not find evidence of inflammatory bowel disease, etiology thought to be due to prior surgeries and adhesions, however, no definitive diagnosis has been made.? Appreciate General surgery and Gastroenterology consultations.? Continue NG tube.? NPO, IV fluids, p.r.n. antiemetics, supportive care 01/23:? Continue ambulation an NG tube to suction, appreciate surgery recommendations 01/24:? Patient getting Gastrografin upper GI small bowel series today, so for this is showing no obstruction, anticipate surgery pull NG tube and start clear liquids 01/25: NG tube pulled, diet advanced, patient tolerated it well and surgery recommended discharge from their standpoint (2) Bowel disease, inflammatory: Code(s): K52.9 - Noninfective gastroenteritis and colitis, unspecified Status: Acute Assessment and Plan: Patient has been placed on IV steroids for his inflammatory bowel disease flare.? GI does not think patient has inflammatory bowel disease, will decrease steroids for now and consider discontinuing at discharge. 01/23: Steroids discontinued, GI states patient does not have biopsy-proven inflammatory bowel disease 01/24: Symptoms continue to improve 01/25: Okay for discharge per surgery, GI agreed DS: Summary Hospital Course Hospital Course: see above Time Spent with Patient Time attestation: Total time spent providing and/or coordinating discharge services: Discharge Plan Discharge Attending physician on discharge: Lien Flores Consulting providers: Sammy Gupta ; Lily Smith Discharging Clinician: Lien Flores Patient Disposition: Other Activity: as tolerated Diet: as tolerated Patient Instructions: Antibiotic Form Stand Alone Forms: General Discharge Information Discharge Medications: Continued sulfasalazine 500 mg tablet 1,000 mg PO Q12H omeprazole 40 mg capsule,delayed release(DR/EC) 40 mg PO Q12H levothyroxine 100 mcg tablet 100 mcg PO DAILY propranolol 20 mg tablet 20 mg PO QID potassium chloride 10 mEq tablet,ER particles/crystals 10 meq PO DAILY fenofibrate 160 mg tablet 160 mg PO DAILY omega 3-zpb-hzn-fish oil [Fish Oil] 1,200 (144-216) mg Capsule 1 cap PO BID Linzess 145 mcg capsule 145 mcg PO DAILY sennosides-docusate sodium [Senokot-S] 8.6-50 mg Tablet 2 tab-cap PO Q12H vitamin B complex Tablet 1 tablet PO DAILY folic acid 1 mg Tablet 1 mg PO DAILY polyethylene glycol 3350 [Miralax] 17 gram Powder In Packet 17 g PO DAILY Qty: 0 0RF multivitamin,tx-minerals Tablet 1 tablet PO 1700 acetaminophen [Tylenol] 325 mg Tablet 650 mg PO PRN PRN (Reason: Pain) diphenhydramine HCl 25 mg Tablet 25 mg PO Q6H PRN (Reason: Allergic Reaction) divalproex 500 mg tablet extended release 24 hr 1,000 mg PO Q12H escitalopram oxalate 20 mg tablet 20 mg PO DAILY clozapine 100 mg tablet 100 mg PO Q12H clozapine 100 mg tablet 200 mg PO 1700 cetirizine 10 mg BYMOUTH DAILY PRN (Reason: Allergy Symptoms) ergocalciferol (vitamin D2) 1,250 mcg (50,000 unit) Capsule 1,250 mcg PO WEEKLY ondansetron HCl [Zofran] 4 mg tablet 4 mg PO Q6H PRN (Reason: nausea and vomiting) Qty: 10 0RF Date of admission: 01/22/22 09:08 Primary Care Provider: Isael Lanier Admitting Provider: Yoel Manrique V. Attending physician on admission: Lien Flores Condition: Stable Quality VTE Prophylaxis VTE prophylaxis: mechanical ordered and pharmacologic orde
== END 2022-01-25 16:10 | disposition home or self-care (01) | DRG 389 ==
LOC: ANHED 22:27 → ANH3MEDSUR 22:58
PROVIDERS: Nurse Practitioner Adult Health; Nurse Practitioner Family; Physician Assistant; Surgery; Admitting Provider Internal Medicine; Emergency Provider Emergency Medicine; PCP Family Medicine; Visit Provider Student in an Organized Health Care Education/Training Program
DX: K56.51 Intestinal adhesions [bands], with partial obstruction (principal); F84.0 Autistic disorder; K52.9 Noninfective gastroenteritis and colitis, unspecified; Z20.822 Contact with and (suspected) exposure to COVID-19; K21.9 Gastro-esophageal reflux disease without esophagitis; D53.1 Other megaloblastic anemias, not elsewhere classified; E03.9 Hypothyroidism, unspecified; F20.9 Schizophrenia, unspecified; E78.00 Pure hypercholesterolemia, unspecified; Z87.11 Personal history of peptic ulcer disease; Z90.49 Acquired absence of other specified parts of digestive tract
CPT/HCPCS: 36415; 74018; 74177; 74240; 74248; 80048; 80053; 81001; 83690; 83735; 84100; 85025; 85027; 96361; 96365; 96366; 96375; 99285; A9270; C9803; G0378; J0131; J1650; J2405; J2930; J7030; J7040; Q9967; U0003; U0005

== ENCOUNTER 2022-04-23 16:54 | Inpatient (IN) | payer MEDICARE, MEDICAID, SELFPAY ==
--- NOTE | ~2022-04-23 | XR_ITS ---
EXAMINATION: XR abdomen NG/feed tube insert INDICATION: Nasogastric tube insertion TECHNIQUE: Portable AP KUB-NG at 1138 hours COMPARISON: 04/25/2022 FINDINGS: The nasogastric tube is in the stomach. Multiple dilated loops of bowel persist without sig nificant change. The visualized lung bases are clear. IMPRESSION: 1. Nasogastric tube in the stomach Reviewed, dictated and finalized at location A.
--- NOTE | ~2022-04-23 | XR_ITS ---
XR abdomen/kub 1V 04/26/2022 19:55 Indication: Bowel obstruction Procedure: KUB Comparison: 04/26/2022 Findings: There has been passage of contrast into the colon. Persistent mildly dilated small bowel. N o abnormal calcifications. No acute osseous abnormality. Impression: 1: Dilated small bowel with interval passage of contrast into the colon. Differential diagnosis inclu mariana ileus and partial small bowel obstruction. Reviewed, dictated and finalized at location A. Impression: 1: Dilated small bowel with interval passage of contrast into the colon. Differ ential diagnosis includes ileus and partial small bowel obstruction.
--- NOTE | ~2022-04-23 | XR_ITS ---
EXAMINATION: XR sm bowel follow through WS DATE: 04/26/2022 12:47 INDICATION: Small bowel obstruction TECHNIQUE: Volunteer Services Supervisor radiograph(s) of the abdomen was/were obtained. Oral contrast was administered, and sequential radiographs of the abdomen were obtained until oral contrast was noted to be in the proxi mal colon. COMPARISON: CT dated 04/23/2022 FINDINGS: Transit time from the stomach to proximal colon was approximately 2 hours. Again seen is mild relativ e dilation of the proximal small bowel which transitions to relatively decompressed small bowel dista lly without a discrete transition point. There is a mucosal fold pattern throughout the small bowel. Terminal ileum is normal. A small diverticulum is seen arising from the junction of the second and th ird portions of the duodenum. Several small foci of contrast density with superimposed meshlike patte rn project over the right lower quadrant on some but not all images which appear to change in locatio n relative to the patient likely representing some contrast material external to the patient. . IMPRESSION: 1. Mildly dilated proximal small bowel but with normal transit time to the colon and without a discre te transition point which could be due to either an ileus or low-grade/partial small bowel obstructio n. Reviewed, dictated and finalized at location A. IMPRESSION: 1. Mildly dilated proximal small bowel but with normal transit time to the colo n and without a discrete transition point which could be due to either an ileus or low-grade/partial small bowel obstruction.
--- NOTE | ~2022-04-23 | XR_ITS ---
EXAMINATION: XR abdomen obstructive series DATE: 04/25/2022 08:09 INDICATION: Small bowel obstruction TECHNIQUE: Upright and supine views of the abdomen were obtained. COMPARISON: 04/24/2022 FINDINGS: The nasogastric tube is in the stomach. No free intraperitoneal gas is identified. There ar e multiple persistently dilated loops of small bowel without significant change. A large volume of st ool is present in the rectum. There is mild atelectasis of the lung bases. IMPRESSION: 1. Persistently dilated small bowel, consistent with partial small bowel obstruction. 2. Fecal impaction. Reviewed, dictated and finalized at location A. IMPRESSION: 1. Persistently dilated small bowel, consistent with partial small bowel obstru ction. 2. Fecal impaction.
--- NOTE | ~2022-04-23 | XR_ITS ---
EXAMINATION: XR abdomen NG/feed tube insert DATE: 04/24/2022 02:40 INDICATION: Nasogastric tube insertion TECHNIQUE: A supine view of the abdomen and lower chest was obtained for evaluation of feeding tube placement. COMPARISON: CT dated 04/23/2022 FINDINGS: Nasogastric tube tip in the distal esophagus approximately 7 cm above level of the gastroesophageal j unction. Dilated loops of gas-filled small bowel in the upper abdomen consistent with ileus versus ob struction. Visualized mid to lower lungs are clear. Heart size is normal. IMPRESSION: 1. Nasogastric tube in the distal esophagus. Recommend advancement by 15 cm. 2. Mildly dilated small bowel in the upper abdomen consistent with ileus versus obstruction. Reviewed, dictated and finalized at location A.
--- NOTE | ~2022-04-23 | CT_ITS ---
EXAMINATION: CT abdomen pelvis w con DATE: 04/23/2022 22:31 INDICATION: abdominal pain TECHNIQUE: Computed tomography (CT) of the abdomen and pelvis was performed with 100 mL Omnipaque-350 intravenous contrast. Automated exposure control and iterative reconstruction technique were employe d. The dose-length product was 474.61 mGy-cm. COMPARISON: 01/21/2022. FINDINGS: Lower thorax: Bibasilar scar/atelectasis. Liver: Simple right lobe cyst Biliary/Gallbladder: Borderline hydrops. No bile duct dilation. Pancreas: Atrophic Spleen: Normal. Adrenals:No mass. Kidneys: Left midpole cyst. Multiple bilateral hypodensities that are too small to characterize. Punc bernardo nonobstructive right midpole calculus. GI tract: Fluid-filled, distended stomach, unchanged. Multiple loops of dilated fluid-filled small walter wel, similar to slightly increased since the prior study. Multiple small bowel air-fluid levels. Inte rval resolution of the distal ileal wall thickening and interloop fluid. Similar areas of chronic sig moid dilation, interspersed with areas of narrowing and wall edema, slightly worse than the prior charis dy. The rectum is dilated to 8.3 cm by partially formed stool. Appendix likely surgically absent. Mesentery/Peritoneum: No ascites, mass, or free air. Retroperitoneum: No mass. Atherosclerotic abdominal aortic and/or arterial calcifications. Pelvis: Pelvic organs are within normal limits. Soft Tissues: Soft tissues and body wall unremarkable. Bones: No acute osseous finding. IMPRESSION: Similar degree of gastric distention with stable to slightly increased proximal to mid small bowel di lation, likely reflecting worsening chronic partial small bowel obstruction. Interval resolution of t he distal ileal bowel wall thickening. Slightly increased multifocal areas of short segment wall femi a in the sigmoid may represent active disease. Fecal impaction. Reviewed, dictated and finalized at location K. IMPRESSION: Similar degree of gastric distention with stable to slightly increased proximal to mid small bowel dilation, likely reflecting worsening chronic partial small bowel obstruction. Interval resolution of the distal ileal bowel wall thickeni ng. Slightly increased multifocal areas of short segment wall edema in the sigm oid may represent active disease. Fecal impaction.
--- NOTE | ~2022-04-23 | XR_ITS ---
EXAMINATION: XR abdomen obstructive series DATE: 04/26/2022 08:05 INDICATION: Small bowel obstruction. TECHNIQUE: Upright and supine views of the abdomen on 3 radiographs were obtained. COMPARISON: CT abdomen and pelvis 04/23/2022 FINDINGS: There are multiple dilated loops of small bowel. The colon is normal in caliber. The nasoga stric tube tip is in the stomach. No free intraperitoneal gas. IMPRESSION: 1. Persistently dilated small bowel, consistent with adynamic ileus versus partial small bowel obstru ction. Reviewed, dictated and finalized at location D. IMPRESSION: 1. Persistently dilated small bowel, consistent with adynamic ileus versus part ial small bowel obstruction.
--- NOTE | ~2022-04-23 | XR_ITS ---
EXAMINATION: XR abdomen NG/feed tube insert DATE: 04/25/2022 10:49 INDICATION: Nasogastric tube replacement TECHNIQUE: A supine view of the abdomen and lower chest was obtained for evaluation of feeding tube placement. COMPARISON: None. FINDINGS: Nasogastric tube tip in proximal side port in the body of the stomach. Persistent dilated gas-filled loops of small bowel in the abdomen. Stool and small amount of gas scattered throughout the colon. El evation of the right hemidiaphragm. Mild linear discoid atelectasis/scarring at the lateral left lowe r lung zone. IMPRESSION: 1. Nasogastric tube in the stomach. 2. Persistent mildly dilated gas-filled loops of small bowel consistent with ileus versus partial sma ll bowel obstruction. Reviewed, dictated and finalized at location A. IMPRESSION: 1. Nasogastric tube in the stomach. 2. Persistent mildly dilated gas-filled loops of small bowel consistent with il eus versus partial small bowel obstruction.
--- NOTE | ~2022-04-23 | XR_ITS ---
EXAMINATION: XR fl guid NG/feed tube insert DATE: 04/24/2022 12:10 INDICATION: Partial small bowel obstruction. TECHNIQUE: I placed a nasogastric tube under fluoroscopic guidance. Fluoroscopy exposure time was 0.5 minutes. The number of images was 2. COMPARISON: CT abdomen and pelvis 04/23/2022 FINDINGS: The nasogastric tube tip is in the stomach. IMPRESSION: 1. Fluoroscopy guided nasogastric tube placement with tube tip in the stomach. Reviewed, dictated and finalized at location A.
[2022-04-23 17:35] VITALS: BP 119/77; PULSE 108; RESP 14; TEMP 36.3; O2SAT 98
[2022-04-23 18:19] LABS: Basophils Percent Auto 0.2 % (0.2-1.2); Hematocrit 38.9 % (42.0-52.0); Hemoglobin 12.7 g/dL (14.0-18.0); Immature Granulocyte Absolute 0.07 K/mm3 (0.00-0.031); Immature Granulocyte Percent A 0.6 % (0-0.5); Lymphocytes Absolute Auto 0.76 K/mm3 (0.9-3.2); Lymphocytes Percent Auto 6.6 % (18.3-44.2); Mean Corpuscular HGB Conc 32.6 g/dl (32-36); Monocytes Absolute Auto 0.6 K/mm3 (0.1-0.6); Monocytes Percent Auto 4.9 % (2.6-8.5); Neutrophils Absolute Auto 10.1 K/mm3 (1.3-6.7); Neutrophils Percent Auto 87.7 % (45.5-73.1); Platelet Count Result 257 k/mm3 (150-375); Red Blood Count 3.85 M/mm3 (4.6-6.20); Red Cell Distribution Width 13.5 % (11.5-14.5); White Blood Count 11.5 K/mm3 (4.5-10.0)
[2022-04-23 18:27] LABS: Alanine Aminotransferase 21 U/L (6-50); Albumin Level 4.6 g/dL (3.5-5.1); Alkaline Phosphatase 158 U/L (38-126); Anion Gap 11 mmol/L (8-16); Aspartate Amino Transferase 41 U/L (17-59); Bilirubin,Total 1.1 mg/dL (0.2-1.3); Blood Urea Nitrogen 19 mg/dL (9-20); Calcium 9.5 mg/dL (8.4-10.2); Carbon Dioxide 27 mmol/L (22-30); Chloride 101 mmol/L (98-107); Estimated CRCL calculation 91 ml/min; Estimated Glomerular Filt Rate > 60; Glucose 135 mg/dL (65-110); Lipase 147 U/L (23-300); Potassium 4.3 mmol/L (3.4-5.0); Sodium 139 mmol/L (137-145)
[2022-04-23 22:17] VITALS: BP 138/92; PULSE 107; RESP 16; TEMP 37.1; O2SAT 100
[2022-04-23 22:35] LABS: Add Urine Microscopic? YES; Appearance Urine Turbid (Clear); Bilirubin Urine 3+ (Negative); Blood Urine Negative (Negative); Color Urine Brown (Yellow); Glucose Urine UA Negative (Negative); Ketones Urine 1+ mg/dL (Negative); Leukocyte Esterase Ur Negative LEU/UL (Negative); Mucus Urine Rare /lpf; Nitrate Urine Negative (Negative); Protein Urine Trace mg/dL (Negative); Specific Grav Ur 1.025 (1.001-1.035); Squamous Epithelial Cell Urine Rare /hpf (Few); WBC Urine 0-3 /hpf
--- NOTE | 2022-04-23 23:33 | ED.GENADULT ---
HPI - General Adult General Chief complaint: Abdominal Pain Stated complaint: Possible Bowel Obstruction Time Seen by Provider: 04/23/22 21:56 History of Present Illness HPI narrative: 61-year-old male with history of schizophrenia, autism, developmental delay, and previous small bowel obstruction presenting the emergency department for evaluation of nausea vomiting abdominal pain and lack of bowel movement for the last 2 days. Caregiver states that the patient has not had a bowel movement last 2 days. Patient had been complaining of abdominal pain. Patient initially had been thought to have inflammatory bowel disease but has had recent colonoscopies that did not show evidence of inflammatory bowel disease. Patient is no longer taking his steroids that have been prescribed for his inflammatory bowel disease. Related Data Home Medications Medication Instructions Recorded Confirmed fenofibrate 160 mg tablet 160 mg PO DAILY 10/15/20 01/22/22 folic acid 1 mg tablet 1 mg PO DAILY 10/15/20 01/22/22 levothyroxine 100 mcg tablet 100 mcg PO DAILY 10/15/20 01/22/22 linaclotide 145 mcg capsule 145 mcg PO DAILY 10/15/20 01/22/22 (Linzess) omega 3-uip-usr-fish oil 1,200 mg 1 cap PO BID 10/15/20 01/22/22 (144 mg-216 mg) capsule (Fish Oil) omeprazole 40 mg capsule,delayed 40 mg PO Q12H 10/15/20 01/22/22 release potassium chloride 10 mEq 10 meq PO DAILY 10/15/20 01/22/22 tablet,extended release(part/cryst) propranolol 20 mg tablet 20 mg PO QID 10/15/20 01/22/22 sennosides 8.6 mg-docusate sodium 2 tab-cap PO Q12H 10/15/20 01/22/22 50 mg tablet (Senokot-S) sulfasalazine 500 mg tablet 1,000 mg PO Q12H 10/15/20 01/22/22 vitamin B complex 1 tablet PO DAILY 10/15/20 01/22/22 acetaminophen 325 mg tablet 650 mg PO PRN PRN Pain 11/01/20 01/22/22 (Tylenol) multivitamin,tx-minerals 1 tablet PO 1700 11/01/20 01/22/22 diphenhydramine HCl 25 mg tablet 25 mg PO Q6H PRN Allergic Reaction 11/20/20 01/22/22 cetirizine 10 mg BYMOUTH DAILY PRN Allergy 03/20/21 01/22/22 Symptoms clozapine 100 mg tablet 100 mg PO Q12H 03/20/21 01/22/22 clozapine 100 mg tablet 200 mg PO 1700 03/20/21 01/22/22 divalproex 500 mg tablet,extended 1,000 mg PO Q12H 03/20/21 01/22/22 release 24 hr ergocalciferol (vitamin D2) 1,250 1,250 mcg PO WEEKLY 03/20/21 01/22/22 mcg (50,000 unit) capsule escitalopram oxalate 20 mg tablet 20 mg PO DAILY 03/20/21 01/22/22 Allergies Allergy/AdvReac Type Severity Reaction Status Date / Time No Known Allergies Allergy Verified 03/20/21 16:58 Review of Systems Review of Systems: ROS unobtainable: Yes unobtainable due to mental status PMFSH Past Medical History Medical History Autism spectrum disorder Chronic anemia (Unknown) Chronic megaloblastic anemia with high folate and B12 levels in 2018 GERD (gastroesophageal reflux disease) Gout Hypercholesterolemia (Unknown) Hypothyroidism (Unknown) Intellectual disability Peptic ulcer Schizophrenia Surgical History Surgical History History of appendectomy (~12/07/03) November 2003 - Incidental appendectomy during exploratory laparotomy History of exploratory laparotomy (~12/07/03) 11/30/2003 - 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 12/08/2003 - Taken back to surgery for a small bowel obstruction and had an adhesiolysis. Family History Family History Other Unknown family medical history Social History Social History Social History: He lives in a long-term in [place]. Lifelong nonsmoker. No alcohol or drug use. Primary care physician: Dr. Isael Lanier Code status: Full code Healthcare power of
[2022-04-24 01:36] LABS: SARS-CoV-2 RNA PCR Negative
[2022-04-24 02:54] VITALS: BP 132/77; PULSE 111; RESP 16; TEMP 37.4; O2SAT 99
[2022-04-24 03:11] VITALS: BP 142/75; PULSE 112; RESP 16; O2SAT 100
[2022-04-24 03:30] VITALS: BMI 20.2
[2022-04-24 06:00] VITALS: BP 125/66; PULSE 115; RESP 18; TEMP 36.3; O2SAT 97
--- NOTE | 2022-04-24 08:36 | PM.IMHP ---
H&P: HPI History of Present Illness Date/Time: 04/24/22 08:36 Chief Complaint: abd pain Narrative: 61-year-old male with history of schizophrenia autism developmental delay recently admitted and discharged for episode of small-bowel obstruction that resolved with conservative care. Patient was noted by caregiver to be complaining abdominal pain and he had not had a bowel movement in 2 days the patient was brought to the emergency room. He is again found on imaging to have a partial small-bowel obstruction and admission is recommended. At the time of my history and physical examination patient is calm and cooperative he has an NG tube to in place and is able to tell me all about his trip downstairs and the nice man who inserted the tube. Unfortunately, he is unable to give me any meaningful history prior to hospitalization. history is taken from review of medical record Review of Systems Review of Systems: ROS unobtainable: Yes unobtainable due to mental status PMFSH Past Medical History Medical History Autism spectrum disorder Chronic anemia (Unknown) Chronic megaloblastic anemia with high folate and B12 levels in 2018 GERD (gastroesophageal reflux disease) Gout Hypercholesterolemia (Unknown) Hypothyroidism (Unknown) Intellectual disability Peptic ulcer Schizophrenia Surgical History Surgical History History of appendectomy (~12/07/03) November 2003 - Incidental appendectomy during exploratory laparotomy History of exploratory laparotomy (~12/07/03) 11/30/2003 - 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 12/08/2003 - Taken back to surgery for a small bowel obstruction and had an adhesiolysis. Family History Family History Other Unknown family medical history Social History Social History Social History: He lives in a [facility] in [place]. Lifelong nonsmoker. No alcohol or drug use. Primary care physician: Dr. Isael Lanier Code status: Full code Healthcare power of assistant city attorney: Jose Manuel Sotomayor (father). Caregiver states that [facility] should be called for any consent at [phone]. Smoking status: Never smoker Alcohol intake: unknown Substance use: unknown Gender identity (if verbalized by the patient): Male Sexual Orientation (if Verbalized by the Patient): Straight or Heterosexual Spiritual care concerns: No Meds Home Medications and Allergies Home Medications Medication Instructions Recorded Confirmed Type fenofibrate 160 mg tablet 160 mg PO DAILY 10/15/20 04/24/22 History folic acid 1 mg tablet 1 mg PO DAILY 10/15/20 04/24/22 History levothyroxine 100 mcg tablet 100 mcg PO DAILY 10/15/20 04/24/22 History linaclotide 145 mcg capsule 145 mcg PO DAILY 10/15/20 04/24/22 History (Linzess) omega 4-dbs-ndr-fish oil 1,200 mg 1 cap PO BID 10/15/20 04/24/22 History (144 mg-216 mg) capsule (Fish Oil) omeprazole 40 mg capsule,delayed 40 mg PO Q12H 10/15/20 04/24/22 History release potassium chloride 10 mEq 10 meq PO DAILY 10/15/20 04/24/22 History tablet,extended release(part/cryst) propranolol 20 mg tablet 20 mg PO QID 10/15/20 04/24/22 History sennosides 8.6 mg-docusate sodium 2 tab-cap PO Q12H 10/15/20 04/24/22 History 50 mg tablet (Senokot-S) sulfasalazine 500 mg tablet 1,000 mg PO Q12H 10/15/20 04/24/22 History vitamin B complex 1 tablet PO DAILY 10/15/20 04/24/22 History polyethylene glycol 3350 17 gram 17 g PO DAILY #0 ea 10/18/20 04/24/22 Rx oral powder packet (Miralax) acetaminophen 325 mg tablet 650 mg PO PRN PRN Pain 11/01/20 04/24/22 History (Tylenol) multivitamin,tx-minerals 1 tablet PO
[2022-04-24] MEDS: SODIUM CHLORIDE 0.9% IV 1,000 ML 125 ML IV CONT ×2 (08:48→17:32)
--- NOTE | 2022-04-24 10:10 | PM.CNGS ---
Assessment and Plan Assessment and plan (1) Partial small bowel obstruction: Code(s): K56.600 - Partial intestinal obstruction, unspecified as to cause Status: Acute Assessment and Plan: The patient returns with a recurrent partial small bowel obstruction. Will initially treat conservatively with NG tube decompression, bowel rest, and IV fluids. Nursing staff had multiple failed attempts at placing the NG tube, therefore he is going down to Radiology for placement today. Will repeat an obstructive series tomorrow morning. Continue to monitor with serial abdominal exams and imaging. (2) Fecal impaction: Code(s): K56.41 - Fecal impaction Status: Acute Assessment and Plan: He deals with chronic constipation that seems to contribute to his recurrent issues. Will give a mineral oil enema and try stimulating from below. (3) Intellectual disability: Code(s): F79 - Unspecified intellectual disabilities Status: Acute (4) Schizophrenia: Code(s): F20.9 - Schizophrenia, unspecified Status: Acute (5) Autism spectrum disorder: Code(s): F84.0 - Autistic disorder Status: Acute Plan I have discussed the patient's case and plan of care with Dr. English. Thank you for allowing us to see the patient in consultation and we will continue to follow along with you. History of Present Illness Consult details Consult date: 04/24/22 Reason for consult: other (Small-bowel obstruction) Requesting physician: Cuba Sherman MD Narrative: This is a 61-year-old man who is well known to our service for multiple previous hospitalizations for small-bowel obstructions. He lives in a care home and has a history of schizophrenia and autism. He is a poor historian, therefore his history is obtained from review of the electronic medical record. He was brought into the ER last night apparently due to vomiting, abdominal pain, and constipation. There was concerned that he had not had a bowel movement in 2 days. In the ER, his CT scan of the abdomen and pelvis showed gastric distention with stable to slightly increased proximal to mid small bowel dilation, likely reflecting worsening chronic partial small bowel obstruction, interval resolution of ileal wall thickening, multifocal areas of short segment wall edema in the sigmoid, and fecal impaction. He was admitted to the hospitalist service. Our service has been consulted for the small-bowel obstruction. Per nursing, there were multiple failed attempts at placing an NG tube. He currently does not have an NG tube in place and is scheduled to go down to Radiology for NG tube placement today. On my exam, he denies any abdominal pain, nausea, or bloating at this time. He denies flatus. No other specific complaints currently. There is one BM documented since admission, but with questioning the nurse she reported him having a smear not a significant BM. His most recent admission for a small bowel obstruction was in January of 2022. Previously, he had a questionable history of IBD and has had further workup from GI that has all been negative. He had a normal MRE in 2018. He also had a normal colonoscopy with random colon biopsies in October of 2020 without any evidence of Crohn's disease. He then had a capsule endoscopy in November of 2020 that was also normal. 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 The appendix was found to be normal and he had an incidental appendectomy. He was then taken back to the OR 8 days postop for a small-bowel obstruction requiring adhesiolysis. Review of Systems Review of Systems: ROS unobtainable: Yes unobtainable due to mental status PMFSH Past Medical History Medical History Autism s
[2022-04-24 14:00] VITALS: BP 113/68; PULSE 95; RESP 22; TEMP 36.2; O2SAT 100
[2022-04-24 21:35] VITALS: BP 118/62; PULSE 92; RESP 24; TEMP 36.8; O2SAT 100
[2022-04-24] MEDS: HEPARIN SODIUM 5,000 UNITS/ML VIAL 5000 UNITS SUB-Q (22:20)
--- NOTE | 2022-04-25 00:26 | PC.NURSE ---
Pt has been resting comfortably. Pt had NG placed today. Pt states that he will be leaving friday. Pt has very pleasant demeanor. Will continue to monitor pt.
[2022-04-25] MEDS: SODIUM CHLORIDE 0.9% IV 1,000 ML 125 ML IV CONT ×3 (01:32→18:33)
[2022-04-25 06:00] VITALS: BP 129/79; PULSE 106; RESP 20; TEMP 36.6; O2SAT 97
[2022-04-25] MEDS: LEVOTHYROXINE SODIUM INJ 100 MCG/5 ML VIAL 50 MCG IV PUSH (06:07)
[2022-04-25] MEDS: HEPARIN SODIUM 5,000 UNITS/ML VIAL 5000 UNITS SUB-Q ×3 (06:13→22:50)
--- NOTE | 2022-04-25 10:30 | PM.PNGS ---
Progress Note: A&P Assessment and Plan (1) Partial small bowel obstruction: Code(s): K56.600 - Partial intestinal obstruction, unspecified as to cause Status: Acute Assessment and Plan: Obstructive series still shows dilated small bowel and fecal impaction. NG tube accidentally came out. Nursing replacing NG and will get a KUB to confirm placement. Continue bowel rest and IV fluids Will give a fleets enema today Repeat x-ray tomorrow (2) Fecal impaction: Code(s): K56.41 - Fecal impaction Status: Acute (3) Intellectual disability: Code(s): F79 - Unspecified intellectual disabilities Status: Acute (4) Schizophrenia: Code(s): F20.9 - Schizophrenia, unspecified Status: Acute (5) Autism spectrum disorder: Code(s): F84.0 - Autistic disorder Status: Acute Plan I have discussed the patient's case and plan of care with Dr. English. Subjective Subjective Date/Time Seen: 04/25/22 10:00 Patient reports: no new complaints, no flatus, no bowel movement and afebrile Interval history: Patient seen and examined. Denies abdominal pain or nausea. Per nursing, he tolerated the mineral oil enema yesterday but has not had a bowel movement. On my exam, his NG tube was also slipping through the nasal tape and slightly withdrawn from where it was previously placed. When trying to readvance, the patient began gagging and the NG tube came up and coiled in his mouth. This was then subsequently removed and the nurse was placing another NG tube at this time. Review of Systems Review of Systems: ROS unobtainable: Yes unobtainable due to medical condition Exam Const: General: no acute distress and alert Orientation/consciousness: patient oriented x3 GI: Inspection: other (Mildly distended, improved) GI Palp: Yes Soft to palpation, No Tenderness to palpation present (GI), No Guarding due to palpation present (GI) and No Rebound tenderness present Percussion: Yes normal to percussion Auscultation: normal bowel sounds Rectal Exam: visual inspection normal, normal sphincter tone, No Abnormal stool present, No Lesions present (GI), No mass and other (No stool palpable with digital exam that would require disimpaction) Extrem: General: normal to inspection Psych: Insight: Limited insight present (Psych) Judgement: Limited judgement present (Psych) Objective Data Vital Signs Vital Signs: Vital Signs - 24 hr 04/24/22 14:00 04/24/22 21:35 04/24/22 22:20 Temperature 97.2 F L 98.2 F Pulse Rate 95 92 Respiratory Rate 22 H 24 H Blood Pressure 113/68 118/62 Pulse Oximetry 100 100 Oxygen Delivery Room Air 04/25/22 06:00 Temperature 97.9 F Pulse Rate 106 H Respiratory Rate 20 Blood Pressure 129/79 Pulse Oximetry 97 Oxygen Delivery Intake/Output Intake/Output: Intake & Output 04/22/22 04/23/22 04/24/22 04/25/22 23:59 23:59 23:59 23:59 Intake Total 1100 2000 Output Total 800 750 Balance 300 1250 Meds/Results Medications: Active Medications Generic Name Dose Route Start Last Admin Trade Name Freq PRN Reason Stop Dose Admin Bisacodyl 10 mg 04/24/22 10:24 Bisacodyl 10 Mg Suppository RECTAL QAM PRN Constipation Heparin Sodium (Porcine) 5,000 units 04/24/22 22:00 04/25/22 06:13 Heparin Sodium 5,000 Units/Ml Vial SUB-Q 5,000 units Q8HR JULIANO Administration Sodium Chloride 1,000 mls @ 125 mls/hr 04/24/22 00:25 04/25/22 09:59 Normal Saline Iv IV CONT 125 mls/hr .Q8H JULIANO Administration Levothyroxine Sodium 50 mcg 04/25/22 06:30 04/25/22 06:07 Levothyroxine Sodium Inj 100 Mcg/5 Ml Vial IV PUSH 50 mcg DAILY@0630 JULIANO Administration Morphine Sulfate 4 mg 04/24/22 00:23 Morphine Sulfate (*Crx) 4 Mg/Ml Inj IV PUSH Q2H PRN Pain Rated 7-10 Ondansetron HCl 4 mg 04/24/22 00:23 Ondansetron Inj 4 Mg/2 Ml Vial IV PUSH Q4H PRN Nausea Radiology Results: ITS Im
[2022-04-25 11:37] LABS: Basophils Percent Auto 0.3 % (0.2-1.2); Hematocrit 35.6 % (42.0-52.0); Hemoglobin 11.3 g/dL (14.0-18.0); Immature Granulocyte Absolute 0.02 K/mm3 (0.00-0.031); Immature Granulocyte Percent A 0.3 % (0-0.5); Lymphocytes Absolute Auto 1.09 K/mm3 (0.9-3.2); Mean Corpuscular HGB Conc 31.7 g/dl (32-36); Mean Corpuscular Hemoglobin 32.8 pg (26-34); Mean Corpuscular Volume 103.5 fl (80-100); Mean Platelet Volume 9.8 fl (7.4-10.4); Monocytes Absolute Auto 0.7 K/mm3 (0.1-0.6); Monocytes Percent Auto 10.1 % (2.6-8.5); Neutrophils Absolute Auto 5.4 K/mm3 (1.3-6.7); Neutrophils Percent Auto 74.3 % (45.5-73.1); Platelet Count Result 179 k/mm3 (150-375); Red Blood Count 3.44 M/mm3 (4.6-6.20); Red Cell Distribution Width 13.4 % (11.5-14.5); White Blood Count 7.3 K/mm3 (4.5-10.0)
[2022-04-25 12:24] LABS: Anion Gap 13 mmol/L (8-16); Blood Urea Nitrogen 20 mg/dL (9-20); Calcium 8.2 mg/dL (8.4-10.2); Carbon Dioxide 26 mmol/L (22-30); Chloride 106 mmol/L (98-107); Estimated CRCL calculation 107 ml/min; Estimated Glomerular Filt Rate > 60; Glucose 79 mg/dL (65-110); Potassium 3.6 mmol/L (3.4-5.0); Sodium 145 mmol/L (137-145)
[2022-04-25] MEDS: BISACODYL 10 MG SUPPOSITORY RECTAL (13:29)
[2022-04-25 14:00] VITALS: BP 120/74; PULSE 97; RESP 18; TEMP 36.7; O2SAT 98
--- NOTE | 2022-04-25 19:57 | PM.IMPN ---
Progress Note: A&P Assessment and Plan (1) Fecal impaction: Code(s): K56.41 - Fecal impaction Status: Acute (2) Partial small bowel obstruction: Code(s): K56.600 - Partial intestinal obstruction, unspecified as to cause Status: Acute (3) Intellectual disability: Code(s): F79 - Unspecified intellectual disabilities Status: Acute (4) Partial bowel obstruction: Qualifiers: Intestinal obstruction type: unspecified Qualified Code(s): K56.600 - Partial intestinal obstruction, unspecified as to cause Code(s): K56.600 - Partial intestinal obstruction, unspecified as to cause Status: Acute (5) Schizophrenia: Code(s): F20.9 - Schizophrenia, unspecified Status: Acute (6) Autism spectrum disorder: Code(s): F84.0 - Autistic disorder Status: Acute (7) Hypothyroidism: Onset Date: Unknown Code(s): E03.9 - Hypothyroidism, unspecified Status: Acute (8) Chronic anemia: Onset Date: Unknown Code(s): D64.9 - Anemia, unspecified Status: Chronic Plan 04/24/22 admit to med surge n.p.o. NGT to the LIS Morphine p.r.n. for pain NS 125 cc/hour Zofran IV p.r.n. Levothyroxine IV daily until medications can be administered mineral oil enema for fecal impaction continue home medications when diet advanced Consult surgery expert recommendations appreciated Anticipate length of stay greater than 2 days VTEP 04/25/22 remains NPO and home meds on hold ativan PRN for agitation cont IVFs defer to surgey if they want to change to LR cont conservative tx fleet enemas surg recs appreciated Subjective Date/time seen: 04/25/22 19:57 pt doing ok wants to eat when he gets home on Friday but would like to drink something now pt reassured Review of Systems Review of Systems: ROS unobtainable: Yes unobtainable due to mental status Exam Const: Other: anxious but cooperative HENMT: Face/Nose/Sinus: Normal nares present and no epistaxis Mouth: Yes moist mucous membranes Eyes: General: appearance normal, both eyes and all related structures Sclera: sclerae normal EOM: EOMs intact bilaterally Neck: Neck: supple and no JVD Resp: Effort & Inspection: normal respiratory effort Auscultation: clear to auscultation bilaterally Cardio: Rate: tachycardic Rhythm: regular rhythm GI: Inspection: non-distended GI Palp: Yes Soft to palpation and No Guarding due to palpation present (GI) Skin: General skin exam: No lesion noted and No rashes noted Lesions: no lesions noted Rashes: no rashes noted Neuro: Speech: normal speech Motor exam (neuro): Normal motor muscle tone present throughout Extrem: General: normal to inspection Psych: Other: mood and affect congruent Objective Data Vital Signs Vital Signs: Vital Signs - 24 hr 04/24/22 21:35 04/24/22 22:20 04/25/22 06:00 Temperature 98.2 F 97.9 F Pulse Rate 92 106 H Respiratory Rate 24 H 20 Blood Pressure 118/62 129/79 Pulse Oximetry 100 97 Oxygen Delivery Room Air 04/25/22 09:50 04/25/22 14:00 Temperature 98.1 F Pulse Rate 97 Respiratory Rate 18 Blood Pressure 120/74 Pulse Oximetry 98 Oxygen Delivery Room Air Intake/Output Intake/Output: Intake & Output 04/22/22 04/23/22 04/24/22 04/25/22 23:59 23:59 23:59 23:59 Intake Total 1100 3000 Output Total 800 1400 Balance 300 1600 Meds/Results Medications: Active Medications Generic Name Dose Route Start Last Admin Trade Name Freq PRN Reason Stop Dose Admin Bisacodyl 10 mg 04/24/22 10:24 Bisacodyl 10 Mg Suppository RECTAL QAM PRN Constipation Heparin Sodium (Porcine) 5,000 units 04/24/22 22:00 04/25/22 13:30 Heparin Sodium 5,000 Units/Ml Vial SUB-Q 5,000 units Q8HR JULIANO Administration Sodium Chloride 1,000 mls @ 125 mls/hr 04/24/22 00:25 04/25/22 18:33 Normal Saline Iv IV CONT 125 mls/hr .Q8H JULIANO Administration
[2022-04-25 22:00] VITALS: BP 123/62; PULSE 136; RESP 16; TEMP 35.7; O2SAT 99
[2022-04-26] MEDS: SODIUM CHLORIDE 0.9% IV 1,000 ML 125 ML IV CONT ×2 (03:10→14:45)
[2022-04-26 06:00] VITALS: BP 142/48; PULSE 75; RESP 19; TEMP 35.8; O2SAT 100
[2022-04-26] MEDS: HEPARIN SODIUM 5,000 UNITS/ML VIAL 5000 UNITS SUB-Q ×3 (06:13→21:07)
[2022-04-26] MEDS: LEVOTHYROXINE SODIUM INJ 100 MCG/5 ML VIAL 50 MCG IV PUSH (06:13)
[2022-04-26 06:14] LABS: Hematocrit 32.4 % (42.0-52.0); Hemoglobin 10.6 g/dL (14.0-18.0); Mean Corpuscular HGB Conc 32.7 g/dl (32-36); Mean Corpuscular Hemoglobin 34.6 pg (26-34); Mean Corpuscular Volume 105.9 fl (80-100); Mean Platelet Volume 10.3 fl (7.4-10.4); Platelet Count Result 174 k/mm3 (150-375); Red Blood Count 3.06 M/mm3 (4.6-6.20); Red Cell Distribution Width 13.4 % (11.5-14.5); White Blood Count 7.2 K/mm3 (4.5-10.0)
[2022-04-26 06:37] LABS: Anion Gap 11 mmol/L (8-16); Blood Urea Nitrogen 14 mg/dL (9-20); Calcium 8.1 mg/dL (8.4-10.2); Carbon Dioxide 22 mmol/L (22-30); Chloride 109 mmol/L (98-107); Estimated CRCL calculation 145 ml/min; Estimated Glomerular Filt Rate > 60; Glucose 68 mg/dL (65-110); Potassium 3.7 mmol/L (3.4-5.0); Sodium 142 mmol/L (137-145)
[2022-04-26 14:00] VITALS: BP 146/53; PULSE 82; RESP 16; TEMP 36.6; O2SAT 100
--- NOTE | 2022-04-26 17:44 | PM.IMPN ---
Progress Note: A&P Assessment and Plan (1) Fecal impaction: Code(s): K56.41 - Fecal impaction Status: Acute (2) Partial small bowel obstruction: Code(s): K56.600 - Partial intestinal obstruction, unspecified as to cause Status: Acute (3) Intellectual disability: Code(s): F79 - Unspecified intellectual disabilities Status: Acute (4) Partial bowel obstruction: Qualifiers: Intestinal obstruction type: unspecified Qualified Code(s): K56.600 - Partial intestinal obstruction, unspecified as to cause Code(s): K56.600 - Partial intestinal obstruction, unspecified as to cause Status: Acute (5) Schizophrenia: Code(s): F20.9 - Schizophrenia, unspecified Status: Acute (6) Autism spectrum disorder: Code(s): F84.0 - Autistic disorder Status: Acute (7) Hypothyroidism: Onset Date: Unknown Code(s): E03.9 - Hypothyroidism, unspecified Status: Acute (8) Chronic anemia: Onset Date: Unknown Code(s): D64.9 - Anemia, unspecified Status: Chronic Plan 04/24/22 admit to med surge n.p.o. NGT to the LIS Morphine p.r.n. for pain NS 125 cc/hour Zofran IV p.r.n. Levothyroxine IV daily until medications can be administered mineral oil enema for fecal impaction continue home medications when diet advanced Consult surgery expert recommendations appreciated Anticipate length of stay greater than 2 days VTEP 04/25/22 remains NPO and home meds on hold ativan PRN for agitation cont IVFs defer to surgey if they want to change to LR cont conservative tx fleet enemas surg recs appreciated 04/26/2022 Small-bowel follow-through series with ileus versus partial small-bowel obstruction with transition point stool x [address] pt NPO becoming more agitated with results of SBS will restart psych medications via NGT w intermittent clamping cont supportive care defer to surgery ongoign POC Subjective Date/time seen: 04/26/22 17:44 patient doing okay still with NG tube had small bowel series today produced 2 large bowel movements imaging still with transition point Review of Systems Review of Systems: ROS unobtainable: Yes unobtainable due to mental status Exam Narrative: GEN: NAD, AAOx1, cooperative HEENT: NCAT, MMM, EOMI, NGT to Luis Neck: no JVD Heart: S1S2 RRR Lungs: CTA B/l Abd: soft, NT, ND, bowel sounds normoactive Ext: moves all, no cyanosis, no clubbing, no edema Neuro: poor cognition, cranial nerves intact, no focal motor deficits appreciated Psych: mood and affect congruent slightly agitated Objective Data Vital Signs Vital Signs: Vital Signs - 24 hr 04/25/22 20:00 04/25/22 22:00 04/26/22 06:00 Temperature 96.2 F L 96.4 F L Pulse Rate 136 H 75 Respiratory Rate 16 19 Blood Pressure 123/62 142/48 H Pulse Oximetry 99 100 Oxygen Delivery Room Air 04/26/22 08:55 04/26/22 14:00 Temperature 98 F Pulse Rate 82 Respiratory Rate 16 Blood Pressure 146/53 H Pulse Oximetry 100 Oxygen Delivery Room Air Intake/Output Intake/Output: Intake & Output 04/23/22 04/24/22 04/25/22 04/26/22 23:59 23:59 23:59 23:59 Intake Total 1100 3000 2000 Output Total 800 1400 1300 Balance 300 1600 700 Meds/Results Medications: Active Medications Generic Name Dose Route Start Last Admin Trade Name Freq PRN Reason Stop Dose Admin Bisacodyl 10 mg 04/24/22 10:24 Bisacodyl 10 Mg Suppository RECTAL QAM PRN Constipation Divalproex Sodium 1,000 mg 04/26/22 21:00 Divalproex Sodium Er 500 Mg Tab.24h PO Q12HR [facility] Escitalopram Oxalate 20 mg 04/27/22 09:00 Escitalopram Oxalate 10 Mg Tablet PO DAILY [facility] Heparin Sodium (Porcine) 5,000 units 04/24/22 22:00 04/26/22 14:42 Heparin Sodium 5,000 Units/Ml Vial SUB-Q 5,000 units Q8HR [facility] Administration Sodium Chloride 1,000 mls @ 125 mls/hr 04/24/22 00:25 04/26/22 14:
--- NOTE | 2022-04-26 17:49 | PHAR ---
PT'S HOME MED CLOZAPINE 100 MG TABS VERIFIED BY PHARMACY
--- NOTE | 2022-04-26 19:36 | PM.PNGS ---
Progress Note: A&P Assessment and Plan (1) Partial small bowel obstruction: Code(s): K56.600 - Partial intestinal obstruction, unspecified as to cause Status: Acute Assessment and Plan: Small-bowel follow-through showed mildly dilated bowel but contrast made it to colon. Patient is moving bowels and feeling better. Will plan to remove NG tube this evening and start clear liquids. Will slowly advance diet over the next couple days. Patient may need to stay on a regimen stool softeners and laxatives to prevent fecal impactions and recurrent obstructions in the future. (2) Fecal impaction: Code(s): K56.41 - Fecal impaction Status: Acute (3) Intellectual disability: Code(s): F79 - Unspecified intellectual disabilities Status: Acute (4) Schizophrenia: Code(s): F20.9 - Schizophrenia, unspecified Status: Acute (5) Autism spectrum disorder: Code(s): F84.0 - Autistic disorder Status: Acute Plan I have discussed the patient's case and plan of care with Dr. English. Subjective Subjective Date/Time Seen: 04/26/22 19:36 Interval history: Bowels moving. No abdominal pain. No nausea or vomiting. Exam GI: Inspection: non-distended GI Palp: Yes Soft to palpation, No Tenderness to palpation present (GI) and No Guarding due to palpation present (GI) Percussion: Yes normal to percussion Auscultation: normal bowel sounds Objective Data Vital Signs Vital Signs: Vital Signs - 24 hr 04/25/22 20:00 04/25/22 22:00 04/26/22 06:00 Temperature 35.7 C L 35.8 C L Pulse Rate 136 H 75 Respiratory Rate 16 19 Blood Pressure 123/62 142/48 H Pulse Oximetry 99 100 Oxygen Delivery Room Air 04/26/22 08:55 04/26/22 14:00 Temperature 36.6 C Pulse Rate 82 Respiratory Rate 16 Blood Pressure 146/53 H Pulse Oximetry 100 Oxygen Delivery Room Air Intake/Output Intake/Output: Intake & Output 04/23/22 04/24/22 04/25/22 04/26/22 23:59 23:59 23:59 23:59 Intake Total 1100 3000 2000 Output Total 800 1400 1300 Balance 300 1600 700 Meds/Results Medications: Active Medications Generic Name Dose Route Start Last Admin Trade Name Freq PRN Reason Stop Dose Admin Bisacodyl 10 mg 04/24/22 10:24 Bisacodyl 10 Mg Suppository RECTAL QAM PRN Constipation Divalproex Sodium 1,000 mg 04/26/22 21:00 Divalproex Sodium Er 500 Mg Tab.24h PO Q12HR [facility] Escitalopram Oxalate 20 mg 04/27/22 09:00 Escitalopram Oxalate 10 Mg Tablet PO DAILY [facility] Heparin Sodium (Porcine) 5,000 units 04/24/22 22:00 04/26/22 14:42 Heparin Sodium 5,000 Units/Ml Vial SUB-Q 5,000 units Q8HR [facility] Administration Home Med 1 each 04/26/22 21:00 Home Medication: (Clozapine 100 Mg Tablet) PO 05/26/22 20:59 Q12HR [facility] Home Med 2 each 04/26/22 17:55 04/26/22 18:32 Home Medication: (Clozapine 100 Mg Tablet) PO 05/26/22 17:54 2 each 1700 [facility] Administration Sodium Chloride 1,000 mls @ 125 mls/hr 04/24/22 00:25 04/26/22 14:45 Normal Saline Iv IV CONT 125 mls/hr .Q8H JULIANO Administration Levothyroxine Sodium 50 mcg 04/25/22 06:30 04/26/22 06:13 Levothyroxine Sodium Inj 100 Mcg/5 Ml Vial IV PUSH 50 mcg DAILY@0630 [facility] Administration Lorazepam 0.5 mg 04/25/22 20:00 Lorazepam Inj (*Crx) 2 Mg/Ml Vial IV PUSH Q12H PRN Anxiety Morphine Sulfate 4 mg 04/24/22 00:23 Morphine Sulfate (*Crx) 4 Mg/Ml Inj IV PUSH Q2H PRN Pain Rated 7-10 Ondansetron HCl 4 mg 04/24/22 00:23 Ondansetron Inj 4 Mg/2 Ml Vial IV PUSH Q4H PRN Nausea Radiology Results: ITS Impressions Abdomen/Pelvis CT 04/23/22 22:31 IMPRESSION: Similar degree of gastric distention with stable to slightly increased proximal to mid small bowel dilation, likely reflecting worsening chronic partial small bowel obstruction. Interval resolution of the distal ileal bowel wall thickening. Slightly
[2022-04-26] MEDS: DIVALPROEX SODIUM ER 500 MG TAB.24H 1000 MG PO (21:07)
[2022-04-26] MEDS: SODIUM CHLORIDE 0.9% IV 1,000 ML 50 ML IV CONT (21:07)
[2022-04-26 22:00] VITALS: BP 133/57; PULSE 100; RESP 20; TEMP 36.3; O2SAT 101
[2022-04-27] MEDS: SODIUM CHLORIDE 0.9% IV 1,000 ML 50 ML IV CONT (04:12)
[2022-04-27] MEDS: LEVOTHYROXINE SODIUM INJ 100 MCG/5 ML VIAL 50 MCG IV PUSH (05:37)
[2022-04-27] MEDS: HEPARIN SODIUM 5,000 UNITS/ML VIAL 5000 UNITS SUB-Q ×3 (05:37→21:07)
[2022-04-27 06:00] VITALS: BP 131/74; PULSE 100; RESP 18; TEMP 36.5; O2SAT 100
[2022-04-27 06:10] LABS: Basophils Percent Auto 0.4 % (0.2-1.2); Eosinophils Percent Auto 0.2 % (0-4.4); Hematocrit 33.3 % (42.0-52.0); Hemoglobin 10.8 g/dL (14.0-18.0); Immature Granulocyte Absolute 0.04 K/mm3 (0.00-0.031); Immature Granulocyte Percent A 0.8 % (0-0.5); Lymphocytes Absolute Auto 1.21 K/mm3 (0.9-3.2); Lymphocytes Percent Auto 24.3 % (18.3-44.2); Mean Corpuscular HGB Conc 32.4 g/dl (32-36); Mean Corpuscular Hemoglobin 34.1 pg (26-34); Monocytes Absolute Auto 0.5 K/mm3 (0.1-0.6); Monocytes Percent Auto 9.9 % (2.6-8.5); Neutrophils Absolute Auto 3.2 K/mm3 (1.3-6.7); Neutrophils Percent Auto 64.4 % (45.5-73.1); Platelet Count Result 171 k/mm3 (150-375); Red Blood Count 3.17 M/mm3 (4.6-6.20); Red Cell Distribution Width 13.2 % (11.5-14.5)
[2022-04-27 06:26] LABS: Anion Gap 11 mmol/L (8-16); Blood Urea Nitrogen 8 mg/dL (9-20); Calcium 8.1 mg/dL (8.4-10.2); Carbon Dioxide 24 mmol/L (22-30); Chloride 110 mmol/L (98-107); Estimated CRCL calculation 145 ml/min; Estimated Glomerular Filt Rate > 60; Glucose 74 mg/dL (65-110); Magnesium 1.8 mg/dL (1.6-2.3); Phosphorus 2.9 mg/dL (2.5-4.5); Potassium 3.1 mmol/L (3.4-5.0); Sodium 145 mmol/L (137-145)
[2022-04-27] MEDS: ESCITALOPRAM OXALATE 10 MG TABLET 20 MG PO (08:50)
[2022-04-27] MEDS: DIVALPROEX SODIUM ER 500 MG TAB.24H 1000 MG PO ×2 (08:51→21:04)
--- NOTE | 2022-04-27 10:35 | PM.PNGS ---
Progress Note: A&P Assessment and Plan (1) Partial small bowel obstruction: Code(s): K56.600 - Partial intestinal obstruction, unspecified as to cause Status: Acute Assessment and Plan: Advance diet as tolerating Continue bowel regimen to prevent constipation/impaction. Will start MiraLax daily. (2) Fecal impaction: Code(s): K56.41 - Fecal impaction Status: Acute (3) Intellectual disability: Code(s): F79 - Unspecified intellectual disabilities Status: Acute (4) Schizophrenia: Code(s): F20.9 - Schizophrenia, unspecified Status: Acute (5) Autism spectrum disorder: Code(s): F84.0 - Autistic disorder Status: Acute Subjective Subjective Date/Time Seen: 04/27/22 10:35 Interval history: feeling better. Tolerating clear liquids. Hungry. Bowels are moving. Exam GI: Inspection: non-distended GI Palp: Yes Soft to palpation, No Tenderness to palpation present (GI), No Guarding due to palpation present (GI) and No Rebound tenderness present Percussion: Yes normal to percussion Auscultation: normal bowel sounds Objective Data Vital Signs Vital Signs: Vital Signs - 24 hr 04/26/22 14:00 04/26/22 20:00 04/26/22 22:00 Temperature 36.6 C 36.3 C L Pulse Rate 82 100 Respiratory Rate 16 20 Blood Pressure 146/53 H 133/57 L Pulse Oximetry 100 101 H Oxygen Delivery Room Air 04/27/22 06:00 04/27/22 08:50 Temperature 36.5 C Pulse Rate 100 Respiratory Rate 18 Blood Pressure 131/74 Pulse Oximetry 100 Oxygen Delivery Room Air Intake/Output Intake/Output: Intake & Output 04/24/22 04/25/22 04/26/22 04/27/22 23:59 23:59 23:59 23:59 Intake Total 1100 3000 3000 1970 Output Total 800 1400 1300 Balance 300 1600 1700 1969 Meds/Results Medications: Active Medications Generic Name Dose Route Start Last Admin Trade Name Freq PRN Reason Stop Dose Admin Bisacodyl 10 mg 04/24/22 10:24 Bisacodyl 10 Mg Suppository RECTAL QAM PRN Constipation Divalproex Sodium 1,000 mg 04/26/22 21:00 04/27/22 08:51 Divalproex Sodium Er 500 Mg Tab.24h PO 1,000 mg Q12HR JULIANO Administration Escitalopram Oxalate 20 mg 04/27/22 09:00 04/27/22 08:50 Escitalopram Oxalate 10 Mg Tablet PO 20 mg DAILY JULIANO Administration Heparin Sodium (Porcine) 5,000 units 04/24/22 22:00 04/27/22 05:37 Heparin Sodium 5,000 Units/Ml Vial SUB-Q 5,000 units Q8HR JULIANO Administration Home Med 1 each 04/26/22 21:00 04/27/22 08:54 Home Medication: (Clozapine 100 Mg Tablet) PO 05/26/22 20:59 1 each Q12HR JULIANO Administration Home Med 2 each 04/26/22 17:55 04/26/22 18:32 Home Medication: (Clozapine 100 Mg Tablet) PO 05/26/22 17:54 2 each 1700 JULIANO Administration Levothyroxine Sodium 50 mcg 04/25/22 06:30 04/27/22 05:37 Levothyroxine Sodium Inj 100 Mcg/5 Ml Vial IV PUSH 50 mcg DAILY@0630 [facility] Administration Lorazepam 0.5 mg 04/25/22 20:00 Lorazepam Inj (*Crx) 2 Mg/Ml Vial IV PUSH Q12H PRN Anxiety Morphine Sulfate 4 mg 04/24/22 00:23 Morphine Sulfate (*Crx) 4 Mg/Ml Inj IV PUSH Q2H PRN Pain Rated 7-10 Ondansetron HCl 4 mg 04/24/22 00:23 Ondansetron Inj 4 Mg/2 Ml Vial IV PUSH Q4H PRN Nausea Polyethylene Glycol 17 gm 04/27/22 10:35 Polyethylene Glycol 3350 17 Gm Powd.Pack PO QAM [facility] Radiology Results: ITS Impressions Abdomen/Pelvis CT 04/23/22 22:31 IMPRESSION: Similar degree of gastric distention with stable to slightly increased proximal to mid small bowel dilation, likely reflecting worsening chronic partial small bowel obstruction. Interval resolution of the distal ileal bowel wall thickening. Slightly increased multifocal areas of short segment wall edema in the sigmoid may represent active disease. Fecal impaction. NG Tube Placement 04/24/22 12:20 IMPRESSION: 1. Fluoroscopy guided nasogastric tube placement with tub
[2022-04-27 14:00] VITALS: BP 124/73; PULSE 96; RESP 20; TEMP 37; O2SAT 99
[2022-04-27] MEDS: PSYLLIUM POWDER PACKET 1 PACKET PO (14:18)
[2022-04-27] MEDS: polyethylene glycoL 3350 17 GM POWD.PACK PO (14:18)
--- NOTE | 2022-04-27 17:19 | PM.IMPN ---
Progress Note: A&P Assessment and Plan (1) Fecal impaction: Code(s): K56.41 - Fecal impaction Status: Acute (2) Partial small bowel obstruction: Code(s): K56.600 - Partial intestinal obstruction, unspecified as to cause Status: Acute (3) Intellectual disability: Code(s): F79 - Unspecified intellectual disabilities Status: Acute (4) Partial bowel obstruction: Qualifiers: Intestinal obstruction type: unspecified Qualified Code(s): K56.600 - Partial intestinal obstruction, unspecified as to cause Code(s): K56.600 - Partial intestinal obstruction, unspecified as to cause Status: Acute (5) Schizophrenia: Code(s): F20.9 - Schizophrenia, unspecified Status: Acute (6) Autism spectrum disorder: Code(s): F84.0 - Autistic disorder Status: Acute (7) Hypothyroidism: Onset Date: Unknown Code(s): E03.9 - Hypothyroidism, unspecified Status: Acute (8) Chronic anemia: Onset Date: Unknown Code(s): D64.9 - Anemia, unspecified Status: Chronic Plan 04/24/22 admit to med surge n.p.o. NGT to the LIS Morphine p.r.n. for pain NS 125 cc/hour Zofran IV p.r.n. Levothyroxine IV daily until medications can be administered mineral oil enema for fecal impaction continue home medications when diet advanced Consult surgery expert recommendations appreciated Anticipate length of stay greater than 2 days VTEP 04/25/22 remains NPO and home meds on hold ativan PRN for agitation cont IVFs defer to surgery if they want to change to LR cont conservative tx fleet enemas surg recs appreciated 04/26/2022 Small-bowel follow-through series with ileus versus partial small-bowel obstruction with transition point stool x [address] pt NPO becoming more agitated with results of SBS will restart psych medications via NGT w intermittent clamping cont supportive care defer to surgery ongoing POC 04/27/22 CLD advance as tolerated cont home medications (some held to reduce polypharmacy) improved w psych meds re-initiated cont current care possible dc in 24 hrs Subjective Date/time seen: 04/27/22 17:19 pt has had NGT since yesterday afternoon and was started on trial of clears he is nontender and nondistended on physical exam Review of Systems Review of Systems: ROS unobtainable: Yes unobtainable due to medical condition Exam Narrative: GEN: NAD, AAOx1, cooperative, resting at time of my exam HEENT: NCAT, MMM, EOMI Neck: no JVD Abd: soft, NT, ND, bowel sounds normoactive Ext: moves all, no cyanosis, no clubbing, no edema Neuro: poor cognition, cranial nerves intact, no focal motor deficits appreciated Objective Data Vital Signs Vital Signs: Vital Signs - 24 hr 04/26/22 20:00 04/26/22 22:00 04/27/22 06:00 Temperature 97.3 F L 97.7 F Pulse Rate 100 100 Respiratory Rate 20 18 Blood Pressure 133/57 L 131/74 Pulse Oximetry 101 H 100 Oxygen Delivery Room Air 04/27/22 08:50 04/27/22 14:00 Temperature 98.6 F Pulse Rate 96 Respiratory Rate 20 Blood Pressure 124/73 Pulse Oximetry 99 Oxygen Delivery Room Air Intake/Output Intake/Output: Intake & Output 04/24/22 04/25/22 04/26/22 04/27/22 23:59 23:59 23:59 23:59 Intake Total 1100 3000 3000 3029 Output Total 800 1400 1300 Balance 300 1600 1700 3029 Meds/Results Medications: Active Medications Generic Name Dose Route Start Last Admin Trade Name Freq PRN Reason Stop Dose Admin Bisacodyl 10 mg 04/24/22 10:24 Bisacodyl 10 Mg Suppository RECTAL QAM PRN Constipation Divalproex Sodium 1,000 mg 04/26/22 21:00 04/27/22 08:51 Divalproex Sodium Er 500 Mg Tab.24h PO 1,000 mg Q12HR JULIANO Administration Escitalopram Oxalate 20 mg 04/27/22 09:00 04/27/22 08:50 Escitalopram Oxalate 10 Mg Tablet PO 20 mg DAILY JULIANO Administration Heparin Sodium (Porcine) 5,000 units
[2022-04-27] MEDS: POTASSIUM CHLORIDE 20 MEQ TABLET 40 MEQ PO (18:41)
[2022-04-27] MEDS: SENNA/DOCUSATE SODIUM TABLET 2 TAB PO (21:05)
[2022-04-27 21:06] VITALS: PULSE 90
[2022-04-27] MEDS: PANTOPRAZOLE 40 MG TABLET PO (21:06)
[2022-04-27] MEDS: PROPRANOLOL HCL 20 MG TABLET PO (21:06)
[2022-04-27] MEDS: sulfaSALAzine 500 MG TABLET 1000 MG PO (21:06)
[2022-04-27 22:00] VITALS: BP 130/83; PULSE 113; RESP 20; TEMP 36.5; O2SAT 99
[2022-04-28] MEDS: HEPARIN SODIUM 5,000 UNITS/ML VIAL 5000 UNITS SUB-Q ×2 (05:45→13:05)
[2022-04-28] MEDS: LEVOTHYROXINE SODIUM 100 MCG TABLET PO (05:46)
[2022-04-28 06:00] VITALS: BP 146/89; PULSE 108; RESP 20; TEMP 35.8; O2SAT 100
[2022-04-28] MEDS: ESCITALOPRAM OXALATE 10 MG TABLET 20 MG PO (09:41)
[2022-04-28] MEDS: polyethylene glycoL 3350 17 GM POWD.PACK PO (09:41)
[2022-04-28] MEDS: LORATADINE 10 MG TABLET BY MOUTH (09:42)
[2022-04-28] MEDS: FOLIC ACID 1 MG TABLET PO (09:42)
[2022-04-28] MEDS: LINACLOTIDE 145 MCG CAPSULE PO (09:42)
[2022-04-28 09:43] VITALS: PULSE 108
[2022-04-28] MEDS: SENNA/DOCUSATE SODIUM TABLET 2 TAB PO (09:43)
[2022-04-28] MEDS: sulfaSALAzine 500 MG TABLET 1000 MG PO (09:43)
[2022-04-28] MEDS: POTASSIUM CHLORIDE 10 MEQ TABLET.ER PO (09:43)
[2022-04-28] MEDS: DIVALPROEX SODIUM ER 500 MG TAB.24H 1000 MG PO (09:43)
[2022-04-28] MEDS: PANTOPRAZOLE 40 MG TABLET PO (09:43)
[2022-04-28] MEDS: FENOFIBRATE 160 MG TABLET PO (09:43)
[2022-04-28] MEDS: PROPRANOLOL HCL 20 MG TABLET PO ×3 (09:43→17:22)
[2022-04-28] MEDS: PSYLLIUM POWDER PACKET 1 PACKET PO (09:44)
[2022-04-28 10:28] LABS: Anion Gap 8 mmol/L (8-16); Blood Urea Nitrogen 4 mg/dL (9-20); Calcium 8.9 mg/dL (8.4-10.2); Carbon Dioxide 29 mmol/L (22-30); Chloride 107 mmol/L (98-107); Estimated CRCL calculation 123 ml/min; Estimated Glomerular Filt Rate > 60; Glucose 101 mg/dL (65-110); Magnesium 1.9 mg/dL (1.6-2.3); Potassium 4.1 mmol/L (3.4-5.0); Sodium 144 mmol/L (137-145)
[2022-04-28 13:05] VITALS: PULSE 108
[2022-04-28 14:00] VITALS: BP 104/77; PULSE 110; RESP 20; TEMP 36.1; O2SAT 91
--- NOTE | 2022-04-28 16:50 | PM.DS ---
DS: Admitting Diagnosis Discharge Date 04/28/22 Admitting Diagnosis (1) Fecal impaction: ?Code(s): K56.41 - Fecal impaction ?Status:?Acute (2) Partial small bowel obstruction: ?Code(s): K56.600 - Partial intestinal obstruction, unspecified as to cause ?Status:?Acute (3) Intellectual disability: ?Code(s): F79 - Unspecified intellectual disabilities ?Status:?Acute (4) Partial bowel obstruction: ?Qualifiers: ?Intestinal obstruction type:?unspecified? Qualified Code(s):?K56.600 - Partial intestinal obstruction, unspecified as to cause ?Code(s): K56.600 - Partial intestinal obstruction, unspecified as to cause ?Status:?Acute (5) Schizophrenia: ?Code(s): F20.9 - Schizophrenia, unspecified ?Status:?Acute (6) Autism spectrum disorder: ?Code(s): F84.0 - Autistic disorder ?Status:?Acute (7) Hypothyroidism: ?Onset Date:?Unknown ?Code(s): E03.9 - Hypothyroidism, unspecified ?Status:?Acute (8) Chronic anemia: ?Onset Date:?Unknown ?Code(s): D64.9 - Anemia, unspecified ?Status:?Chronic DS: Discharge Diagnosis Discharge Diagnosis (1) Fecal impaction: Code(s): K56.41 - Fecal impaction Status: Acute (2) Partial small bowel obstruction: Code(s): K56.600 - Partial intestinal obstruction, unspecified as to cause Status: Acute (3) Intellectual disability: Code(s): F79 - Unspecified intellectual disabilities Status: Acute (4) Partial bowel obstruction: Qualifiers: Intestinal obstruction type: unspecified Qualified Code(s): K56.600 - Partial intestinal obstruction, unspecified as to cause Code(s): K56.600 - Partial intestinal obstruction, unspecified as to cause Status: Acute (5) Schizophrenia: Code(s): F20.9 - Schizophrenia, unspecified Status: Acute (6) Autism spectrum disorder: Code(s): F84.0 - Autistic disorder Status: Acute (7) Hypothyroidism: Onset Date: Unknown Code(s): E03.9 - Hypothyroidism, unspecified Status: Acute (8) Chronic anemia: Onset Date: Unknown Code(s): D64.9 - Anemia, unspecified Status: Chronic DS: Summary Hospital Course Reason for hospitalization: Chief Complaint: abd pain Narrative: 61-year-old male with history of schizophrenia autism developmental delay recently admitted and discharged for episode of small-bowel obstruction that resolved with conservative care.? Patient was noted by caregiver to be complaining abdominal pain and? he had not had a bowel movement in 2 days the patient was brought to the emergency room.? He is again found on imaging to have a partial small-bowel obstruction and admission is recommended. ? At the time of my history and physical examination? patient is calm and cooperative he has an NG tube to in place and is able to tell me all about his trip downstairs and the nice man who inserted the tube.? Unfortunately, he is unable to give me any meaningful history prior to hospitalization. ?history is taken from review of medical record Hospital Course: 04/24/22 admit to med surge n.p.o. NGT to the LIS Morphine p.r.n. for pain NS 125 cc/hour Zofran IV p.r.n. Levothyroxine IV? daily until medications can be administered mineral oil enema for fecal impaction continue home medications when diet advanced Consult surgery expert recommendations appreciated Anticipate length of stay greater than 2 days VTEP 04/25/22 remains NPO and home meds on hold ativan PRN for agitation cont IVFs defer to surgery if they want to change to LR cont conservative tx fleet enemas surg recs appreciated 04/26/2022 Small-bowel follow-through series with ileus versus? partial small-bowel obstruction? with transition point stool x [address] pt NPO becoming more agitated with results of SBS will restart psych medications via NGT w intermittent clamping cont supportive care
[2022-04-28 17:22] VITALS: PULSE 110
--- NOTE | 2022-04-28 17:30 | PC.NURSE ---
report given to Lisa Garcia. They need a script for metamucil. unable to get script to print in system, so physical script sent.
== END 2022-04-28 17:35 | disposition other institution (70) | DRG 389 ==
LOC: ANHED 22:30 → ANH3MEDSUR 04-24 02:29
PROVIDERS: Emergency Medicine; Nurse Practitioner Family; Admitting Provider Internal Medicine; Emergency Provider Emergency Medicine; PCP Emergency Medicine; Visit Provider Hospitalist
DX: K56.600 Partial intestinal obstruction, unspecified as to cause (principal); F84.0 Autistic disorder; K56.41 Fecal impaction; D53.1 Other megaloblastic anemias, not elsewhere classified; E78.00 Pure hypercholesterolemia, unspecified; E03.9 Hypothyroidism, unspecified; K21.9 Gastro-esophageal reflux disease without esophagitis; M10.9 Gout, unspecified; F79 Unspecified intellectual disabilities; F20.9 Schizophrenia, unspecified; Z20.822 Contact with and (suspected) exposure to COVID-19
CPT/HCPCS: 36415; 74018; 74019; 74177; 74250; 80048; 80053; 81001; 83690; 83735; 84100; 85025; 85027; 99285; A9270; C9803; J1644; J7030; Q9967; U0003; U0005

== ENCOUNTER 2022-04-30 12:49 | Emergency (ER) | payer MEDICARE, MEDICAID, SELFPAY ==
--- NOTE | ~2022-04-30 | CT_ITS ---
EXAMINATION: CT abdomen pelvis w con INDICATION: Abdominal pain, possible bowel obstruction TECHNIQUE: Computed tomographic images of the abdomen and pelvis were obtained after the administrati on of 100 cc of Omnipaque 350 intravenous contrast. The dose-length product (DLP) was 701.95 mGy-cm. Automated exposure control and iterative reconstruction technique were employed. COMPARISON: 04/23/2022 FINDINGS: Minimal dependent atelectasis is present in the lung bases. The heart size is normal. There is a 12 mm cyst of the right hepatic lobe. The spleen, pancreas, gallbladder, and adrenal glands are normal. The kidneys are unremarkable. No pathologically enlarged abdominal or pelvic lymph nodes are identified. There is no free intraperitoneal gas. Fecal impaction in the rectum has resolved. There remains a moderate amount of persistent stool in the sigmoid colon. There was liquid stool throughout much of the colon proximal to the sigmoid. This portion of the large bowel demonstrates mild distent ion. There are some moderately dilated loops of small bowel in the left midabdomen. There is mild lum bar spondylosis. IMPRESSION: 1. Dilated large and small bowel consistent with ileus versus partial obstruction. Reviewed, dictated and finalized at location A. IMPRESSION: 1. Dilated large and small bowel consistent with ileus versus partial obstructi on.
[2022-04-30 12:52] VITALS: PULSE 90; RESP 15; TEMP 36.5; O2SAT 98
--- NOTE | 2022-04-30 13:18 | ED.ABDPAIN ---
HPI - Abdominal Pain General Chief Complaint: Abdominal Pain Stated Complaint: possible bowel obstruction Time Seen by Provider: 04/30/22 13:18 History of Present Illness HPI narrative: Patient is a 61-year-old male with a history of autism spectrum disorder, developmental delay, recent bowel obstruction presenting with diarrhea. Patient is a resident with a usp and he was noted this morning to be less active than normal. He also had decreased appetite was not interested in his breakfast which is unlike him. Patient then had an episode of diarrhea. Patient was recently admitted here for a bowel obstruction so his usp was concerned that he may be re-obstructing. Currently, the patient denies complaints. Denies abdominal pain, chest pain, nausea. Related Data Home Medications Medication Instructions Recorded Confirmed fenofibrate 160 mg tablet 160 mg PO DAILY 10/15/20 04/24/22 folic acid 1 mg tablet 1 mg PO DAILY 10/15/20 04/24/22 levothyroxine 100 mcg tablet 100 mcg PO DAILY 10/15/20 04/24/22 linaclotide 145 mcg capsule 145 mcg PO DAILY 10/15/20 04/24/22 (Linzess) omega 1-piw-qom-fish oil 1,200 mg 1 cap PO BID 10/15/20 04/24/22 (144 mg-216 mg) capsule (Fish Oil) omeprazole 40 mg capsule,delayed 40 mg PO Q12H 10/15/20 04/24/22 release potassium chloride 10 mEq 10 meq PO DAILY 10/15/20 04/24/22 tablet,extended release(part/cryst) propranolol 20 mg tablet 20 mg PO QID 10/15/20 04/24/22 sennosides 8.6 mg-docusate sodium 2 tab-cap PO Q12H 10/15/20 04/24/22 50 mg tablet (Senokot-S) sulfasalazine 500 mg tablet 1,000 mg PO Q12H 10/15/20 04/24/22 vitamin B complex 1 tablet PO DAILY 10/15/20 04/24/22 acetaminophen 325 mg tablet 650 mg PO PRN PRN Pain 11/01/20 04/24/22 (Tylenol) multivitamin,tx-minerals 1 tablet PO 1700 11/01/20 04/24/22 diphenhydramine HCl 25 mg tablet 25 mg PO Q6H PRN Allergic Reaction 11/20/20 04/24/22 cetirizine 10 mg BYMOUTH DAILY PRN Allergy 03/20/21 04/24/22 Symptoms clozapine 100 mg tablet 100 mg PO Q12H 03/20/21 04/24/22 clozapine 100 mg tablet 200 mg PO 1700 03/20/21 04/24/22 divalproex 500 mg tablet,extended 1,000 mg PO Q12H 03/20/21 04/24/22 release 24 hr ergocalciferol (vitamin D2) 1,250 1,250 mcg PO WEEKLY 03/20/21 04/24/22 mcg (50,000 unit) capsule escitalopram oxalate 20 mg tablet 20 mg PO DAILY 03/20/21 04/24/22 Allergies Allergy/AdvReac Type Severity Reaction Status Date / Time No Known Allergies Allergy Verified 04/30/22 12:54 Review of Systems Review of Systems: ROS unobtainable: Yes unobtainable due to mental status (Baseline developmental delay) [facility] Past Medical History Medical History Autism spectrum disorder Chronic anemia (Unknown) Chronic megaloblastic anemia with high folate and B12 levels in 2018 GERD (gastroesophageal reflux disease) Gout Hypercholesterolemia (Unknown) Hypothyroidism (Unknown) Intellectual disability Peptic ulcer Schizophrenia Surgical History Surgical History History of appendectomy (~12/07/03) November 2003 - Incidental appendectomy during exploratory laparotomy History of exploratory laparotomy (~12/07/03) 11/30/2003 - 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 12/08/2003 - Taken back to surgery for a small bowel obstruction and had an adhesiolysis. Family History Family History Other Unknown family medical history Social History Social History Social History: He lives in a usp in [place]. Lifelong nonsmoker. No alcohol or drug use. Primary care physician: Dr. Isael Lanier Code status: Full code [facility] power of roads superintendent: [facility]
[2022-04-30 13:24] LABS: Basophils Percent Auto 0.1 % (0.2-1.2); Hematocrit 35.5 % (42.0-52.0); Hemoglobin 11.5 g/dL (14.0-18.0); Immature Granulocyte Absolute 0.09 K/mm3 (0.00-0.031); Immature Granulocyte Percent A 1.1 % (0-0.5); Lymphocytes Percent Auto 16.2 % (18.3-44.2); Mean Corpuscular HGB Conc 32.4 g/dl (32-36); Mean Platelet Volume 9.9 fl (7.4-10.4); Monocytes Absolute Auto 0.6 K/mm3 (0.1-0.6); Monocytes Percent Auto 7.5 % (2.6-8.5); Neutrophils Percent Auto 75.1 % (45.5-73.1); Platelet Count Result 228 k/mm3 (150-375); Red Blood Count 3.48 M/mm3 (4.6-6.20); Red Cell Distribution Width 13.7 % (11.5-14.5)
[2022-04-30 13:41] LABS: Alanine Aminotransferase 31 U/L (6-50); Albumin Level 3.7 g/dL (3.5-5.1); Alkaline Phosphatase 146 U/L (38-126); Anion Gap 12 mmol/L (8-16); Aspartate Amino Transferase 53 U/L (17-59); Bilirubin,Total 0.7 mg/dL (0.2-1.3); Blood Urea Nitrogen 4 mg/dL (9-20); Calcium 8.6 mg/dL (8.4-10.2); Carbon Dioxide 25 mmol/L (22-30); Chloride 106 mmol/L (98-107); Estimated CRCL calculation 107 ml/min; Estimated Glomerular Filt Rate > 60; Glucose 114 mg/dL (65-110); Lipase 70 U/L (23-300); Potassium 3.9 mmol/L (3.4-5.0); Sodium 143 mmol/L (137-145)
[2022-04-30 14:26] LABS: Add Urine Microscopic? YES; Appearance Urine Clear (Clear); Bilirubin Urine Negative (Negative); Blood Urine Negative (Negative); Color Urine Amber (Yellow); Glucose Urine UA Negative (Negative); Ketones Urine Negative (Negative); Leukocyte Esterase Ur Negative LEU/UL (Negative); Mucus Urine Rare /lpf; Nitrate Urine Negative (Negative); Protein Urine Negative (Negative); RBC Urine 0-2 /hpf (0-2); Specific Grav Ur 1.015 (1.001-1.035); WBC Urine 0-3 /hpf
[2022-04-30 15:45] VITALS: BP 119/52; PULSE 78; RESP 16; O2SAT 97
== END 2022-04-30 15:45 | disposition home or self-care (01) ==
PROVIDERS: Emergency Medicine; Emergency Provider Emergency Medicine; PCP Family Medicine
DX: K56.7 Ileus, unspecified (principal); R19.7 Diarrhea, unspecified; F84.0 Autistic disorder; D53.1 Other megaloblastic anemias, not elsewhere classified; E78.00 Pure hypercholesterolemia, unspecified; E03.9 Hypothyroidism, unspecified; F20.9 Schizophrenia, unspecified; M10.9 Gout, unspecified; K21.9 Gastro-esophageal reflux disease without esophagitis; Z87.11 Personal history of peptic ulcer disease
CPT/HCPCS: 36415; 74177; 80053; 81001; 83690; 85025; 99284; Q9967

== ENCOUNTER 2023-03-08 14:16 | Inpatient (IN) | payer MEDICARE, MEDICAID, SELFPAY ==
[2023-03-08] VITALS (20 sets, daily range): BP systolic 127–144; BP diastolic 66–83; PULSE 98–111; RESP 11–21; TEMP 36.2–36.8; O2SAT 82–100; BMI 22.3
--- NOTE | ~2023-03-08 | CT_ITS ---
EXAMINATION: CT abdomen pelvis w con INDICATION: Crohn's disease, history of small bowel obstruction, abdominal distention TECHNIQUE: Computed tomographic images of the abdomen and pelvis were obtained after the administrati on of 100 cc of Omnipaque 350 intravenous contrast. The dose-length product (DLP) was 522.64 mGy-cm. Automated exposure control and iterative reconstruction technique were employed. COMPARISON: 04/30/2022 FINDINGS: There is atelectasis in the visualized lung bases. The heart size is normal. There is a 12 mm cyst of the right hepatic lobe. The spleen, pancreas, and adrenal glands are normal. The gallbladd er is mildly distended. Cysts of the kidneys measure up to 1.2 cm on the left. There is a 3 mm nonobs tructing stone of the left kidney. The stomach and proximal small bowel are markedly dilated. There i s small bowel feces sign of the jejunum. There is a small amount of fluid in the visualized distal es ophagus. There appears to be a transition point in the small bowel in the mid pelvis. No pathological ly enlarged abdominal or pelvic lymph nodes are identified. No free intraperitoneal gas is identified . There is a large volume of stool in the rectum. There is calcified atherosclerosis of the aorta and many of the other arteries. There is mild lumbar spondylosis at L5-S1. IMPRESSION: 1. Small bowel obstruction. Reviewed, dictated and finalized at location F. IMPRESSION: 1. Small bowel obstruction.
--- NOTE | ~2023-03-08 | XR_ITS ---
EXAMINATION: XR sm bowel follow through DATE: 03/10/2023 12:38 INDICATION: Small bowel obstruction. TECHNIQUE: Oral contrast was administered, and a time course of radiographs of the abdomen was obtain ed. Fluoroscopy of the small bowel was not performed. Fluoroscopy exposure time was 0 minutes. The to madelin number of images was 6. COMPARISON: CT abdomen and pelvis 03/08/2023 FINDINGS: The nasogastric tube was advanced. The tip is in the stomach. There is a diverticulum of the third po rtion the duodenum. There are multiple dilated loops of small bowel. The distal small bowel is decomp ressed. Transit time from the stomach to proximal colon was approximately 1 hour and 45 minutes. IMPRESSION: 1. Dilated small bowel with normal transit time to the colon, consistent with adynamic ileus versus p artial small bowel obstruction. Reviewed, dictated and finalized at location A. IMPRESSION: 1. Dilated small bowel with normal transit time to the colon, consistent with a dynamic ileus versus partial small bowel obstruction.
--- NOTE | ~2023-03-08 | XR_ITS ---
EXAMINATION: XR_KUBGTUBINS_CR DATE: 03/08/2023 21:35 INDICATION: Nasogastric tube placement. TECHNIQUE: An upright view of the abdomen was obtained. COMPARISON: CT abdomen and pelvis 03/08/2023 FINDINGS: The lower abdomen is excluded. There are multiple dilated loops of small bowel. There is di stention of the stomach. The nasogastric tube tip is at the gastroesophageal junction. IMPRESSION: 1. Nasogastric tube tip at the gastroesophageal junction. 2. Dilated small bowel, consistent with small bowel obstruction. Reviewed, dictated and finalized at location A.
--- NOTE | ~2023-03-08 | XR_ITS ---
EXAMINATION: XR abdomen/kub 1V DATE: 03/10/2023 06:35 INDICATION: Small bowel obstruction. TECHNIQUE: A supine view of the abdomen on 2 radiographs was obtained. COMPARISON: Abdomen radiographs 03/09/2023, CT abdomen and pelvis 03/08/2023 FINDINGS: There are multiple dilated loops of small bowel. There is a small volume of stool in the co waleska. IMPRESSION: 1. Persistently dilated small bowel, consistent with small bowel obstruction. Reviewed, dictated and finalized at location A.
--- NOTE | ~2023-03-08 | XR_ITS ---
XR abdomen/kub 1V 03/11/2023 07:50 Indication: Small bowel obstruction. Procedure: KUB Comparison: Comparison to multiple prior studies sequentially, with oldest reviewed study dated 01/2022. Findings: There is residual contrast in the colon. There is mucosal irregularity of the descending co w[place], suspicious for underlying mass. Recommend correlation with colonoscopy. NG tube in the stomach. Mildly dilated small bowel loops, consistent with obstruction. Left basilar atelectasis. Impression: 1: Mucosal irregularity of the descending colon, suspicious for colonic mass. Recommend correlation w ith colonoscopy. 2: Dilated small bowel, suspicious for at least partial small bowel obstruction. Reviewed, dictated and finalized at location L. Impression: 1: Mucosal irregularity of the descending colon, suspicious for colonic mass. R ecommend correlation with colonoscopy. 2: Dilated small bowel, suspicious for at least partial small bowel obstructio n.
--- NOTE | ~2023-03-08 | XR_ITS ---
EXAMINATION: XR enema water soluble DATE: 03/11/2023 11:05 INDICATION: Sigmoid stricture. TECHNIQUE: A radio assembler radiograph was obtained. A catheter was inserted into the patient's rectum. Contra st was infused by gravity. Fluoroscopic spot images and conventional radiographs were obtained. Fluor oscopy exposure time was 0.4 minutes. The total number of images was 27. COMPARISON: Abdomen radiograph 03/11/2023, CT abdomen and pelvis 03/08/2023 FINDINGS: The rectosigmoid is dilated. There are dilated loops of small bowel. There is no stricture of the sigmoid colon to correlate with the previously described radiographic abnormality. IMPRESSION: 1. No stricture of the sigmoid colon to correlate with the previously described radiographic finding. 2. Dilated small bowel, consistent with adynamic ileus versus partial small bowel obstruction. 3. Dilated rectosigmoid, likely adynamic ileus. Reviewed, dictated and finalized at location A. IMPRESSION: 1. No stricture of the sigmoid colon to correlate with the previously described radiographic finding. 2. Dilated small bowel, consistent with adynamic ileus versus partial small bow el obstruction. 3. Dilated rectosigmoid, likely adynamic ileus.
--- NOTE | ~2023-03-08 | XR_ITS ---
EXAMINATION: XR abdomen obstructive series DATE: 03/09/2023 05:57 INDICATION: Small bowel obstruction. TECHNIQUE: Upright and supine views of the abdomen on 3 radiographs were obtained. COMPARISON: CT abdomen and pelvis 03/08/2023 FINDINGS: There are multiple dilated loops of small bowel. The colon is normal in caliber. The nasoga stric tube tip is in the stomach. No free intraperitoneal gas. IMPRESSION: 1. Dilated small bowel, consistent with small bowel obstruction. Reviewed, dictated and finalized at location A.
[2023-03-08 14:31] LABS: Hematocrit 41.8 % (42.0-52.0); Hemoglobin 13.6 g/dL (14.0-18.0); Mean Corpuscular HGB Conc 32.5 g/dl (32-36); Mean Corpuscular Hemoglobin 32.9 pg (26-34); Mean Corpuscular Volume 101.2 fl (80-100); Mean Platelet Volume 10.1 fl (7.4-10.4); Platelet Count Result 227 k/mm3 (150-375); Red Blood Count 4.13 M/mm3 (4.6-6.20); Red Cell Distribution Width 13.2 % (11.5-14.5); White Blood Count 15.9 K/mm3 (4.5-10.0)
[2023-03-08 14:44] LABS: Alanine Aminotransferase 25 U/L (6-50); Albumin Level 4.7 g/dL (3.5-5.1); Alkaline Phosphatase 140 U/L (38-126); Anion Gap 9 mmol/L (8-16); Aspartate Amino Transferase 39 U/L (17-59); Bilirubin,Total 0.8 mg/dL (0.2-1.3); Blood Urea Nitrogen 13 mg/dL (9-20); Calcium 9.6 mg/dL (8.4-10.2); Carbon Dioxide 30 mmol/L (22-30); Chloride 100 mmol/L (98-107); Estimated CRCL calculation 79 ml/min; Estimated Glomerular Filt Rate > 60; Glucose 141 mg/dL (65-110); Lipase 338 U/L (23-300); Potassium 3.8 mmol/L (3.4-5.0); Sodium 139 mmol/L (137-145)
[2023-03-08 14:58] LABS: Band Neutrophils Percent 6 % (0-6); Lymphocytes Absolute Manual 0.79 K/mm3 (1.1-4.5); Monocytes Absolute Manual 0.15 K/mm3 (0.1-0.90); Monocytes Percent Manual 1 % (3-9); Neutrophils Absolute Manual 14.94 K/mm3 (1.3-6.7); Neutrophils Percent Manual 88 % (46-73); Platelet Estimate Adequate (Adequate); Total Cells Counted 100
[2023-03-08 14:59] LABS: Schistocytes None Seen (NORMAL)
--- NOTE | 2023-03-08 15:07 | ED.ABDPAIN ---
HPI - Abdominal Pain General Chief Complaint: Abdominal Pain Stated Complaint: abd pain Time Seen by Provider: 03/08/23 15:07 Source: patient Limitations: clinical condition History of Present Illness HPI narrative: 62 years old white male came from [facility] with a chief complaint of nausea, abdominal pain and vomiting that started after lunch today. History of Crohn disease and numerous similar symptoms secondary to SBO. Patient denies any abdominal pain or vomiting at this time. Related Data Home Medications Medication Instructions Recorded Confirmed fenofibrate 160 mg tablet 160 mg PO DAILY 10/15/20 04/24/22 folic acid 1 mg tablet 1 mg PO DAILY 10/15/20 04/24/22 levothyroxine 100 mcg tablet 100 mcg PO DAILY 10/15/20 04/24/22 linaclotide 145 mcg capsule 145 mcg PO DAILY 10/15/20 04/24/22 (Linzess) omega 3-kvn-opf-fish oil 1,200 mg 1 cap PO BID 10/15/20 04/24/22 (144 mg-216 mg) capsule (Fish Oil) omeprazole 40 mg capsule,delayed 40 mg PO Q12H 10/15/20 04/24/22 release potassium chloride 10 mEq 10 meq PO DAILY 10/15/20 04/24/22 tablet,extended release(part/cryst) propranolol 20 mg tablet 20 mg PO QID 10/15/20 04/24/22 sennosides 8.6 mg-docusate sodium 2 tab-cap PO Q12H 10/15/20 04/24/22 50 mg tablet (Senokot-S) sulfasalazine 500 mg tablet 1,000 mg PO Q12H 10/15/20 04/24/22 vitamin B complex 1 tablet PO DAILY 10/15/20 04/24/22 acetaminophen 325 mg tablet 650 mg PO PRN PRN Pain 11/01/20 04/24/22 (Tylenol) multivitamin,tx-minerals 1 tablet PO 1700 11/01/20 04/24/22 diphenhydramine HCl 25 mg tablet 25 mg PO Q6H PRN Allergic Reaction 11/20/20 04/24/22 cetirizine 10 mg BYMOUTH DAILY PRN Allergy 03/20/21 04/24/22 Symptoms clozapine 100 mg tablet 100 mg PO Q12H 03/20/21 04/24/22 clozapine 100 mg tablet 200 mg PO 1700 03/20/21 04/24/22 divalproex 500 mg tablet,extended 1,000 mg PO Q12H 03/20/21 04/24/22 release 24 hr ergocalciferol (vitamin D2) 1,250 1,250 mcg PO WEEKLY 03/20/21 04/24/22 mcg (50,000 unit) capsule escitalopram oxalate 20 mg tablet 20 mg PO DAILY 03/20/21 04/24/22 Allergies Allergy/AdvReac Type Severity Reaction Status Date / Time No Known Allergies Allergy Verified 04/30/22 12:54 Review of Systems Review of Systems: All systems reviewed & are unremarkable except as noted in HPI and below PMFSH Past Medical History Medical History Autism spectrum disorder Chronic anemia (Unknown) Chronic megaloblastic anemia with high folate and B12 levels in 2018 GERD (gastroesophageal reflux disease) Gout Hypercholesterolemia (Unknown) Hypothyroidism (Unknown) Intellectual disability Peptic ulcer Schizophrenia Surgical History Surgical History History of appendectomy (~12/07/03) November 2003 - Incidental appendectomy during exploratory laparotomy History of exploratory laparotomy (~12/07/03) 11/30/2003 - 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 12/08/2003 - Taken back to surgery for a small bowel obstruction and had an adhesiolysis. Family History Family History Other Unknown family medical history Social History Social History Social History: He lives in a usp in [place]. Lifelong nonsmoker. No alcohol or drug use. Primary care physician: Dr. Isael Lanier Code status: Full code Healthcare power of package dyer: Jose Manuel Bran (father). Caregiver states that [facility] should be called for any consent at [phone]. Smoking status: Never smoker Alcohol intake: unknown Substance use: unknown Gender identity (if verbalized by the patient): Male Sexual Orientation (if Verbalized by the Patient): Straight or Heteros
--- NOTE | 2023-03-08 16:16 | PC.NURSE ---
This RN unable to obtain IV access x 2 attempts. Second nurse to bedside to attempt.
--- NOTE | 2023-03-08 16:48 | PC.NURSE ---
Still unable to obtain IV access due to poor vasculature. Two RN's at bedside attempting.
[2023-03-08] MEDS: ONDANSETRON INJ 4 MG/2 ML VIAL IV PUSH (17:06)
[2023-03-08] MEDS: SODIUM CHLORIDE 0.9% IV 1,000 ML 499.51 ML IV CONT ×2 (17:06→21:08)
[2023-03-08] MEDS: HYDROmorphone HCL INJ (*CRX) 1 MG/ML SYR 0.5 MG IV PUSH (17:07)
[2023-03-08 18:40] LABS: Appearance Urine Cloudy (Clear); Bacteria Urine None Seen /hpf; Bilirubin Urine 1+ (Negative); Blood Urine Negative (Negative); Color Urine Dark Yellow (Yellow); Glucose Urine UA Negative (Negative); Ketones Urine Trace mg/dL (Negative); Leukocyte Esterase Ur Trace LEU/UL (Negative); Need Manual Microscopic Reviewed; Nitrate Urine Negative (Negative); Non Pathogenic Casts 0-2; Protein Urine Trace mg/dL (Negative); Specific Grav Ur 1.043 (1.001-1.035); Squamous Epithelial Cell Urine None seen /hpf (Few); WBC Urine 0-5 /hpf; pH Urine 7.5 (5.0-9.0)
[2023-03-08 18:41] LABS: Add Urine Microscopic? YES
--- NOTE | 2023-03-08 19:02 | PM.IMHP ---
H&P: HPI History of Present Illness Date/Time: 03/08/23 19:02 Chief Complaint: Abdominal pain Narrative: This is a 62-year-old male patient with mental delays. The patient has had a history of small-bowel obstruction in the past. The patient stated that he had a normal bowel movement this morning. However he had complaints of nausea and abdominal pain with vomiting that started after lunch today. He does have a history of Crohn's disease and has had similar symptoms in the past secondary to small-bowel obstruction. Patient stated that he has had a surgery in the past due to a small-bowel obstruction. His abdomen is tight and distended. Abdominal pelvis CT was read as small bowel obstruction. An NG tube has been ordered for the patient. Surgery has been consulted. The patient was started on IV fluids given Dilaudid and Zofran. The patient is being admit to inpatient status on the date of service of 03/08/2023. Review of Systems Review of Systems: All systems reviewed & are unremarkable except as noted in HPI and below Constitutional: Constitutional: Reports as per HPI and Reports no additional constitutional complaints Eyes: Eyes: Reports as per HPI and Reports no additional eye complaints ENT: Reports system reviewed and no additional complaints, except as documented and Reports Normal hearing present Cardiovascular: Cardiovascular: Reports no additional cardiovascular complaints Respiratory: Respiratory: Reports no additional respiratory complaints and Reports no additional respiratory complaints Gastrointestinal: Gastrointestinal: Reports as per HPI and Reports no additional gastrointestinal complaints Musculoskeletal: Musculoskeletal: Reports no additional musculoskeletal complaints Integumentary/Breasts: Skin/Breast: Reports system reviewed and no additional complaints, except as docu and Reports as per HPI Neurologic: Reports system reviewed and no additional complaints, except as documented, Reports as per HPI and Reports Normal hearing present Psychiatric: Psychiatric: Reports no additional psychiatric complaints and Reports as per HPI Endocrine: Endocrine: Reports no additional endocrine complaints Hematologic/Lymphatic: Hematologic/Lymphatic: Reports no additional hematologic/lymphatic complaints Allergic/Immunologic: Allergic/Immunologic: Reports no additional allergic/immunologic complaints [facility] Past Medical History Medical History Autism spectrum disorder Chronic anemia (Unknown) Chronic megaloblastic anemia with high folate and B12 levels in 2018 GERD (gastroesophageal reflux disease) Gout Hypercholesterolemia (Unknown) Hypothyroidism (Unknown) Intellectual disability Peptic ulcer Schizophrenia Surgical History Surgical History History of appendectomy (~12/07/03) November 2003 - Incidental appendectomy during exploratory laparotomy History of exploratory laparotomy (~12/07/03) 11/30/2003 - 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 12/08/2003 - Taken back to surgery for a small bowel obstruction and had an adhesiolysis. Family History Family History Other Unknown family medical history Social History Social History Social History: He lives in a correction in [place]. Lifelong nonsmoker. No alcohol or drug use. Primary care physician: Dr. Isael Lanier Code status: Full code Healthcare power of staff attorney: Jose Manuel Bran (father). Caregiver states that [facility] should be called for any consent at [phone]. Smoking status: Never smoker Alcohol intake: never Substance use: never Gender identity (if verbalized by the
--- NOTE | 2023-03-08 19:33 | PC.NURSE ---
Phone number to patient's retirement: [phone] Supervisors number: [phone] Health Care Technician called at this time to inform her of admission and room number.
--- NOTE | 2023-03-08 20:00 | ADMGEN ---
This patient, Ricardo Sotomayor, was admitted to Medical Room 259-01. Patient/family oriented to hospital policies and general routines including ID bracelet, bed and alarms, visiting hours, pain management, procedures, bathroom and other care routines, personal items, smoking policy, room service/diet, and visiting hours. Information on how to activate the Rapid Response Team has been discussed. Patient/Family are encouraged to report perceived risks to care and to ask questions if they do not understand what they are told or what they should do.
[2023-03-08] MEDS: SODIUM CHLORIDE 0.9% IV 1,000 ML 150 ML IV CONT (21:09)
[2023-03-09 05:01] LABS: Basophils Percent Auto 0.1 % (0.2-1.2); Eosinophils Percent Auto 0.1 % (0-4.4); Hematocrit 38.3 % (42.0-52.0); Hemoglobin 12.6 g/dL (14.0-18.0); Immature Granulocyte Absolute 0.04 K/mm3 (0.00-0.031); Immature Granulocyte Percent A 0.3 % (0-0.5); Lymphocytes Absolute Auto 0.59 K/mm3 (0.9-3.2); Lymphocytes Percent Auto 4.2 % (18.3-44.2); Mean Corpuscular HGB Conc 32.9 g/dl (32-36); Mean Corpuscular Hemoglobin 33.2 pg (26-34); Mean Corpuscular Volume 101.1 fl (80-100); Mean Platelet Volume 9.9 fl (7.4-10.4); Monocytes Absolute Auto 0.9 K/mm3 (0.1-0.6); Monocytes Percent Auto 6.6 % (2.6-8.5); Neutrophils Absolute Auto 12.4 K/mm3 (1.3-6.7); Neutrophils Percent Auto 88.7 % (45.5-73.1); Platelet Count Result 195 k/mm3 (150-375); Red Blood Count 3.79 M/mm3 (4.6-6.20); Red Cell Distribution Width 13.2 % (11.5-14.5); White Blood Count 13.9 K/mm3 (4.5-10.0)
[2023-03-09 05:13] LABS: Alanine Aminotransferase 22 U/L (6-50); Alkaline Phosphatase 111 U/L (38-126); Anion Gap 8 mmol/L (8-16); Aspartate Amino Transferase 34 U/L (17-59); Bilirubin,Total 0.7 mg/dL (0.2-1.3); Blood Urea Nitrogen 12 mg/dL (9-20); Calcium 8.8 mg/dL (8.4-10.2); Carbon Dioxide 29 mmol/L (22-30); Chloride 101 mmol/L (98-107); Estimated CRCL calculation 111 ml/min; Estimated Glomerular Filt Rate > 60; Glucose 138 mg/dL (65-110); Lactic Acid Reflex 1.2 mmol/L (0.7-2.0); Magnesium 1.6 mg/dL (1.6-2.3); Potassium 3.5 mmol/L (3.4-5.0); Sodium 138 mmol/L (137-145)
[2023-03-09] MEDS: LEVOTHYROXINE SODIUM INJ 100 MCG/5 ML VIAL 50 MCG IV PUSH (05:13)
[2023-03-09 06:00] VITALS: BP 137/72; PULSE 106; RESP 21; TEMP 36.5; O2SAT 100
[2023-03-09] MEDS: SODIUM CHLORIDE 0.9% IV 1,000 ML 150 ML IV CONT (10:24)
--- NOTE | 2023-03-09 10:39 | PM.CNGS ---
Assessment and Plan Assessment and plan (1) Partial small bowel obstruction: Code(s): K56.600 - Partial intestinal obstruction, unspecified as to cause Status: Acute Assessment and Plan: Seems to be improving. Continue NG suction and NPO except ice chips. Repeat plain films and labs again tomorrow. Will repeat lipase today. Clinical evaluation again tomorrow, if continues to improve will probably get water-soluble contrast study tomorrow. (2) Fecal impaction: Code(s): K56.41 - Fecal impaction Status: Acute Assessment and Plan: Will give mineral oil enema this morning. If no results patient will have soap suds enema. (3) Autism spectrum disorder: Code(s): F84.0 - Autistic disorder Status: Chronic (4) Schizophrenia: Code(s): F20.9 - Schizophrenia, unspecified Status: Chronic History of Present Illness Consult details Consult date: 03/09/23 Reason for consult: abdominal pain Requesting physician: Tutu Thomas MD Narrative: Patient is a 62-year-old man with history of mental illness and autism. 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 He underwent laparotomy but the appendix was normal. Incidental appendectomy was performed. He then was discharged but came back with a small-bowel obstruction which required adhesiolysis about 8 days following his initial surgery. He has been admitted to other hospital such as [facility] but has had several admissions for small-bowel obstruction as well as fecal impaction. In the last year, he was admitted [facility] in January of 2022 as well as April of 2022 with small-bowel obstruction. The patient was fine yesterday and infected had a bowel movement yesterday morning. However, right after lunch, he developed abdominal pain and multiple episodes of vomiting. He came to the emergency room. He was noted to be distended. [place] white blood [place] [id number]. Creatinine was normal but lipase was slightly elevated at 338. He had a CT scan of the abdomen pelvis which showed a small bowel obstruction as well as fecal impaction. The small-bowel obstruction appeared to have a transition point in the mid pelvis. Patient is was admitted and nasogastric tube was placed. This morning he tells me he is cured. He denies having any abdominal pain at this time. He has not had a bowel movement. Plain films of the abdomen show the nasogastric tube to be in good position in the stomach. Review of Systems Review of Systems: ROS unobtainable: Yes unobtainable due to mental status PMFSH Past Medical History Medical History Autism spectrum disorder Chronic anemia (Unknown) Chronic megaloblastic anemia with high folate and B12 levels in 2018 GERD (gastroesophageal reflux disease) Gout Hypercholesterolemia (Unknown) Hypothyroidism (Unknown) Intellectual disability Peptic ulcer Schizophrenia Surgical History Surgical History History of appendectomy (~12/07/03) November 2003 - Incidental appendectomy during exploratory laparotomy History of exploratory laparotomy (~12/07/03) 11/30/2003 - 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 12/08/2003 - Taken back to surgery for a small bowel obstruction and had an adhesiolysis. Family History Family History Other Unknown family medical history Social History Social History Social History: He lives in a mcc in [place]. Lifelong nonsmoker. No alcohol or drug use. Primary care physician: Dr. Isael Lanier Code status: Full code Healthcare power o
[2023-03-09 11:39] LABS: Lipase 49 U/L (23-300)
--- NOTE | 2023-03-09 12:03 | PM.IMPN ---
Progress Note: A&P Assessment and Plan (1) Partial small bowel obstruction: Code(s): K56.600 - Partial intestinal obstruction, unspecified as to cause Status: Acute Assessment and Plan: The patient has had history of surgery due to small-bowel obstruction the past. NG tube was placed. The patient is NPO. Surgery has been consulted. Continue with analgesics. Continue with IV fluids. 03/09 abdominal x-ray consistent with small-bowel obstruction (2) Intellectual disability: Code(s): F79 - Unspecified intellectual disabilities Status: Acute Assessment and Plan: The patient appears to be comprehending information that was given to him. The patient is able to answer questions on his own. Patient does reside in a long-term. (3) Hypothyroidism: Onset Date: Unknown Code(s): E03.9 - Hypothyroidism, unspecified Status: Acute Assessment and Plan: Continue with IV levothyroxine half of the p.o. dose. TSH within normal limits Subjective Date/time seen: 03/09/23 12:03 Interval history: History of intellectual disability. Patient denies any pain and states that he is feeling much better. He does admit to having abdominal pain and vomiting prior to NG tube placement but now he feels better. Explained his condition to him to the best of my ability. Patient often repeats that he can get a ride home. General surgery following appreciate their recommendations. Exam Narrative: GENERAL: Comfortable, no acute distress HENMT: moist mucous membranes, NG tube suctioning thick fecal material EYES: EOM intact b/l NECK: no lymphadenopathy RESPIRATORY: clear to auscultation CARDIO: RRR GI: Hard, nontender, hypoactive bowel sounds SKIN: no rashes EXTREMITIES: no edema, redness or tenderness Objective Data Vital Signs Vital Signs: Vital Signs - 24 hr 03/08/23 14:16 03/08/23 15:05 03/08/23 15:06 Temperature 97.1 F L Pulse Rate 110 H 103 H 103 H Respiratory Rate 18 21 H 16 Blood Pressure 142/71 H 142/83 H Pulse Oximetry 100 99 99 Oxygen Delivery 03/08/23 15:19 03/08/23 15:48 03/08/23 16:00 Temperature Pulse Rate 102 H 101 H 100 Respiratory Rate 19 15 16 Blood Pressure Pulse Oximetry 99 98 100 Oxygen Delivery 03/08/23 17:10 03/08/23 17:11 03/08/23 17:15 Temperature Pulse Rate 103 H 103 H 99 Respiratory Rate 15 17 13 Blood Pressure 131/74 Pulse Oximetry 91 82 L 96 Oxygen Delivery 03/08/23 17:16 03/08/23 17:47 03/08/23 18:00 Temperature Pulse Rate 99 Respiratory Rate 11 L Blood Pressure 134/77 Pulse Oximetry 94 89 L 98 Oxygen Delivery 03/08/23 18:01 03/08/23 18:16 03/08/23 18:17 Temperature Pulse Rate Respiratory Rate Blood Pressure 144/81 H 127/80 Pulse Oximetry 97 96 96 Oxygen Delivery 03/08/23 18:30 03/08/23 18:31 03/08/23 19:16 Temperature Pulse Rate Respiratory Rate Blood Pressure 129/66 134/80 Pulse Oximetry 96 97 Oxygen Delivery 03/08/23 22:38 03/08/23 20:00 03/09/23 06:00 Temperature 98.2 F 97.7 F Pulse Rate 111 H 98 106 H Respiratory Rate 16 16 21 H Blood Pressure 141/80 H 137/72 Pulse Oximetry 94 95 100 Oxygen Delivery Room Air Intake/Output Intake/Output: Intake & Output 03/06/23 03/07/23 03/08/23 03/09/23 23:59 23:59 23:59 23:59 Intake Total 1000 1000 Output Total 900 Balance 1000 100 Meds/Results Medications: Active Medications Generic Name Dose Route Start Last Admin Trade Name Freq PRN Reason Stop Dose Admin Hydromorphone HCl 0.5 mg 03/08/23 18:44 Hydromorphone Hcl Inj (*Crx) 1 Mg/Ml Syr IV PUSH Q4H PRN Pain Rated 7-10 Sodium Chloride 1,000 mls @ 100 mls/hr 03/08/23 18:45 03/09/23 10:24 Normal Saline Iv IV CONT 150 mls/hr .Q10H JULIANO Administration Levothyroxine Sodium 50 mcg 03/09/23 06:30 03/09/23 05:13 Levothyroxine Sodium Inj 100 Mcg/5
[2023-03-09 14:00] VITALS: BP 126/67; PULSE 106; RESP 16; TEMP 36.7; O2SAT 98
[2023-03-09 16:00] VITALS: BP 126/67; PULSE 106; RESP 16; TEMP 36.6; O2SAT 98
[2023-03-09 20:00] VITALS: PULSE 100; RESP 16; O2SAT 98
[2023-03-09 22:07] VITALS: BP 132/61; PULSE 100; RESP 16; TEMP 36.6; O2SAT 98
[2023-03-10 06:00] VITALS: BP 118/87; PULSE 108; RESP 16; TEMP 36.4; O2SAT 100
[2023-03-10 06:35] LABS: Basophils Percent Auto 0.4 % (0.2-1.2); Eosinophils Percent Auto 0.1 % (0-4.4); Hematocrit 33.2 % (42.0-52.0); Hemoglobin 11.8 g/dL (14.0-18.0); Immature Granulocyte Absolute 0.03 K/mm3 (0.00-0.031); Immature Granulocyte Percent A 0.4 % (0-0.5); Lymphocytes Absolute Auto 1.55 K/mm3 (0.9-3.2); Mean Corpuscular HGB Conc 35.5 g/dl (32-36); Mean Corpuscular Hemoglobin 38.2 pg (26-34); Mean Corpuscular Volume 107.4 fl (80-100); Mean Platelet Volume 10.6 fl (7.4-10.4); Monocytes Absolute Auto 0.9 K/mm3 (0.1-0.6); Monocytes Percent Auto 10.4 % (2.6-8.5); Neutrophils Absolute Auto 5.7 K/mm3 (1.3-6.7); Neutrophils Percent Auto 69.7 % (45.5-73.1); Platelet Count Result 168 k/mm3 (150-375); Red Blood Count 3.09 M/mm3 (4.6-6.20); Red Cell Distribution Width 13.8 % (11.5-14.5); White Blood Count 8.1 K/mm3 (4.5-10.0)
[2023-03-10] MEDS: SODIUM CHLORIDE 0.9% IV 1,000 ML 150 ML IV CONT ×2 (06:53→14:00)
--- NOTE | 2023-03-10 06:53 | PM.PNGS ---
Progress Note: A&P Assessment and Plan (1) Partial small bowel obstruction: Code(s): K56.600 - Partial intestinal obstruction, unspecified as to cause Status: Acute Assessment and Plan: Will get water-soluble contrast small-bowel series today. Patient reports no pain or nausea. KUB still shows some dilated bowel but hopefully this has resolved. (2) Fecal impaction: Code(s): K56.41 - Fecal impaction Status: Acute Assessment and Plan: No results recorded after enemas from yesterday. Will need to discuss with nursing. (3) GERD (gastroesophageal reflux disease): Code(s): K21.9 - Gastro-esophageal reflux disease without esophagitis Status: Chronic Subjective Subjective Date/Time Seen: 03/10/23 06:53 Patient reports: no new complaints, feels better and afebrile Review of Systems Review of Systems: All systems reviewed & are unremarkable except as noted in HPI and below (HPI) Exam Const: General: comfortable and no acute distress GI: Inspection: distended and scar GI Palp: Yes Soft to palpation, No Tenderness to palpation present (GI), No Guarding due to palpation present (GI) and No Rebound tenderness present Extrem: General: no calf tenderness and no edema Objective Data Vital Signs Vital Signs: Vital Signs - 24 hr 03/09/23 08:35 03/09/23 14:00 03/09/23 16:00 Temperature 36.7 C 36.6 C Pulse Rate 106 H 106 H Respiratory Rate 16 16 Blood Pressure 126/67 126/67 Pulse Oximetry 98 98 Oxygen Delivery Room Air 03/09/23 22:07 03/09/23 20:00 03/10/23 06:00 Temperature 36.6 C 36.4 C Pulse Rate 100 100 108 H Respiratory Rate 16 16 16 Blood Pressure 132/61 118/87 Pulse Oximetry 98 98 100 Oxygen Delivery Room Air Intake/Output Intake/Output: Intake & Output 03/07/23 03/08/23 03/09/23 03/10/23 23:59 23:59 23:59 23:59 Intake Total 1000 1000 0 Output Total 1650 700 Balance 1000 -650 -700 Meds/Results Medications: Active Medications Generic Name Dose Route Start Last Admin Trade Name Freq PRN Reason Stop Dose Admin Hydromorphone HCl 0.5 mg 03/08/23 18:44 Hydromorphone Hcl Inj (*Crx) 1 Mg/Ml Syr IV PUSH Q4H PRN Pain Rated 7-10 Sodium Chloride 1,000 mls @ 100 mls/hr 03/08/23 18:45 03/09/23 10:24 Normal Saline Iv IV CONT 150 mls/hr .Q10H JULIANO Administration Levothyroxine Sodium 50 mcg 03/09/23 06:30 03/09/23 05:13 Levothyroxine Sodium Inj 100 Mcg/5 Ml Vial IV PUSH 50 mcg DAILY@0630 JULIANO Administration Lorazepam 0.5 mg 03/08/23 23:48 Lorazepam Inj (*Crx) 2 Mg/Ml Vial IV PUSH Q6H PRN Anxiety Ondansetron HCl 4 mg 03/08/23 18:44 Ondansetron Inj 4 Mg/2 Ml Vial IV PUSH Q4H PRN Nausea Radiology Results: ITS Impressions Abdomen/Pelvis CT 03/08/23 18:07 IMPRESSION: 1. Small bowel obstruction. Abdomen X-Ray 03/10/23 06:47 IMPRESSION: 1. Persistently dilated small bowel, consistent with small bowel obstruction. Labs Labs: Laboratory Results - last 24 hr 03/09/23 04:52 Lipase 49
[2023-03-10] MEDS: LEVOTHYROXINE SODIUM INJ 100 MCG/5 ML VIAL 50 MCG IV PUSH (06:54)
[2023-03-10 07:05] LABS: Potassium 3.5 mmol/L (3.4-5.0)
[2023-03-10 07:10] LABS: Alanine Aminotransferase 18 U/L (6-50); Albumin Level 3.2 g/dL (3.5-5.1); Alkaline Phosphatase 85 U/L (38-126); Anion Gap 2 mmol/L (8-16); Aspartate Amino Transferase 32 U/L (17-59); Bilirubin,Total 0.6 mg/dL (0.2-1.3); Blood Urea Nitrogen 15 mg/dL (9-20); Carbon Dioxide 27 mmol/L (22-30); Chloride 105 mmol/L (98-107); Estimated CRCL calculation 98 ml/min; Estimated Glomerular Filt Rate > 60; Glucose 79 mg/dL (65-110); Sodium 134 mmol/L (137-145)
[2023-03-10 07:40] VITALS: RESP 16; O2SAT 100
--- NOTE | 2023-03-10 13:12 | PM.IMPN ---
Progress Note: A&P Assessment and Plan (1) Partial small bowel obstruction: Code(s): K56.600 - Partial intestinal obstruction, unspecified as to cause Status: Acute Assessment and Plan: The patient has had history of surgery due to small-bowel obstruction the past. NG tube was placed. The patient is NPO. Surgery has been consulted. Continue with analgesics. Continue with IV fluids. 03/09 abdominal x-ray consistent with small-bowel obstruction 03/10 small-bowel follow-through revealing dilated small bowel with transient time to the colon consistent with adynamic ileus versus partial small-bowel obstruction. (2) Intellectual disability: Code(s): F79 - Unspecified intellectual disabilities Status: Acute Assessment and Plan: The patient appears to be comprehending information that was given to him. The patient is able to answer questions on his own. Patient does reside in a nursing home. (3) Hypothyroidism: Onset Date: Unknown Code(s): E03.9 - Hypothyroidism, unspecified Status: Acute Assessment and Plan: Continue with IV levothyroxine half of the p.o. dose. TSH within normal limits Subjective Date/time seen: 03/10/23 13:12 Interval history: Patient feeling much better today with no new complaints. He denies any nausea vomiting. He has not had a bowel movement and states that he does not passing gas although he also states that he never passes gas. NG tube still in place. Patient had small-bowel follow-through which revealed adynamic ileus versus partial small-bowel obstruction. Awaiting further instruction from General surgery. Exam Narrative: GENERAL: Comfortable, no acute distress HENMT: moist mucous membranes, NG tube patent EYES: EOM intact b/l NECK: no lymphadenopathy RESPIRATORY: clear to auscultation CARDIO: RRR GI: soft, nontender, hypoactive bowel sounds SKIN: no rashes EXTREMITIES: no edema, redness or tenderness Objective Data Vital Signs Vital Signs: Vital Signs - 24 hr 03/09/23 14:00 03/09/23 16:00 03/09/23 22:07 Temperature 98.0 F 98 F 97.8 F Pulse Rate 106 H 106 H 100 Respiratory Rate 16 16 16 Blood Pressure 126/67 126/67 132/61 Pulse Oximetry 98 98 98 Oxygen Delivery 03/09/23 20:00 03/10/23 06:00 03/10/23 07:40 Temperature 97.6 F Pulse Rate 100 108 H Respiratory Rate 16 16 16 Blood Pressure 118/87 Pulse Oximetry 98 100 100 Oxygen Delivery Room Air Room Air Intake/Output Intake/Output: Intake & Output 03/07/23 03/08/23 03/09/23 03/10/23 23:59 23:59 23:59 23:59 Intake Total 1000 2000 0 Output Total 1650 900 Balance 1000 350 -900 Meds/Results Medications: Active Medications Generic Name Dose Route Start Last Admin Trade Name Freq PRN Reason Stop Dose Admin Hydromorphone HCl 0.5 mg 03/08/23 18:44 Hydromorphone Hcl Inj (*Crx) 1 Mg/Ml Syr IV PUSH Q4H PRN Pain Rated 7-10 Sodium Chloride 1,000 mls @ 100 mls/hr 03/08/23 18:45 03/10/23 06:53 Normal Saline Iv IV CONT 150 mls/hr .Q10H JULIANO Administration Levothyroxine Sodium 50 mcg 03/09/23 06:30 03/10/23 06:54 Levothyroxine Sodium Inj 100 Mcg/5 Ml Vial IV PUSH 50 mcg DAILY@0630 JULIANO Administration Lorazepam 0.5 mg 03/08/23 23:48 Lorazepam Inj (*Crx) 2 Mg/Ml Vial IV PUSH Q6H PRN Anxiety Ondansetron HCl 4 mg 03/08/23 18:44 Ondansetron Inj 4 Mg/2 Ml Vial IV PUSH Q4H PRN Nausea Radiology Results: ITS Impressions Abdomen/Pelvis CT 03/08/23 18:07 IMPRESSION: 1. Small bowel obstruction. Abdomen X-Ray 03/10/23 06:47 IMPRESSION: 1. Persistently dilated small bowel, consistent with small bowel obstruction. Small Bowel X-Ray 03/10/23 12:52 IMPRESSION: 1. Dilated small bowel with normal transit time to the colon, consistent with adynamic ileus versus partial small bowel obstruction. Labs Labs: Laboratory
[2023-03-10 13:46] VITALS: BP 141/75; PULSE 104; RESP 16; TEMP 36.8; O2SAT 98
[2023-03-10 16:00] VITALS: BP 141/75; PULSE 104; RESP 16; TEMP 37.2; O2SAT 98
--- NOTE | 2023-03-10 16:56 | PC.NURSE ---
Reviewed assessment placed by Marilou Whelan Student nurse of [facility]. Agree with assessment. Medications passed by Marilou under supervision of this staff writer and assigned RN. Reviewed chart with Marilou and discussed assessments and any interventions. RN will be given report at end of clinical day.
[2023-03-10 20:23] VITALS: BP 129/65; PULSE 87; RESP 16; TEMP 36.5; O2SAT 97
[2023-03-11] MEDS: LEVOTHYROXINE SODIUM INJ 100 MCG/5 ML VIAL 50 MCG IV PUSH (05:09)
[2023-03-11] MEDS: SODIUM CHLORIDE 0.9% IV 1,000 ML 100 ML IV CONT (05:09)
[2023-03-11 05:31] LABS: Basophils Percent Auto 0.3 % (0.2-1.2); Eosinophils Percent Auto 0.1 % (0-4.4); Hematocrit 35.4 % (42.0-52.0); Hemoglobin 11.6 g/dL (14.0-18.0); Immature Granulocyte Absolute 0.02 K/mm3 (0.00-0.031); Immature Granulocyte Percent A 0.3 % (0-0.5); Lymphocytes Absolute Auto 1.29 K/mm3 (0.9-3.2); Lymphocytes Percent Auto 19.2 % (18.3-44.2); Mean Corpuscular HGB Conc 32.8 g/dl (32-36); Mean Corpuscular Volume 103.8 fl (80-100); Mean Platelet Volume 10.4 fl (7.4-10.4); Monocytes Absolute Auto 0.7 K/mm3 (0.1-0.6); Monocytes Percent Auto 9.8 % (2.6-8.5); Neutrophils Absolute Auto 4.7 K/mm3 (1.3-6.7); Neutrophils Percent Auto 70.3 % (45.5-73.1); Platelet Count Result 161 k/mm3 (150-375); Red Blood Count 3.41 M/mm3 (4.6-6.20); Red Cell Distribution Width 12.9 % (11.5-14.5); White Blood Count 6.7 K/mm3 (4.5-10.0)
[2023-03-11 05:38] VITALS: BP 137/68; PULSE 100; RESP 16; TEMP 36.7; O2SAT 98
[2023-03-11 05:39] LABS: Alanine Aminotransferase 25 U/L (6-50); Albumin Level 3.6 g/dL (3.5-5.1); Alkaline Phosphatase 98 U/L (38-126); Anion Gap 12 mmol/L (8-16); Aspartate Amino Transferase 40 U/L (17-59); Bilirubin,Total 0.7 mg/dL (0.2-1.3); Blood Urea Nitrogen 12 mg/dL (9-20); Carbon Dioxide 20 mmol/L (22-30); Chloride 108 mmol/L (98-107); Estimated CRCL calculation 150 ml/min; Estimated Glomerular Filt Rate > 60; Glucose 61 mg/dL (65-110); Potassium 3.6 mmol/L (3.4-5.0); Sodium 140 mmol/L (137-145)
[2023-03-11 08:00] VITALS: BP 128/70; PULSE 91; RESP 18; TEMP 36; O2SAT 99
--- NOTE | 2023-03-11 08:39 | PM.PNGS ---
Progress Note: A&P Assessment and Plan (1) Gastrointestinal tract imaging abnormality: Code(s): R93.3 - Abnormal findings on diagnostic imaging of other parts of digestive tract Status: Acute Assessment and Plan: Plain film today with residual water-soluble contrast in the descending colon shows possible mucosal lesion in the sigmoid such as a neoplasm. Although colonoscopy recommended, patient has a small-bowel obstruction and cannot at this point have the prep. Will try water-soluble contrast enema to both facilitate resolution of the fecal impaction as well as better delineate the mucosa lesion. (2) Partial small bowel obstruction: Code(s): K56.600 - Partial intestinal obstruction, unspecified as to cause Status: Acute Assessment and Plan: Appears to have resolved but patient still has ileus. Continue NG suction for now. Continue NPO except ice chips. (3) Fecal impaction: Code(s): K56.41 - Fecal impaction Status: Acute Assessment and Plan: No BM after water-soluble contrast. Will try soap suds enema again today and Hypaque enema as noted. Subjective Subjective Date/Time Seen: 03/11/23 08:39 Patient reports: no new complaints, pain is less (No pain) and no bowel movement (Despite water-soluble upper GI and previous enema) Review of Systems Review of Systems: All systems reviewed & are unremarkable except as noted in HPI and below (HPI) ROS unobtainable: Yes unobtainable due to medical condition Exam Const: General: healthy appearing, comfortable, no acute distress, alert, awake and well nourished Orientation/consciousness: Other orientation findings (Mental illness, cognitive impairment) GI: Inspection: distended and scar GI Palp: No Soft to palpation, No Tenderness to palpation present (GI), No Hernia present and No Palpable mass present Objective Data Vital Signs Vital Signs: Vital Signs - 24 hr 03/10/23 13:46 03/10/23 16:00 03/10/23 20:23 Temperature 36.8 C 37.2 C 36.5 C Pulse Rate 104 H 104 H 87 Respiratory Rate 16 16 16 Blood Pressure 141/75 H 141/75 H 129/65 Pulse Oximetry 98 98 97 Oxygen Delivery 03/10/23 20:00 03/11/23 05:38 Temperature 36.7 C Pulse Rate 100 Respiratory Rate 16 Blood Pressure 137/68 Pulse Oximetry 98 Oxygen Delivery Room Air Intake/Output Intake/Output: Intake & Output 03/08/23 03/09/23 03/10/23 03/11/23 23:59 23:59 23:59 23:59 Intake Total 1000 2000 1000 1000 Output Total 1650 1425 50 Balance 1000 350 -425 950 Meds/Results Medications: Active Medications Generic Name Dose Route Start Last Admin Trade Name Freq PRN Reason Stop Dose Admin Hydromorphone HCl 0.5 mg 03/08/23 18:44 Hydromorphone Hcl Inj (*Crx) 1 Mg/Ml Syr IV PUSH Q4H PRN Pain Rated 7-10 Sodium Chloride 1,000 mls @ 100 mls/hr 03/08/23 18:45 03/11/23 05:09 Normal Saline Iv IV CONT 100 mls/hr .Q10H JULIANO Administration Levothyroxine Sodium 50 mcg 03/09/23 06:30 03/11/23 05:09 Levothyroxine Sodium Inj 100 Mcg/5 Ml Vial IV PUSH 50 mcg DAILY@0630 JULIANO Administration Lorazepam 0.5 mg 03/08/23 23:48 Lorazepam Inj (*Crx) 2 Mg/Ml Vial IV PUSH Q6H PRN Anxiety Ondansetron HCl 4 mg 03/08/23 18:44 Ondansetron Inj 4 Mg/2 Ml Vial IV PUSH Q4H PRN Nausea Radiology Results: ITS Impressions Abdomen/Pelvis CT 03/08/23 18:07 IMPRESSION: 1. Small bowel obstruction. Small Bowel X-Ray 03/10/23 12:52 IMPRESSION: 1. Dilated small bowel with normal transit time to the colon, consistent with adynamic ileus versus partial small bowel obstruction. Abdomen X-Ray 03/11/23 08:16 Impression: 1: Mucosal irregularity of the descending colon, suspicious for colonic mass. Recommend correlation with colonoscopy. 2: Dilated small bowel, suspicious for at least partial small bowel obstruction. Labs Labs: Laboratory Results - last 24 hr 03/11/23 04
[2023-03-11 09:04] VITALS: O2SAT 98
[2023-03-11 09:41] VITALS: RESP 16; O2SAT 98
--- NOTE | 2023-03-11 13:04 | PM.IMPN ---
Progress Note: A&P Assessment and Plan (1) Partial small bowel obstruction: Code(s): K56.600 - Partial intestinal obstruction, unspecified as to cause Status: Acute Assessment and Plan: The patient has had history of surgery due to small-bowel obstruction the past. NG tube was placed. The patient is NPO. Surgery has been consulted. Continue with analgesics. Continue with IV fluids. 03/09 abdominal x-ray consistent with small-bowel obstruction 03/10 small-bowel follow-through revealing dilated small bowel with transient time to the colon consistent with adynamic ileus versus partial small-bowel obstruction. 03/11 water-soluble enema with no stricture of sigmoid colon (2) Intellectual disability: Code(s): F79 - Unspecified intellectual disabilities Status: Acute Assessment and Plan: The patient appears to be comprehending information that was given to him. The patient is able to answer questions on his own. Patient does reside in a alf. (3) Hypothyroidism: Onset Date: Unknown Code(s): E03.9 - Hypothyroidism, unspecified Status: Acute Assessment and Plan: Continue with IV levothyroxine half of the p.o. dose. TSH within normal limits Subjective Date/time seen: 03/11/23 13:04 Interval history: Patient continues on NPO diet. Patient has not yet had bowel movement and bowel sounds are still hypoactive. General surgery aiding in management. He denies any abdominal pain, nausea, vomiting. He is still yet to have a bowel movement and NG tube remains in place. Exam Narrative: GENERAL: Comfortable, no acute distress HENMT: moist mucous membranes, NG tube patent EYES: EOM intact b/l NECK: no lymphadenopathy RESPIRATORY: clear to auscultation CARDIO: RRR GI: soft, nontender, hypoactive bowel sounds SKIN: no rashes EXTREMITIES: no edema, redness or tenderness Objective Data Vital Signs Vital Signs: Vital Signs - 24 hr 03/10/23 13:46 03/10/23 16:00 03/10/23 20:23 Temperature 98.3 F 98.9 F 97.7 F Pulse Rate 104 H 104 H 87 Respiratory Rate 16 16 16 Blood Pressure 141/75 H 141/75 H 129/65 Pulse Oximetry 98 98 97 Oxygen Delivery 03/10/23 20:00 03/11/23 05:38 03/11/23 09:04 Temperature 98.0 F Pulse Rate 100 Respiratory Rate 16 Blood Pressure 137/68 Pulse Oximetry 98 98 Oxygen Delivery Room Air Room Air 03/11/23 09:41 03/11/23 08:00 Temperature 96.8 F L Pulse Rate 91 Respiratory Rate 16 18 Blood Pressure 128/70 Pulse Oximetry 98 99 Oxygen Delivery Room Air Intake/Output Intake/Output: Intake & Output 03/08/23 03/09/23 03/10/23 03/11/23 23:59 23:59 23:59 23:59 Intake Total 1000 2000 1000 1000 Output Total 1650 1425 50 Balance 1000 350 -425 950 Meds/Results Medications: Active Medications Generic Name Dose Route Start Last Admin Trade Name Freq PRN Reason Stop Dose Admin Hydromorphone HCl 0.5 mg 03/08/23 18:44 Hydromorphone Hcl Inj (*Crx) 1 Mg/Ml Syr IV PUSH Q4H PRN Pain Rated 7-10 Sodium Chloride 1,000 mls @ 100 mls/hr 03/08/23 18:45 03/11/23 11:07 Normal Saline Iv IV CONT 100 mls/hr .Q10H JULIANO Infusion Levothyroxine Sodium 50 mcg 03/09/23 06:30 03/11/23 05:09 Levothyroxine Sodium Inj 100 Mcg/5 Ml Vial IV PUSH 50 mcg DAILY@0630 JULIANO Administration Lorazepam 0.5 mg 03/08/23 23:48 Lorazepam Inj (*Crx) 2 Mg/Ml Vial IV PUSH Q6H PRN Anxiety Ondansetron HCl 4 mg 03/08/23 18:44 Ondansetron Inj 4 Mg/2 Ml Vial IV PUSH Q4H PRN Nausea Radiology Results: ITS Impressions Abdomen/Pelvis CT 03/08/23 18:07 IMPRESSION: 1. Small bowel obstruction. Small Bowel X-Ray 03/10/23 12:52 IMPRESSION: 1. Dilated small bowel with normal transit time to the colon, consistent with adynamic ileus versus partial small bowel obstruction. Abdomen X-Ray 03/11/23 08:16 Impression: 1: Mucosal
[2023-03-11 14:00] VITALS: BP 144/70; PULSE 113; RESP 20; TEMP 35.9; O2SAT 98
[2023-03-11] MEDS: SODIUM CHLORIDE 0.9% IV 1,000 ML 60 ML IV CONT (15:43)
[2023-03-11 21:16] VITALS: BP 143/76; PULSE 82; RESP 16; TEMP 36.7; O2SAT 100
[2023-03-12] MEDS: LEVOTHYROXINE SODIUM INJ 100 MCG/5 ML VIAL 50 MCG IV PUSH (05:53)
[2023-03-12] MEDS: SODIUM CHLORIDE 0.9% IV 1,000 ML 60 ML IV CONT ×2 (05:55→23:40)
[2023-03-12 06:06] VITALS: BP 155/86; PULSE 94; RESP 16; TEMP 36.4; O2SAT 99
[2023-03-12 06:24] LABS: Mean Corpuscular HGB Conc 34.3 g/dl (32-36); Mean Corpuscular Hemoglobin 35.7 pg (26-34); Mean Corpuscular Volume 104.2 fl (80-100); Mean Platelet Volume 10.3 fl (7.4-10.4); Platelet Count Result 203 k/mm3 (150-375); Red Blood Count 3.36 M/mm3 (4.6-6.20); Red Cell Distribution Width 12.8 % (11.5-14.5); White Blood Count 7.6 K/mm3 (4.5-10.0)
[2023-03-12 06:43] LABS: Alanine Aminotransferase 31 U/L (6-50); Albumin Level 3.9 g/dL (3.5-5.1); Alkaline Phosphatase 121 U/L (38-126); Anion Gap 10 mmol/L (8-16); Aspartate Amino Transferase 55 U/L (17-59); Bilirubin,Total 0.8 mg/dL (0.2-1.3); Blood Urea Nitrogen 6 mg/dL (9-20); Calcium 8.4 mg/dL (8.4-10.2); Carbon Dioxide 21 mmol/L (22-30); Chloride 106 mmol/L (98-107); Estimated CRCL calculation 150 ml/min; Estimated Glomerular Filt Rate > 60; Glucose 94 mg/dL (65-110); Potassium 3.7 mmol/L (3.4-5.0); Sodium 137 mmol/L (137-145)
[2023-03-12 09:14] VITALS: O2SAT 97
--- NOTE | 2023-03-12 10:20 | PM.IMPN ---
Progress Note: A&P Assessment and Plan (1) Partial small bowel obstruction: Code(s): K56.600 - Partial intestinal obstruction, unspecified as to cause Status: Acute Assessment and Plan: The patient has had history of surgery due to small-bowel obstruction the past. NG tube was placed. The patient is NPO. Surgery has been consulted. Continue with analgesics. Continue with IV fluids. 03/09 abdominal x-ray consistent with small-bowel obstruction 03/10 small-bowel follow-through revealing dilated small bowel with transient time to the colon consistent with adynamic ileus versus partial small-bowel obstruction. 03/11 water-soluble enema with no stricture of sigmoid colon 03/12: Still no bowel movement. General surgery on board helping to manage. (2) Intellectual disability: Code(s): F79 - Unspecified intellectual disabilities Status: Acute Assessment and Plan: The patient appears to be comprehending information that was given to him. The patient is able to answer questions on his own. Patient does reside in a fdc. (3) Hypothyroidism: Onset Date: Unknown Code(s): E03.9 - Hypothyroidism, unspecified Status: Acute Assessment and Plan: Continue with IV levothyroxine half of the p.o. dose. TSH within normal limits Plan Monitor for return of bowel function Intervention per General surgery recommendations only Time Spent With Patient Time with patient: 25 - 35 minutes Subjective Date/time seen: 03/12/23 10:20 Interval history: Patient continues on NPO diet. Patient has not yet had bowel movement and bowel sounds are still hypoactive. General surgery aiding in management. He denies any abdominal pain, nausea, vomiting. He is still yet to have a bowel movement and NG tube remains in place. 03/12: Still no BM, hypoactive bowel sounds. Patient denies pain or vomiting. Review of Systems Review of Systems: All systems reviewed & are unremarkable except as noted in HPI and below (HPI) ROS unobtainable: Yes unobtainable due to mental status Exam Narrative: GENERAL: Comfortable, no acute distress HENMT: moist mucous membranes, NG tube patent EYES: EOM intact b/l NECK: no lymphadenopathy RESPIRATORY: clear to auscultation CARDIO: RRR GI: soft, nontender, hypoactive bowel sounds, distended SKIN: no rashes EXTREMITIES: no edema, redness or tenderness Objective Data Vital Signs Vital Signs: Vital Signs - 24 hr 03/11/23 14:00 03/11/23 21:16 03/11/23 20:00 Temperature 35.9 C L 36.7 C Pulse Rate 113 H 82 Respiratory Rate 20 16 Blood Pressure 144/70 H 143/76 H Pulse Oximetry 98 100 Oxygen Delivery Room Air 03/12/23 06:06 03/12/23 09:14 Temperature 36.4 C Pulse Rate 94 Respiratory Rate 16 Blood Pressure 155/86 H Pulse Oximetry 99 97 Oxygen Delivery Room Air Intake/Output Intake/Output: Intake & Output 03/09/23 03/10/23 03/11/23 03/12/23 23:59 23:59 23:59 23:59 Intake Total 1999 1000 2460 1470 Output Total 1650 1425 800 600 Balance 350 -425 1660 870 Meds/Results Medications: Active Medications Generic Name Dose Route Start Last Admin Trade Name Freq PRN Reason Stop Dose Admin Hydromorphone HCl 0.5 mg 03/08/23 18:44 Hydromorphone Hcl Inj (*Crx) 1 Mg/Ml Syr IV PUSH Q4H PRN Pain Rated 7-10 Sodium Chloride 1,000 mls @ 60 mls/hr 03/08/23 18:45 03/12/23 05:55 Normal Saline Iv IV CONT 60 mls/hr .[id number] JULIANO Administration Levothyroxine Sodium 50 mcg 03/09/23 06:30 03/12/23 05:53 Levothyroxine Sodium Inj 100 Mcg/5 Ml Vial IV PUSH 50 mcg DAILY@0630 JULIANO Administration Lorazepam 0.5 mg 03/08/23 23:48 Lorazepam Inj (*Crx) 2 Mg/Ml Vial IV PUSH Q6H PRN Anxiety Ondansetron HCl 4 mg 03/08/23 18:44 Ondansetron Inj 4 Mg/2 Ml Vial IV PUSH Q4H PRN Nausea Radiology Results: ITS Impressions Abdomen/Pelvis CT 0
[2023-03-12 14:00] VITALS: BP 155/78; PULSE 115; RESP 18; TEMP 36.8; O2SAT 95
--- NOTE | 2023-03-12 17:39 | PM.PNGS ---
Progress Note: A&P Assessment and Plan (1) Partial small bowel obstruction: Code(s): K56.600 - Partial intestinal obstruction, unspecified as to cause Status: Acute Assessment and Plan: Resolved. Advance to regular diet. Probably home tomorrow. (2) Fecal impaction: Code(s): K56.41 - Fecal impaction Status: Acute Assessment and Plan: Resolved after enemas and water-soluble contrast studies. Having bowel movements regularly now. (3) Gastrointestinal tract imaging abnormality: Code(s): R93.3 - Abnormal findings on diagnostic imaging of other parts of digestive tract Status: Acute Assessment and Plan: Contrast enema did not show any sign of malignancy. Do not feel there is a mucosal lesion on the basis of this study. Subjective Subjective Date/Time Seen: 03/12/23 17:39 Patient reports: feels better, pain is less (Denies abdominal pain), tolerating liquids well, bowel movement and afebrile Review of Systems Review of Systems: All systems reviewed & are unremarkable except as noted in HPI and below (HPI) Exam Const: General: comfortable, no acute distress, alert, awake and Physically active GI: Inspection: non-distended and scar GI Palp: Yes Soft to palpation, No Tenderness to palpation present (GI), No Guarding due to palpation present (GI) and No Rebound tenderness present Extrem: General: no calf tenderness and no edema Objective Data Vital Signs Vital Signs: Vital Signs - 24 hr 03/11/23 21:16 03/11/23 20:00 03/12/23 06:06 Temperature 36.7 C 36.4 C Pulse Rate 82 94 Respiratory Rate 16 16 Blood Pressure 143/76 H 155/86 H Pulse Oximetry 100 99 Oxygen Delivery Room Air 03/12/23 09:14 03/12/23 14:00 03/12/23 08:00 Temperature 36.8 C Pulse Rate 115 H Respiratory Rate 18 Blood Pressure 155/78 H Pulse Oximetry 97 95 Oxygen Delivery Room Air Room Air Intake/Output Intake/Output: Intake & Output 03/09/23 03/10/23 03/11/23 03/12/23 23:59 23:59 23:59 23:59 Intake Total 1999 999 2460 2030 Output Total 1650 5141 474 4123 Balance 350 -425 1660 430 Meds/Results Medications: Active Medications Generic Name Dose Route Start Last Admin Trade Name Freq PRN Reason Stop Dose Admin Hydromorphone HCl 0.5 mg 03/08/23 18:44 Hydromorphone Hcl Inj (*Crx) 1 Mg/Ml Syr IV PUSH Q4H PRN Pain Rated 7-10 Sodium Chloride 1,000 mls @ 60 mls/hr 03/08/23 18:45 03/12/23 05:55 Normal Saline Iv IV CONT 60 mls/hr .[id number] JULIANO Administration Levothyroxine Sodium 50 mcg 03/09/23 06:30 03/12/23 05:53 Levothyroxine Sodium Inj 100 Mcg/5 Ml Vial IV PUSH 50 mcg DAILY@0630 JULIANO Administration Lorazepam 0.5 mg 03/08/23 23:48 Lorazepam Inj (*Crx) 2 Mg/Ml Vial IV PUSH Q6H PRN Anxiety Ondansetron HCl 4 mg 03/08/23 18:44 Ondansetron Inj 4 Mg/2 Ml Vial IV PUSH Q4H PRN Nausea Radiology Results: ITS Impressions Abdomen/Pelvis CT 03/08/23 18:07 IMPRESSION: 1. Small bowel obstruction. Small Bowel X-Ray 03/10/23 12:52 IMPRESSION: 1. Dilated small bowel with normal transit time to the colon, consistent with adynamic ileus versus partial small bowel obstruction. Abdomen X-Ray 03/11/23 08:16 Impression: 1: Mucosal irregularity of the descending colon, suspicious for colonic mass. Recommend correlation with colonoscopy. 2: Dilated small bowel, suspicious for at least partial small bowel obstruction. Enema w/Water Soluble 03/11/23 11:34 IMPRESSION: 1. No stricture of the sigmoid colon to correlate with the previously described radiographic finding. 2. Dilated small bowel, consistent with adynamic ileus versus partial small bowel obstruction. 3. Dilated rectosigmoid, likely adynamic ileus. Labs Labs: Laboratory Results - last 24 hr 03/12/23 05:35 WBC 7.6 RBC 3.36 L Hgb 12.0 L Hct 35.0 L MCV 104.2 H MCH 35.7 H MCHC 34.3 RDW 12
[2023-03-12 21:44] VITALS: BP 135/77; PULSE 99; RESP 20; TEMP 36.2; O2SAT 99
--- NOTE | 2023-03-13 05:14 | PC.NURSE ---
On 03/12/23-03/13/23, the license pending RN, Abdirahman Stover, provided care and completed [facility] documentation on this patient. I have reviewed the RN's documentation and agree with the findings.
[2023-03-13] MEDS: LEVOTHYROXINE SODIUM INJ 100 MCG/5 ML VIAL 50 MCG IV PUSH (05:32)
[2023-03-13 06:00] VITALS: BP 143/71; PULSE 102; RESP 18; TEMP 36.2; O2SAT 97
--- NOTE | 2023-03-13 10:00 | PM.DS ---
DS: Admitting Diagnosis Discharge Date 03/13/23 1000 Admitting Diagnosis small bowel obstruction DS: Discharge Diagnosis Discharge Diagnosis (1) Partial small bowel obstruction: Code(s): K56.600 - Partial intestinal obstruction, unspecified as to cause Status: Acute Assessment and Plan: The patient has had history of surgery due to small-bowel obstruction the past. NG tube was placed. The patient is NPO. Surgery has been consulted. Continue with analgesics. Continue with IV fluids. 03/09 abdominal x-ray consistent with small-bowel obstruction 03/10 small-bowel follow-through revealing dilated small bowel with transient time to the colon consistent with adynamic ileus versus partial small-bowel obstruction. 03/11 water-soluble enema with no stricture of sigmoid colon 03/12: Still no bowel movement. General surgery on board helping to manage. (2) Intellectual disability: Code(s): F79 - Unspecified intellectual disabilities Status: Acute Assessment and Plan: The patient appears to be comprehending information that was given to him. The patient is able to answer questions on his own. Patient does reside in a senior care. (3) Hypothyroidism: Onset Date: Unknown Code(s): E03.9 - Hypothyroidism, unspecified Status: Acute Assessment and Plan: Continue with IV levothyroxine half of the p.o. dose. TSH within normal limits Plan Monitor for return of bowel function Intervention per General surgery recommendations only DS: Summary Hospital Course Hospital Course: Patient is a 8-year-old male with a past medical history up autism, anemia, GERD, gout who presented the ED with complaints of abdominal pain with nausea vomiting. CT of the abdomen and pelvis was performed and shows small bowel obstruction. NG tube was placed and surgery was consulted. Small-bowel follow-through was performed showed dilated small bowel and was consistent with 8 anemic ileus versus partial small-bowel obstruction. Water-soluble enema was given with no stricture to the sigmoid colon. Currently patient is stable to eat and has been tolerating liquids and food. Patient does have autism however is alert oriented x3. Currently patient denies any chest pain, shortness a breath, nausea, vomiting, diarrhea or constipation. Patient is stable for discharge for labs and vital signs at this time. Patient will go back to his senior care. Patient did work with PT and OT and was noted to be slightly unsteady however it was confirmed that patient is slightly unsteady at baseline per senior care. Status at Discharge Functional status at discharge: uses cane/walker Overall status at discharge: patient is progressing back to baseline Time Spent with Patient Time attestation: Total time spent providing and/or coordinating discharge services: 48 minutes Time spent: Greater than 30 minutes Specific discharge activities: Diagnostic testing, chart review, developing a treatment plan, education, care coordination documentation, physical exam, result review Exam Narrative: General: well-nourished, well-appearing 62-year-old male, sitting up in bed, comfortable, NARD Neuro: awake, alert and oriented x4, speech clear, no focal neuro deficits noted HEENMT: normocephalic, atraumatic, EOMI, sclerae anicteric, moist oral mucosa Respiratory: Clear to auscultation bilaterally without crackles, rhonchi or wheezes, nonlabored breathing Cardio: regular rate, regular rhythm with S1-S2 Abdomen: nondistended, normoactive bowel sounds, soft, nontender to palpation Extremities: no edema, erythema, or tenderness to palpation, DP pulses 2+ bilaterally Skin: no rashes or lesions, warm and dry Psych: appropriate mood and affect, judgment and insight intact Discharge Plan Discharge Attending physician on discharge: Lien Flores Consulting providers: Saturnino Oliver; Idris [facility]
--- NOTE | 2023-03-13 10:04 | PCOTNOTE ---
Per hospitalist, patient is going home today. Per hospitalist patient is at his baseline and lives in a longterm.
[2023-03-13 12:46] LABS: SARS-CoV-2 RNA PCR Negative (Negative)
== END 2023-03-13 13:30 | disposition home or self-care (01) | DRG 389 ==
LOC: ANHED 18:43 → ANH2MED 19:07
PROVIDERS: Internal Medicine Critical Care Medicine; Nurse Practitioner; Surgery; Admitting Provider Hospitalist; Emergency Provider Emergency Medicine; PCP Pediatrics; Visit Provider Nurse Practitioner
DX: K56.600 Partial intestinal obstruction, unspecified as to cause (principal); F84.0 Autistic disorder; K50.90 Crohn's disease, unspecified, without complications; K56.41 Fecal impaction; D53.1 Other megaloblastic anemias, not elsewhere classified; E78.00 Pure hypercholesterolemia, unspecified; E03.9 Hypothyroidism, unspecified; F20.9 Schizophrenia, unspecified; K21.9 Gastro-esophageal reflux disease without esophagitis; Z20.822 Contact with and (suspected) exposure to COVID-19
CPT/HCPCS: 36415; 74018; 74019; 74177; 74250; 74270; 80053; 81001; 83605; 83690; 83735; 84443; 85025; 85027; 87635; 96361; 96374; 96375; 97161; 99285; J1170; J2405; J7030; Q9967

== ENCOUNTER 2023-03-16 23:01 | Inpatient (IN) | payer MEDICARE, MEDICAID, SELFPAY ==
--- NOTE | ~2023-03-16 | XR_ITS ---
Portable upright view of the abdomen Clinical history: NG tube placement Findings: NG tube is in satisfactory position. Multiple air distended loops of bowel are present. No abnormal mass lesion or calcification is seen. Osseous structures are intact. Impression: NG tube in satisfactory position. Multiple air distended loops of bowel. Reviewed, dictated and finalized at [facility]. Impression: NG tube in satisfactory position. Multiple air distended loops of bowel.
--- NOTE | ~2023-03-16 | XR_ITS ---
EXAMINATION: XR sm bowel follow through WS DATE: 03/17/2023 15:33 INDICATION: Recurrent small bowel obstruction TECHNIQUE: Solution Mixer radiograph(s) of the abdomen was/were obtained. Oral contrast was administered, and sequential radiographs of the abdomen were obtained until oral contrast was noted to be in the proxi mal colon. COMPARISON: CT abdomen pelvis dated 03/17/2023 FINDINGS: Nasogastric tube tip in proximal side port in the body of the stomach on the deboner radiograph. There is moderate amount of stool at the hepatic flexure of the colon. There are a few gas-filled loops of bowel in the visualized upper abdomen. Transit time from the stomach to proximal colon was approximat kin 2 hours. Interval decrease in now borderline dilation of several loops of small bowel. There is n ormal mucosal fold pattern throughout the small bowel. IMPRESSION: 1. Decrease in now only borderline dilation of several loops of small bowel with normal transit time to the colon consistent with either resolving partial small bowel obstruction or ileus. Reviewed, dictated and finalized at location A. IMPRESSION: 1. Decrease in now only borderline dilation of several loops of small bowel wit h normal transit time to the colon consistent with either resolving partial sma ll bowel obstruction or ileus.
--- NOTE | ~2023-03-16 | CT_ITS ---
CT of the Abdomen and Pelvis: Indication: Abdominal pain Technique: 2.5 mm axial scans were obtained through the abdomen and pelvis following intravenous adm inistration of 100 cc of Omnipaque 350. Dose reduction technique was used on this scan by utilizing a utomated exposure control and iterative reconstruction technique. The dose-length product (DLP) was 9 38.66 mGy-cm. COMPARISON: 03/08/2023 Findings: Scans through the lung bases demonstrate bibasilar atelectatic change. Small hepatic cyst present. The spleen, pancreas, gallbladder, adrenals and right kidney are within n ormal limits. Stable small nonobstructing left renal stone noted. No evidence of aortic aneurysm. No lymphadenopathy. Multiple dilated loops of small bowel are present, especially in the left upper quadrant to left mid abdomen, with small bowel feces sign. There is a large amount of stool also present throughout the la rge bowel. Images through the pelvis were performed. Urinary bladder unremarkable. No pelvic mass evident. No as cites. Impression: Findings suggestive of small bowel obstruction, with transition point not clearly delineated. Please see details above. Stable small nonobstructing left renal stone. Reviewed, dictated and finalized at location . Impression: Findings suggestive of small bowel obstruction, with transition point not clear ly delineated. Please see details above. Stable small nonobstructing left renal stone.
[2023-03-16 23:02] VITALS: BP 136/78; PULSE 89; RESP 18; TEMP 36.3; O2SAT 99
--- NOTE | 2023-03-16 23:02 | PC.NURSE ---
EMS reports nurse from home where pt lives will be coming out.
[2023-03-16 23:04] VITALS: BP 136/78; PULSE 89; RESP 18; O2SAT 98
[2023-03-16 23:30] VITALS: BP 135/63; PULSE 78; RESP 17
--- NOTE | 2023-03-16 23:30 | PC.NURSE ---
This RN spoke with nurse at [facility] who provided more information on pt hx. Inital assessment note updated.
[2023-03-17] VITALS (7 sets, daily range): BP systolic 98–138; BP diastolic 47–77; PULSE 76–97; RESP 16–20; TEMP 36.2–36.5; O2SAT 93–100; BMI 21.2
[2023-03-17 00:19] LABS: Appearance Urine Clear (Clear); Bilirubin Urine Negative (Negative); Blood Urine Negative (Negative); Color Urine Yellow (Yellow); Glucose Urine UA Negative (Negative); Ketones Urine Negative (Negative); Leukocyte Esterase Ur Negative LEU/UL (Negative); Nitrate Urine Negative (Negative); Protein Urine Negative (Negative); Specific Grav Ur 1.003 (1.001-1.035)
[2023-03-17 00:36] LABS: Add Urine Microscopic? NO
[2023-03-17 00:40] LABS: Basophils Percent Auto 0.3 % (0.2-1.2); Eosinophils Percent Auto 0.1 % (0-4.4); Hematocrit 31.9 % (42.0-52.0); Hemoglobin 11.8 g/dL (14.0-18.0); Immature Granulocyte Absolute 0.04 K/mm3 (0.00-0.031); Immature Granulocyte Percent A 0.6 % (0-0.5); Lymphocytes Absolute Auto 1.45 K/mm3 (0.9-3.2); Lymphocytes Percent Auto 21.6 % (18.3-44.2); Mean Corpuscular Hemoglobin 40.3 pg (26-34); Mean Corpuscular Volume 108.9 fl (80-100); Mean Platelet Volume 10.1 fl (7.4-10.4); Monocytes Absolute Auto 0.9 K/mm3 (0.1-0.6); Monocytes Percent Auto 12.6 % (2.6-8.5); Neutrophils Absolute Auto 4.4 K/mm3 (1.3-6.7); Neutrophils Percent Auto 64.8 % (45.5-73.1); Platelet Count Result 210 k/mm3 (150-375); Red Blood Count 2.93 M/mm3 (4.6-6.20); Red Cell Distribution Width 15.3 % (11.5-14.5); White Blood Count 6.7 K/mm3 (4.5-10.0)
[2023-03-17 00:51] LABS: Alanine Aminotransferase 47 U/L (6-50); Albumin Level 3.7 g/dL (3.5-5.1); Alkaline Phosphatase 178 U/L (38-126); Anion Gap 7 mmol/L (8-16); Aspartate Amino Transferase 43 U/L (17-59); Bilirubin,Total 0.6 mg/dL (0.2-1.3); Blood Urea Nitrogen 7 mg/dL (9-20); Calcium 8.8 mg/dL (8.4-10.2); Carbon Dioxide 26 mmol/L (22-30); Chloride 105 mmol/L (98-107); Estimated Glomerular Filt Rate > 60; Glucose 105 mg/dL (65-110); Lipase 51 U/L (23-300); Potassium 3.9 mmol/L (3.4-5.0); Sodium 138 mmol/L (137-145)
[2023-03-17 00:52] LABS: Lactic Acid Reflex 1.2 mmol/L (0.7-2.0)
--- NOTE | 2023-03-17 04:17 | ED.GENADULT ---
HPI - General Adult General Chief complaint: Unspecified Stated complaint: constipation Time Seen by Provider: 03/16/23 23:56 History of Present Illness HPI narrative: Patient is a 62-year-old gentleman who presents the emergency department with chief complaint of abdominal pain. Patient has history of recurrent bowel obstructions was last admitted a few weeks ago at our facility treated with NG tube at that time. The patient was sent back to his facility where he lives that ends started having worsening abdominal discomfort and then noticed decreased bowel movements. The patient currently states he is feeling much better Related Data Home Medications Medication Instructions Recorded Confirmed fenofibrate 160 mg tablet 160 mg PO DAILY 10/15/20 03/08/23 folic acid 1 mg tablet 1 mg PO DAILY 10/15/20 03/08/23 levothyroxine 100 mcg tablet 100 mcg PO DAILY 10/15/20 03/08/23 linaclotide 145 mcg capsule 145 mcg PO DAILY 10/15/20 03/08/23 (Linzess) omega 2-ujp-mja-fish oil 1,200 mg 1 cap PO BID 10/15/20 03/08/23 (144 mg-216 mg) capsule (Fish Oil) omeprazole 40 mg capsule,delayed 40 mg PO Q12H 10/15/20 03/08/23 release potassium chloride 10 mEq 10 meq PO DAILY 10/15/20 03/08/23 tablet,extended release(part/cryst) propranolol 20 mg tablet 20 mg PO QID 10/15/20 03/08/23 sennosides 8.6 mg-docusate sodium 2 tab-cap PO Q12H 10/15/20 03/08/23 50 mg tablet (Senokot-S) sulfasalazine 500 mg tablet 1,000 mg PO Q12H 10/15/20 03/08/23 vitamin B complex 1 tablet PO DAILY 10/15/20 03/08/23 acetaminophen 325 mg tablet 650 mg PO PRN PRN Pain 11/01/20 03/08/23 (Tylenol) multivitamin,tx-minerals 1 tablet PO 1700 11/01/20 03/08/23 diphenhydramine HCl 25 mg tablet 25 mg PO Q6H PRN Allergic Reaction 11/20/20 03/08/23 cetirizine 10 mg BYMOUTH DAILY PRN Allergy 03/20/21 03/08/23 Symptoms clozapine 100 mg tablet 100 mg PO Q12H 03/20/21 03/08/23 clozapine 100 mg tablet 200 mg PO 1700 03/20/21 03/08/23 divalproex 500 mg tablet,extended 1,000 mg PO Q12H 03/20/21 03/08/23 release 24 hr ergocalciferol (vitamin D2) 1,250 1,250 mcg PO WEEKLY 03/20/21 03/08/23 mcg (50,000 unit) capsule escitalopram oxalate 20 mg tablet 20 mg PO DAILY 03/20/21 03/08/23 Allergies Allergy/AdvReac Type Severity Reaction Status Date / Time No Known Allergies Allergy Verified 03/08/23 20:05 Review of Systems Review of Systems: A 10 system review of systems was completed on the patient and is negative except for what is stated in the HPI. Nursing and ancillary documentation was reviewed. 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 12/08/2003 - Taken back to surgery for a small bowel obstruction and had an adhesiolysis. Family History Family History Other Unknown family medical history Social History Social History Social History: He lives in a jail in [place]. Lifelong nonsmoker. No alcohol or drug use. Primary care physician: Dr. Isael Lanier Code status: Full code Healthcare power of energy attorney: Jose Manuel Sotomayor (father). Caregiver states sj
--- NOTE | 2023-03-17 04:23 | PM.IMHP ---
H&P: HPI History of Present Illness Date/Time: 03/17/23 04:23 Chief Complaint: N/V Narrative: THIS IS A 62-YEAR-OLD MALE WITH PAST MEDICAL HISTORY SIGNIFICANT FOR AUTISM, CHRONIC ANEMIA, GERD, GOUT, DYSLIPIDEMIA, HYPOTHYROIDISM, PEPTIC ULCER, SCHIZOPHRENIA. PATIENT RESIDES AT A HOME GROUP ASSISTED LIVING AND HE IS KNOWN TO HAVE MULTIPLE HOSPITALIZATIONS FOR PARALYTIC ILEUS PATIENT HAD BEEN SEEN EARLIER AND SENT HOME HOWEVER CAME BACK DUE TO UNRESOLVING ABDOMINAL PAIN DISTENTION NAUSEA VOMITING CONSTIPATION MOST OF THE HISTORY HAS BEEN OBTAINED FROM CAREGIVER WHO IS AT BEDSIDE. PATIENT WAS RECENTLY DISCHARGED AFTER HAVING SIMILAR EPISODE FOUND TO HAVE FECAL IMPACTION WHICH RESOLVED WITH THE APPLICATION OF ENEMAS AND IT WAS FELT THAT HE WAS GOOD TO GO HOME AFTER HAVING REGULAR BOWEL MOVEMENTS ON BEEN ABLE TO TOLERATE P.O. CT ABDOMEN AND PELVIS IS NOW PENDING FINAL REPORT CT of the Abdomen and Pelvis: Indication: Abdominal pain Technique:? 2.5 mm axial scans were obtained through the abdomen and pelvis following intravenous administration of 100 cc of Omnipaque 350. Dose reduction technique was used on this scan by utilizing automated exposure control and iterative reconstruction technique. The dose-length product (DLP) was 938.66 mGy-cm. COMPARISON: 03/08/2023 Findings:? Scans through the lung bases demonstrate bibasilar atelectatic change. Small hepatic cyst present. The spleen, pancreas, gallbladder, adrenals and right kidney are within normal limits. Stable small nonobstructing left renal stone noted. No evidence of aortic aneurysm.? No lymphadenopathy. Multiple dilated loops of small bowel are present, especially in the left upper quadrant to left mid abdomen, with small bowel feces sign. There is a large amount of stool also present throughout the large bowel. Images through the pelvis were performed. Urinary bladder unremarkable. No pelvic mass evident. No ascites. Impression: Findings suggestive of small bowel obstruction, with transition point not clearly delineated. Please see details above. Stable small nonobstructing left renal stone. Review of Systems Review of Systems: ROS unobtainable: Yes unobtainable due to medical condition (INTELLECTUAL DISABILITY) [facility] Past Medical History Medical History Autism spectrum disorder Chronic anemia (Unknown) Chronic megaloblastic anemia with high folate and B12 levels in 2018 Complete small bowel obstruction GERD (gastroesophageal reflux disease) Gout Hypercholesterolemia (Unknown) Ileus Intellectual disability Macrocytic anemia Nausea and vomiting in adult Peptic ulcer Schizophrenia Sepsis Tachycardia Thrombocytopenia Weakness Surgical History Surgical History History of appendectomy (~12/07/03) November 2003 - Incidental appendectomy during exploratory laparotomy History of exploratory laparotomy (~12/07/03) 11/30/2003 - 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 12/08/2003 - Taken back to surgery for a small bowel obstruction and had an adhesiolysis. Family History Family History Other Unknown family medical history Social History Social History Social History: He lives in a jail in [place]. Lifelong nonsmoker. No alcohol or drug use. Primary care physician: Dr. Isael Lanier Code status: Full code Healthcare power of hospital account liaison: Jose Manuel Sotomayor (father). Caregiver states that [facility] should be called for any consent at [phone]. Smoking status: Never smoker Alcohol intake: never Substance use: never Substance use type: does not use Gender identity (if verbalized by
--- NOTE | 2023-03-17 04:50 | PC.NURSE ---
For any questions on pt we are to general manager in training of the [facility], Ann Martel. longterm number: [phone] (preferred)
--- NOTE | 2023-03-17 05:37 | PC.NURSE ---
[address] Admission Note: The patient,Ricardo Sotomayor,62 y/o, was given written information regarding hospital policies, unit procedures and contact persons. Patient's smoking status: Never smoker.
[2023-03-17] MEDS: SODIUM CHLORIDE 0.9% IV 1,000 ML 125 ML IV CONT ×2 (05:58→15:11)
[2023-03-17] MEDS: PANTOPRAZOLE SODIUM IV 40 MG VIAL IV PUSH (08:18)
[2023-03-17] MEDS: METOCLOPRAMIDE HCL INJ 10 MG/2 ML VIAL IV PUSH (09:23)
[2023-03-17] MEDS: BISACODYL 10 MG SUPPOSITORY RECTAL (09:23)
--- NOTE | 2023-03-17 10:15 | PM.IMPN ---
Progress Note: A&P Assessment and Plan (1) Adynamic ileus: Code(s): K56.0 - Paralytic ileus Status: Acute Assessment and Plan: Presented to the ED with complaints of abdominal pain and decreased BM CT of the Abd/Pel shows SBO with undefined transition point, and large amounts of stool present in the colon Abd Xray showed multiple air distended loops of bowel SBO vs ileus vs fecal impaction Consider digital disimpaction NG tube present without any output General surgery consulted IV fluids continued NPO for now Suppository and enema ordered Consider lactulose when able to take PO (2) Small bowel obstruction: Onset Date: Unknown Code(s): K56.609 - Unspecified intestinal obstruction, unspecified as to partial versus complete obstruction Status: Acute Assessment and Plan: See above Was recently treated for this General surgery consulted (3) Nausea and vomiting: Qualifiers: Vomiting type: unspecified Qualified Code(s): R11.2 - Nausea with vomiting, unspecified Code(s): R11.2 - Nausea with vomiting, unspecified Status: Acute Assessment and Plan: Currently no N/V Related to fecal impaction and ileus vs SBO Suppository and enema ordered IV fluids NPO (4) Autism spectrum disorder: Code(s): F84.0 - Autistic disorder Status: Chronic Assessment and Plan: Stable Current medications on hold Restart home medications Lexapro, Clozapine when able Trend mood Consider adding IV PRNs if indicated (5) Crohn's disease: Qualifiers: Digestive disease complication type: with intestinal obstruction Gastrointestinal tract location: small intestine Qualified Code(s): K50.012 - Crohn's disease of small intestine with intestinal obstruction Code(s): K50.90 - Crohn's disease, unspecified, without complications Status: Chronic Assessment and Plan: Continue Sulfasalazine when able Most likely contributing to current symptoms Stable at this time (6) Hypothyroidism: Onset Date: Unknown Qualifiers: Hypothyroidism type: acquired Qualified Code(s): E03.9 - Hypothyroidism, unspecified Code(s): E03.9 - Hypothyroidism, unspecified Status: Acute Assessment and Plan: TSH from 03/09/23 3.050 Continue levothyroxine Trend as indicated (7) Fecal impaction: Code(s): K56.41 - Fecal impaction Status: Inactive Assessment and Plan: CT of the abd/pel shows large amounts of stool in the colon Start suppository and enemas Consider adding lactulose when able to take PO Linzess at home, restart when able Contributing to the current condition Could need digital disimpaction Time Spent With Patient Time: 48 minutes Time with patient: Greater than 35 minutes Subjective Date/time seen: 03/17/23 08:49 Interval history: 03/17/23 Patient is lying in bed. Patient stated that he is not having any abdominal pain. He did state that he has had not had a good bowel movement a couple days. He denies any current chest pain, shortness a breath, nausea, vomiting, diarrhea. he did ask about going home. I would also hooked to his NG tube up to suction with no output. 03/17/23? 04:23 THIS IS A 62-YEAR-OLD MALE WITH PAST MEDICAL HISTORY SIGNIFICANT FOR AUTISM, CHRONIC ANEMIA, GERD, GOUT, DYSLIPIDEMIA, HYPOTHYROIDISM, PEPTIC ULCER, SCHIZOPHRENIA.? PATIENT RESIDES AT A HOME GROUP ASSISTED LIVING AND HE IS KNOWN TO HAVE MULTIPLE HOSPITALIZATIONS FOR PARALYTIC ILEUS PATIENT HAD BEEN SEEN EARLIER AND SENT HOME HOWEVER CAME BACK DUE TO UNRESOLVING ABDOMINAL PAIN DISTENTION NAUSEA VOMITING CONSTIPATION MOST OF THE HISTORY HAS BEEN OBTAINED FROM CAREGIVER WHO IS AT BEDSIDE.? PATIENT WAS RECENTLY DISCHARGED AFTER HAVING SIMILAR EPISODE
--- NOTE | 2023-03-17 10:15 | P.PNIM_ITS ---
Progress Note: A&P Assessment and Plan (1) Adynamic ileus: Code(s): K56.0 - Paralytic ileus Status: Acute Assessment and Plan: * Presented to the ED with complaints of abdominal pain and decreased BM * CT of the Abd/Pel shows SBO with undefined transition point, and large amounts of stool present in the colon * Abd Xray showed multiple air distended loops of bowel * SBO vs ileus vs fecal impaction * Consider digital disimpaction * NG tube present without any output * General surgery consulted * IV fluids continued * NPO for now * Suppository and enema ordered * Consider lactulose when able to take PO (2) Small bowel obstruction: Onset Date: Unknown Code(s): K56.609 - Unspecified intestinal obstruction, unspecified as to partial versus complete obstruction Status: Acute Assessment and Plan: * See above * Was recently treated for this * General surgery consulted (3) Nausea and vomiting: Qualifiers: Vomiting type: unspecified Qualified Code(s): R11.2 - Nausea with vomiting, unspecified Code(s): R11.2 - Nausea with vomiting, unspecified Status: Acute Assessment and Plan: * Currently no N/V * Related to fecal impaction and ileus vs SBO * Suppository and enema ordered * IV fluids * NPO (4) Autism spectrum disorder: Code(s): F84.0 - Autistic disorder Status: Chronic Assessment and Plan: * Stable * Current medications on hold * Restart home medications Lexapro, Clozapine when able * Trend mood * Consider adding IV PRNs if indicated (5) Crohn's disease: Qualifiers: Digestive disease complication type: with intestinal obstruction Gastrointestinal tract location: small intestine Qualified Code(s): K50.012 - Crohn's disease of small intestine with intestinal obstruction Code(s): K50.90 - Crohn's disease, unspecified, without complications Status: Chronic Assessment and Plan: * Continue Sulfasalazine when able * Most likely contributing to current symptoms * Stable at this time (6) Hypothyroidism: Onset Date: Unknown Qualifiers: Hypothyroidism type: acquired Qualified Code(s): E03.9 - Hypothyroidism, unspecified Code(s): E03.9 - Hypothyroidism, unspecified Status: Acute Assessment and Plan: * TSH from 03/09/23 3.050 * Continue levothyroxine * Trend as indicated (7) Fecal impaction: Code(s): K56.41 - Fecal impaction Status: Inactive Assessment and Plan: * CT of the abd/pel shows large amounts of stool in the colon * Start suppository and enemas * Consider adding lactulose when able to take PO * Linzess at home, restart when able * Contributing to the current condition * Could need digital disimpaction Time Spent With Patient Time: 48 minutes Time with patient: Greater than 35 minutes Subjective Date/time seen: 03/17/23 08:49 Interval history: 03/17/23 Patient is lying in bed. Patient stated that he is not having any abdominal pain. He did state that he has had not had a good bowel movement a couple days. He denies any current chest pain, shortness a breath, nausea, vomiting, diarrhea.
--- NOTE | 2023-03-17 15:08 | PM.CNGS ---
Assessment and Plan Assessment and plan (1) Small bowel obstruction: Onset Date: Unknown Code(s): K56.609 - Unspecified intestinal obstruction, unspecified as to partial versus complete obstruction Status: Acute Assessment and Plan: Patient has had recurrent small bowel obstructions that have been treated with nonoperative management in the past. Most recently he was treated a week ago. He returned with abdominal pain and his CT suggests a small bowel obstruction. He also has a large volume of stool noted on CT. NG tube is in place to low intermittent suction. He is not having any bowel function today. He does not have any peritoneal signs and is only mildly distended. Will order a water-soluble small bowel follow through to further evaluate the small bowel obstruction. If the contrast moves through with normal transit to the colon, this will also help promote bowel function and clear the stool out as well. If there is evidence of a high-grade small bowel obstruction, then exploratory surgery may be necessary. Continue NG tube decompression, bowel rest, and IV fluids while awaiting small bowel follow through. (2) Autism spectrum disorder: Code(s): F84.0 - Autistic disorder Status: Chronic Plan I have discussed the patient's case and plan of care with Dr. Leyva. History of Present Illness Consult details Consult date: 03/17/23 Reason for consult: other (Small bowel obstruction) Requesting physician: Ace Boyer MD Narrative: This is a 62 year-old man who is known to our service from previous small-bowel obstructions and fecal impactions, who was brought into the ER from his [facility] for evaluation of abdominal pain.? He is a poor historian with a history of mental illness and autism. 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 His appendix was normal and an incidental appendectomy was performed. He returned a little over a week after his initial surgery with a small bowel obstruction that required adhesiolysis. He has since been treated multiple times with nonoperative management for small bowel obstructions and fecal impaction.?He was last admitted on 03/08/23 with a small bowel obstruction and fecal impaction and treated with medical management and conservative measures. He was discharged 4 days ago and returned with abdominal pain early this morning. Labs were unremarkable with a normal WBC count and lactic acid. CT scan of the abdomen and pelvis suggested small bowel obstruction without a definitive transition point. There was also a large volume of stool throughout the colon. He has been admitted and an NG tube was placed. He is seen on the medical floor. He denies any abdominal pain at this time. Per the patient and nurse, no flatus or BM yet today. Review of Systems Review of Systems: ROS unobtainable: Yes unobtainable due to medical condition PMFSH Past Medical History Medical History Autism spectrum disorder Chronic anemia (Unknown) Chronic megaloblastic anemia with high folate and B12 levels in 2018 Complete small bowel obstruction GERD (gastroesophageal reflux disease) Gout Hypercholesterolemia (Unknown) Ileus Intellectual disability Macrocytic anemia Nausea and vomiting in adult Peptic ulcer Schizophrenia Sepsis Tachycardia Thrombocytopenia Weakness Surgical History Surgical History History of appendectomy (~12/07/03) November 2003 - Incidental appendectomy during exploratory laparotomy History of exploratory laparotomy (~12/07/03) 11/30/2003 - Findings of a 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
[2023-03-18 04:53] VITALS: BP 139/70; PULSE 94; RESP 17; TEMP 36.6; O2SAT 97
[2023-03-18] MEDS: SODIUM CHLORIDE 0.9% IV 1,000 ML 125 ML IV CONT (05:18)
[2023-03-18 06:33] LABS: Basophils Percent Auto 0.3 % (0.2-1.2); Eosinophils Percent Auto 0.2 % (0-4.4); Hematocrit 35.5 % (42.0-52.0); Hemoglobin 12.4 g/dL (14.0-18.0); Immature Granulocyte Absolute 0.03 K/mm3 (0.00-0.031); Immature Granulocyte Percent A 0.5 % (0-0.5); Lymphocytes Absolute Auto 1.55 K/mm3 (0.9-3.2); Mean Corpuscular HGB Conc 34.9 g/dl (32-36); Mean Corpuscular Hemoglobin 36.5 pg (26-34); Mean Corpuscular Volume 104.4 fl (80-100); Mean Platelet Volume 10.2 fl (7.4-10.4); Monocytes Absolute Auto 0.6 K/mm3 (0.1-0.6); Monocytes Percent Auto 10.1 % (2.6-8.5); Neutrophils Absolute Auto 3.8 K/mm3 (1.3-6.7); Neutrophils Percent Auto 62.9 % (45.5-73.1); Platelet Count Result 201 k/mm3 (150-375); Red Cell Distribution Width 12.9 % (11.5-14.5)
[2023-03-18 06:41] LABS: Alanine Aminotransferase 39 U/L (6-50); Albumin Level 3.3 g/dL (3.5-5.1); Alkaline Phosphatase 123 U/L (38-126); Anion Gap 7 mmol/L (8-16); Aspartate Amino Transferase 37 U/L (17-59); Bilirubin,Total 0.6 mg/dL (0.2-1.3); Blood Urea Nitrogen 4 mg/dL (9-20); Carbon Dioxide 26 mmol/L (22-30); Chloride 107 mmol/L (98-107); Estimated CRCL calculation 115 ml/min; Estimated Glomerular Filt Rate > 60; Glucose 78 mg/dL (65-110); Magnesium 1.9 mg/dL (1.6-2.3); Potassium 3.8 mmol/L (3.4-5.0); Sodium 140 mmol/L (137-145)
--- NOTE | 2023-03-18 06:52 | P.PNIM_ITS ---
Progress Note: A&P Assessment and Plan (1) Adynamic ileus: Code(s): K56.0 - Paralytic ileus Status: Acute Assessment and Plan: * Presented to the ED with complaints of abdominal pain and decreased BM * CT of the Abd/Pel shows SBO with undefined transition point, and large amounts of stool present in the colon * Abd Xray showed multiple air distended loops of bowel * SBO vs ileus vs fecal impaction * NG tube removed * General surgery consulted * IV fluids can be DC'd if able to tolerate PO * Clear liquid diet, advance as tolerated * Suppository and enema ordered * Consider lactulose when able to take PO * Seems more related to fecal impaction * Restart home miralax, senna, linzess (2) Small bowel obstruction: Onset Date: Unknown Code(s): K56.609 - Unspecified intestinal obstruction, unspecified as to partial versus complete obstruction Status: Acute Assessment and Plan: * See above * Was recently treated for this * General surgery consulted * bowel follow through resolving SBO possible ileus (3) Nausea and vomiting: Qualifiers: Vomiting type: unspecified Qualified Code(s): R11.2 - Nausea with vomiting, unspecified Code(s): R11.2 - Nausea with vomiting, unspecified Status: Acute Assessment and Plan: * Currently no N/V * Related to fecal impaction and ileus vs SBO * Suppository and enema ordered * IV fluids * Clear liquids probably able to advance * Resolved (4) Autism spectrum disorder: Code(s): F84.0 - Autistic disorder Status: Chronic Assessment and Plan: * Stable * Current medications on hold * Restart home medications Lexapro, Clozapine * Trend mood (5) Crohn's disease: Qualifiers: Gastrointestinal tract location: small intestine Digestive disease complication type: with intestinal obstruction Qualified Code(s): K50.012 - Crohn's disease of small intestine with intestinal obstruction Code(s): K50.90 - Crohn's disease, unspecified, without complications Status: Chronic Assessment and Plan: * Continue Sulfasalazine * Most likely contributing to current symptoms * Stable at this time (6) Hypothyroidism: Onset Date: Unknown Qualifiers: Hypothyroidism type: acquired Qualified Code(s): E03.9 - Hypothyroidism, unspecified Code(s): E03.9 - Hypothyroidism, unspecified Status: Acute Assessment and Plan: * TSH from 03/09/23 3.050 * Continue levothyroxine * Trend as indicated (7) Fecal impaction: Code(s): K56.41 - Fecal impaction Status: Inactive Assessment and Plan: * CT of the abd/pel shows large amounts of stool in the colon * Continue suppository and enemas * Linzess, senna, miralax restarted * Contributing to the current condition Time Spent With Patient Time: 49 minutes Time with patient: Greater than 35 minutes Subjective Date/time seen: 03/18/23 06:52 Interval history: 03/18/23 03/17/23 Patient is lying in bed. Patient stated that he is not having any abdominal pain. He did state that he has had not had a good bowel movement a couple days. He jose angel
--- NOTE | 2023-03-18 06:52 | PM.IMPN ---
Progress Note: A&P Assessment and Plan (1) Adynamic ileus: Code(s): K56.0 - Paralytic ileus Status: Acute Assessment and Plan: Presented to the ED with complaints of abdominal pain and decreased BM CT of the Abd/Pel shows SBO with undefined transition point, and large amounts of stool present in the colon Abd Xray showed multiple air distended loops of bowel SBO vs ileus vs fecal impaction NG tube removed General surgery consulted IV fluids can be DC'd if able to tolerate PO Clear liquid diet, advance as tolerated Suppository and enema ordered Consider lactulose when able to take PO Seems more related to fecal impaction Restart home miralax, senna, linzess (2) Small bowel obstruction: Onset Date: Unknown Code(s): K56.609 - Unspecified intestinal obstruction, unspecified as to partial versus complete obstruction Status: Acute Assessment and Plan: See above Was recently treated for this General surgery consulted bowel follow through resolving SBO possible ileus (3) Nausea and vomiting: Qualifiers: Vomiting type: unspecified Qualified Code(s): R11.2 - Nausea with vomiting, unspecified Code(s): R11.2 - Nausea with vomiting, unspecified Status: Acute Assessment and Plan: Currently no N/V Related to fecal impaction and ileus vs SBO Suppository and enema ordered IV fluids Clear liquids probably able to advance Resolved (4) Autism spectrum disorder: Code(s): F84.0 - Autistic disorder Status: Chronic Assessment and Plan: Stable Current medications on hold Restart home medications Lexapro, Clozapine Trend mood (5) Crohn's disease: Qualifiers: Gastrointestinal tract location: small intestine Digestive disease complication type: with intestinal obstruction Qualified Code(s): K50.012 - Crohn's disease of small intestine with intestinal obstruction Code(s): K50.90 - Crohn's disease, unspecified, without complications Status: Chronic Assessment and Plan: Continue Sulfasalazine Most likely contributing to current symptoms Stable at this time (6) Hypothyroidism: Onset Date: Unknown Qualifiers: Hypothyroidism type: acquired Qualified Code(s): E03.9 - Hypothyroidism, unspecified Code(s): E03.9 - Hypothyroidism, unspecified Status: Acute Assessment and Plan: TSH from 03/09/23 3.050 Continue levothyroxine Trend as indicated (7) Fecal impaction: Code(s): K56.41 - Fecal impaction Status: Inactive Assessment and Plan: CT of the abd/pel shows large amounts of stool in the colon Continue suppository and enemas Linzess, senna, miralax restarted Contributing to the current condition Time Spent With Patient Time: 49 minutes Time with patient: Greater than 35 minutes Subjective Date/time seen: 03/18/23 06:52 Interval history: 03/18/23 03/17/23 Patient is lying in bed. Patient stated that he is not having any abdominal pain. He did state that he has had not had a good bowel movement a couple days. He denies any current chest pain, shortness a breath, nausea, vomiting, diarrhea. he did ask about going home. I would also hooked to his NG tube up to suction with no output. 03/17/23? 04:23 THIS IS A 62-YEAR-OLD MALE WITH PAST MEDICAL HISTORY SIGNIFICANT FOR AUTISM, CHRONIC ANEMIA, GERD, GOUT, DYSLIPIDEMIA, HYPOTHYROIDISM, PEPTIC ULCER, SCHIZOPHRENIA.? PATIENT RESIDES AT A HOME GROUP ASSISTED LIVING AND HE IS KNOWN TO HAVE MULTIPLE HOSPITALIZATIONS FOR PARALYTIC ILEUS PATIENT HAD BEEN SEEN EARLIER AND SENT HOME HOWEVER CAME BACK DUE TO UNRESOLVING ABDOMINAL PAIN DISTENTION NAUSEA VOMITING CONSTIPATION MOST OF THE HISTORY HAS BEEN OBTAINED FROM CAREGIVER WHO IS AT BEDSIDE.? BRANDEN
[2023-03-18] MEDS: VITAMIN B COMPLEX CAPSULE 1 CAP PO (08:39)
[2023-03-18] MEDS: OMEGA 3 POLYUNSAT FATTY ACIDS 1 GM CAP PO (08:39)
[2023-03-18] MEDS: LINACLOTIDE 145 MCG CAPSULE PO (08:39)
[2023-03-18] MEDS: FENOFIBRATE 160 MG TABLET PO (08:39)
[2023-03-18] MEDS: FOLIC ACID 1 MG TABLET PO (08:40)
[2023-03-18] MEDS: POTASSIUM CHLORIDE 10 MEQ ER TABLET PO (08:40)
[2023-03-18] MEDS: DIVALPROEX SODIUM ER 500 MG TAB.24H PO (08:40)
[2023-03-18] MEDS: sulfaSALAzine 500 MG TABLET 1000 MG PO (08:40)
[2023-03-18] MEDS: ESCITALOPRAM OXALATE 10 MG TABLET PO (08:40)
[2023-03-18 08:41] VITALS: PULSE 110
[2023-03-18] MEDS: PROPRANOLOL HCL 20 MG TABLET PO ×2 (08:41→12:42)
[2023-03-18] MEDS: SENNA/DOCUSATE SODIUM TABLET 2 TAB PO (08:41)
[2023-03-18] MEDS: polyethylene glycoL 3350 17 GM POWD.PACK PO (08:41)
[2023-03-18] MEDS: PANTOPRAZOLE SODIUM IV 40 MG VIAL IV PUSH (08:50)
--- NOTE | 2023-03-18 08:59 | PM.PNGS ---
Progress Note: A&P Assessment and Plan (1) Small bowel obstruction: Onset Date: Unknown Code(s): K56.609 - Unspecified intestinal obstruction, unspecified as to partial versus complete obstruction Status: Acute Assessment and Plan: Recurrent small bowel obstruction, resolving. SBFT yesterday suggests resolving partial small bowel obstruction vs ileus. Bowels are moving and he has been advanced to a regular diet. He additionally deals with constipation and should be continued on a bowel regimen after discharge. Okay from our standpoint to discharge today back to the [facility]. Follow-up with surgery only as needed. Plan I have discussed the patient's case and plan of care with Dr. Leyva. Subjective Subjective Date/Time Seen: 03/18/23 08:59 Patient reports: no new complaints, flatus and bowel movement Interval history: Patient feeling well today. Denies abdominal pain, nausea, or vomiting. Tolerating a regular diet this morning. Has had at least 2 large bowel movements since the water-soluble small bowel follow-through yesterday. Review of Systems Review of Systems: ROS unobtainable: Yes unobtainable due to mental status Exam Const: General: no acute distress and awake Orientation/consciousness: oriented to person GI: Inspection: non-distended GI Palp: Yes Soft to palpation, No Tenderness to palpation present (GI), No Guarding due to palpation present (GI) and No Rebound tenderness present Auscultation: normal bowel sounds Psych: Insight: Limited insight present (Psych) Judgement: Limited judgement present (Psych) Objective Data Vital Signs Vital Signs: Vital Signs - 24 hr 03/17/23 13:30 03/17/23 20:00 03/17/23 21:08 Temperature 97.2 F L 97.7 F Pulse Rate 94 97 Respiratory Rate 16 16 Blood Pressure 135/60 138/77 Pulse Oximetry 100 96 Oxygen Delivery Room Air 03/18/23 04:53 03/18/23 08:41 Temperature 97.8 F Pulse Rate 94 110 H Respiratory Rate 17 Blood Pressure 139/70 Pulse Oximetry 97 Oxygen Delivery Intake/Output Intake/Output: Intake & Output 03/15/23 03/16/23 03/17/23 03/18/23 23:59 23:59 23:59 23:59 Intake Total 2322 1000 Output Total 700 200 Balance 1622 800 Meds/Results Medications: Active Medications Generic Name Dose Route Start Last Admin Trade Name Nancy PRN Reason Stop Dose Admin Bisacodyl 10 mg 03/17/23 09:00 03/17/23 09:23 Bisacodyl 10 Mg Suppository RECTAL 10 mg QAM JULIANO Administration Diphenhydramine HCl 25 mg 03/18/23 06:54 Diphenhydramine Hcl Cap 25 Mg Capsule PO Q6H PRN Allergic Reaction Divalproex Sodium 500 mg 03/18/23 09:00 03/18/23 08:40 Divalproex Sodium Er 500 Mg Tab.24h PO 500 mg Q12HR JULIANO Administration Ergocalciferol 50,000 units 03/21/23 09:00 Ergocalciferol 50,000 Units Capsule PO Fr@0900 [facility] Escitalopram Oxalate 10 mg 03/18/23 09:00 03/18/23 08:40 Escitalopram Oxalate 10 Mg Tablet PO 10 mg DAILY JULIANO Administration Fenofibrate 160 mg 03/18/23 09:00 03/18/23 08:39 Fenofibrate 160 Mg Tablet PO 160 mg DAILY JULIANO Administration Fish Oil 1 gm 03/18/23 09:00 03/18/23 08:39 [place] 3 Polyunsat Fatty Acids 1 Gm Cap PO 1 gm BID JULIANO Administration Folic Acid 1 mg 03/18/23 09:00 03/18/23 08:40 Folic Acid 1 Mg Tablet PO 1 mg DAILY JULIANO Administration Sodium Chloride 1,000 mls @ 125 mls/hr 03/17/23 04:25 03/18/23 05:18 Normal Saline Iv IV CONT 125 mls/hr .Q8H JULIANO Administration Levothyroxine Sodium 100 mcg 03/18/23 07:05 Levothyroxine Sodium 100 Mcg Tablet PO DAILY@0630 [facility] Linaclotide 145 mcg 03/18/23 07:30 03/18/23 08:39 Linaclotide 145 Mcg Capsule PO 145 mcg DAILY@0730 [facility] Administration Miscellaneous Information 0 each 03/18/23 00:01 Clozapine Non Formulary- Please Obtain Home Med XX 04/17/23 00:00 CLARIFY [facility] Multivitamins/Calcium 1 tablet 03/18/23 17:00 Therapeutic
--- NOTE | 2023-03-18 09:30 | PM.DS ---
DS: Admitting Diagnosis Discharge Date 03/18/23929 Admitting Diagnosis Constipation, SBO, ileus, fecal impaction DS: Discharge Diagnosis Discharge Diagnosis (1) Adynamic ileus: Code(s): K56.0 - Paralytic ileus Status: Acute Assessment and Plan: Presented to the ED with complaints of abdominal pain and decreased BM CT of the Abd/Pel shows SBO with undefined transition point, and large amounts of stool present in the colon Abd Xray showed multiple air distended loops of bowel SBO vs ileus vs fecal impaction NG tube removed General surgery consulted IV fluids can be DC'd if able to tolerate PO Clear liquid diet, advance as tolerated Suppository and enema ordered Consider lactulose when able to take PO Seems more related to fecal impaction Restart home miralax, senna, linzess (2) Small bowel obstruction: Onset Date: Unknown Code(s): K56.609 - Unspecified intestinal obstruction, unspecified as to partial versus complete obstruction Status: Acute Assessment and Plan: See above Was recently treated for this General surgery consulted bowel follow through resolving SBO possible ileus (3) Nausea and vomiting: Qualifiers: Vomiting type: unspecified Qualified Code(s): R11.2 - Nausea with vomiting, unspecified Code(s): R11.2 - Nausea with vomiting, unspecified Status: Acute Assessment and Plan: Currently no N/V Related to fecal impaction and ileus vs SBO Suppository and enema ordered IV fluids Clear liquids probably able to advance Resolved (4) Autism spectrum disorder: Code(s): F84.0 - Autistic disorder Status: Chronic Assessment and Plan: Stable Current medications on hold Restart home medications Lexapro, Clozapine Trend mood (5) Crohn's disease: Qualifiers: Gastrointestinal tract location: small intestine Digestive disease complication type: with intestinal obstruction Qualified Code(s): K50.012 - Crohn's disease of small intestine with intestinal obstruction Code(s): K50.90 - Crohn's disease, unspecified, without complications Status: Chronic Assessment and Plan: Continue Sulfasalazine Most likely contributing to current symptoms Stable at this time (6) Hypothyroidism: Onset Date: Unknown Qualifiers: Hypothyroidism type: acquired Qualified Code(s): E03.9 - Hypothyroidism, unspecified Code(s): E03.9 - Hypothyroidism, unspecified Status: Acute Assessment and Plan: TSH from 03/09/23 3.050 Continue levothyroxine Trend as indicated (7) Fecal impaction: Code(s): K56.41 - Fecal impaction Status: Inactive Assessment and Plan: CT of the abd/pel shows large amounts of stool in the colon Continue suppository and enemas Linzess, senna, miralax restarted Contributing to the current condition DS: Summary Hospital Course Hospital Course: Patient is 8-year-old male with past medical history of autism, chronic anemia, GERD, gout, dyslipidemia, hypothyroidism, peptic ulcer, schizophrenia presented to the ED with complaints of abdominal pain accompanied with nausea vomiting. Patient was recently released for a bowel obstruction as well. Upon arrival to the ED CT of the abdomen pelvis did show possible small bowel obstruction with transition point not clearly defined however it did indicate large amount of stool throughout the large bowel. Patient was given a suppository and NG tube was inserted. Patient did have a very large bowel movement which did relieve symptoms. General surgery was consulted. NG tube was removed after small-bowel follow-through showed decrease in now only borderline dilatation of several loops of small bowel with normal transit time to the colon consistent with
--- NOTE | 2023-03-18 09:30 | P.DS_ITS ---
DS: Admitting Diagnosis Discharge Date 03/18/23929 Admitting Diagnosis Constipation, SBO, ileus, fecal impaction DS: Discharge Diagnosis Discharge Diagnosis (1) Adynamic ileus: Code(s): K56.0 - Paralytic ileus Status: Acute Assessment and Plan: * Presented to the ED with complaints of abdominal pain and decreased BM * CT of the Abd/Pel shows SBO with undefined transition point, and large amounts of stool present in the colon * Abd Xray showed multiple air distended loops of bowel * SBO vs ileus vs fecal impaction * NG tube removed * General surgery consulted * IV fluids can be DC'd if able to tolerate PO * Clear liquid diet, advance as tolerated * Suppository and enema ordered * Consider lactulose when able to take PO * Seems more related to fecal impaction * Restart home miralax, senna, linzess (2) Small bowel obstruction: Onset Date: Unknown Code(s): K56.609 - Unspecified intestinal obstruction, unspecified as to partial versus complete obstruction Status: Acute Assessment and Plan: * See above * Was recently treated for this * General surgery consulted * bowel follow through resolving SBO possible ileus (3) Nausea and vomiting: Qualifiers: Vomiting type: unspecified Qualified Code(s): R11.2 - Nausea with vomiting, unspecified Code(s): R11.2 - Nausea with vomiting, unspecified Status: Acute Assessment and Plan: * Currently no N/V * Related to fecal impaction and ileus vs SBO * Suppository and enema ordered * IV fluids * Clear liquids probably able to advance * Resolved (4) Autism spectrum disorder: Code(s): F84.0 - Autistic disorder Status: Chronic Assessment and Plan: * Stable * Current medications on hold * Restart home medications Lexapro, Clozapine * Trend mood (5) Crohn's disease: Qualifiers: Gastrointestinal tract location: small intestine Digestive disease complication type: with intestinal obstruction Qualified Code(s): K50.012 - Crohn's disease of small intestine with intestinal obstruction Code(s): K50.90 - Crohn's disease, unspecified, without complications Status: Chronic Assessment and Plan: * Continue Sulfasalazine * Most likely contributing to current symptoms * Stable at this time (6) Hypothyroidism: Onset Date: Unknown Qualifiers: Hypothyroidism type: acquired Qualified Code(s): E03.9 - Hypothyroidism, unspecified Code(s): E03.9 - Hypothyroidism, unspecified Status: Acute Assessment and Plan: * TSH from 03/09/23 3.050 * Continue levothyroxine * Trend as indicated (7) Fecal impaction: Code(s): K56.41 - Fecal impaction Status: Inactive Assessment and Plan: * CT of the abd/pel shows large amounts of stool in the colon * Continue suppository and enemas * Linzess, senna, miralax restarted * Contributing to the current condition DS: Summary Hospital Course Hospital Course: Patient is 8-year-old male with past medical history of autism, chronic anemia, GERD, gout, dyslipidemia, hypothyroidism, peptic ulcer, schizophrenia presented to the ED with complaints of abdominal pa
[2023-03-18 12:04] LABS: SARS-CoV-2 RNA PCR Negative (Negative)
[2023-03-18 12:42] VITALS: PULSE 88
== END 2023-03-18 14:45 | disposition home or self-care (01) | DRG 389 ==
LOC: ANHED 03-17 04:23 → ANH3MEDSUR 03-17 04:48
PROVIDERS: Admitting Provider Internal Medicine; Emergency Provider Emergency Medicine; PCP Pediatrics; Visit Provider Nurse Practitioner
DX: K56.41 Fecal impaction (principal); F84.0 Autistic disorder; K56.0 Paralytic ileus; K50.012 Crohn's disease of small intestine with intestinal obstruction; K56.609 Unspecified intestinal obstruction, unspecified as to partial versus complete obstruction; D53.1 Other megaloblastic anemias, not elsewhere classified; E78.00 Pure hypercholesterolemia, unspecified; E03.9 Hypothyroidism, unspecified; K27.9 Peptic ulcer, site unspecified, unspecified as acute or chronic, without hemorrhage or perforation; K21.9 Gastro-esophageal reflux disease without esophagitis; M10.9 Gout, unspecified; F79 Unspecified intellectual disabilities; F20.9 Schizophrenia, unspecified; Z20.822 Contact with and (suspected) exposure to COVID-19
CPT/HCPCS: 36415; 74177; 74250; 80053; 81003; 83605; 83690; 83735; 85025; 87635; 96374; 99285; A9270; C9113; G0378; J2765; J7030; Q9967

== ENCOUNTER 2023-09-23 17:15 | Inpatient (IN) | payer MEDICARE, MEDICAID, SELFPAY ==
--- NOTE | ~2023-09-23 | XR_ITS ---
EXAM: XR abdomen/kub 1V DATE: 09/23/2023 22:47 HISTORY: obstruction . COMPARISON: Small bowel follow-through and CT abdomen pelvis 03/17/2023. FINDINGS: Loop of dilated small bowel in the right upper abdomen. Chronically dilated large bowel at the splenic flexure. Paucity of gas in the central abdomen. There is gas in the distal bowel. No org anomegaly. No abnormal abdominal calcification. Mild lumbar degenerative disc disease. Mild bilateral hip osteoarthritis. IMPRESSION: Dilated small bowel in the upper abdomen may represent ileus or early obstruction. Consider CT of the abdomen and pelvis with contrast for further evaluation. Reviewed, dictated and finalized at location K. ICAL NURSING INSTRUCTOR IMPRESSION: Dilated small bowel in the upper abdomen may represent ileus or early obstructi on. Consider CT of the abdomen and pelvis with contrast for further evaluation.
--- NOTE | ~2023-09-23 | US_ITS ---
EXAMINATION: US venous doppler [facility] DATE: 09/24/2023 13:25 INDICATION: Left lower limb swelling TECHNIQUE: Qureshi scale images without and with compression and Doppler images of the left lower extrem ity veins were obtained. COMPARISON: None FINDINGS: The left common femoral vein, profunda femoral vein, femoral vein, popliteal vein, peroneal trunk, posterior tibial veins, and greater saphenous vein are patent. IMPRESSION: 1. Patent left lower extremity veins. No evidence of deep venous thrombosis. Reviewed, dictated and finalized at location B. HER DUSTER WINDER
--- NOTE | ~2023-09-23 | CT_ITS ---
EXAMINATION: CT abdomen pelvis w con DATE: 09/23/2023 23:29 INDICATION: SBO TECHNIQUE: Computed tomography (CT) of the abdomen and pelvis was performed with 100 mL Omnipaque-350 intravenous contrast. Automated exposure control and iterative reconstruction technique were employe d. The dose-length product was 433.23 mGy-cm. COMPARISON: 03/17/2023. FINDINGS: Motion artifact in the upper abdomen. Lower thorax: Coronary artery calcification. Bilateral dependent atelectasis/scar. Liver: Left lobe cyst or hemangioma. Biliary/Gallbladder: Mildly distended gallbladder, without inflammatory change. No bile duct dilation . Pancreas: No mass or duct dilation. Spleen: Mildly enlarged. Granulomatous calcifications Adrenals:No mass. Kidneys: No suspicious mass, obstructing stone, or hydronephrosis. Bilateral subcentimeter hypodensit ies that likely represent cysts. Left midpole scar with calcification. GI tract: Multiple loops of severely dilated small bowel in the upper abdomen and left abdomen, with some interspace segments of left dilated small bowel. Possible transition point in the mid small scar l in the lower abdomen (axial image 169/241). Fecalization of small bowel content. Uniform bowel wall enhancement. No significant large bowel dilation. Small cluster of extracolonic gas adjacent to the cecum, without wall thickening, abscess, or significant inflammatory change. Appendix not visualized. Mesentery/Peritoneum: No ascites or mass. Retroperitoneum: No mass. Pelvis: Pelvic organs are within normal limits. Soft Tissues: Soft tissues and body wall unremarkable. Bones: No acute osseous finding. IMPRESSION: Findings suggestive of mid small bowel obstruction with a possible transition point in the mid lower abdomen. Unusual focus of extra colonic gas adjacent to the cecum, of uncertain clinical significance. No asso ciated wall thickening, inflammatory change, or abscess, although contained perforation would appear similarly. Correlate with any history of recent procedure such as colonoscopy. Mildly enlarged gallbladder without inflammatory change or stone. Correlate with symptoms of right up per quadrant pain and biliary labs. Mild splenomegaly. Reviewed, dictated and finalized at location K. ENGINEER IMPRESSION: Findings suggestive of mid small bowel obstruction with a possible transition p oint in the mid lower abdomen. Unusual focus of extra colonic gas adjacent to the cecum, of uncertain clinical significance. No associated wall thickening, inflammatory change, or abscess, although contained perforation would appear similarly. Correlate with any histo ry of recent procedure such as colonoscopy. Mildly enlarged gallbladder without inflammatory change or stone. Correlate wit h symptoms of right upper quadrant pain and biliary labs. Mild splenomegaly.
--- NOTE | ~2023-09-23 | XR_ITS ---
EXAMINATION: XR sm bowel follow through WS DATE: 09/25/2023 10:47 INDICATION: Small bowel obstruction TECHNIQUE: Sticker Hand radiograph(s) of the abdomen was/were obtained. Oral contrast was administered, and sequential radiographs of the abdomen were obtained until oral contrast was noted to be in the proxi mal colon. Spot fluoroscopic images of the small bowel were obtained. A total of 6 overhead radiograp hs and 12 fluoroscopic images were recorded. Fluoroscopy exposure time was 1.2 minutes. Total DAP was 78.552 Gycm^2 COMPARISON: CT dated 09/23/2023 FINDINGS: Sticker Hand image demonstrates nasogastric tube tip in proximal side port in the body of the stomach. There few persistent mildly dilated loops of small bowel in the left abdomen. These loops are however baljinder stalsing and intermittently decompressed and normal caliber 1 observed on real-time fluoroscopy. No f ixed transition point to suggest obstruction. Transit time from the stomach to proximal colon was valeria roximately 45 minutes. There is a small diverticulum arising from the third portion of the duodenum. There is mucosal fold pattern throughout the small bowel. Terminal and suspicious for bowel ileum ap pears normal. There appear to be a few small foci of gas with some surrounding subtle increased densi ty potentially contrast along side the medial aspect of the cecum and distal ileum which do not appea r definitively within the bowel and could represent leakage of gas and contrast at the site of the pr evious noted extraluminal retroperitoneal gas on prior CT. IMPRESSION: 1. A few intermittently dilated loops of small bowel without delayed transit to the colon which would favor an ileus over obstruction. 2. Suggestion of a minimal amount of extraluminal gas and contrast in the right lower quadrant near t he site of the extraperitoneal gas is seen at the cecum on the prior CT suspicious for bowel perforat ion. Could consider repeat CT for confirmation as clinically indicated. Reviewed, dictated and finalized at location A. DER OPERATOR IMPRESSION: 1. A few intermittently dilated loops of small bowel without delayed transit to the colon which would favor an ileus over obstruction. 2. Suggestion of a minimal amount of extraluminal gas and contrast in the right lower quadrant near the site of the extraperitoneal gas is seen at the cecum o n the prior CT suspicious for bowel perforation. Could consider repeat CT for c onfirmation as clinically indicated.
--- NOTE | ~2023-09-23 | XR_ITS ---
EXAMINATION: XR chest 1V portable Exam Date/Time: 09/23/2023 21:37 SMALL ARMS ARTILLERY REPAIRER HISTORY: infection Comparison: 11/09/2020. RESULT: Lines, tubes, and devices: None. Lungs and pleura: Subsegmental right basilar opacity. Minimal right costophrenic angle blunting. Cardiomediastinal silhouette: Stable. Other: No acute osseous or upper abdominal finding. IMPRESSION: Subsegmental right basilar atelectasis/consolidation. Possible small right pleural effusion. Reviewed, dictated and finalized at location K. L ARMS ARTILLERY REPAIRER IMPRESSION: Subsegmental right basilar atelectasis/consolidation. Possible small right pleu ral effusion.
--- NOTE | ~2023-09-23 | XR_ITS ---
Upright portable view of the abdomen Clinical history: NG tube placement Findings: NG tube in place, side port just below the GE junction. Bowel gas pattern is nonspecific. N o evidence for obstruction or free air. No abnormal mass lesion or calcification is seen. Osseous str uctures are intact. Impression: NG tube side port just below the GE junction. Position is probably satisfactory, but further advancem ent could be considered to ensure adequate retention the stomach. Reviewed, dictated and finalized at location M. ONAL EDUCATION COORDINATOR Impression: NG tube side port just below the GE junction. Position is probably satisfactory , but further advancement could be considered to ensure adequate retention the stomach.
[2023-09-23 17:20] VITALS: BP 131/78; PULSE 113; RESP 20; TEMP 37; O2SAT 100
--- NOTE | 2023-09-23 21:07 | PC.NURSE ---
Pt vomited large amount yellow emesis in waiting room. Caregiver assisted pt in changing into gown. Pt updated on POC.
--- NOTE | 2023-09-23 21:40 | PC.NURSE ---
Pt brought back to room by this RN. Caregiver reports to this Rn that pt has hx of crohns disease. Pt has intellectual disability and autism, pt is poor historian. pt does report his stomach was hurting throughout the day. Pts abd does appear distended.
[2023-09-23 21:41] VITALS: BP 142/71; PULSE 103; RESP 20; O2SAT 100
[2023-09-23 21:42] VITALS: BP 142/71; PULSE 101; RESP 13; O2SAT 99
[2023-09-23 21:46] VITALS: BP 130/72; PULSE 100; RESP 21; O2SAT 100
[2023-09-23] MEDS: SODIUM CHLORIDE 0.9% IV 1,000 ML 999 ML IV CONT (22:04)
[2023-09-23 22:06] VITALS: BP 130/72; PULSE 100; RESP 15; O2SAT 98
[2023-09-23 22:13] LABS: Basophils Percent Auto 0.1 % (0.2-1.2); Hematocrit 39.5 % (42.0-52.0); Hemoglobin 13.1 g/dL (14.0-18.0); Immature Granulocyte Absolute 0.03 K/mm3 (0.00-0.031); Immature Granulocyte Percent A 0.4 % (0-0.5); Lymphocytes Absolute Auto 0.43 K/mm3 (0.9-3.2); Lymphocytes Percent Auto 5.3 % (18.3-44.2); Mean Corpuscular HGB Conc 33.2 g/dl (32-36); Mean Corpuscular Hemoglobin 33.6 pg (26-34); Mean Corpuscular Volume 101.3 fl (80-100); Mean Platelet Volume 10.5 fl (7.4-10.4); Monocytes Absolute Auto 0.6 K/mm3 (0.1-0.6); Monocytes Percent Auto 7.2 % (2.6-8.5); Neutrophils Absolute Auto 7.1 K/mm3 (1.3-6.7); Platelet Count Result 206 k/mm3 (150-375); Red Cell Distribution Width 13.4 % (11.5-14.5); White Blood Count 8.1 K/mm3 (4.5-10.0)
[2023-09-23 22:16] VITALS: BP 133/72; PULSE 100; RESP 14; O2SAT 100
[2023-09-23 22:22] LABS: Alanine Aminotransferase 22 U/L (6-50); Albumin Level 4.6 g/dL (3.5-5.1); Alkaline Phosphatase 111 U/L (38-126); Anion Gap 11 mmol/L (8-16); Aspartate Amino Transferase 39 U/L (17-59); Blood Urea Nitrogen 19 mg/dL (9-20); Calcium 9.9 mg/dL (8.4-10.2); Carbon Dioxide 28 mmol/L (22-30); Chloride 99 mmol/L (98-107); Estimated CRCL calculation 80 ml/min; Estimated Glomerular Filt Rate > 60; Glucose 151 mg/dL (65-110); Potassium 3.9 mmol/L (3.4-5.0); Sodium 138 mmol/L (137-145)
[2023-09-23 22:49] LABS: Influenza A QL RT-PCR Negative (Negative); Influenza B QL RT-PCR Negative (Negative); RSV RNA, RT-PCR Negative (Negative); SARS-CoV-2 RNA PCR Negative (Negative)
[2023-09-24] VITALS (10 sets, daily range): BP systolic 121–131; BP diastolic 63–85; PULSE 85–104; RESP 14–20; TEMP 35.8–37.7; O2SAT 97–99
--- NOTE | 2023-09-24 00:41 | ED.ABDPAIN ---
HPI - Abdominal Pain General Chief Complaint: Abdominal Pain Stated Complaint: abd pain Time Seen by Provider: 09/23/23 22:34 History of Present Illness HPI narrative: Patient is a 62-year-old male with past medical history of schizoaffective disorder and autism presents to the emergency department by his caregiver due to concern that he refused to eat lunch or dinner today which she usually translates to a small-bowel obstruction. Patient has a history of recurrent small bowel obstructions from 2003 to 2022. Patient had an appendectomy and an expiratory laparotomy in 2003. Caregiver states that when they ask if he has been having bowel movements he usually says yes but they have no way of knowing if he is telling the truth. Patient is a poor historian given his history of autism and schizoaffective disorder. When asked regarding when his last bowel movement was, patient states that he has not had 1 in the past few days. He is currently denying any pain, stating he feels. Caregiver did state that he had 1 vomiting episode when they 1st got to the emergency department which was bilious nonbloody emesis. There are no other modifying, alleviating, or precipitating factors at this time. Related Data Home Medications Medication Instructions Recorded Confirmed fenofibrate 160 mg tablet 160 mg PO DAILY 10/15/20 03/17/23 folic acid 1 mg tablet 1 mg PO DAILY 10/15/20 03/17/23 levothyroxine 100 mcg tablet 100 mcg PO DAILY 10/15/20 03/17/23 omega 7-obu-elr-fish oil 1,200 mg 1 cap PO BID 10/15/20 03/17/23 (144 mg-216 mg) capsule (Fish Oil) omeprazole 40 mg capsule,delayed 40 mg PO Q12H 10/15/20 03/17/23 release potassium chloride 10 mEq 10 meq PO DAILY 10/15/20 03/17/23 tablet,extended release(part/cryst) propranolol 20 mg tablet 20 mg PO QID 10/15/20 03/17/23 sennosides 8.6 mg-docusate sodium 2 tab-cap PO Q12H 10/15/20 03/17/23 50 mg tablet (Senokot-S) sulfasalazine 500 mg tablet 1,000 mg PO Q12H 10/15/20 03/17/23 vitamin B complex 1 tablet PO DAILY 10/15/20 03/17/23 acetaminophen 325 mg tablet 650 mg PO PRN PRN Pain 11/01/20 03/17/23 (Tylenol) multivitamin,tx-minerals 1 tablet PO 1700 11/01/20 03/17/23 diphenhydramine HCl 25 mg tablet 25 mg PO Q6H PRN Allergic Reaction 11/20/20 03/17/23 cetirizine 10 mg BYMOUTH DAILY PRN Allergy 03/20/21 03/17/23 Symptoms clozapine 100 mg tablet 100 mg PO Q12H 03/20/21 03/17/23 clozapine 100 mg tablet 200 mg PO 1700 03/20/21 03/17/23 divalproex 500 mg tablet,extended 500 mg PO Q12H 03/20/21 03/17/23 release 24 hr ergocalciferol (vitamin D2) 1,250 1,250 mcg PO WEEKLY 03/20/21 03/17/23 mcg (50,000 unit) capsule escitalopram oxalate 20 mg tablet 10 mg PO DAILY 03/20/21 03/17/23 Allergies Allergy/AdvReac Type Severity Reaction Status Date / Time No Known Allergies Allergy Verified 03/08/23 20:05 Review of Systems Review of Systems: All systems are reviewed and are negative unless stated otherwise in the HPI. [facility] Past Medical History Medical History Autism spectrum disorder Chronic anemia (Unknown) Chronic megaloblastic anemia with high folate and B12 levels in 2018 Complete small bowel obstruction GERD (gastroesophageal reflux disease) Gout Hypercholesterolemia (Unknown) Ileus Intellectual disability Macrocytic anemia Nausea and vomiting in adult Peptic ulcer Schizophrenia Sepsis Tachycardia Thrombocytopenia Weakness Surgical History Surgical History History of appendectomy (~12/07/03) November 2003 - Incidental appendectomy during exploratory laparotomy History of exploratory laparotomy (~12/07/03) 11/30/2003 - 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 12/08/2003 - Taken back to surgery for a small bowel obstructi
--- NOTE | 2023-09-24 03:13 | PC.NURSE ---
Ok to place NG to suction per ERP.
--- NOTE | 2023-09-24 03:14 | PC.NURSE ---
Per Dr Easley, no need for cultures prior to abx.
[2023-09-24 03:15] LABS: Appearance Urine Clear (Clear); Bacteria Urine None Seen /hpf; Bilirubin Urine 1+ (Negative); Blood Urine Negative (Negative); Color Urine Dark Yellow (Yellow); Glucose Urine UA Negative (Negative); Ketones Urine Negative (Negative); Leukocyte Esterase Ur Negative LEU/UL (Negative); Nitrate Urine Negative (Negative); Non Pathogenic Casts 0-2; Protein Urine Trace mg/dL (Negative); RBC Urine 0-2 /hpf (0-2); Squamous Epithelial Cell Urine None seen /hpf (Few); WBC Urine 0-5 /hpf
[2023-09-24 03:20] LABS: Specific Grav Ur 1.082 (1.001-1.035)
[2023-09-24 03:21] LABS: Add Urine Microscopic? YES
[2023-09-24] MEDS: AZITHROMYCIN 500 MG/NS 250 ML 500 MG/250 ML BAG 250 MG IVPB ×2 (03:55→20:28)
--- NOTE | 2023-09-24 05:58 | ADMGEN ---
This patient, Ricardo Sotomayor, was admitted to [facility] Surg Room 332-02. Patient/family oriented to hospital policies and general routines including ID bracelet, bed and alarms, visiting hours, pain management, procedures, bathroom and other care routines, personal items, smoking policy, room service/diet, and visiting hours. Information on how to activate the Rapid Response Team has been discussed. Patient/Family are encouraged to report perceived risks to care and to ask questions if they do not understand what they are told or what they should do.
[2023-09-24 07:52] LABS: Basophils Percent Auto 0.2 % (0.2-1.2); Eosinophils Percent Auto 0.2 % (0-4.4); Hematocrit 35.8 % (42.0-52.0); Hemoglobin 11.5 g/dL (14.0-18.0); Immature Granulocyte Absolute 0.02 K/mm3 (0.00-0.031); Immature Granulocyte Percent A 0.3 % (0-0.5); Lymphocytes Absolute Auto 0.63 K/mm3 (0.9-3.2); Lymphocytes Percent Auto 10.3 % (18.3-44.2); Mean Corpuscular HGB Conc 32.1 g/dl (32-36); Mean Corpuscular Hemoglobin 35.1 pg (26-34); Mean Corpuscular Volume 109.1 fl (80-100); Mean Platelet Volume 10.4 fl (7.4-10.4); Monocytes Absolute Auto 0.8 K/mm3 (0.1-0.6); Monocytes Percent Auto 12.4 % (2.6-8.5); Neutrophils Absolute Auto 4.7 K/mm3 (1.3-6.7); Neutrophils Percent Auto 76.6 % (45.5-73.1); Platelet Count Result 178 k/mm3 (150-375); Red Blood Count 3.28 M/mm3 (4.6-6.20); Red Cell Distribution Width 13.7 % (11.5-14.5); White Blood Count 6.1 K/mm3 (4.5-10.0)
[2023-09-24 08:12] LABS: Alanine Aminotransferase 18 U/L (6-50); Albumin Level 3.4 g/dL (3.5-5.1); Alkaline Phosphatase 84 U/L (38-126); Anion Gap 4 mmol/L (8-16); Aspartate Amino Transferase 32 U/L (17-59); Bilirubin,Total 0.7 mg/dL (0.2-1.3); Blood Urea Nitrogen 16 mg/dL (9-20); Calcium 8.4 mg/dL (8.4-10.2); Carbon Dioxide 27 mmol/L (22-30); Chloride 106 mmol/L (98-107); Estimated CRCL calculation 112 ml/min; Estimated Glomerular Filt Rate > 60; Glucose 111 mg/dL (65-110); Magnesium 1.8 mg/dL (1.6-2.3); Potassium 3.7 mmol/L (3.4-5.0); Sodium 137 mmol/L (137-145)
[2023-09-24 08:33] LABS: Macrocytosis 1+ (NORMAL); Platelet Estimate Adequate (Adequate); Schistocytes None Seen (NORMAL)
--- NOTE | 2023-09-24 09:29 | P.PNIM_ITS ---
Progress Note: A&P Assessment and Plan (1) Small bowel obstruction: Onset Date: Unknown Code(s): K56.609 - Unspecified intestinal obstruction, unspecified as to partial versus complete obstruction Status: Acute Assessment and Plan: * history of recurrent small bowel obstructions with his last hospitalization in February of last year * CT showed evidence of a mid small bowel obstruction, Unusual focus of extra colonic gas adjacent to the cecum. No associated wall thickening, inflammatory change, or abscess, although contained perforation would appear similarly. Mildly enlarged gallbladder without inflammatory change or stone. Mild splenomegaly. * NG in place- Bile content noted * General Surgery consulted in ED * General surgery noted- recommend to continue conservative management with NG tube decompression, bowel rest, and IV fluids * small-bowel follow-through in the morning to further evaluate the obstruction (2) Abnormal CT of the abdomen: Code(s): R93.5 - Abnormal findings on diagnostic imaging of other abdominal regions, including retroperitoneum Status: Acute Assessment and Plan: * CT in ED noted Findings suggestive of mid small bowel obstruction with a possible transition point in the mid lower abdomen. Unusual focus of extra colonic gas adjacent to the cecum. No associated wall thickening, inflammatory change, or abscess, although contained perforation would appear similarly. Mildly enlarged gallbladder without inflammatory change or stone. Mild splenomegaly. * Denies pain/ N/V- Exam benign * Labs unremarkable * General surgery consulted and following (3) Community acquired pneumonia, bilateral: Code(s): J18.9 - Pneumonia, unspecified organism Status: Acute Assessment and Plan: * Chest xray notes Subsegmental right basilar atelectasis/consolidation. Possible small right pleural effusion. * On room air, denies shortness of breath * Encouraged deep breathing/ ambulation * Continue IV Abx. (4) Autism spectrum disorder: Code(s): F84.0 - Autistic disorder Status: Chronic Assessment and Plan: * Pleasant with questions and assessment * Notified that he can become anxious with prolonged hospitalizations. * Consider PRN while patient NPO (5) Edema: Code(s): R60.9 - Edema, unspecified Status: Acute Assessment and Plan: * LLE edema noted on examination * Patient denies pain * No discoloration, Pulse palapable * Venous doppler order to R/O DVT Time Spent With Patient Time with patient: 15 - 25 minutes Subjective Date/time seen: 09/24/23 09:29 Interval history: 62-year-old male with past medical history of schizoaffective disorder, autism GERD, HLD, and recurrent SBO- last hospitalization being Feb 2023, and hx of ex- lap in 2003. 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 Patient is alert and oriented, he can answer some questions appropriately, but poor historian due to mental delays. He denies any pain, nausea or vomiting, cough or shortness of breath. He stated he has not had a bowel movement and is not passing gas. On examination his abdomen firm but nondistended, patient expressed no pain with palpation, NG with bile content noted. He has edema to LLE, patient denies pain to this area- Venous doppler ordered to R/O DVT. Labs in ED showed WBC 8.1. Hgb 13.1, respiratory panel negative. Bili 1.0, AST39, ALT 22, Alk Phos 111. Chest xray notes Subsegmental right basilar atelectasis/consolidation. Poss
--- NOTE | 2023-09-24 09:29 | PM.IMPN ---
Progress Note: A&P Assessment and Plan (1) Small bowel obstruction: Onset Date: Unknown Code(s): K56.609 - Unspecified intestinal obstruction, unspecified as to partial versus complete obstruction Status: Acute Assessment and Plan: history of recurrent small bowel obstructions with his last hospitalization in February of last year CT showed evidence of a mid small bowel obstruction, Unusual focus of extra colonic gas adjacent to the cecum. No associated wall thickening, inflammatory change, or abscess, although contained perforation would appear similarly. Mildly enlarged gallbladder without inflammatory change or stone. Mild splenomegaly. NG in place- Bile content noted General Surgery consulted in ED General surgery noted- recommend to continue conservative management with NG tube decompression, bowel rest, and IV fluids small-bowel follow-through in the morning to further evaluate the obstruction (2) Abnormal CT of the abdomen: Code(s): R93.5 - Abnormal findings on diagnostic imaging of other abdominal regions, including retroperitoneum Status: Acute Assessment and Plan: CT in ED noted Findings suggestive of mid small bowel obstruction with a possible transition point in the mid lower abdomen. Unusual focus of extra colonic gas adjacent to the cecum. No associated wall thickening, inflammatory change, or abscess, although contained perforation would appear similarly. Mildly enlarged gallbladder without inflammatory change or stone. Mild splenomegaly. Denies pain/ N/V- Exam benign Labs unremarkable General surgery consulted and following (3) Community acquired pneumonia, bilateral: Code(s): J18.9 - Pneumonia, unspecified organism Status: Acute Assessment and Plan: Chest xray notes Subsegmental right basilar atelectasis/consolidation. Possible small right pleural effusion. On room air, denies shortness of breath Encouraged deep breathing/ ambulation Continue IV Abx. (4) Autism spectrum disorder: Code(s): F84.0 - Autistic disorder Status: Chronic Assessment and Plan: Pleasant with questions and assessment Notified that he can become anxious with prolonged hospitalizations. Consider PRN while patient NPO (5) Edema: Code(s): R60.9 - Edema, unspecified Status: Acute Assessment and Plan: LLE edema noted on examination Patient denies pain No discoloration, Pulse palapable Venous doppler order to R/O DVT Time Spent With Patient Time with patient: 15 - 25 minutes Subjective Date/time seen: 09/24/23 09:29 Interval history: 62-year-old male with past medical history of schizoaffective disorder, autism GERD, HLD, and recurrent SBO- last hospitalization being Feb 2023, and hx of ex-lap in 2003. 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 Patient is alert and oriented, he can answer some questions appropriately, but poor historian due to mental delays. He denies any pain, nausea or vomiting, cough or shortness of breath. He stated he has not had a bowel movement and is not passing gas. On examination his abdomen firm but nondistended, patient expressed no pain with palpation, NG with bile content noted. He has edema to LLE, patient denies pain to this area- Venous doppler ordered to R/O DVT. Labs in ED showed WBC 8.1. Hgb 13.1, respiratory panel negative. Bili 1.0, AST39, ALT 22, Alk Phos 111. Chest xray notes Subsegmental right basilar atelectasis/consolidation. Possible small right pleural effusion. KUB notes Dilated small bowel in the upper abdomen may represent ileus or early obstruction. CT abd/pelvis notes Findings suggestive of mid small bowel obstruction with a possible transition point in the mid lower abdomen. Unusual focus of extra colonic gas adjacent to the cecum. No associated wall thickening, inflammatory change, or abscess,
--- NOTE | 2023-09-24 09:39 | PM.CNGS ---
Assessment and Plan Assessment and plan (1) Small bowel obstruction: Onset Date: Unknown Code(s): K56.609 - Unspecified intestinal obstruction, unspecified as to partial versus complete obstruction Status: Acute Assessment and Plan: The patient has a long history of recurrent small bowel obstructions with his last hospitalization in February of last year. CT showed evidence of a mid small bowel obstruction with transition point in the mid lower abdomen. Patient's abdominal exam is benign. NG tube placed this morning and nursing is working on getting the wall suction to function. We would recommend to continue conservative management with NG tube decompression, bowel rest, and IV fluids. Will order a small-bowel follow-through in the morning to further evaluate the obstruction. (2) Abnormal CT of the abdomen: Code(s): R93.5 - Abnormal findings on diagnostic imaging of other abdominal regions, including retroperitoneum Status: Acute Assessment and Plan: CT scan also shows an unusual focus of extra colonic gas adjacent to the cecum of uncertain clinical significance. No associated wall thickening, inflammatory change, or abscess. His abdominal exam is completely benign. No peritoneal signs. His white blood cell count is normal. He is not having any abdominal pain or tenderness on exam. We will continue to monitor the patient clinically. If he begins to have abdominal pain, fever, or leukocytosis, then would recommend starting broad-spectrum IV antibiotics. Patient is a poor historian, so it is difficult to tell if he had any recent procedures. In review of his chart, there are no recent procedures at our facility. (3) Community acquired pneumonia, bilateral: Code(s): J18.9 - Pneumonia, unspecified organism Status: Acute Assessment and Plan: Continue IV antibiotics per primary service. (4) Autism spectrum disorder: Code(s): F84.0 - Autistic disorder Status: Chronic Plan I have discussed the patient's case and plan of care with Dr. De La Rosa. History of Present Illness Consult details Consult date: 09/24/23 Reason for consult: other (Small-bowel obstruction) Requesting physician: Edmond Easley MD Narrative: Patient is a 62-year-old man with history of mental illness and autism.? 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 He underwent laparotomy but the appendix was normal.? Incidental appendectomy was performed.? He then was discharged but came back with a small-bowel obstruction which required adhesiolysis about 8 days following his initial surgery.? He has been admitted to other hospitals such as [facility], but has had several admissions for small-bowel obstruction, as well as fecal impaction.? He was most recently admitted on 2 separate occasions in February of 2023 for small-bowel obstructions and fecal impaction. He was successfully treated conservatively. He presented to the ER overnight with his caregiver who was concerned that the patient may have another small-bowel obstruction because he did not eat lunch or dinner yesterday. He did have 1 episode of vomiting in the ER. Vital signs were stable in the ER. Labs were unremarkable. Chest x-ray showed subsegmental right basilar atelectasis/consolidation. KUB showed dilated small bowel representing possible ileus or early obstruction. CT scan of the abdomen and pelvis with IV contrast showed a mid small-bowel obstruction with possible transition point in the mid lower abdomen. There is also an unusual focus of extra colonic gas adjacent to the cecum of uncertain clinical significance. No associated wall thickening, inflammatory change or abscess although contained perforation would appear similarly. His white blood cell count was normal. He was given 1 dose of IV Rocephin and azithromycin in the ER to cover community-acquired pneumonia. He
[2023-09-24] MEDS: SODIUM CHLORIDE 0.9% IV 1,000 ML 125 ML IV CONT ×2 (09:45→18:55)
[2023-09-25 06:00] VITALS: BP 134/77; PULSE 98; RESP 16; TEMP 36; O2SAT 93
[2023-09-25 06:42] LABS: Hematocrit 35.5 % (42.0-52.0); Hemoglobin 11.9 g/dL (14.0-18.0); Mean Corpuscular HGB Conc 33.5 g/dl (32-36); Mean Corpuscular Volume 107.3 fl (80-100); Mean Platelet Volume 10.2 fl (7.4-10.4); Platelet Count Result 145 k/mm3 (150-375); Red Blood Count 3.31 M/mm3 (4.6-6.20); Red Cell Distribution Width 13.2 % (11.5-14.5); White Blood Count 4.8 K/mm3 (4.5-10.0)
[2023-09-25 06:51] LABS: Alanine Aminotransferase 19 U/L (6-50); Albumin Level 3.3 g/dL (3.5-5.1); Alkaline Phosphatase 84 U/L (38-126); Anion Gap 6 mmol/L (8-16); Aspartate Amino Transferase 44 U/L (17-59); Bilirubin,Total 0.9 mg/dL (0.2-1.3); Blood Urea Nitrogen 11 mg/dL (9-20); Calcium 8.1 mg/dL (8.4-10.2); Carbon Dioxide 21 mmol/L (22-30); Chloride 110 mmol/L (98-107); Estimated CRCL calculation 151 ml/min; Estimated Glomerular Filt Rate > 60; Glucose 83 mg/dL (65-110); Potassium 3.4 mmol/L (3.4-5.0); Sodium 137 mmol/L (137-145)
--- NOTE | 2023-09-25 08:18 | P.PNIM_ITS ---
Progress Note: A&P Assessment and Plan (1) Small bowel obstruction: Onset Date: Unknown Code(s): K56.609 - Unspecified intestinal obstruction, unspecified as to partial versus complete obstruction Status: Acute Assessment and Plan: * history of recurrent small bowel obstructions with his last hospitalization in February of last year * CT showed evidence of a mid small bowel obstruction, Unusual focus of extra colonic gas adjacent to the cecum. No associated wall thickening, inflammatory change, or abscess, although contained perforation would appear similarly. Mildly enlarged gallbladder without inflammatory change or stone. Mild splenomegaly. * NG in place- Bile content noted * General Surgery consulted in ED * General surgery noted- recommend to continue conservative management with NG tube decompression, bowel rest, and IV fluids * small-bowel follow-through in the morning to further evaluate the obstruction * 09/24 * SBS completed, results noted per radiologic impression: A few intermittently dilated loops of small bowel without delayed transit to the colon which would favor an ileus over obstruction. Suggestion of a minimal amount of extraluminal gas and contrast in the right lower quadrant near the site of the extraperitoneal gas is seen at the cecum on the prior CT suspicious for bowel perforation. Could consider repeat CT for confirmation as clinically indicated * general surgery- review study and progress note expresses: SBS largely unremarkable, exam benign, await bowel fxn, cont bowel rest and NG decompression for now. note that in regard to perforation, exam is benign * NG tube remains in place, patient remains NPO * (2) Abnormal CT of the abdomen: Code(s): R93.5 - Abnormal findings on diagnostic imaging of other abdominal regions, including retroperitoneum Status: Acute Assessment and Plan: * CT in ED noted Findings suggestive of mid small bowel obstruction with a possible transition point in the mid lower abdomen. Unusual focus of extra colonic gas adjacent to the cecum. No associated wall thickening, inflammatory change, or abscess, although contained perforation would appear similarly. Mildly enlarged gallbladder without inflammatory change or stone. Mild spleno megaly. * Denies pain/ N/V- Exam benign * Labs unremarkable * General surgery consulted and following * 09/24 * see 1. (3) Community acquired pneumonia, bilateral: Code(s): J18.9 - Pneumonia, unspecified organism Status: Acute Assessment and Plan: * Chest xray notes Subsegmental right basilar atelectasis/consolidation. Possible small right pleural effusion. * On room air, denies shortness of breath * Encouraged deep breathing/ ambulation * Continue IV Abx. * 09/24 * Patient remains on room air, without signs of respiratory distress * patient denies difficulty breathing or shortness of breath * continue IV antibiotics as patient is NPO (4) Autism spectrum disorder: Code(s): F84.0 - Autistic disorder Status: Chronic Assessment and Plan: * Pleasant with questions and assessment * Notified that he can become anxious with prolonged hospitalizations. * Consider PRN while patient NPO * 09/24 * patient is pleasant, able to make his needs known * he is cooperative with care (5) Edema: Code(s): R60.9 - Edema, unspecified Status: Acute Assessment and Plan: * LLE edema noted on examination * Patient denies pain * No discoloration, Pulse palapable * Venous doppler order to R/O DVT
--- NOTE | 2023-09-25 08:18 | PM.IMPN ---
Progress Note: A&P Assessment and Plan (1) Small bowel obstruction: Onset Date: Unknown Code(s): K56.609 - Unspecified intestinal obstruction, unspecified as to partial versus complete obstruction Status: Acute Assessment and Plan: history of recurrent small bowel obstructions with his last hospitalization in February of last year CT showed evidence of a mid small bowel obstruction, Unusual focus of extra colonic gas adjacent to the cecum. No associated wall thickening, inflammatory change, or abscess, although contained perforation would appear similarly. Mildly enlarged gallbladder without inflammatory change or stone. Mild splenomegaly. NG in place- Bile content noted General Surgery consulted in ED General surgery noted- recommend to continue conservative management with NG tube decompression, bowel rest, and IV fluids small-bowel follow-through in the morning to further evaluate the obstruction 09/24 SBS completed, results noted per radiologic impression: A few intermittently dilated loops of small bowel without delayed transit to the colon which would favor an ileus over obstruction. Suggestion of a minimal amount of extraluminal gas and contrast in the right lower quadrant near the site of the extraperitoneal gas is seen at the cecum on the prior CT suspicious for bowel perforation. Could consider repeat CT for confirmation as clinically indicated general surgery- review study and progress note expresses: SBS largely unremarkable, exam benign, await bowel fxn, cont bowel rest and NG decompression for now. note that in regard to perforation, exam is benign NG tube remains in place, patient remains NPO (2) Abnormal CT of the abdomen: Code(s): R93.5 - Abnormal findings on diagnostic imaging of other abdominal regions, including retroperitoneum Status: Acute Assessment and Plan: CT in ED noted Findings suggestive of mid small bowel obstruction with a possible transition point in the mid lower abdomen. Unusual focus of extra colonic gas adjacent to the cecum. No associated wall thickening, inflammatory change, or abscess, although contained perforation would appear similarly. Mildly enlarged gallbladder without inflammatory change or stone. Mild splenomegaly. Denies pain/ N/V- Exam benign Labs unremarkable General surgery consulted and following 09/24 see 1. (3) Community acquired pneumonia, bilateral: Code(s): J18.9 - Pneumonia, unspecified organism Status: Acute Assessment and Plan: Chest xray notes Subsegmental right basilar atelectasis/consolidation. Possible small right pleural effusion. On room air, denies shortness of breath Encouraged deep breathing/ ambulation Continue IV Abx. 09/24 Patient remains on room air, without signs of respiratory distress patient denies difficulty breathing or shortness of breath continue IV antibiotics as patient is NPO (4) Autism spectrum disorder: Code(s): F84.0 - Autistic disorder Status: Chronic Assessment and Plan: Pleasant with questions and assessment Notified that he can become anxious with prolonged hospitalizations. Consider PRN while patient NPO 09/24 patient is pleasant, able to make his needs known he is cooperative with care (5) Edema: Code(s): R60.9 - Edema, unspecified Status: Acute Assessment and Plan: LLE edema noted on examination Patient denies pain No discoloration, Pulse palapable Venous doppler order to R/O DVT 09/24 +1 LLE edema remains, patient denies pain venous Doppler negative for DVT Time Spent With Patient Time with patient: 15 - 25 minutes Subjective Date/time seen: 09/25/23 08:18 Interval history: patient examined at bedside in interval assessment as he was admitted with small-bowel obstruction. patient is alert and oriented, able to answer questions of self appropriately, he does carry the diag
[2023-09-25 12:21] LABS: Glucose Point of Care 75 mg/dl (65-105)
[2023-09-25 14:00] VITALS: BP 140/66; PULSE 103; RESP 18; TEMP 36.6; O2SAT 100
--- NOTE | 2023-09-25 14:11 | PM.PNGS ---
Progress Note: A&P Assessment and Plan (1) Small bowel obstruction: Onset Date: Unknown Code(s): K56.609 - Unspecified intestinal obstruction, unspecified as to partial versus complete obstruction Status: Acute Assessment and Plan: SBS largely unremarkable, exam benign, await bowel fxn, cont bowel rest and NG decompression for now (2) Colon perforation: Code(s): K63.1 - Perforation of intestine (nontraumatic) Status: Acute Assessment and Plan: exam completely benign, WBC normal, afebrile, will cont to watch for now, cont bowel rest and NG decompression Subjective Subjective Date/Time Seen: 09/25/23 14:11 Interval history: feels good, wants tube out and food, no bowel fxn yet Review of Systems Review of Systems: All systems reviewed & are unremarkable except as noted in HPI and below Exam Const: General: cooperative, comfortable and no acute distress Resp: Auscultation: clear to auscultation bilaterally Cardio: Rate: regular rate Rhythm: regular rhythm GI: Inspection: normal to inspection and non-distended GI Palp: No abdominal tenderness, Yes Soft to palpation, No Tenderness to palpation present (GI), No Guarding due to palpation present (GI) and No Rigid due to palpation Objective Data Vital Signs Vital Signs: Vital Signs - 24 hr 09/24/23 16:00 09/24/23 20:00 09/24/23 22:00 Temperature 36.3 C L Pulse Rate 92 86 Respiratory Rate 16 Blood Pressure 123/65 Pulse Oximetry 99 Oxygen Delivery Room Air 09/25/23 06:00 Temperature 36.0 C L Pulse Rate 98 Respiratory Rate 16 Blood Pressure 134/77 Pulse Oximetry 93 Oxygen Delivery Intake/Output Intake/Output: Intake & Output 09/22/23 09/23/23 09/24/23 09/25/23 23:59 23:59 23:59 23:59 Intake Total 1000 1300 Output Total 1000 875 Balance 1000 300 -875 Meds/Results Medications: Active Medications Generic Name Dose Route Start Last Admin Trade Name Freq PRN Reason Stop Dose Admin Dextrose 12.5 gm 09/24/23 09:23 Dextrose 50% 25 Gm/50 Ml Syringe IV PUSH PRN PRN Hypoglycemia Protocol Enoxaparin Sodium 40 mg 09/25/23 09:00 Enoxaparin 40 Mg/0.4 Ml Syringe SUB-Q DAILY JULIANO Glucagon 1 mg 09/24/23 09:23 Glucagon For Inj 1 Mg Vial IM PRN PRN Hypoglycemia Protocol Glucose 15 gm 09/24/23 09:23 Glucose Oral Gel 15 Gm Of Glucse In 37.5 Gm Tube PO PRN PRN Hypoglycemia Protocol Sodium Chloride 1,000 mls @ 125 mls/hr 09/24/23 09:25 09/24/23 18:55 Normal Saline Iv IV CONT 125 mls/hr .Q8H JULIANO Administration Dextrose 1,000 mls @ 100 mls/hr 09/24/23 09:23 Dextrose 5% 1,000 Ml IVPB PRN PRN Hypoglycemia Protocol Ceftriaxone Sodium 1 gm in 50 mls @ 100 mls/hr 09/24/23 21:00 09/24/23 19:56 Rocephin 1 Gm/Ns 50 Ml IVPB 100 mls/hr Q24H JULIANO Administration Azithromycin 500 mg in 250 mls @ 250 mls/hr 09/24/23 21:00 09/24/23 20:28 Zithromax IVPB 250 mls/hr Q24H JULIANO Administration Radiology Results: ITS Impressions Chest X-Ray 09/23/23 21:50 IMPRESSION: Subsegmental right basilar atelectasis/consolidation. Possible small right pleural effusion. Abdomen/Pelvis CT 09/23/23 23:53 IMPRESSION: Findings suggestive of mid small bowel obstruction with a possible transition point in the mid lower abdomen. Unusual focus of extra colonic gas adjacent to the cecum, of uncertain clinical significance. No associated wall thickening, inflammatory change, or abscess, although contained perforation would appear similarly. Correlate with any history of recent procedure such as colonoscopy. Mildly enlarged gallbladder without inflammatory change or stone. Correlate with symptoms of right upper quadrant pain and biliary labs. Mild splenomegaly. Abdomen X-Ray 09/24/23 05:55 Impression: NG tube side port just below the GE junction. Position is probably satisf
[2023-09-25] MEDS: KCL 20 MEQ/D5/0.45% SOD CHL 1,000 ML 100 ML IV CONT (16:47)
[2023-09-25 18:07] LABS: Glucose Point of Care 104 mg/dl (65-105)
[2023-09-25 20:58] VITALS: BP 129/70; PULSE 107; RESP 18; TEMP 36.4; O2SAT 10
[2023-09-25] MEDS: AZITHROMYCIN 500 MG/NS 250 ML 500 MG/250 ML BAG 250 MG IVPB (21:33)
[2023-09-26 00:36] LABS: Glucose Point of Care 95 mg/dl (65-105)
[2023-09-26 02:58] VITALS: BP 142/71; PULSE 102; RESP 18; TEMP 36.3; O2SAT 100
[2023-09-26 05:25] LABS: Glucose Point of Care 87 mg/dl (65-105)
[2023-09-26 06:14] LABS: Hematocrit 33.6 % (42.0-52.0); Hemoglobin 11.3 g/dL (14.0-18.0); Mean Corpuscular HGB Conc 33.6 g/dl (32-36); Mean Platelet Volume 10.4 fl (7.4-10.4); Platelet Count Result 160 k/mm3 (150-375); Red Blood Count 3.23 M/mm3 (4.6-6.20); White Blood Count 5.1 K/mm3 (4.5-10.0)
[2023-09-26 06:34] LABS: Potassium 3.3 mmol/L (3.4-5.0); Sodium 142 mmol/L (137-145)
[2023-09-26 06:35] LABS: Alanine Aminotransferase 25 U/L (6-50); Albumin Level 3.6 g/dL (3.5-5.1); Alkaline Phosphatase 92 U/L (38-126); Anion Gap 9 mmol/L (8-16); Aspartate Amino Transferase 47 U/L (17-59); Bilirubin,Total 0.6 mg/dL (0.2-1.3); Blood Urea Nitrogen 8 mg/dL (9-20); Calcium 8.6 mg/dL (8.4-10.2); Carbon Dioxide 23 mmol/L (22-30); Chloride 110 mmol/L (98-107); Estimated CRCL calculation 151 ml/min; Estimated Glomerular Filt Rate > 60; Glucose 86 mg/dL (65-110)
[2023-09-26] MEDS: KCL 20 MEQ/D5/0.45% SOD CHL 1,000 ML 100 ML IV CONT ×2 (06:38→16:17)
[2023-09-26 08:00] VITALS: O2SAT 100
--- NOTE | 2023-09-26 09:16 | P.PNIM_ITS ---
Progress Note: A&P Assessment and Plan (1) Small bowel obstruction: Onset Date: Unknown Code(s): K56.609 - Unspecified intestinal obstruction, unspecified as to partial versus complete obstruction Status: Acute Assessment and Plan: * history of recurrent small bowel obstructions with his last hospitalization in February of last year * CT showed evidence of a mid small bowel obstruction, Unusual focus of extra colonic gas adjacent to the cecum. No associated wall thickening, inflammatory change, or abscess, although contained perforation would appear similarly. Mildly enlarged gallbladder without inflammatory change or stone. Mild splenomegaly. * NG in place- Bile content noted * General Surgery consulted in ED * General surgery noted- recommend to continue conservative management with NG tube decompression, bowel rest, and IV fluids * small-bowel follow-through in the morning to further evaluate the obstruction * 09/24 * ?SBS completed, results noted per radiologic impression:? A few intermittently dilated loops of small bowel without delayed transit to the colon which would favor an ileus over obstruction. Suggestion of a minimal amount of extraluminal gas and contrast in the right lower quadrant near the site of the extraperitoneal gas is seen at the cecum on the prior CT suspicious for bowel perforation. Could consider repeat CT for confirmation as clinically indicated * ?general surgery-? review study and? progress note expresses: SBS largely unremarkable, exam benign, await bowel fxn, cont bowel rest and NG decompression for now.? note that in regard to perforation, exam is benign * ? NG tube remains in place,? patient remains NPO 09/25 * general surgery notes to clamp NG tube and initiate clear liquid diet- discussed potential of microperf and will initiate IV Zosyn (2) Abnormal CT of the abdomen: Code(s): R93.5 - Abnormal findings on diagnostic imaging of other abdominal regions, including retroperitoneum Status: Acute Assessment and Plan: * CT in ED noted Findings suggestive of mid small bowel obstruction with a possible transition point in the mid lower abdomen. Unusual focus of extra colonic gas adjacent to the cecum. No associated wall thickening, inflammatory change, or abscess, although contained perforation would appear similarly. Mildly enlarged gallbladder without inflammatory change or stone. Mild splenomegaly. * Denies pain/ N/V- Exam benign * Labs unremarkable * General surgery consulted and following * See #1 (3) Community acquired pneumonia, bilateral: Code(s): J18.9 - Pneumonia, unspecified organism Status: Acute Assessment and Plan: * Chest xray notes Subsegmental right basilar atelectasis/consolidation. Possible small right pleural effusion. * On room air, denies shortness of breath * Encouraged deep breathing/ ambulation * Continue IV Abx. 09/24 * ? Patient remains on room air, without signs of respiratory distress * ?patient denies difficulty breathing or shortness of breath * ?continue IV antibiotics as patient is NPO 09/25 * patient remains on room air, no respiratory distress noted * plan to convert IV antibiotics as patient is able to tolerate diet (4) Autism spectrum disorder: Code(s): F84.0 - Autistic disorder Status: Chronic Assessment and Plan: * Pleasant with questions and assessment * Notified that he can become anxious with prolonged hospitalizations. * Consider PRN while patient NPO 09/24 * ?patient is pleasant, able to make his needs known * ?he is cooperative
--- NOTE | 2023-09-26 09:16 | PM.IMPN ---
Progress Note: A&P Assessment and Plan (1) Small bowel obstruction: Onset Date: Unknown Code(s): K56.609 - Unspecified intestinal obstruction, unspecified as to partial versus complete obstruction Status: Acute Assessment and Plan: history of recurrent small bowel obstructions with his last hospitalization in February of last year CT showed evidence of a mid small bowel obstruction, Unusual focus of extra colonic gas adjacent to the cecum. No associated wall thickening, inflammatory change, or abscess, although contained perforation would appear similarly. Mildly enlarged gallbladder without inflammatory change or stone. Mild splenomegaly. NG in place- Bile content noted General Surgery consulted in ED General surgery noted- recommend to continue conservative management with NG tube decompression, bowel rest, and IV fluids small-bowel follow-through in the morning to further evaluate the obstruction 09/24 ?SBS completed, results noted per radiologic impression:? A few intermittently dilated loops of small bowel without delayed transit to the colon which would favor an ileus over obstruction. Suggestion of a minimal amount of extraluminal gas and contrast in the right lower quadrant near the site of the extraperitoneal gas is seen at the cecum on the prior CT suspicious for bowel perforation. Could consider repeat CT for confirmation as clinically indicated ?general surgery-? review study and? progress note expresses: SBS largely unremarkable, exam benign, await bowel fxn, cont bowel rest and NG decompression for now.? note that in regard to perforation, exam is benign ? NG tube remains in place,? patient remains NPO 09/25 general surgery notes to clamp NG tube and initiate clear liquid diet- discussed potential of microperf and will initiate IV Zosyn (2) Abnormal CT of the abdomen: Code(s): R93.5 - Abnormal findings on diagnostic imaging of other abdominal regions, including retroperitoneum Status: Acute Assessment and Plan: CT in ED noted Findings suggestive of mid small bowel obstruction with a possible transition point in the mid lower abdomen. Unusual focus of extra colonic gas adjacent to the cecum. No associated wall thickening, inflammatory change, or abscess, although contained perforation would appear similarly. Mildly enlarged gallbladder without inflammatory change or stone. Mild splenomegaly. Denies pain/ N/V- Exam benign Labs unremarkable General surgery consulted and following See #1 (3) Community acquired pneumonia, bilateral: Code(s): J18.9 - Pneumonia, unspecified organism Status: Acute Assessment and Plan: Chest xray notes Subsegmental right basilar atelectasis/consolidation. Possible small right pleural effusion. On room air, denies shortness of breath Encouraged deep breathing/ ambulation Continue IV Abx. 09/24 ? Patient remains on room air, without signs of respiratory distress ?patient denies difficulty breathing or shortness of breath ?continue IV antibiotics as patient is NPO 09/25 patient remains on room air, no respiratory distress noted plan to convert IV antibiotics as patient is able to tolerate diet (4) Autism spectrum disorder: Code(s): F84.0 - Autistic disorder Status: Chronic Assessment and Plan: Pleasant with questions and assessment Notified that he can become anxious with prolonged hospitalizations. Consider PRN while patient NPO 09/24 ?patient is pleasant, able to make his needs known ?he is cooperative with care 09/25 remains pleasant, no anxiety noted at time of assessment plan to initiate patient's home medications as he tolerates diet (5) Edema: Code(s): R60.9 - Edema, unspecified Status: Acute Assessment and Plan: LLE edema noted on examination Patient denies pain No discoloration, Pulse palapable Venous doppler order to R/O DVT 09/24 ?+1 LLE edema rem
--- NOTE | 2023-09-26 09:43 | PM.PNGS ---
Progress Note: A&P Assessment and Plan (1) Small bowel obstruction: Onset Date: Unknown Code(s): K56.609 - Unspecified intestinal obstruction, unspecified as to partial versus complete obstruction Status: Acute Assessment and Plan: SBS reviewed c no evidence of SBO, will clamp NG and start clears (2) Colon perforation: Code(s): K63.1 - Perforation of intestine (nontraumatic) Status: Acute Assessment and Plan: microperf, exam completely benign, will try to clamp NG and start clears, will start abx Subjective Subjective Date/Time Seen: 09/26/23 09:43 Interval history: no acute issues, wants tube out and wants to eat, no bowel movement Review of Systems Review of Systems: All systems reviewed & are unremarkable except as noted in HPI and below Exam Const: General: cooperative, comfortable and no acute distress Resp: Auscultation: clear to auscultation bilaterally Cardio: Rate: regular rate Rhythm: regular rhythm GI: Inspection: normal to inspection and non-distended GI Palp: No abdominal tenderness, Yes Soft to palpation, No Tenderness to palpation present (GI), No Guarding due to palpation present (GI) and No Rigid due to palpation Objective Data Vital Signs Vital Signs: Vital Signs - 24 hr 09/25/23 14:00 09/25/23 20:58 09/25/23 20:00 Temperature 36.6 C 36.4 C L Pulse Rate 103 H 107 H Respiratory Rate 18 18 Blood Pressure 140/66 129/70 Pulse Oximetry 100 10 L Oxygen Delivery Room Air 09/26/23 02:58 09/26/23 08:30 Temperature 36.3 C L Pulse Rate 102 H Respiratory Rate 18 Blood Pressure 142/71 H Pulse Oximetry 100 Oxygen Delivery Room Air Intake/Output Intake/Output: Intake & Output 09/23/23 09/24/23 09/25/23 09/26/23 23:59 23:59 23:59 23:59 Intake Total 1000 9627 084 1963 Output Total 1000 2426 700 Balance 1000 600 -2176 300 Meds/Results Medications: Active Medications Generic Name Dose Route Start Last Admin Trade Name Freq PRN Reason Stop Dose Admin Dextrose 12.5 gm 09/24/23 09:23 Dextrose 50% 25 Gm/50 Ml Syringe IV PUSH PRN PRN Hypoglycemia Protocol Enoxaparin Sodium 40 mg 09/25/23 09:00 09/25/23 16:59 Enoxaparin 40 Mg/0.4 Ml Syringe SUB-Q Not Given DAILY JULIANO Glucagon 1 mg 09/24/23 09:23 Glucagon For Inj 1 Mg Vial IM PRN PRN Hypoglycemia Protocol Glucose 15 gm 09/24/23 09:23 Glucose Oral Gel 15 Gm Of Glucse In 37.5 Gm Tube PO PRN PRN Hypoglycemia Protocol Dextrose 1,000 mls @ 100 mls/hr 09/24/23 09:23 Dextrose 5% 1,000 Ml IVPB PRN PRN Hypoglycemia Protocol Ceftriaxone Sodium 1 gm in 50 mls @ 100 mls/hr 09/24/23 21:00 09/25/23 21:00 Rocephin 1 Gm/Ns 50 Ml IVPB 100 mls/hr Q24H JULIANO Administration Azithromycin 500 mg in 250 mls @ 250 mls/hr 09/24/23 21:00 09/25/23 22:33 Zithromax IVPB Infused Q24H JULIANO Infusion Potassium Chloride/Dextrose/Sod Cl 1,000 mls @ 100 mls/hr 09/25/23 15:05 09/26/23 06:38 Kcl 20 Meq/D5/0.45% Sod Chl IV CONT 100 mls/hr .Q10H JULIANO Administration Radiology Results: ITS Impressions Chest X-Ray 09/23/23 21:50 IMPRESSION: Subsegmental right basilar atelectasis/consolidation. Possible small right pleural effusion. Abdomen/Pelvis CT 09/23/23 23:53 IMPRESSION: Findings suggestive of mid small bowel obstruction with a possible transition point in the mid lower abdomen. Unusual focus of extra colonic gas adjacent to the cecum, of uncertain clinical significance. No associated wall thickening, inflammatory change, or abscess, although contained perforation would appear similarly. Correlate with any history of recent procedure such as colonoscopy. Mildly enlarged gallbladder without inflammatory change or stone. Correlate with symptoms of right upper quadrant pain and biliary labs. Mild splenomegaly. Abdomen X-Ray 09/24/23 05:55 Impressio
[2023-09-26] MEDS: ENOXAPARIN 40 MG/0.4 ML SYRINGE SUB-Q (10:31)
[2023-09-26] MEDS: PIPERACILLN/TAZ 3.375GM/NS50ML 3.375 GM/50 ML BAG IVPB ×3 (10:34→23:43)
--- NOTE | 2023-09-26 13:05 | PM.IMHP ---
H&P: HPI History of Present Illness Date/Time: 09/24/23 0900 Chief Complaint: SBO Narrative: 62-year-old male with past medical history of schizoaffective disorder, autism GERD, HLD, and recurrent SBO- last hospitalization being Feb 2023, and hx of ex-lap in 2003. He was brought to ED after concerns from his latex spooler, who stated he was not eating and this is a sign of obstruction for him. Patient is alert and oriented, he can answer some questions appropriately, but poor historian due to mental delays. He denies any pain, nausea or vomiting, cough or shortness of breath. He stated he has not had a bowel movement and is not passing gas. On examination his abdomen firm but nondistended, patient expressed no pain with palpation, NG with bile content noted. He has edema to LLE, patient denies pain to this area- Venous doppler ordered to R/O DVT. Labs in ED showed WBC 8.1. Hgb 13.1, respiratory panel negative. Bili 1.0, AST39, ALT 22, Alk Phos 111. Chest xray notes Subsegmental right basilar atelectasis/consolidation. Possible small right pleural effusion. KUB notes Dilated small bowel in the upper abdomen may represent ileus or early obstruction. CT abd/pelvis notes Findings suggestive of mid small bowel obstruction with a possible transition point in the mid lower abdomen. Unusual focus of extra colonic gas adjacent to the cecum. No associated wall thickening, inflammatory change, or abscess, although contained perforation would appear similarly. Mildly enlarged gallbladder without inflammatory change or stone. Mild splenomegaly. NG was placed in ED. ED ordered IV Rocephin and azithromycin. General surgery was consulted from ED. Continue IV abx for pna coverage. Labs today note WBC 6.1. Hgb 11.5,Bili 0.7, AST 32, ALT 18, Alk Phos 84. General surgery consulted and recommends conservative management with NG, bowel rest, and IV fluids. Ordered small bowel follow through tomorrow Review of Systems Review of Systems: All systems reviewed & are unremarkable except as noted in HPI and below PMFSH Past Medical History Medical History Autism spectrum disorder Chronic anemia (Unknown) Chronic megaloblastic anemia with high folate and B12 levels in 2018 Complete small bowel obstruction GERD (gastroesophageal reflux disease) Gout Hypercholesterolemia (Unknown) Ileus Intellectual disability Macrocytic anemia Nausea and vomiting in adult Peptic ulcer Schizophrenia Sepsis Tachycardia Thrombocytopenia Weakness Surgical History Surgical History History of appendectomy (~12/07/03) November 2003 - Incidental appendectomy during exploratory laparotomy History of exploratory laparotomy (~12/07/03) 11/30/2003 - 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 12/08/2003 - Taken back to surgery for a small bowel obstruction and had an adhesiolysis. Family History Family History Other Unknown family medical history Social History Social History Social History: He lives in a [place] in [place]. Lifelong nonsmoker. No alcohol or drug use. Primary care physician: Dr. Isael Lanier Code status: Full code Healthcare power of claim attorney: Jose Manuel Sotomayor (father). Caregiver states that [facility] should be called for any consent at [phone]. Smoking status: Never smoker Alcohol intake: never Substance use: never Substance use type: does not use Gender identity (if verbalized by the patient): Male Sexual Orientation (if Verbalized by the Patient): Straight or Heterosexual Spiritual care concerns: No Meds Home Medications and Allergies Home Medications Medication Instruction
[2023-09-26 14:00] VITALS: BP 139/67; PULSE 117; RESP 18; TEMP 35.9; O2SAT 100
[2023-09-26 14:41] LABS: Glucose Point of Care 122 mg/dl (65-105)
[2023-09-26 19:08] LABS: Glucose Point of Care 107 mg/dl (65-105)
[2023-09-26] MEDS: AZITHROMYCIN 500 MG/NS 250 ML 500 MG/250 ML BAG 250 MG IVPB (20:18)
[2023-09-26 21:22] VITALS: BP 133/83; PULSE 108; RESP 16; TEMP 36.1; O2SAT 100
[2023-09-27 00:15] LABS: Glucose Point of Care 101 mg/dl (65-105)
[2023-09-27] MEDS: KCL 20 MEQ/D5/0.45% SOD CHL 1,000 ML 100 ML IV CONT ×2 (04:12→16:42)
[2023-09-27] MEDS: PIPERACILLN/TAZ 3.375GM/NS50ML 3.375 GM/50 ML BAG IVPB ×4 (05:05→23:54)
[2023-09-27 05:29] LABS: Glucose Point of Care 113 mg/dl (65-105)
[2023-09-27 06:00] VITALS: BP 120/71; PULSE 111; RESP 14; TEMP 36; O2SAT 98
[2023-09-27 06:20] LABS: Hematocrit 36.1 % (42.0-52.0); Mean Corpuscular HGB Conc 33.2 g/dl (32-36); Mean Corpuscular Hemoglobin 33.4 pg (26-34); Mean Corpuscular Volume 100.6 fl (80-100); Mean Platelet Volume 10.2 fl (7.4-10.4); Platelet Count Result 193 k/mm3 (150-375); Red Blood Count 3.59 M/mm3 (4.6-6.20); Red Cell Distribution Width 12.7 % (11.5-14.5); White Blood Count 4.5 K/mm3 (4.5-10.0)
[2023-09-27 06:34] LABS: Alanine Aminotransferase 27 U/L (6-50); Albumin Level 3.7 g/dL (3.5-5.1); Alkaline Phosphatase 106 U/L (38-126); Anion Gap 8 mmol/L (8-16); Aspartate Amino Transferase 46 U/L (17-59); Bilirubin,Total 0.8 mg/dL (0.2-1.3); Blood Urea Nitrogen 2 mg/dL (9-20); Calcium 8.9 mg/dL (8.4-10.2); Carbon Dioxide 23 mmol/L (22-30); Chloride 107 mmol/L (98-107); Estimated CRCL calculation 128 ml/min; Estimated Glomerular Filt Rate > 60; Glucose 101 mg/dL (65-110); Magnesium 1.9 mg/dL (1.6-2.3); Potassium 3.5 mmol/L (3.4-5.0); Sodium 138 mmol/L (137-145)
[2023-09-27 08:43] VITALS: O2SAT 98
--- NOTE | 2023-09-27 08:50 | P.PNIM_ITS ---
Progress Note: A&P Assessment and Plan (1) Small bowel obstruction: Onset Date: Unknown Code(s): K56.609 - Unspecified intestinal obstruction, unspecified as to partial versus complete obstruction Status: Acute Assessment and Plan: * history of recurrent small bowel obstructions with his last hospitalization in February of last year * CT showed evidence of a mid small bowel obstruction, Unusual focus of extra colonic gas adjacent to the cecum. No associated wall thickening, inflammatory change, or abscess, although contained perforation would appear similarly. Mildly enlarged gallbladder without inflammatory change or stone. Mild splenomegaly. * NG in place- Bile content noted * General Surgery consulted in ED * General surgery noted- recommend to continue conservative management with NG tube decompression, bowel rest, and IV fluids * small-bowel follow-through in the morning to further evaluate the obstruction * 09/24 * ?SBS completed, results noted per radiologic impression:? A few intermittently dilated loops of small bowel without delayed transit to the colon which would favor an ileus over obstruction. Suggestion of a minimal amount of extraluminal gas and contrast in the right lower quadrant near the site of the extraperitoneal gas is seen at the cecum on the prior CT suspicious for bowel perforation. Could consider repeat CT for confirmation as clinically indicated * ?general surgery-? review study and? progress note expresses: SBS largely unremarkable, exam benign, await bowel fxn, cont bowel rest and NG decompression for now.? note that in regard to perforation, exam is benign * ? NG tube remains in place,? patient remains NPO 09/25 * general surgery notes to clamp NG tube and initiate clear liquid diet- discussed potential of microperf and will initiate IV Zosyn 09/26 * patient removed his own NG overnight * denies any nausea, abdominal pain, vomiting * general surgery discussed plan to increase patient's diet, okay to start home meds p.o. continue IV antibiotics at this time * general surgery discussed if patient tolerates well likely discharge tomorrow (2) Abnormal CT of the abdomen: Code(s): R93.5 - Abnormal findings on diagnostic imaging of other abdominal regions, including retroperitoneum Status: Acute Assessment and Plan: * CT in ED noted Findings suggestive of mid small bowel obstruction with a possible transition point in the mid lower abdomen. Unusual focus of extra colonic gas adjacent to the cecum. No associated wall thickening, inflammatory change, or abscess, although contained perforation would appear similarly. Mildly enlarged gallbladder without inflammatory change or stone. Mild splenomegaly. * Denies pain/ N/V- Exam benign * Labs unremarkable * General surgery consulted and following * See #1 (3) Community acquired pneumonia, bilateral: Code(s): J18.9 - Pneumonia, unspecified organism Status: Acute Assessment and Plan: * Chest xray notes Subsegmental right basilar atelectasis/consolidation. Possib le small right pleural effusion. * On room air, denies shortness of breath * Encouraged deep breathing/ ambulation * Continue IV Abx. 09/24 * ? Patient remains on room air, without signs of respiratory distress * ?patient denies difficulty breathing or shortness of breath * ?continue IV antibiotics as patient is NPO 09/25 * patient remains on room air, no respiratory distress noted * plan to convert IV antibiotics as patient is able to tolerate diet 09/26 * patient remains on room air no respiratory distress noted
--- NOTE | 2023-09-27 08:50 | PM.IMPN ---
Progress Note: A&P Assessment and Plan (1) Small bowel obstruction: Onset Date: Unknown Code(s): K56.609 - Unspecified intestinal obstruction, unspecified as to partial versus complete obstruction Status: Acute Assessment and Plan: history of recurrent small bowel obstructions with his last hospitalization in February of last year CT showed evidence of a mid small bowel obstruction, Unusual focus of extra colonic gas adjacent to the cecum. No associated wall thickening, inflammatory change, or abscess, although contained perforation would appear similarly. Mildly enlarged gallbladder without inflammatory change or stone. Mild splenomegaly. NG in place- Bile content noted General Surgery consulted in ED General surgery noted- recommend to continue conservative management with NG tube decompression, bowel rest, and IV fluids small-bowel follow-through in the morning to further evaluate the obstruction 09/24 ?SBS completed, results noted per radiologic impression:? A few intermittently dilated loops of small bowel without delayed transit to the colon which would favor an ileus over obstruction. Suggestion of a minimal amount of extraluminal gas and contrast in the right lower quadrant near the site of the extraperitoneal gas is seen at the cecum on the prior CT suspicious for bowel perforation. Could consider repeat CT for confirmation as clinically indicated ?general surgery-? review study and? progress note expresses: SBS largely unremarkable, exam benign, await bowel fxn, cont bowel rest and NG decompression for now.? note that in regard to perforation, exam is benign ? NG tube remains in place,? patient remains NPO 09/25 general surgery notes to clamp NG tube and initiate clear liquid diet- discussed potential of microperf and will initiate IV Zosyn 09/26 patient removed his own NG overnight denies any nausea, abdominal pain, vomiting general surgery discussed plan to increase patient's diet, okay to start home meds p.o. continue IV antibiotics at this time general surgery discussed if patient tolerates well likely discharge tomorrow (2) Abnormal CT of the abdomen: Code(s): R93.5 - Abnormal findings on diagnostic imaging of other abdominal regions, including retroperitoneum Status: Acute Assessment and Plan: CT in ED noted Findings suggestive of mid small bowel obstruction with a possible transition point in the mid lower abdomen. Unusual focus of extra colonic gas adjacent to the cecum. No associated wall thickening, inflammatory change, or abscess, although contained perforation would appear similarly. Mildly enlarged gallbladder without inflammatory change or stone. Mild splenomegaly. Denies pain/ N/V- Exam benign Labs unremarkable General surgery consulted and following See #1 (3) Community acquired pneumonia, bilateral: Code(s): J18.9 - Pneumonia, unspecified organism Status: Acute Assessment and Plan: Chest xray notes Subsegmental right basilar atelectasis/consolidation. Possible small right pleural effusion. On room air, denies shortness of breath Encouraged deep breathing/ ambulation Continue IV Abx. 09/24 ? Patient remains on room air, without signs of respiratory distress ?patient denies difficulty breathing or shortness of breath ?continue IV antibiotics as patient is NPO 09/25 patient remains on room air, no respiratory distress noted plan to convert IV antibiotics as patient is able to tolerate diet 09/26 patient remains on room air no respiratory distress noted denies any difficulty breathing or shortness of breath general surgery note to continue IV antibiotic, will convert to p.o. tomorrow as long as patient is tolerating diet and other oral p.o. meds (4) Autism spectrum disorder: Code(s): F84.0 - Autistic disorder Status: Chronic Assessment and Plan: Pleasant with questions and assessment Notified that
[2023-09-27] MEDS: ENOXAPARIN 40 MG/0.4 ML SYRINGE SUB-Q (09:03)
--- NOTE | 2023-09-27 09:10 | WPDPN ---
Progress Note: A&P Assessment and Plan (1) Cecum perforation: Code(s): K35.32 - Acute appendicitis with perforation, localized peritonitis, and gangrene, without abscess Status: Acute Assessment and Plan: Patient has CT evidence of a cecal microperforation. No abscess. Abdominal exam is completely benign. He pulled out his own NG tube yesterday and tolerated clear liquids. Go ahead advance him to full liquids and then hopefully may be solid food later today. White blood cell count is normal. If tolerating solid food then hopefully out of the hospital tomorrow. Continue antibiotics for now. (2) Small bowel obstruction: Onset Date: Unknown Code(s): K56.609 - Unspecified intestinal obstruction, unspecified as to partial versus complete obstruction Status: Acute Assessment and Plan: Resolved. Small-bowel series showed transit time. Subjective Date/time seen: 09/27/23 09:10 Interval history: Patient is doing well today. He pulled out his own NG tube yesterday. Has tolerated having the NG tube out. Tolerated clear liquids. Had a documented bowel movement as per nurse's notes. No pain. Exam GI: Other: Abdomen is soft and nondistended. No tenderness to palpation. Exam is completely benign. Objective Data Vital Signs Vital Signs: Vital Signs - 24 hr 09/26/23 14:00 09/26/23 20:00 09/26/23 21:22 Temperature 35.9 C L 36.1 C L Pulse Rate 117 H 108 H Respiratory Rate 18 16 Blood Pressure 139/67 133/83 Pulse Oximetry 100 100 Oxygen Delivery Room Air 09/27/23 06:00 09/27/23 08:43 Temperature 36.0 C L Pulse Rate 111 H Respiratory Rate 14 Blood Pressure 120/71 Pulse Oximetry 98 98 Oxygen Delivery Room Air Intake/Output Intake/Output: Intake & Output 09/24/23 09/25/23 09/26/23 09/27/23 23:59 23:59 23:59 23:59 Intake Total 8941 784 4240 1808 Output Total 1000 2426 1600 600 Balance 600 -2176 1244 1208 Meds/Results Medications: Active Medications Generic Name Dose Route Start Last Admin Trade Name Freq PRN Reason Stop Dose Admin Dextrose 12.5 gm 09/24/23 09:23 Dextrose 50% 25 Gm/50 Ml Syringe IV PUSH PRN PRN Hypoglycemia Protocol Enoxaparin Sodium 40 mg 09/25/23 09:00 09/27/23 09:03 Enoxaparin 40 Mg/0.4 Ml Syringe SUB-Q 40 mg DAILY JULIANO Administration Glucagon 1 mg 09/24/23 09:23 Glucagon For Inj 1 Mg Vial IM PRN PRN Hypoglycemia Protocol Glucose 15 gm 09/24/23 09:23 Glucose Oral Gel 15 Gm Of Glucse In 37.5 Gm Tube PO PRN PRN Hypoglycemia Protocol Dextrose 1,000 mls @ 100 mls/hr 09/24/23 09:23 Dextrose 5% 1,000 Ml IVPB PRN PRN Hypoglycemia Protocol Ceftriaxone Sodium 1 gm in 50 mls @ 100 mls/hr 09/24/23 21:00 09/26/23 20:47 Rocephin 1 Gm/Ns 50 Ml IVPB Infused Q24H JULIANO Infusion Azithromycin 500 mg in 250 mls @ 250 mls/hr 09/24/23 21:00 09/26/23 21:24 Zithromax IVPB Infused Q24H JULIANO Infusion Potassium Chloride/Dextrose/Sod Cl 1,000 mls @ 100 mls/hr 09/25/23 15:05 09/27/23 04:12 Kcl 20 Meq/D5/0.45% Sod Chl IV CONT 100 mls/hr .Q10H JULIANO Administration Piperacillin/Tazobactam/Dextrose 3.375 gm in 50 mls @ 100 mls/hr 09/26/23 17:00 09/27/23 05:35 Zosyn 3.375 Gm/Ns 50 Ml IVPB Infused Q6HR JULIANO Infusion Radiology Results: ITS Impressions Chest X-Ray 09/23/23 21:50 IMPRESSION: Subsegmental right basilar atelectasis/consolidation. Possible small right pleural effusion. Abdomen/Pelvis CT 09/23/23 23:53 IMPRESSION: Findings suggestive of mid small bowel obstruction with a possible transition point in the mid lower abdomen. Unusual focus of extra colonic gas adjacent to the cecum, of uncertain clinical significance. No associated wall thickening, inflammatory change, or abscess, although contained perforation would appear similarly. Correlate with any history of recent procedure tabares
[2023-09-27 14:00] VITALS: BP 147/80; PULSE 85; RESP 18; TEMP 36.5; O2SAT 97
[2023-09-27 20:00] VITALS: PULSE 88; RESP 18; O2SAT 99
[2023-09-27 20:56] VITALS: PULSE 90
[2023-09-27] MEDS: PROPRANOLOL HCL 20 MG TABLET PO (20:56)
[2023-09-27] MEDS: DIVALPROEX SODIUM ER 500 MG TAB.24H PO (20:56)
[2023-09-27] MEDS: PANTOPRAZOLE 40 MG TABLET PO (20:56)
[2023-09-27] MEDS: OMEGA 3 POLYUNSAT FATTY ACIDS 1 GM CAP PO (20:56)
[2023-09-27] MEDS: sulfaSALAzine 500 MG TABLET 1000 MG PO (20:57)
[2023-09-27] MEDS: THERAPEUTIC MULTIVITAMINS/MINERALS TAB (*BKC) 1 TABLET PO (20:57)
[2023-09-27] MEDS: AZITHROMYCIN 500 MG/NS 250 ML 500 MG/250 ML BAG 125 MG IVPB (21:48)
[2023-09-27 22:00] VITALS: BP 145/81; PULSE 88; RESP 18; TEMP 36.3; O2SAT 99
--- NOTE | 2023-09-28 03:07 | PC.NURSE ---
Daylight Savings Time For Daylight Savings Time Ending in the Fall - Clocks are moved back. For Daylight Savings Time Beginning in the Spring - Clocks are moved ahead. For [facility], the time of change occurs at 0200 hrs. Time is taken from the toll service observer. This entry on the patient's chart recognizes the change in time reflected during documentation. Example: 2 entries for vital signs may be charted for 0200 hrs.
[2023-09-28] MEDS: LEVOTHYROXINE SODIUM 100 MCG TABLET PO (05:37)
[2023-09-28] MEDS: PIPERACILLN/TAZ 3.375GM/NS50ML 3.375 GM/50 ML BAG IVPB (05:37)
[2023-09-28 05:59] VITALS: BP 134/71; PULSE 74; RESP 18; TEMP 36.3; O2SAT 99
[2023-09-28 06:40] LABS: Hematocrit 40.5 % (42.0-52.0); Hemoglobin 13.2 g/dL (14.0-18.0); Mean Corpuscular HGB Conc 32.6 g/dl (32-36); Mean Corpuscular Hemoglobin 32.4 pg (26-34); Mean Corpuscular Volume 99.3 fl (80-100); Platelet Count Result 263 k/mm3 (150-375); Red Blood Count 4.08 M/mm3 (4.6-6.20); Red Cell Distribution Width 12.7 % (11.5-14.5); White Blood Count 8.4 K/mm3 (4.5-10.0)
[2023-09-28 06:55] LABS: Alanine Aminotransferase 38 U/L (6-50); Albumin Level 4.2 g/dL (3.5-5.1); Alkaline Phosphatase 145 U/L (38-126); Anion Gap 7 mmol/L (8-16); Aspartate Amino Transferase 55 U/L (17-59); Bilirubin,Total 1.1 mg/dL (0.2-1.3); Blood Urea Nitrogen 6 mg/dL (9-20); Calcium 9.6 mg/dL (8.4-10.2); Carbon Dioxide 25 mmol/L (22-30); Chloride 105 mmol/L (98-107); Estimated CRCL calculation 112 ml/min; Estimated Glomerular Filt Rate > 60; Glucose 93 mg/dL (65-110); Magnesium 2.1 mg/dL (1.6-2.3); Potassium 4.2 mmol/L (3.4-5.0); Sodium 137 mmol/L (137-145)
[2023-09-28 09:10] VITALS: PULSE 72
[2023-09-28] MEDS: sulfaSALAzine 500 MG TABLET 1000 MG PO (09:10)
[2023-09-28] MEDS: ENOXAPARIN 40 MG/0.4 ML SYRINGE SUB-Q (09:10)
[2023-09-28] MEDS: PROPRANOLOL HCL 20 MG TABLET PO (09:10)
[2023-09-28] MEDS: VITAMIN B COMPLEX CAPSULE 1 CAP PO (09:10)
[2023-09-28] MEDS: OMEGA 3 POLYUNSAT FATTY ACIDS 1 GM CAP PO (09:10)
[2023-09-28] MEDS: PANTOPRAZOLE 40 MG TABLET PO (09:10)
[2023-09-28] MEDS: ESCITALOPRAM OXALATE 10 MG TABLET PO (09:10)
[2023-09-28] MEDS: FOLIC ACID 1 MG TABLET PO (09:11)
[2023-09-28] MEDS: FENOFIBRATE 160 MG TABLET PO (09:11)
[2023-09-28] MEDS: POTASSIUM CHLORIDE 10 MEQ ER TABLET PO (09:11)
[2023-09-28] MEDS: DIVALPROEX SODIUM ER 500 MG TAB.24H PO (09:43)
--- NOTE | 2023-09-28 11:56 | P.DS_ITS ---
DS: Admitting Diagnosis Discharge Date 09/28/23 Admitting Diagnosis Small-bowel obstruction DS: Discharge Diagnosis Discharge Diagnosis (1) Small bowel obstruction: Onset Date: Unknown Code(s): K56.609 - Unspecified intestinal obstruction, unspecified as to partial versus complete obstruction Status: Acute Assessment and Plan: * history of recurrent small bowel obstructions with his last hospitalization in February of last year * CT showed evidence of a mid small bowel obstruction, Unusual focus of extra colonic gas adjacent to the cecum. No associated wall thickening, inflammatory change, or abscess, although contained perforation would appear similarly. Mildly enlarged gallbladder without inflammatory change or stone. Mild splenomegaly. * NG in place- Bile content noted * General Surgery consulted in ED * General surgery noted- recommend to continue conservative management with NG tube decompression, bowel rest, and IV fluids * small-bowel follow-through in the morning to further evaluate the obstruction * 09/24 * ?SBS completed, results noted per radiologic impression:? A few intermittently dilated loops of small bowel without delayed transit to the colon which would favor an ileus over obstruction. Suggestion of a minimal amount of extraluminal gas and contrast in the right lower quadrant near the site of the extraperitoneal gas is seen at the cecum on the prior CT suspicious for bowel perforation. Could consider repeat CT for confirmation as clinically indicated * ?general surgery-? review study and? progress note expresses: SBS largely unremarkable, exam benign, await bowel fxn, cont bowel rest and NG decompression for now.? note that in regard to perforation, exam is benign * ? NG tube remains in place,? patient remains NPO 09/25 * general surgery notes to clamp NG tube and initiate clear liquid diet- discussed potential of microperf and will initiate IV Zosyn 09/26 * patient removed his own NG overnight * denies any nausea, abdominal pain, vomiting * general surgery discussed plan to increase patient's diet, okay to start home meds p.o. continue IV antibiotics at this time * general surgery discussed if patient tolerates well likely discharge tomorrow 09/27 * patient has tolerated diet and oral medications, without any nausea, vomiting, abdominal pain * patient had bowel movement this a.m. * per General surgery patient can be discharged and will continue oral antibiotics for 7 days * it is best that patient hold any gut related medications until antibiotic completion and follow-up with PCP * patient stable for discharge- BP 134/71, HR 78, Resp 18, O2 99% on room air, WBC 8.4, hemoglobin 13.2. (2) Abnormal CT of the abdomen: Code(s): R93.5 - Abnormal findings on diagnostic imaging of other abdominal regions, including retroperitoneum Status: Acute Assessment and Plan: * CT in ED noted Findings suggestive of mid small bowel obstruction with a possible transition point in the mid lower abdomen. Unusual focus of extra colonic gas adjacent to the cecum. No associated wall thickening, inflammatory change, or abscess, although contained perforation would appear similarly. Mildly enlarged gallbladder without inflammatory change or stone. Mild sp lenomegaly. * Denies pain/ N/V- Exam benign * Labs unremarkable * General surgery consulted and following * See #1 (3) Community acquired pneumonia, bilateral: Code(s): J18.9 - Pneumonia, unspecified organism Status: Acute Assessment and Plan: * Chest xray notes Subsegmental
--- NOTE | 2023-09-28 11:56 | PM.DS ---
DS: Admitting Diagnosis Discharge Date 09/28/23 Admitting Diagnosis Small-bowel obstruction DS: Discharge Diagnosis Discharge Diagnosis (1) Small bowel obstruction: Onset Date: Unknown Code(s): K56.609 - Unspecified intestinal obstruction, unspecified as to partial versus complete obstruction Status: Acute Assessment and Plan: history of recurrent small bowel obstructions with his last hospitalization in February of last year CT showed evidence of a mid small bowel obstruction, Unusual focus of extra colonic gas adjacent to the cecum. No associated wall thickening, inflammatory change, or abscess, although contained perforation would appear similarly. Mildly enlarged gallbladder without inflammatory change or stone. Mild splenomegaly. NG in place- Bile content noted General Surgery consulted in ED General surgery noted- recommend to continue conservative management with NG tube decompression, bowel rest, and IV fluids small-bowel follow-through in the morning to further evaluate the obstruction 09/24 ?SBS completed, results noted per radiologic impression:? A few intermittently dilated loops of small bowel without delayed transit to the colon which would favor an ileus over obstruction. Suggestion of a minimal amount of extraluminal gas and contrast in the right lower quadrant near the site of the extraperitoneal gas is seen at the cecum on the prior CT suspicious for bowel perforation. Could consider repeat CT for confirmation as clinically indicated ?general surgery-? review study and? progress note expresses: SBS largely unremarkable, exam benign, await bowel fxn, cont bowel rest and NG decompression for now.? note that in regard to perforation, exam is benign ? NG tube remains in place,? patient remains NPO 09/25 general surgery notes to clamp NG tube and initiate clear liquid diet- discussed potential of microperf and will initiate IV Zosyn 09/26 patient removed his own NG overnight denies any nausea, abdominal pain, vomiting general surgery discussed plan to increase patient's diet, okay to start home meds p.o. continue IV antibiotics at this time general surgery discussed if patient tolerates well likely discharge tomorrow 09/27 patient has tolerated diet and oral medications, without any nausea, vomiting, abdominal pain patient had bowel movement this a.m. per General surgery patient can be discharged and will continue oral antibiotics for 7 days it is best that patient hold any gut related medications until antibiotic completion and follow-up with PCP patient stable for discharge- BP 134/71, HR 78, Resp 18, O2 99% on room air, WBC 8.4, hemoglobin 13.2. (2) Abnormal CT of the abdomen: Code(s): R93.5 - Abnormal findings on diagnostic imaging of other abdominal regions, including retroperitoneum Status: Acute Assessment and Plan: CT in ED noted Findings suggestive of mid small bowel obstruction with a possible transition point in the mid lower abdomen. Unusual focus of extra colonic gas adjacent to the cecum. No associated wall thickening, inflammatory change, or abscess, although contained perforation would appear similarly. Mildly enlarged gallbladder without inflammatory change or stone. Mild splenomegaly. Denies pain/ N/V- Exam benign Labs unremarkable General surgery consulted and following See #1 (3) Community acquired pneumonia, bilateral: Code(s): J18.9 - Pneumonia, unspecified organism Status: Acute Assessment and Plan: Chest xray notes Subsegmental right basilar atelectasis/consolidation. Possible small right pleural effusion. On room air, denies shortness of breath Encouraged deep breathing/ ambulation Continue IV Abx. 09/24 ? Patient remains on room air, without signs of respiratory distress ?patient denies difficulty breathing or shortness of breath ?continue IV antibiotics as patient is NPO 09/25 patient remains on room a
--- NOTE | 2023-09-28 13:02 | WPDPN ---
Progress Note: A&P Assessment and Plan (1) Cecum perforation: Code(s): K35.32 - Acute appendicitis with perforation, localized peritonitis, and gangrene, without abscess Status: Acute Assessment and Plan: Patient very small cecal perforation demonstrated on CT scan and small bowel series with contrast. The perforation has sealed over. Patient tolerated regular diet without any pain or nausea. White blood cell count remains normal. Can transition to oral antibiotics for another 7 days and discharged home. (2) Small bowel obstruction: Onset Date: Unknown Code(s): K56.609 - Unspecified intestinal obstruction, unspecified as to partial versus complete obstruction Status: Acute Assessment and Plan: Resolved. Subjective Date/time seen: 09/28/23 13:02 Interval history: Patient doing well today. No complaints. Tolerated solid food yesterday without difficulty. No abdominal pain. Exam GI: Other: Abdomen is soft and nontender and benign. Objective Data Vital Signs Vital Signs: Vital Signs - 24 hr 09/27/23 14:00 09/27/23 20:56 09/27/23 22:00 Temperature 36.5 C 36.3 C L Pulse Rate 85 90 88 Respiratory Rate 18 18 Blood Pressure 147/80 H 145/81 H Pulse Oximetry 97 99 Oxygen Delivery 09/27/23 20:00 09/28/23 05:59 09/28/23 09:10 Temperature 36.3 C L Pulse Rate 88 74 72 Respiratory Rate 18 18 Blood Pressure 134/71 Pulse Oximetry 99 99 Oxygen Delivery Room Air 09/28/23 08:00 Temperature Pulse Rate Respiratory Rate Blood Pressure Pulse Oximetry Oxygen Delivery Room Air Intake/Output Intake/Output: Intake & Output 09/25/23 09/26/23 09/27/23 09/29/23 23:59 23:59 23:59 00:59 Intake Total 250 2844 4178 1700 Output Total 2426 1600 1900 1625 Balance -2176 1244 2278 75 Meds/Results Medications: Active Medications Generic Name Dose Route Start Last Admin Trade Name Freq PRN Reason Stop Dose Admin Dextrose 12.5 gm 09/24/23 09:23 Dextrose 50% 25 Gm/50 Ml Syringe IV PUSH PRN PRN Hypoglycemia Protocol Divalproex Sodium 500 mg 09/27/23 18:35 09/28/23 09:43 Divalproex Sodium Er 500 Mg Tab.24h PO 500 mg BID JULIANO Administration Enoxaparin Sodium 40 mg 09/25/23 09:00 09/28/23 09:10 Enoxaparin 40 Mg/0.4 Ml Syringe SUB-Q 40 mg DAILY JULIANO Administration Ergocalciferol 50,000 units 10/03/23 09:00 Ergocalciferol 50,000 Units Capsule PO Fr@0900 JULIANO Escitalopram Oxalate 10 mg 09/28/23 09:00 09/28/23 09:10 Escitalopram Oxalate 10 Mg Tablet PO 10 mg DAILY JULIANO Administration Fenofibrate 160 mg 09/28/23 09:00 09/28/23 09:11 Fenofibrate 160 Mg Tablet PO 160 mg DAILY JULIANO Administration Fish Oil 1 gm 09/27/23 18:35 09/28/23 09:10 [place] 3 Polyunsat Fatty Acids 1 Gm Cap PO 1 gm BID JULIANO Administration Folic Acid 1 mg 09/28/23 09:00 09/28/23 09:11 Folic Acid 1 Mg Tablet PO 1 mg DAILY JULIANO Administration Glucagon 1 mg 09/24/23 09:23 Glucagon For Inj 1 Mg Vial IM PRN PRN Hypoglycemia Protocol Glucose 15 gm 09/24/23 09:23 Glucose Oral Gel 15 Gm Of Glucse In 37.5 Gm Tube PO PRN PRN Hypoglycemia Protocol Dextrose 1,000 mls @ 100 mls/hr 09/24/23 09:23 Dextrose 5% 1,000 Ml IVPB PRN PRN Hypoglycemia Protocol Levothyroxine Sodium 100 mcg 09/28/23 06:30 09/28/23 05:37 Levothyroxine Sodium 100 Mcg Tablet PO 100 mcg DAILY@0630 JULIANO Administration Miscellaneous Information 1 each 09/28/23 00:01 09/28/23 09:15 Clozapine Is Nonform; Please Clarify Dosing Pt Takes 100 Mg Bid And 200 Mg At 17:00. Is T XX 10/28/23 00:00 Not Given CLARIFY [facility] Multivitamins/Calcium 1 tablet 09/27/23 18:35 09/27/23 20:57 Therapeutic Multivitamins/Minerals Tab (*Bkc) PO 1 tablet 1700 JULIANO Administration Non-Formulary Medication 100 mg 09/28/23 09:00 Clozapine PO 10/28/23 08:
--- NOTE | 2023-09-28 13:05 | WPDHPUPDATE1 ---
History and Physical Update Update Date/Time: 09/28/23 13:05 This note was entered in error.
== END 2023-09-28 14:20 | disposition home or self-care (01) | DRG 388 ==
LOC: ANHED 09-24 00:57 → ANH3MEDSUR 09-24 04:14
PROVIDERS: Admitting Provider Internal Medicine; Emergency Provider Emergency Medicine; PCP Family Medicine; Visit Provider Nurse Practitioner Family
DX: K56.609 Unspecified intestinal obstruction, unspecified as to partial versus complete obstruction (principal); J18.9 Pneumonia, unspecified organism; K63.1 Perforation of intestine (nontraumatic); F84.9 Pervasive developmental disorder, unspecified; J90 Pleural effusion, not elsewhere classified; Z20.822 Contact with and (suspected) exposure to COVID-19; R60.9 Edema, unspecified; F25.9 Schizoaffective disorder, unspecified; K21.9 Gastro-esophageal reflux disease without esophagitis; E78.5 Hyperlipidemia, unspecified; D64.9 Anemia, unspecified; D64.89 Other specified anemias; Z87.11 Personal history of peptic ulcer disease; Z90.49 Acquired absence of other specified parts of digestive tract
CPT/HCPCS: 36415; 71045; 74018; 74177; 74250; 80053; 81001; 82948; 83735; 85025; 85027; 87637; 93971; 97161; 99285; A9270; J0456; J0696; J1650; J2543; J3480; J7030; Q9967

== ENCOUNTER 2023-12-17 20:20 | Emergency (ER) | payer MEDICARE, MEDICAID, SELFPAY ==
[2023-12-17 20:29] VITALS: BP 139/90; PULSE 80; RESP 16; TEMP 36.6; O2SAT 100
[2023-12-17 20:38] LABS: Appearance Urine Clear (Clear); Bilirubin Urine Negative (Negative); Blood Urine Negative (Negative); Color Urine Dark Yellow (Yellow); Glucose Urine UA Negative (Negative); Ketones Urine Negative (Negative); Leukocyte Esterase Ur Negative LEU/UL (Negative); Nitrate Urine Negative (Negative); Protein Urine Negative (Negative); Specific Grav Ur 1.013 (1.001-1.035); pH Urine 7.5 (5.0-9.0)
[2023-12-17 20:40] LABS: Add Urine Microscopic? NO
--- NOTE | 2023-12-17 21:13 | ED.MALEGU ---
HPI - Male Genitourinary General Chief complaint: Urogenital-Male Stated complaint: urinary frequency Time Seen by Provider: 12/17/23 20:32 History of Present Illness HPI Narrative: 63-year-old male with a history of hypothyroidism, Crohn's, autism spectrum disorder presents to emergency department from local residential with staff at bedside for urinary frequency since this evening. History assisted by home staff. States around 5:30 p.m. this evening patient started wetting his depends and going to the bathroom multiple times. States it seems like he has been emptying his bladder each time. States this is abnormal for the patient. Patient denies dysuria or hematuria, abdominal pain, nausea vomiting, fever, flank pain. States this never happened before. No history of diabetes, he is not on a diuretic. Related Data Home Medications Medication Instructions Recorded Confirmed fenofibrate 160 mg tablet 160 mg PO DAILY 10/15/20 09/24/23 folic acid 1 mg tablet 1 mg PO DAILY 10/15/20 09/24/23 levothyroxine 100 mcg tablet 100 mcg PO DAILY 10/15/20 09/24/23 omega 0-rvi-onh-fish oil 1,200 mg 1 cap PO BID 10/15/20 09/24/23 (144 mg-216 mg) capsule (Fish Oil) omeprazole 40 mg capsule,delayed 40 mg PO Q12H 10/15/20 09/24/23 release potassium chloride 10 mEq 10 meq PO DAILY 10/15/20 09/24/23 tablet,extended release(part/cryst) propranolol 20 mg tablet 20 mg PO QID 10/15/20 09/24/23 sennosides 8.6 mg-docusate sodium 2 tab-cap PO Q12H 10/15/20 09/24/23 50 mg tablet (Senokot-S) sulfasalazine 500 mg tablet 1,000 mg PO BID 10/15/20 09/24/23 vitamin B complex 1 tablet PO DAILY 10/15/20 09/24/23 acetaminophen 325 mg tablet 650 mg PO PRN PRN Pain 11/01/20 09/24/23 (Tylenol) multivitamin,tx-minerals 1 tablet PO 1700 11/01/20 09/24/23 cetirizine 10 mg PO DAILY Allergy Symptoms 03/20/21 09/24/23 clozapine 100 mg tablet 100 mg PO BID 03/20/21 09/24/23 clozapine 100 mg tablet 200 mg PO 1700 03/20/21 09/24/23 divalproex 500 mg tablet,extended 500 mg PO BID 03/20/21 09/24/23 release 24 hr ergocalciferol (vitamin D2) 1,250 1,250 mcg PO WEEKLY 03/20/21 09/24/23 mcg (50,000 unit) capsule escitalopram oxalate 20 mg tablet 10 mg PO DAILY 03/20/21 09/24/23 Allergies Allergy/AdvReac Type Severity Reaction Status Date / Time No Known Allergies Allergy Verified 12/17/23 21:55 Review of Systems Review of Systems: CONSTITUTIONAL: Denies fever, chills, or sweats. EYES: Denies visual changes, redness, or discharge. ENT: Denies rhinorrhea, congestion, sore throat, or otalgia. CARDIOVASCULAR: Denies chest pain, palpitations, or edema. RESPIRATORY: Denies cough or dyspnea. GASTROINTESTINAL: Denies abdominal pain, nausea, vomiting, or diarrhea. GENITOURINARY: See HPI SKIN: Denies rash or itching. MUSCULOSKELETAL: Denies back pain, joint pain, or myalgia. NEUROLOGIC: Denies headache, numbness, or weakness. PSYCHIATRIC: Denies anxiety or depression. [facility] Past Medical History Medical History Autism spectrum disorder Chronic anemia (Unknown) Chronic megaloblastic anemia with high folate and B12 levels in 2018 Complete small bowel obstruction GERD (gastroesophageal reflux disease) Gout Hypercholesterolemia (Unknown) Ileus Intellectual disability Macrocytic anemia Nausea and vomiting in adult Peptic ulcer Schizophrenia Sepsis Tachycardia Thrombocytopenia Weakness Surgical History Surgical History History of appendectomy (~12/07/03) November 2003 - Incidental appendectomy during exploratory laparotomy History of exploratory laparotomy (~12/07/03) 11/30/2003 - 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 12/08/2003 - Taken back to surgery for a small bowel obstruction and had an adhesiol
[2023-12-17 21:46] VITALS: BP 134/68; PULSE 79; RESP 18; O2SAT 100
[2023-12-17 22:07] LABS: Basophils Percent Auto 0.3 % (0.2-1.2); Eosinophils Percent Auto 0.1 % (0-4.4); Hemoglobin 11.6 g/dL (14.0-18.0); Immature Granulocyte Absolute 0.06 K/mm3 (0.00-0.031); Immature Granulocyte Percent A 0.8 % (0-0.5); Lymphocytes Absolute Auto 1.37 K/mm3 (0.9-3.2); Mean Corpuscular HGB Conc 32.2 g/dl (32-36); Mean Corpuscular Hemoglobin 32.7 pg (26-34); Mean Corpuscular Volume 101.4 fl (80-100); Mean Platelet Volume 10.1 fl (7.4-10.4); Monocytes Absolute Auto 0.8 K/mm3 (0.1-0.6); Monocytes Percent Auto 10.4 % (2.6-8.5); Neutrophils Percent Auto 69.4 % (45.5-73.1); Platelet Count Result 162 k/mm3 (150-375); Red Blood Count 3.55 M/mm3 (4.6-6.20); Red Cell Distribution Width 13.3 % (11.5-14.5); White Blood Count 7.2 K/mm3 (4.5-10.0)
[2023-12-17 22:23] LABS: Anion Gap 3 mmol/L (4-12); Blood Urea Nitrogen 14 mg/dL (9-20); Carbon Dioxide 29 mmol/L (22-30); Chloride 108 mmol/L (98-107); Estimated CRCL calculation 105 ml/min; Estimated Glomerular Filt Rate > 60; Glucose 98 mg/dL (65-110); Sodium 140 mmol/L (137-145)
[2023-12-17 22:37] LABS: Hemoglobin A1C < 4.0 % (<5.7)
[2023-12-17 23:15] VITALS: BP 137/72; PULSE 81; RESP 16; TEMP 36.6; O2SAT 99
== END 2023-12-17 23:17 | disposition home or self-care (01) ==
PROVIDERS: Emergency Medicine; Emergency Provider Physician Assistant; PCP Family Medicine
DX: R35.0 Frequency of micturition (principal); E03.9 Hypothyroidism, unspecified; E78.00 Pure hypercholesterolemia, unspecified; D64.9 Anemia, unspecified; K21.9 Gastro-esophageal reflux disease without esophagitis; K50.90 Crohn's disease, unspecified, without complications; M10.9 Gout, unspecified; F84.0 Autistic disorder; F79 Unspecified intellectual disabilities; F20.9 Schizophrenia, unspecified; Z87.11 Personal history of peptic ulcer disease; Z79.899 Other long term (current) drug therapy
CPT/HCPCS: 36415; 80048; 81003; 83036; 85025; 99283

== ENCOUNTER 2024-01-12 13:18 | Inpatient (IN) | payer MEDICARE, MEDICAID, SELFPAY ==
[2024-01-12] VITALS (8 sets, daily range): BP systolic 119–147; BP diastolic 61–94; PULSE 110–123; RESP 14–20; TEMP 36.2–36.7; O2SAT 97–100; BMI 22.7
--- NOTE | ~2024-01-12 | XR_ITS ---
XR abdomen gastric tube insert Ordering provider: Emelina Whitney MD History: . NG PLACEMENT . Comparison: None. FINDINGS/IMPRESSION: Nasogastric tube with the tip in the body of the stomach. The sidehole is at the gastroesophageal renetta ction. BOWEL: Nonobstructive bowel gas pattern. ORGANOMEGALY: None. SIGNIFICANT PATHOLOGIC CALCIFICATIONS: None. OTHER: No free air is seen under the diaphragm. Contrast is seen in both kidneys. Reviewed, dictated and finalized at location A.
--- NOTE | ~2024-01-12 | CT_ITS ---
CT abdomen pelvis w con Ordering provider: Emelina Whitney MD History: 63 years Male with . bowel obstruction . Comparison: September 23, 2023 Technique: CT abdomen and pelvis with IV and without oral contrast. Automat ed exposure control and iterative reconstruction technique were employed. The dose-length product was 381.20 mGy-cm. 100 mL Omnipaque 350 was given IV. Findings: VISUALIZED LOWER CHEST: Dependent atelectatic changes. Nodule in the lingula is seen measuring 9 x 12 mm. UPPER ABDOMINAL ORGANS: Liver: Hypodense area seen in segment #7 most likely a cyst. Normal. Gallbladder: Normal. Spleen: Normal. Stomach/duodenum: Normal distal dilated esophagus. Reflux is possible. Grossly distended stomach with fluids. Slightly dilated duodenum Pancreas: Normal. Adrenals: Normal. Kidneys: Tiny cysts in both kidneys. No stones or hydronephrotic changes. PELVIC ORGANS: The bladder is normal. BOWEL AND MESENTERY: Colon: Fecal material is impacted in the rectum. Thickened wall of the sigmoid colon. No dilatation s een in the colon. Dilated small bowel is noted with transition is seen in the right lower quadrant. N o definite mass is seen. No evidence of appendicitis. Small Bowel: Normal. No obstruction. Peritoneum/mesentery: No free air or free fluid. No mesenteric lymphadenopathy. RETROPERITONEUM: Normal aorta. No retroperitoneal lymphadenopathy. MUSCULOSKELETAL: Superficial soft tissues: The superficial soft tissues are normal. Bones: Degenerative disc L5-S1 otherwise, Normal spine. IMPRESSION: 1. Small bowel obstruction with transition zone in the right lower quadrant. Follow-up advised 2. . Nodule in the lingula is seen measuring 9 x [address] follow-up advised. Reviewed, dictated and finalized at location A. IMPRESSION: 1. Small bowel obstruction with transition zone in the right lower quadrant. F ollow-up advised 2. . Nodule in the lingula is seen measuring 9 x [address] follow-up advised.
--- NOTE | ~2024-01-12 | XR_ITS ---
Supine and upright views of the abdomen Clinical history: Small bowel obstruction COMPARISON: 09/23/2023 Findings: NG tube in place, side port just at the GE junction region.. Probable left upper quadrant d istended small bowel loops. No free air identified. No abnormal mass lesion or calcification is seen. Osseous structures are intact. Impression: NG tube side-port is just at the GE junction region. Further advancement into the stomach advised. Probable distended left upper quadrant small bowel loops, which could reflect small bowel obstruction Reviewed, dictated and finalized at location M. Impression: NG tube side-port is just at the GE junction region. Further advancement into t he stomach advised. Probable distended left upper quadrant small bowel loops, which could reflect s mall bowel obstruction
--- NOTE | ~2024-01-12 | XR_ITS ---
EXAMINATION: XR sm bowel follow through DATE: 01/14/2024 11:43 INDICATION: Small bowel obstruction. TECHNIQUE: Oral contrast was administered, and a time course of radiographs of the abdomen was obtain ed. Fluoroscopy of the small bowel was noted performed. Fluoroscopy exposure time was 0 minutes. The total number of images was 5. COMPARISON: CT abdomen and pelvis 01/12/2024, small bowel series 09/25/2023 FINDINGS: The nasogastric tube tip is in the stomach. There are multiple dilated loops of proximal small bowel. The distal small bowel is decompressed. Transit time from the stomach to proximal colon was approxim ately 2 hours. IMPRESSION: 1. Chronically dilated proximal small bowel with normal transit time to the colon, consistent with ad ynamic ileus versus partial small bowel obstruction. Reviewed, dictated and finalized at location A. IMPRESSION: 1. Chronically dilated proximal small bowel with normal transit time to the col on, consistent with adynamic ileus versus partial small bowel obstruction.
[2024-01-12 18:11] LABS: Basophils Percent Auto 0.2 % (0.2-1.2); Hematocrit 44.9 % (42.0-52.0); Hemoglobin 14.6 g/dL (14.0-18.0); Immature Granulocyte Absolute 0.13 K/mm3 (0.00-0.031); Immature Granulocyte Percent A 0.8 % (0-0.5); Lymphocytes Percent Auto 4.3 % (18.3-44.2); Mean Corpuscular HGB Conc 32.5 g/dl (32-36); Mean Corpuscular Hemoglobin 32.7 pg (26-34); Mean Corpuscular Volume 100.4 fl (80-100); Mean Platelet Volume 10.5 fl (7.4-10.4); Monocytes Absolute Auto 0.5 K/mm3 (0.1-0.6); Monocytes Percent Auto 3.2 % (2.6-8.5); Neutrophils Absolute Auto 14.9 K/mm3 (1.3-6.7); Neutrophils Percent Auto 91.5 % (45.5-73.1); Platelet Count Result 248 k/mm3 (150-375); Red Blood Count 4.47 M/mm3 (4.6-6.20); Red Cell Distribution Width 13.5 % (11.5-14.5); White Blood Count 16.2 K/mm3 (4.5-10.0)
[2024-01-12 18:19] LABS: Alanine Aminotransferase 23 U/L (6-50); Albumin Level 5.1 g/dL (3.5-5.1); Alkaline Phosphatase 147 U/L (38-126); Anion Gap 12 mmol/L (4-12); Aspartate Amino Transferase 37 U/L (17-59); Bilirubin,Total 1.1 mg/dL (0.2-1.3); Blood Urea Nitrogen 17 mg/dL (9-20); Calcium 10.5 mg/dL (8.4-10.2); Carbon Dioxide 30 mmol/L (22-30); Chloride 101 mmol/L (98-107); Estimated CRCL calculation 69 ml/min; Estimated Glomerular Filt Rate > 60; Glucose 159 mg/dL (65-110); Lipase 693 U/L (23-300); Sodium 143 mmol/L (137-145)
[2024-01-12] MEDS: SODIUM CHLORIDE 0.9% IV 1,000 ML 999 ML IV CONT (18:37)
[2024-01-12] MEDS: PANTOPRAZOLE SODIUM IV 40 MG VIAL IV PUSH (18:37)
[2024-01-12] MEDS: ONDANSETRON INJ 4 MG/2 ML VIAL IV PUSH ×2 (18:37→20:13)
--- NOTE | 2024-01-12 18:41 | ED.ABDPAIN ---
HPI - Abdominal Pain General Chief Complaint: Abdominal Pain Stated Complaint: abd pain, vomiting Time Seen by Provider: 01/12/24 17:54 Source: patient, RN notes reviewed, old records reviewed and other (caregiver) History of Present Illness HPI narrative: This is a 63 year old male with mental impairment who presents for evaluation of abdominal pain with nausea and vomiting. His caregiven from his facility reports that patient has history of constipation episodes in which he with has fecal emesis. She states she received a call that patient was having fecal emesis again. Patient unable to given reliable history. He denies abdominal pain, penile pain, nausea or vomiting. Related Data Home Medications Medication Instructions Recorded Confirmed fenofibrate 160 mg tablet 160 mg PO DAILY 10/15/20 09/24/23 folic acid 1 mg tablet 1 mg PO DAILY 10/15/20 09/24/23 levothyroxine 100 mcg tablet 100 mcg PO DAILY 10/15/20 09/24/23 omega 5-mny-woq-fish oil 1,200 mg 1 cap PO BID 10/15/20 09/24/23 (144 mg-216 mg) capsule (Fish Oil) omeprazole 40 mg capsule,delayed 40 mg PO Q12H 10/15/20 09/24/23 release potassium chloride 10 mEq 10 meq PO DAILY 10/15/20 09/24/23 tablet,extended release(part/cryst) propranolol 20 mg tablet 20 mg PO QID 10/15/20 09/24/23 sennosides 8.6 mg-docusate sodium 2 tab-cap PO Q12H 10/15/20 09/24/23 50 mg tablet (Senokot-S) sulfasalazine 500 mg tablet 1,000 mg PO BID 10/15/20 09/24/23 vitamin B complex 1 tablet PO DAILY 10/15/20 09/24/23 acetaminophen 325 mg tablet 650 mg PO PRN PRN Pain 11/01/20 09/24/23 (Tylenol) multivitamin,tx-minerals 1 tablet PO 1700 11/01/20 09/24/23 cetirizine 10 mg PO DAILY Allergy Symptoms 03/20/21 09/24/23 clozapine 100 mg tablet 100 mg PO BID 03/20/21 09/24/23 clozapine 100 mg tablet 200 mg PO 1700 03/20/21 09/24/23 divalproex 500 mg tablet,extended 500 mg PO BID 03/20/21 09/24/23 release 24 hr ergocalciferol (vitamin D2) 1,250 1,250 mcg PO WEEKLY 03/20/21 09/24/23 mcg (50,000 unit) capsule escitalopram oxalate 20 mg tablet 10 mg PO DAILY 03/20/21 09/24/23 Allergies Allergy/AdvReac Type Severity Reaction Status Date / Time No Known Allergies Allergy Verified 01/12/24 17:58 Review of Systems Review of Systems: ROS unobtainable: Yes unobtainable due to medical condition PMFSH Past Medical History Medical History Autism spectrum disorder Chronic anemia (Unknown) Chronic megaloblastic anemia with high folate and B12 levels in 2018 Complete small bowel obstruction GERD (gastroesophageal reflux disease) Gout Hypercholesterolemia (Unknown) Ileus Intellectual disability Macrocytic anemia Nausea and vomiting in adult Peptic ulcer Schizophrenia Sepsis Tachycardia Thrombocytopenia Weakness Surgical History Surgical History History of appendectomy (~12/07/03) November 2003 - Incidental appendectomy during exploratory laparotomy History of exploratory laparotomy (~12/07/03) 11/30/2003 - 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 12/08/2003 - Taken back to surgery for a small bowel obstruction and had an adhesiolysis. Family History Family History Other Unknown family medical history Social History Social History Social History: He lives in a intermediate in [place]. Lifelong nonsmoker. No alcohol or drug use. Primary care physician: Dr. Isael Lanier Code status: Full code Healthcare power of cloth covered helmet puller: Jose Manuel Sotomayor (father). Caregiver states that Ann Martel should be called for any consent at [phone]. Smoking status: Never smoker Alcohol intake: never Substance use: never Substa
--- NOTE | 2024-01-12 20:26 | PM.IMHP ---
H&P: HPI History of Present Illness Date/Time: 01/12/24 20:26 Chief Complaint: nausea /vomiting Narrative: this is a 63-year-old male with past medical history significant for recurrent small-bowel obstruction, gastroesophageal reflux disease, intellectual disability, macrocytic anemia, peptic ulcer, schizophrenia, thrombocytopenia. Patient resides at a longterm he was brought to the ED for evaluation due to nausea and vomiting. History taking is limited due to patient's intellectual disability. Preliminary workup was significant for CT of abdomen and pelvis with small bowel obstruction. NG has been placed hoped up to low intermittent suction. Patient has been admitted for further evaluation management and treatment. CT abdomen pelvis w con Ordering provider: Emelina Whitney MD History: 63 years Male with . bowel obstruction . Comparison: September 23, 2023 Technique: CT abdomen and pelvis with IV and without oral contrast. Automated exposure control and iterative reconstruction technique were employed. The dose-length product was 381.20 mGy-cm. 100 mL Omnipaque 350 was given IV. Findings: VISUALIZED LOWER CHEST: Dependent atelectatic changes. Nodule in the lingula is seen measuring 9 x 12 mm. UPPER ABDOMINAL ORGANS: Liver: Hypodense area seen in segment #7 most likely a cyst. Normal. Gallbladder: Normal. Spleen: Normal. Stomach/duodenum: Normal distal dilated esophagus. Reflux is possible. Grossly distended stomach with fluids. Slightly dilated duodenum Pancreas: Normal. Adrenals: Normal. Kidneys: Tiny cysts in both kidneys. No stones or hydronephrotic changes. PELVIC ORGANS: The bladder is normal. BOWEL AND MESENTERY: Colon: Fecal material is impacted in the rectum. Thickened wall of the sigmoid colon. No dilatation seen in the colon. Dilated small bowel is noted with transition is seen in the right lower quadrant. No definite mass is seen. No evidence of appendicitis. Small Bowel: Normal. No obstruction. Peritoneum/mesentery: No free air or free fluid. No mesenteric lymphadenopathy. RETROPERITONEUM: Normal aorta. No retroperitoneal lymphadenopathy. MUSCULOSKELETAL: Superficial soft tissues: The superficial soft tissues are normal. Bones: Degenerative disc L5-S1 otherwise, Normal spine. IMPRESSION: 1. Small bowel obstruction with transition zone in the right lower quadrant. Follow-up advised 2. . Nodule in the lingula is seen measuring 9 x [address] follow-up advised. Review of Systems Review of Systems: ROS unobtainable: Yes other ( Intellectual disability) [facility] Past Medical History Medical History Autism spectrum disorder Chronic anemia (Unknown) Chronic megaloblastic anemia with high folate and B12 levels in 2018 Complete small bowel obstruction GERD (gastroesophageal reflux disease) Gout Hypercholesterolemia (Unknown) Ileus Intellectual disability Macrocytic anemia Nausea and vomiting in adult Peptic ulcer Schizophrenia Sepsis Tachycardia Thrombocytopenia Weakness Surgical History Surgical History History of appendectomy (~12/07/03) November 2003 - Incidental appendectomy during exploratory laparotomy History of exploratory laparotomy (~12/07/03) 11/30/2003 - 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 12/08/2003 - Taken back to surgery for a small bowel obstruction and had an adhesiolysis. Family History Family History Other Unknown family medical history Social History Social History Social History: He lives in a longterm in [place]. Lifelong nonsmoker. No alcohol or drug use. Primary care ph
--- NOTE | 2024-01-12 21:20 | PC.NURSE ---
This RN emptied 1000mL of gastric content from suction canister @2109
--- NOTE | 2024-01-12 21:28 | ADMGEN ---
This patient, Ricardo Sotomayor, was admitted to 2 Medical Room 260-. Patient/family oriented to hospital policies and general routines including ID bracelet, bed and alarms, visiting hours, pain management, procedures, bathroom and other care routines, personal items, smoking policy, room service/diet, and visiting hours. Information on how to activate the Rapid Response Team has been discussed. Patient/Family are encouraged to report perceived risks to care and to ask questions if they do not understand what they are told or what they should do.
[2024-01-12] MEDS: SODIUM CHLORIDE 0.9% IV 1,000 ML 125 ML IV CONT (23:00)
[2024-01-13 03:03] VITALS: BP 132/67; PULSE 119; RESP 18; TEMP 36.7; O2SAT 96
[2024-01-13 04:53] LABS: Basophils Percent Auto 0.2 % (0.2-1.2); Hematocrit 40.1 % (42.0-52.0); Hemoglobin 13.4 g/dL (14.0-18.0); Immature Granulocyte Absolute 0.08 K/mm3 (0.00-0.031); Immature Granulocyte Percent A 0.6 % (0-0.5); Lymphocytes Absolute Auto 0.76 K/mm3 (0.9-3.2); Lymphocytes Percent Auto 5.7 % (18.3-44.2); Mean Corpuscular HGB Conc 33.4 g/dl (32-36); Mean Corpuscular Volume 101.8 fl (80-100); Mean Platelet Volume 10.9 fl (7.4-10.4); Monocytes Absolute Auto 0.9 K/mm3 (0.1-0.6); Monocytes Percent Auto 6.8 % (2.6-8.5); Neutrophils Absolute Auto 11.5 K/mm3 (1.3-6.7); Neutrophils Percent Auto 86.7 % (45.5-73.1); Platelet Count Result 202 k/mm3 (150-375); Red Blood Count 3.94 M/mm3 (4.6-6.20); Red Cell Distribution Width 13.6 % (11.5-14.5); White Blood Count 13.3 K/mm3 (4.5-10.0)
[2024-01-13 04:57] LABS: Appearance Urine Clear (Clear); Bacteria Urine None Seen /hpf; Bilirubin Urine 2+ (Negative); Blood Urine Negative (Negative); Color Urine Dark Yellow (Yellow); Glucose Urine UA Negative (Negative); Ketones Urine Trace mg/dL (Negative); Leukocyte Esterase Ur Trace LEU/UL (Negative); Nitrate Urine Negative (Negative); Non Pathogenic Casts 0-2; Protein Urine 1+ mg/dL (Negative); RBC Urine 0-2 /hpf (0-2); Squamous Epithelial Cell Urine None Seen /hpf (Few); WBC Urine 0-5 /hpf (0-3); pH Urine 7.5 (5.0-9.0)
[2024-01-13 05:02] LABS: Specific Grav Ur 1.057 (1.001-1.035)
[2024-01-13 05:06] LABS: Add Urine Microscopic? YES
[2024-01-13 05:09] LABS: Alanine Aminotransferase 17 U/L (6-50); Albumin Level 4.1 g/dL (3.5-5.1); Alkaline Phosphatase 106 U/L (38-126); Anion Gap 11 mmol/L (4-12); Aspartate Amino Transferase 31 U/L (17-59); Bilirubin,Total 0.8 mg/dL (0.2-1.3); Blood Urea Nitrogen 16 mg/dL (9-20); Calcium 9.2 mg/dL (8.4-10.2); Carbon Dioxide 26 mmol/L (22-30); Chloride 108 mmol/L (98-107); Estimated CRCL calculation 91 ml/min; Estimated Glomerular Filt Rate > 60; Glucose 124 mg/dL (65-110); Potassium 3.5 mmol/L (3.4-5.0); Sodium 145 mmol/L (137-145)
[2024-01-13] MEDS: SODIUM CHLORIDE 0.9% IV 1,000 ML 125 ML IV CONT ×2 (08:28→17:17)
--- NOTE | 2024-01-13 08:32 | PM.IMPN ---
Progress Note: A&P Assessment and Plan (1) Chronic anemia: Onset Date: Unknown Code(s): D64.9 - Anemia, unspecified Status: Acute (2) Autism spectrum disorder: Code(s): F84.0 - Autistic disorder Status: Chronic (3) Small bowel obstruction: Onset Date: Unknown Code(s): K56.609 - Unspecified intestinal obstruction, unspecified as to partial versus complete obstruction Status: Acute (4) Hypothyroidism: Onset Date: Unknown Qualifiers: Hypothyroidism type: acquired Qualified Code(s): E03.9 - Hypothyroidism, unspecified Code(s): E03.9 - Hypothyroidism, unspecified Status: Acute (5) Nausea and vomiting: Qualifiers: Vomiting type: unspecified Qualified Code(s): R11.2 - Nausea with vomiting, unspecified Code(s): R11.2 - Nausea with vomiting, unspecified Status: Acute Plan Small Bowel Obstruction CT Small bowel obstruction with transition zone in the right lower quadrant. Hx of recurrent SBO and cecal perforation IV fluids consult to surgery antiemetics NG tube intermittent suction NPO PPI BID Serial KUB N/V secondary to SBO IV fluids antiemetics NG tube Lipase >600 Tachycardia Secondary to SBO Autism/intellectual disability clozapine/divalproex on hold Started on valproate IV for now until tolerating oral and can transition back to oral medication Chronic Macrocytic anemia Stable monitor H&H GERD IV PPI BID until oral intake Code status: Full code per patient DVT prophylaxis: SCD's Stress ulcer prophylaxis: Protonix 40 BID PT/OT notes: NA Disposition: Patient admitted with SBO will continue with conservative treatment and serial KUB with surgery consulted. Patient from a penitentiary and caregiver. Plan will be to return when medical stable. Time Spent With Patient Time with patient: 15 - 25 minutes Subjective Date/time seen: 01/13/24 08:32 Interval history: Admission: Medical record this is a 63-year-old male with past medical history significant for recurrent small-bowel obstruction, gastroesophageal reflux disease, intellectual disability, macrocytic anemia, peptic ulcer, schizophrenia, thrombocytopenia. Patient resides at a penitentiary he was brought to the ED for evaluation due to nausea and vomiting. History taking is limited due to patient's intellectual disability. Preliminary workup was significant for CT of abdomen and pelvis with small bowel obstruction. NG has been placed hoped up to low intermittent suction. Patient has been admitted for further evaluation management and treatment. 01/12: Assumed care Patient appears comfortable with moderate output from NG tube. Patient states he does not have ABD pain, denied gas or BM however patient has a HX of intellectual disability unsure if he understands the questions I am asking. Will continue wit NG tube, IV fluids, and conservative treatment has had mutliple admissions due to SBO that resolve with conservative treatment. Surgery is following likely need serial KUB's for resolution. Review of Systems Review of Systems: All systems reviewed & are unremarkable except as noted in HPI and below Exam Narrative: Physical Exam: GENERAL: Alert and oriented to self intellectual disability. No acute distress. EYES: EOMI. No scleral icterus. PERRLA. HEENT: Moist mucous membranes. LUNGS: Clear to auscultation bilaterally. No accessory muscle use. CARDIOVASCULAR: Tachycardia. No murmur. No JVD. S1-S2 ABDOMEN: Soft, no tenderness and non-distended. No palpable masses. NG tube with moderate output EXTREMITIES: No edema. Non-tender SKIN: No rashes or lesions. Skin warm, dry. NEUROLOGIC: No focal neurological deficits. CN II-XII grossly intact PSYCHIATRIC: Appropriate mood and affect. Good judgement and insight. No visual or auditory hallucinations. No suicidal or homicidal i
[2024-01-13] MEDS: PANTOPRAZOLE SODIUM IV 40 MG VIAL IV PUSH ×2 (09:33→20:17)
[2024-01-13] MEDS: HYDROCORTISONE 1% 30 GM CREAM 1 APPLIC TOPICAL (09:34)
--- NOTE | 2024-01-13 11:56 | PM.CNGS ---
Assessment and Plan Assessment and plan (1) Small bowel obstruction: Onset Date: Unknown Code(s): K56.609 - Unspecified intestinal obstruction, unspecified as to partial versus complete obstruction Status: Acute Assessment and Plan: The patient returns with recurrent small bowel obstruction likely secondary to intraabdominal adhesions from previous abdominal surgery. He has had multiple previous small bowel obstructions managed conservatively following his initial abdominal surgeries in 2003. WBC count 16,000 on admission and down to 13,000 today. He does not have any peritoneal signs on exam or indication for urgent surgical intervention. We would recommend to continue with conservative management for now with NG tube decompression, bowel rest, and IV fluids. Will continue to monitor with serial abdominal exams. (2) Fecal impaction: Code(s): K56.41 - Fecal impaction Status: Acute Assessment and Plan: He also deals with chronic constipation and has had recurrent fecal impactions. CT on this admission showed a large amount of stool in the rectum. Will give a fleets enema now. (3) Autism spectrum disorder: Code(s): F84.0 - Autistic disorder Status: Chronic (4) Schizophrenia: Code(s): F20.9 - Schizophrenia, unspecified Status: Acute Plan I have discussed the patient's case and plan of care with Dr. Leyva. Thank you for allowing us to see the patient in consultation and we will continue to follow along with you. History of Present Illness Consult details Consult date: 01/13/24 Reason for consult: other (Small bowel obstruction) Requesting physician: Emelina Whitney MD Narrative: Patient is a 62-year-old man with history of mental illness and autism.? 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 He underwent laparotomy but the appendix was normal.? Incidental appendectomy was performed.? He then was discharged but came back with a small-bowel obstruction which required adhesiolysis about 8 days following his initial surgery.? He has been admitted to other hospitals such as [facility], but has had several admissions for small-bowel obstruction, as well as fecal impaction.? He was most recently admitted in September of 2023 for small bowel obstruction and findings on CT of cecal microperforation. He was treated with antibiotics, observation, and NG tube decompression. He was successfully treated conservatively and eventually discharged on oral antibiotics. He presented to the ER last night with his caregiver for evaluation of abdominal pain, nausea, and vomiting. Patient is a poor historian given his cognitive impairment. He denies any abdominal pain at this time. NG placed and has had almost 1 liter out from the NG. He denies flatus or BM since admission. No other complaints at this time. Review of Systems Review of Systems: ROS unobtainable: Yes unobtainable due to mental status PMFSH Past Medical History Medical History Autism spectrum disorder Chronic anemia (Unknown) Chronic megaloblastic anemia with high folate and B12 levels in 2018 Complete small bowel obstruction GERD (gastroesophageal reflux disease) Gout Hypercholesterolemia (Unknown) Ileus Intellectual disability Macrocytic anemia Nausea and vomiting in adult Peptic ulcer Schizophrenia Sepsis Tachycardia Thrombocytopenia Weakness Surgical History Surgical History History of appendectomy (~12/07/03) November 2003 - Incidental appendectomy during exploratory laparotomy History of exploratory laparotomy (~12/07/03) 11/30/2003 - 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 12/08/2003 - Taken
[2024-01-13] MEDS: VALPROATE SODIUM INJ 250 MG in DEXTROSE 5% IN WATER 50 ML 52.5 MG IVPB ×3 (12:21→23:10)
[2024-01-13 15:17] VITALS: BP 130/60; PULSE 113; RESP 18; TEMP 36.7; O2SAT 98
--- NOTE | 2024-01-13 18:34 | PC.NURSE ---
Pt caregiver would like to know what(if any) diet changes they can make to help with patients recurring sbo. Hospitalist will speak with surgery and we can get some information together. For now, smaller, more frequent meals would be helpful.
[2024-01-13 19:21] VITALS: BP 129/78; PULSE 91; RESP 18; TEMP 36.4; O2SAT 95
[2024-01-14] MEDS: SODIUM CHLORIDE 0.9% IV 1,000 ML 125 ML IV CONT (04:15)
[2024-01-14 04:45] LABS: Hematocrit 36.2 % (42.0-52.0); Mean Corpuscular HGB Conc 33.1 g/dl (32-36); Mean Corpuscular Hemoglobin 34.6 pg (26-34); Mean Corpuscular Volume 104.3 fl (80-100); Mean Platelet Volume 10.5 fl (7.4-10.4); Platelet Count Result 155 k/mm3 (150-375); Red Blood Count 3.47 M/mm3 (4.6-6.20); Red Cell Distribution Width 13.6 % (11.5-14.5); White Blood Count 8.8 K/mm3 (4.5-10.0)
[2024-01-14 04:52] LABS: Alanine Aminotransferase 15 U/L (6-50); Albumin Level 3.3 g/dL (3.5-5.1); Alkaline Phosphatase 82 U/L (38-126); Anion Gap 8 mmol/L (4-12); Aspartate Amino Transferase 34 U/L (17-59); Bilirubin,Total 0.8 mg/dL (0.2-1.3); Blood Urea Nitrogen 18 mg/dL (9-20); Calcium 8.1 mg/dL (8.4-10.2); Carbon Dioxide 21 mmol/L (22-30); Chloride 114 mmol/L (98-107); Estimated CRCL calculation 118 ml/min; Estimated Glomerular Filt Rate > 60; Glucose 95 mg/dL (65-110); Magnesium 1.9 mg/dL (1.6-2.3); Potassium 3.4 mmol/L (3.4-5.0); Sodium 143 mmol/L (137-145)
[2024-01-14 04:54] VITALS: BP 136/77; PULSE 100; RESP 18; TEMP 36.2; O2SAT 98
[2024-01-14] MEDS: VALPROATE SODIUM INJ 250 MG in DEXTROSE 5% IN WATER 50 ML 52.5 MG IVPB ×4 (04:58→23:30)
--- NOTE | 2024-01-14 07:44 | PM.IMPN ---
Progress Note: A&P Assessment and Plan (1) Chronic anemia: Onset Date: Unknown Code(s): D64.9 - Anemia, unspecified Status: Acute (2) Autism spectrum disorder: Code(s): F84.0 - Autistic disorder Status: Chronic (3) Small bowel obstruction: Onset Date: Unknown Code(s): K56.609 - Unspecified intestinal obstruction, unspecified as to partial versus complete obstruction Status: Acute (4) Hypothyroidism: Onset Date: Unknown Qualifiers: Hypothyroidism type: acquired Qualified Code(s): E03.9 - Hypothyroidism, unspecified Code(s): E03.9 - Hypothyroidism, unspecified Status: Acute (5) Nausea and vomiting: Qualifiers: Vomiting type: unspecified Qualified Code(s): R11.2 - Nausea with vomiting, unspecified Code(s): R11.2 - Nausea with vomiting, unspecified Status: Acute Plan Small Bowel Obstruction CT Small bowel obstruction with transition zone in the right lower quadrant. Hx of recurrent SBO and cecal perforation IV fluids consult to surgery antiemetics NG tube intermittent suction NPO PPI BID Serial KUB 01/13 Small bowel series shows normal transit time Remove NG tube advance to clear liquid N/V-Resolving secondary to SBO IV fluids antiemetics NG tube Lipase >600 Tachycardia Secondary to SBO Autism/intellectual disability clozapine/divalproex on hold Started on valproate IV for now until tolerating oral and can transition back to oral medication Chronic Macrocytic anemia Stable monitor H&H GERD IV PPI BID until oral intake Code status: Full code per patient DVT prophylaxis: SCD's Stress ulcer prophylaxis: Protonix 40 BID PT/OT notes: NA Disposition: Patient admitted with SBO will continue with conservative treatment advancing diet today and replenishing electrolytes. Patient from a intermediate and caregiver. Plan will be to return when medical stable. Time Spent With Patient Time with patient: 15 - 25 minutes Subjective Date/time seen: 01/14/24 07:44 Interval history: Admission: Medical record this is a 63-year-old male with past medical history significant for recurrent small-bowel obstruction, gastroesophageal reflux disease, intellectual disability, macrocytic anemia, peptic ulcer, schizophrenia, thrombocytopenia. Patient resides at a intermediate he was brought to the ED for evaluation due to nausea and vomiting. History taking is limited due to patient's intellectual disability. Preliminary workup was significant for CT of abdomen and pelvis with small bowel obstruction. NG has been placed hoped up to low intermittent suction. Patient has been admitted for further evaluation management and treatment. 01/12: Assumed care Patient appears comfortable with moderate output from NG tube. Patient states he does not have ABD pain, denied gas or BM however patient has a HX of intellectual disability unsure if he understands the questions I am asking. Will continue wit NG tube, IV fluids, and conservative treatment has had mutliple admissions due to SBO that resolve with conservative treatment. Surgery is following likely need serial KUB's for resolution. 01/13: Patient feeling better, repeat small bowel showing normal transit time will d/c ng and advance diet per surgery. Patient denied any ABD pain and requesting to eat. Replace electrolytes K+ 3.4 today. Review of Systems Review of Systems: All systems reviewed & are unremarkable except as noted in HPI and below ROS unobtainable: Yes other ( Intellectual disability) Exam Narrative: Physical Exam: GENERAL: Alert and oriented to self intellectual disability. No acute distress. EYES: EOMI. No scleral icterus. PERRLA. HEENT: Moist mucous membranes. LUNGS: Clear to auscultation bilaterally. No accessory muscle use. CARDIOVASCULAR: Tachycardia. No murmur. No JVD. S1-S
[2024-01-14] MEDS: PANTOPRAZOLE SODIUM IV 40 MG VIAL IV PUSH ×2 (08:11→20:23)
[2024-01-14] MEDS: HYDROCORTISONE 1% 30 GM CREAM 1 APPLIC TOPICAL (08:13)
--- NOTE | 2024-01-14 08:52 | PM.PNGS ---
Progress Note: A&P Assessment and Plan (1) Small bowel obstruction: Onset Date: Unknown Code(s): K56.609 - Unspecified intestinal obstruction, unspecified as to partial versus complete obstruction Status: Acute Assessment and Plan: Clinically improving with conservative management. WBC normal today. Continue NG tube decompression, bowel rest, and IV fluids. KUB this morning still showed some dilated loops of small bowel and NG tube needing to be advanced. Will advance the NG tube and then get a water-soluble small bowel follow-through today to further evaluate this small-bowel obstruction. If the contrast moves through to the colon without evidence of an obstruction, then we can remove the NG tube and start a liquid diet. Potassium is slightly low today at 3.4. Will replace with IV KCL. (2) Fecal impaction: Code(s): K56.41 - Fecal impaction Status: Acute Assessment and Plan: Patient had a large formed bowel movement following the enema yesterday. (3) Autism spectrum disorder: Code(s): F84.0 - Autistic disorder Status: Chronic (4) Schizophrenia: Code(s): F20.9 - Schizophrenia, unspecified Status: Acute Plan I have discussed the patient's case and plan of care with Dr. Leyva. Subjective Subjective Date/Time Seen: 01/14/24 08:52 Patient reports: no new complaints and bowel movement Interval history: Patient seen this morning. Per nursing, he had a large formed BM after receiving the fleets enema. Patient denies any abdominal pain or nausea today. NG had 700 cc out in the past 24 hours. Exam Const: General: comfortable and no acute distress GI: Auscultation: Hypoactive bowel sounds present Other: Abdomen is nondistended and soft. No tenderness. No guarding or peritoneal signs. Objective Data Vital Signs Vital Signs: Vital Signs - 24 hr 01/13/24 15:17 01/13/24 19:21 01/13/24 19:28 Temperature 98.0 F 97.6 F Pulse Rate 113 H 91 Respiratory Rate 18 18 Blood Pressure 130/60 129/78 Pulse Oximetry 98 95 Oxygen Delivery Room Air 01/14/24 04:54 Temperature 97.2 F L Pulse Rate 100 Respiratory Rate 18 Blood Pressure 136/77 Pulse Oximetry 98 Oxygen Delivery Intake/Output Intake/Output: Intake & Output 01/11/24 01/12/24 01/13/2424 23:59 23:59 23:59 23:59 Intake Total 1000 2105.0 1105.0 Output Total 100 850 700 Balance 900 1255.0 405.0 Meds/Results Medications: Active Medications Generic Name Dose Route Start Last Admin Trade Name Nancy PRN Reason Stop Dose Admin Hydrocortisone 1 applic 01/13/24 09:00 01/14/24 08:13 Hydrocortisone 1% 30 Gm Cream TOPICAL 1 applic DAILY JULIANO Administration Sodium Chloride 1,000 mls @ 125 mls/hr 01/12/24 20:30 01/14/24 04:15 Normal Saline Iv IV CONT 125 mls/hr .Q8H JULIANO Administration Valproate Sodium 250 mg/ 52.5 mls @ 52.5 mls/hr 01/13/24 12:00 01/14/24 05:58 Dextrose IVPB Infused Q6HR JULIANO Infusion Ondansetron HCl 4 mg 01/12/24 20:27 Ondansetron Inj 4 Mg/2 Ml Vial IV PUSH Q4H PRN Nausea Pantoprazole Sodium 40 mg 01/13/24 09:00 01/14/24 08:11 Pantoprazole Sodium Iv 40 Mg Vial IV PUSH 40 mg Q12HR JULIANO Administration Radiology Results: ITS Impressions Abdomen/Pelvis CT 01/12/24 19:32 IMPRESSION: 1. Small bowel obstruction with transition zone in the right lower quadrant. Follow-up advised 2. . Nodule in the lingula is seen measuring 9 x [address] follow-up advised. Abdomen X-Ray 01/14/24 05:53 Impression: NG tube side-port is just at the GE junction region. Further advancement into the stomach advised. Probable distended left upper quadrant small bowel loops, which could reflect small bowel obstruction Labs Labs: Laboratory Results - last 24 hr 01/14/24 04:07 WBC 8.8 RBC 3.47 L Hgb 12.0 L Hct 36.2 L MCV 104.3 H MCH 34.6 H MCHC 33.1 RDW
[2024-01-14] MEDS: SODIUM CHLORIDE 0.9% IV 1,000 ML 70 ML IV CONT (12:30)
[2024-01-14] MEDS: POTASSIUM CHLORIDE INJ 40 MEQ in SODIUM CHLORIDE 0.9% IV 500 ML 130 MEQ IVPB (13:24)
[2024-01-14 15:42] VITALS: BP 143/74; PULSE 104; RESP 16; TEMP 37.2; O2SAT 100
[2024-01-14 20:05] VITALS: BP 152/79; PULSE 106; RESP 18; TEMP 36.9; O2SAT 100
[2024-01-15 04:48] LABS: Hematocrit 32.8 % (42.0-52.0); Mean Corpuscular HGB Conc 33.5 g/dl (32-36); Mean Corpuscular Volume 104.5 fl (80-100); Mean Platelet Volume 10.9 fl (7.4-10.4); Platelet Count Result 124 k/mm3 (150-375); Red Blood Count 3.14 M/mm3 (4.6-6.20); Red Cell Distribution Width 13.2 % (11.5-14.5); White Blood Count 7.7 K/mm3 (4.5-10.0)
[2024-01-15] MEDS: VALPROATE SODIUM INJ 250 MG in DEXTROSE 5% IN WATER 50 ML 52.5 MG IVPB ×4 (05:00→23:45)
[2024-01-15 05:07] LABS: Alanine Aminotransferase 16 U/L (6-50); Albumin Level 3.4 g/dL (3.5-5.1); Alkaline Phosphatase 85 U/L (38-126); Anion Gap 7 mmol/L (4-12); Aspartate Amino Transferase 31 U/L (17-59); Bilirubin,Total 0.8 mg/dL (0.2-1.3); Blood Urea Nitrogen 8 mg/dL (9-20); Calcium 8.2 mg/dL (8.4-10.2); Carbon Dioxide 22 mmol/L (22-30); Chloride 109 mmol/L (98-107); Estimated CRCL calculation 139 ml/min; Estimated Glomerular Filt Rate > 60; Glucose 80 mg/dL (65-110); Magnesium 1.9 mg/dL (1.6-2.3); Potassium 3.6 mmol/L (3.4-5.0); Sodium 138 mmol/L (137-145)
[2024-01-15 06:00] VITALS: BP 156/85; PULSE 86; RESP 18; TEMP 36.4; O2SAT 99
[2024-01-15 07:47] VITALS: O2SAT 100
--- NOTE | 2024-01-15 07:54 | PM.IMPN ---
Progress Note: A&P Assessment and Plan (1) Small bowel obstruction: Onset Date: Unknown Code(s): K56.609 - Unspecified intestinal obstruction, unspecified as to partial versus complete obstruction Status: Acute Assessment and Plan: CT abdomen/pelvis 01/11 1. Small bowel obstruction with transition zone in the right lower quadrant. Follow-up advised 2. Nodule in the lingula is seen measuring 9 x [address] follow-up advised. Small bowel XR 01/13 1. Chronically dilated proximal small bowel with normal transit time to the colon, consistent with adynamic ileus versus partial small bowel obstruction. - Pantoprazole BID - Monitor I&Os, vital signs, neuro status and patient is a fall risk - Monitor serum electrolytes and CBC - NG tube removed 01/13 as small bowel series showed normal transit. Diet advanced to clear liquid - Gentle IV fluid resuscitation - General surgery following, continue conservative treatment (2) Chronic anemia: Onset Date: Unknown Code(s): D64.9 - Anemia, unspecified Status: Acute Assessment and Plan: Chronic, stable. - Continue to monitor with daily labs (3) Autism spectrum disorder: Code(s): F84.0 - Autistic disorder Status: Chronic Assessment and Plan: holding clozapine/divalproex - Started on valproate IV for now until tolerating oral and can transition back to oral medication (4) Hypothyroidism: Onset Date: Unknown Qualifiers: Hypothyroidism type: acquired Qualified Code(s): E03.9 - Hypothyroidism, unspecified Code(s): E03.9 - Hypothyroidism, unspecified Status: Acute Assessment and Plan: Chronic, continue home medication. - Levothyroxine 100 mcg daily Time Spent With Patient Time with patient: 25 - 35 minutes Subjective Date/time seen: 01/15/24 07:54 Interval history: 63-year-old male with past medical history significant for recurrent small-bowel obstruction, gastroesophageal reflux disease, intellectual disability, macrocytic anemia, peptic ulcer, schizophrenia, thrombocytopenia. Patient resides at a nursing home he was brought to the ED for evaluation due to nausea and vomiting. Patient is pleasant lying comfortably in bed. He had his NG tube removed yesterday was started on a liquid diet which he is tolerating well. He has not had a bowel movement and is not passing flatus. The last bowel movement he had was following an enema. He denies nausea/vomiting and abdominal pain at this time. Review of Systems Review of Systems: All systems reviewed & are unremarkable except as noted in HPI and below Exam Narrative: AF HR 86 RR 18 SpO2 99 BP 156/85 General: male in no acute respiratory distress who is nontoxic appearing, sitting up in bed. HEENT: Normocephalic. Atraumatic. No facial asymmetry. Chest: Lungs are clear to auscultation bilaterally. No wheezes or crackles. CV: Heart was regular rate and rhythm. S1/S2. No murmurs, gallops, or rubs. Abd: Abdomen was soft. Nontender. Nondistended. Positive bowel sounds. No organomegaly or masses. Ext: No clubbing, cyanosis, or edema. 2+ DP pulses bilaterally. Neuro: Patient is alert and oriented x4. Cranial nerves 2-12 are intact. Speech is clear. Psych: Normal mood and affect. Patient is pleasant and cooperative. Skin: Warm and dry. No rashes noted. Objective Data Vital Signs Vital Signs: Vital Signs - 24 hr 01/14/24 11:00 01/14/24 15:42 01/14/24 19:29 Temperature 98.9 F Pulse Rate 104 H Respiratory Rate 16 Blood Pressure 143/74 H Pulse Oximetry 100 Oxygen Delivery Room Air Room Air Fraction of Inspired Oxygen 01/14/24 20:05 01/15/24 06:00 01/15/24 07:47 Temperature 98.5 F 97.5 F L Pulse Rate 106 H 86 Respiratory Rate 18 18 Blood Pressure 152/79 H 156/85 H Pulse Oximetry 100 99 100 Oxygen Delivery Room Air Fraction of Inspired Oxygen 21 Intake/Output Intake/Output: Intake
[2024-01-15] MEDS: PANTOPRAZOLE SODIUM IV 40 MG VIAL IV PUSH ×2 (08:04→20:50)
--- NOTE | 2024-01-15 09:17 | PC.NURSE ---
[facility] phone number for pickup for discharge- [phone]
--- NOTE | 2024-01-15 10:11 | PM.PNGS ---
Progress Note: A&P Assessment and Plan (1) Small bowel obstruction: Onset Date: Unknown Code(s): K56.609 - Unspecified intestinal obstruction, unspecified as to partial versus complete obstruction Status: Acute Assessment and Plan: Small bowel follow through showed contrast moving through in 2 hours with chronic small bowel dilatation, suggesting partial SBO. He has not had a bowel movement since he had one following the fleets enema. Will get him up walking. Give another fleets enema today. Continue full liquids for now. Potassium 3.6 today, will give 40 meq oral KCL. (2) Fecal impaction: Code(s): K56.41 - Fecal impaction Status: Acute Assessment and Plan: Will give another fleets enema today. (3) Autism spectrum disorder: Code(s): F84.0 - Autistic disorder Status: Chronic (4) Schizophrenia: Code(s): F20.9 - Schizophrenia, unspecified Status: Acute Plan I have discussed the patient's case and plan of care with Dr. Leyva. Subjective Subjective Date/Time Seen: 01/15/24 10:11 Patient reports: flatus and no bowel movement Interval history: Patient seen today. He is tolerating full liquids but has not had a BM last night or this morning. His last BM was following his fleets enema. No nausea or vomiting. No abdominal pain. Exam Const: General: comfortable and no acute distress GI: Inspection: non-distended GI Palp: Yes Soft to palpation, No Tenderness to palpation present (GI), No Guarding due to palpation present (GI) and No Rebound tenderness present Auscultation: Hypoactive bowel sounds present Objective Data Vital Signs Vital Signs: Vital Signs - 24 hr 01/14/24 11:00 01/14/24 15:42 01/14/24 19:29 Temperature 98.9 F Pulse Rate 104 H Respiratory Rate 16 Blood Pressure 143/74 H Pulse Oximetry 100 Oxygen Delivery Room Air Room Air Fraction of Inspired Oxygen 01/14/24 20:05 01/15/24 06:00 01/15/24 07:47 Temperature 98.5 F 97.5 F L Pulse Rate 106 H 86 Respiratory Rate 18 18 Blood Pressure 152/79 H 156/85 H Pulse Oximetry 100 99 100 Oxygen Delivery Room Air Fraction of Inspired Oxygen 21 Intake/Output Intake/Output: Intake & Output 06/2401/13/24 01/14/24 01/15/24 23:59 23:59 23:59 23:59 Intake Total 1000 2105.0 2870.0 472.5 Output Total 183 208 9629 640 Balance 900 1255.0 1570.0 -167.5 Meds/Results Medications: Active Medications Generic Name Dose Route Start Last Admin Trade Name Freq PRN Reason Stop Dose Admin Hydrocortisone 1 applic 01/13/24 09:00 01/15/24 08:02 Hydrocortisone 1% 30 Gm Cream TOPICAL Not Given DAILY JULIANO Sodium Chloride 1,000 mls @ 70 mls/hr 01/12/24 20:30 01/14/24 12:30 Normal Saline Iv IV CONT 70 mls/hr .[id number] JULIANO Administration Valproate Sodium 250 mg/ 52.5 mls @ 52.5 mls/hr 01/13/24 12:00 01/15/24 05:00 Dextrose IVPB 52.5 mls/hr Q6HR JULIANO Administration Ondansetron HCl 4 mg 01/12/24 20:27 Ondansetron Inj 4 Mg/2 Ml Vial IV PUSH Q4H PRN Nausea Pantoprazole Sodium 40 mg 01/13/24 09:00 01/15/24 08:04 Pantoprazole Sodium Iv 40 Mg Vial IV PUSH 40 mg Q12HR JULIANO Administration Radiology Results: ITS Impressions Abdomen/Pelvis CT 01/12/24 19:32 IMPRESSION: 1. Small bowel obstruction with transition zone in the right lower quadrant. Follow-up advised 2. . Nodule in the lingula is seen measuring 9 x [address] follow-up advised. Abdomen X-Ray 01/14/24 05:53 Impression: NG tube side-port is just at the GE junction region. Further advancement into the stomach advised. Probable distended left upper quadrant small bowel loops, which could reflect small bowel obstruction Small Bowel X-Ray 01/14/24 12:04 IMPRESSION: 1. Chronically dilated proximal small bowel with normal transit time to the colon, consistent with adynamic ileus versus partial small bowel obstruction.
[2024-01-15] MEDS: POTASSIUM CHLORIDE 20 MEQ PACKET (FOR LIQUID) 40 MEQ PO (14:37)
[2024-01-15 15:07] VITALS: BP 149/76; PULSE 112; RESP 16; TEMP 36.8; O2SAT 100
[2024-01-15] MEDS: SODIUM CHLORIDE 0.9% IV 1,000 ML 70 ML IV CONT (18:22)
[2024-01-15 19:22] VITALS: BP 143/85; PULSE 98; RESP 18; TEMP 36.5; O2SAT 100
[2024-01-16] MEDS: ONDANSETRON INJ 4 MG/2 ML VIAL IV PUSH (00:53)
[2024-01-16 04:08] LABS: Hematocrit 34.3 % (42.0-52.0); Hemoglobin 11.7 g/dL (14.0-18.0); Mean Corpuscular HGB Conc 34.1 g/dl (32-36); Mean Corpuscular Hemoglobin 33.7 pg (26-34); Mean Corpuscular Volume 98.8 fl (80-100); Mean Platelet Volume 10.5 fl (7.4-10.4); Platelet Count Result 191 k/mm3 (150-375); Red Blood Count 3.47 M/mm3 (4.6-6.20); Red Cell Distribution Width 13.2 % (11.5-14.5); White Blood Count 8.5 K/mm3 (4.5-10.0)
[2024-01-16 04:22] LABS: Alanine Aminotransferase 27 U/L (6-50); Albumin Level 3.8 g/dL (3.5-5.1); Alkaline Phosphatase 102 U/L (38-126); Anion Gap 8 mmol/L (4-12); Aspartate Amino Transferase 44 U/L (17-59); Bilirubin,Total 0.8 mg/dL (0.2-1.3); Blood Urea Nitrogen 3 mg/dL (9-20); Calcium 8.9 mg/dL (8.4-10.2); Carbon Dioxide 25 mmol/L (22-30); Chloride 106 mmol/L (98-107); Estimated CRCL calculation 118 ml/min; Estimated Glomerular Filt Rate > 60; Glucose 113 mg/dL (65-110); Magnesium 1.9 mg/dL (1.6-2.3); Potassium 3.6 mmol/L (3.4-5.0); Sodium 139 mmol/L (137-145)
[2024-01-16 05:18] VITALS: BP 133/75; PULSE 110; RESP 18; TEMP 36.7; O2SAT 97
[2024-01-16] MEDS: VALPROATE SODIUM INJ 250 MG in DEXTROSE 5% IN WATER 50 ML 52.5 MG IVPB ×2 (07:00→12:11)
[2024-01-16] MEDS: PANTOPRAZOLE SODIUM IV 40 MG VIAL IV PUSH (08:41)
--- NOTE | 2024-01-16 13:56 | PM.DS ---
DS: Admitting Diagnosis Discharge Date 01/16/24 Admitting Diagnosis Small bowel obstruction Chronic anemia Autism spectrum disorder Hypothyroidism DS: Discharge Diagnosis Discharge Diagnosis (1) Small bowel obstruction: Onset Date: Unknown Code(s): K56.609 - Unspecified intestinal obstruction, unspecified as to partial versus complete obstruction Status: Acute (2) Chronic anemia: Onset Date: Unknown Code(s): D64.9 - Anemia, unspecified Status: Acute (3) Autism spectrum disorder: Code(s): F84.0 - Autistic disorder Status: Chronic (4) Hypothyroidism: Onset Date: Unknown Qualifiers: Hypothyroidism type: acquired Qualified Code(s): E03.9 - Hypothyroidism, unspecified Code(s): E03.9 - Hypothyroidism, unspecified Status: Acute DS: Summary Hospital Course Reason for hospitalization: Small bowel obstruction Chronic anemia Autism spectrum disorder Hypothyroidism Hospital Course: 63-year-old male with past medical history significant for recurrent small-bowel obstruction, gastroesophageal reflux disease, intellectual disability, macrocytic anemia, peptic ulcer, schizophrenia, thrombocytopenia. Patient resides at a half-way he was brought to the ED for evaluation due to nausea and vomiting. Leukocytosis on admission. CT abdomen/pelvis revealed a small bowel obstruction with transition zone in the right lower quadrant. Surgery was consulted and no surgical intervention was required at that time. Patient had a NG tube placed and bowel rest started. During admission NG tube was able to be removed. WBC returned to normal limits. He was slowly reintroduced to a diet and prior to discharge tolerated a regular diet well. He had return of bowel and was passing flatus. He denies abdominal pain and had no tenderness on exam prior to discharge. Patient discharged back to his half-way in a stable condition. He is to follow up with his PCP in 1-2 weeks and remain on a low fiber diet. Status at Discharge Functional status at discharge: independent ambulation Time Spent with Patient Time attestation: Total time spent providing and/or coordinating discharge services: Time spent: Greater than 30 minutes Exam Narrative: AF HR 110 RR 18 SpO2 97 BP 133/75 General: male in no acute respiratory distress who is nontoxic appearing, sitting up in bed. Chest: Lungs are clear to auscultation bilaterally. No wheezes or crackles. CV: Heart was regular rate and rhythm. S1/S2. No murmurs, gallops, or rubs. Abd: Abdomen was soft. Nontender. Nondistended. Positive bowel sounds. No organomegaly or masses. DS: Data Data Completed and Pending Completed studies during hospitalization: Small bowel XR Abdomen XR Abdomen XR Abdomen/pelvis CT Abdomen XR Labs on day of discharge: Labs from last 24 hours 01/16/24 03:45 WBC 8.5 RBC 3.47 L Hgb 11.7 L Hct 34.3 L MCV 98.8 D MCH 33.7 MCHC 34.1 RDW 13.2 Plt Count 191 D MPV 10.5 H Sodium 139 Potassium 3.6 Chloride 106 Carbon Dioxide 25 Anion Gap 8 BUN 3 L D Creatinine 0.60 L Estim Creat Clear Calc 118 Estimated GFR > 60 Glucose 113 H Calcium 8.9 Magnesium 1.9 Total Bilirubin 0.8 AST 44 ALT 27 Alkaline Phosphatase 102 Total Protein 7.0 Albumin 3.8 Discharge Plan Discharge Attending physician on discharge: Elizabeth Marks Consulting providers: Mehul Leyva Discharging Clinician: Eva Pop Anticipated Discharge Date/Time: 01/16/24 13:42 Patient Disposition: Other Activity: as tolerated Diet: as tolerated and low fiber Discharge Instructions: Patient was admitted to the hospital for a small bowel obstruction. He was evaluated by surgery and no surgical intervention was required at that time. He underwent medical management with an NG tube and bowel rest. He then had a slow return to a diet and started to have a return of bowel movements
[2024-01-16 14:00] VITALS: BP 137/67; PULSE 114; RESP 16; TEMP 37.2; O2SAT 98
== END 2024-01-16 16:00 | disposition other institution (70) | DRG 389 ==
LOC: ANHED 18:07 → ANH2MED 20:52
PROVIDERS: Emergency Medicine; Nurse Practitioner Family; Admitting Provider Internal Medicine; Emergency Provider General Practice; PCP Nurse Practitioner Family; Visit Provider General Practice
DX: K56.609 Unspecified intestinal obstruction, unspecified as to partial versus complete obstruction (principal); F84.0 Autistic disorder; K50.90 Crohn's disease, unspecified, without complications; D53.1 Other megaloblastic anemias, not elsewhere classified; E87.6 Hypokalemia; E78.00 Pure hypercholesterolemia, unspecified; K21.9 Gastro-esophageal reflux disease without esophagitis; K56.41 Fecal impaction; M10.9 Gout, unspecified; F20.9 Schizophrenia, unspecified; F79 Unspecified intellectual disabilities
CPT/HCPCS: 36415; 74018; 74177; 74250; 80053; 81001; 83690; 83735; 85025; 85027; 96361; 96374; 96375; 99285; A9270; C9113; G0378; J2405; J3480; J7030; J7040; Q9967

== ENCOUNTER 2024-01-18 15:45 | Emergency (ER) | payer MEDICARE, MEDICAID, SELFPAY ==
[2024-01-18 15:51] VITALS: BP 126/71; PULSE 88; RESP 20; TEMP 36.8; O2SAT 98
--- NOTE | 2024-01-18 16:17 | ED.GENADULT ---
HPI - General Adult General Chief complaint: Unspecified Stated complaint: ABD PAIN Time Seen by Provider: 01/18/24 16:17 Source: patient Mode of arrival: ambulatory Limitations: no limitations History of Present Illness HPI narrative: This is a 63 year old male that presents to the ER for not acting like himself. He lives in a correction as he has history of intellectual disability. They wanted him brought in for evaluation as they were concerned he was not very talkative today and did not eat much of his lunch. They were concerned as he was recently admitted for a bowel obstruction. Patient has no complaints currently. He did have a bowel movement today. Denies fever, vomiting, abdominal pain. Related Data Home Medications Medication Instructions Recorded Confirmed fenofibrate 160 mg tablet 160 mg PO DAILY 10/15/20 01/12/24 folic acid 1 mg tablet 1 mg PO DAILY 10/15/20 01/12/24 levothyroxine 100 mcg tablet 100 mcg PO DAILY 10/15/20 01/12/24 omega 3-tum-cgw-fish oil 1,200 mg 1 cap PO BID 10/15/20 01/12/24 (144 mg-216 mg) capsule (Fish Oil) omeprazole 40 mg capsule,delayed 40 mg PO Q12H 10/15/20 01/12/24 release potassium chloride 10 mEq 10 meq PO DAILY 10/15/20 01/12/24 tablet,extended release(part/cryst) propranolol 20 mg tablet 20 mg PO QID 10/15/20 01/12/24 sennosides 8.6 mg-docusate sodium 2 tab-cap PO Q12H 10/15/20 01/12/24 50 mg tablet (Senokot-S) sulfasalazine 500 mg tablet 1,000 mg PO BID 10/15/20 01/12/24 vitamin B complex 1 tablet PO DAILY 10/15/20 01/12/24 acetaminophen 325 mg tablet 650 mg PO PRN PRN Pain (Scale 11/01/20 01/12/24 (Tylenol) Score 1-3) multivitamin,tx-minerals 1 tablet PO DAILY 11/01/20 01/12/24 cetirizine 10 mg PO DAILY 03/20/21 01/12/24 clozapine 100 mg tablet 100 mg PO BID 03/20/21 01/12/24 clozapine 100 mg tablet 200 mg PO 1700 03/20/21 01/12/24 divalproex 500 mg tablet,extended 500 mg PO BID 03/20/21 01/12/24 release 24 hr ergocalciferol (vitamin D2) 1,250 1,250 mcg PO WEEKLY 03/20/21 01/12/24 mcg (50,000 unit) capsule escitalopram oxalate 20 mg tablet 10 mg PO DAILY 03/20/21 01/12/24 hydrocortisone 1 % topical cream 1 applic topical DAILY 01/12/24 01/12/24 lactulose 20 gram/30 mL oral 20 g PO DAILY 01/12/24 01/12/24 solution linaclotide 145 mcg capsule 145 mcg PO DAILY 01/12/24 01/12/24 (Linzess) Allergies Allergy/AdvReac Type Severity Reaction Status Date / Time No Known Allergies Allergy Verified 01/18/24 15:54 Review of Systems Review of Systems: CONSTITUTIONAL: Denies fever GASTROINTESTINAL: Denies abdominal pain, nausea, vomiting All systems reviewed & are unremarkable except as noted in HPI and below PMFSH Past Medical History Medical History Autism spectrum disorder Chronic anemia (Unknown) Chronic megaloblastic anemia with high folate and B12 levels in 2018 Complete small bowel obstruction GERD (gastroesophageal reflux disease) Gout Hypercholesterolemia (Unknown) Ileus Intellectual disability Macrocytic anemia Nausea and vomiting in adult Peptic ulcer Schizophrenia Sepsis Tachycardia Thrombocytopenia Weakness Surgical History Surgical History History of appendectomy (~12/07/03) November 2003 - Incidental appendectomy during exploratory laparotomy History of exploratory laparotomy (~12/07/03) 11/30/2003 - 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 12/08/2003 - Taken back to surgery for a small bowel obstruction and had an adhesiolysis. Family History Family History Other Unknown family medical history Social History Social History Social History: He lives in a correction in [facility]
[2024-01-18 17:33] VITALS: RESP 16
== END 2024-01-18 17:35 | disposition home or self-care (01) ==
PROVIDERS: Emergency Provider Physician Assistant
DX: Z04.89 Encounter for examination and observation for other specified reasons (principal); F84.0 Autistic disorder; F79 Unspecified intellectual disabilities; D53.1 Other megaloblastic anemias, not elsewhere classified; K21.9 Gastro-esophageal reflux disease without esophagitis; M10.9 Gout, unspecified; E78.00 Pure hypercholesterolemia, unspecified; Z87.11 Personal history of peptic ulcer disease; F20.9 Schizophrenia, unspecified
CPT/HCPCS: 99281